=== PATIENT | female | born 1935 | race Caucasian/White ===

== ENCOUNTER 2016-07-28 14:17 | Inpatient (IN) | payer BC, OTHER ==
[~2016-07-28] VITALS: Ht 162.6 cm; Wt 79.1 kg
[~2016-07-28 14:17] MED LIST: ALBU1AER9 INH; ALIR1INJ3 INJ; ASPI81TA21 PO; ATEN-173 PO; B-COTAB18 PO; CHOL100027 PO; EPP3/2 INJ; HYDR12.56 PO; MELA1CAP9 PO; POTA1TAB97 PO; PRAM0.75 PO; SPIR25TA PO; XRL15 PO
[2016-07-28] MEDS ORDERED: ASPIRIN 81 MG CHEW PO STA (14:47)
[2016-07-28] MEDS ORDERED: NITROGLYCERIN 0.4 MG SL PER TAB CHARGE SL PRN ×2 (15:00→17:00)
--- NOTE | 2016-07-28 15:05 | DIAGNOSTIC IMAGING REPORT ---
CHEST ONE VIEW PORTABLE CLINICAL HISTORY: Chest Pain dyspnea COMPARISON STUDY: 01/25/2016 FINDINGS: Moderate very megaly stable from the prior exam. Thoracic scoliosis. Potential early parenchymal infiltrate left base. IMPRESSION: Early parenchymal infiltrate left base. Moderate stable cardiomegaly. Electronically signed by: Isai Hardy M.D. 07/28/2016 3:04 PM Dictated Date/Time: 07/28/2016 3:03 PM
[2016-07-28 15:19] LABS: BASO ABS # 0.05 K/uL (0-0.2); COMPLETE YES; EOS % 3.7 %; HEMATOCRIT 41.8 % (37-47); IG% 0.2 %; LYMPH % 36.9 %; LYMPH ABS # 1.91 K/uL (1.2-3.4); MEAN CORPUSCULAR HEMOGLOBIN 33.4 pg (25-34); MEAN CORPUSCULAR HGB CONC 35.2 g/dl (32-36); MONO % 14.5 %; NEUT % 43.7 %; PLATELET COUNT 230 K/uL (130-400); WHITE BLOOD COUNT 5.18 K/uL (4.8-10.8)
[2016-07-28 15:38] LABS: BLOOD UREA NITROGEN 16 mg/dl (7-18); BUN/CREATININE RATIO 18.8 (10-20); CALCIUM 9.3 mg/dl (8.5-10.1); CARBON DIOXIDE 29 mmol/L (21-32); CHLORIDE 105 mmol/L (98-107); CREATININE 0.84 mg/dl (0.60-1.20); GLUCOSE 168 mg/dl (70-99); POTASSIUM 3.7 mmol/L (3.5-5.1); SODIUM 142 mmol/L (136-145)
[2016-07-28 15:42] LABS: CKMB/CK RATIO 1.7 (0-3.0)
[2016-07-28 16:05] VITALS: O2SAT 98; Ht 162.6 cm; Wt 79.1 kg
[2016-07-28] MEDS ORDERED: DEXTROSE 50% 50 ML SYR IV PRN (17:00)
[2016-07-28] MEDS ORDERED: ZOLPIDEM TARTRATE 5 MG TAB PO PRN (17:00)
[2016-07-28] MEDS ORDERED: GLUCOSE 10 TABS/TUBE PO PRN (17:00)
[2016-07-28] MEDS ORDERED: GLUCAGON FOR INJ 1 MG VIAL SQ PRN (17:00)
[2016-07-28] MEDS ORDERED: GLUCOSE 40% GEL 15 GM TUBE PO PRN (17:00)
[2016-07-28] MEDS ORDERED: ONDANSETRON INJ 2 MG/ML 2 ML VIAL IV PRN (17:00)
[2016-07-28] MEDS ORDERED: NITROGLYCERIN OINT 2% 1GM PACKET ONE (17:17)
[2016-07-28 17:56] LABS: CKMB/CK RATIO 1.8 (0-3.0)
[2016-07-28 19:15] VITALS: BP 157/84; PULSE 64; TEMP 37; O2SAT 95
--- NOTE | 2016-07-28 19:52 | EMERGENCY ROOM VISIT NOTE ---
History Report prepared by Gasper: Harpreet Ramsay Under the Supervision of: Dr. Amanuel Thornton D.O. First contact with patient: 14:27 Chief Complaint: CARDIAC ASSESSMENT Stated Complaint: CHEST PAINS, NAUSEA, SOB History of Present Illness The patient is a 81 year old female who presents to the Emergency Room with complaints of persistent chest pain beginning about 5 hours ago. She describes her pain as dull, achy, and heavy, and reports the pain radiates down her left arm and up to her jaw. She locates her pain under her sternum. The patient notes having a headache, weakness, dizziness, ear pain, and back and knee pain last night. She denies having any fever, cough, abdominal pain, nausea, or vomiting. The patient reports having a history of TIAs, atrial fibrillation, and a previous SC. She currently takes Xarelto and was previously on Coumadin. She did not take any Aspirin today. She had a stress test in March of 2016 which was normal. She does have a history of a previous SC for which she follows with cardiology. Source of History: patient Onset: about 5 hours ago Position: chest Quality: ache, dull, other (heavy) Timing: other (persistent) Associated Symptoms: + back pain, + headache, + weakness, No abdominal pain , No cough, No fevers, No nausea, No vomiting Note: The patient notes having a dizziness, ear pain, and knee pain. Review of Systems See HPI for pertinent positives & negatives. A total of 10 systems reviewed and were otherwise negative. Past Medical & Surgical Medical Problems: (1) Abnormal finding on EKG (2) Alcohol intoxication (3) Alcohol intoxication (4) Alcohol intoxication (5) Chest pain radiating to upper extremity (6) Dyspnea (7) High cholesterol (8) Hypertension Nos (9) Near syncope (10) Near syncope (11) TIA (transient ischemic attack) Surgical Problems: (1) History of hysterectomy Family History Cancer FHx: heart disease Heart disease Hypertension Stroke Social History Smoking Status: Never Smoker Alcohol Use: occasionally Drug Use: none Marital Status: Housing Status: lives with family Occupation Status: retired Current/Historical Medications Scheduled Alirocumab (Praluent), Unknown Dose INJ [id number] Aspirin Enteric Coated (Ecotrin Or Generic), 81 MG PO QPM Atenolol (Tenormin), 25 MG PO QPM B-Complex Vitamins (Vitamin B Complex), 1 TAB PO QPM Cholecalciferol (Vitamin D 1000 Unit), 1,000 INTER.UNIT PO QPM Melatonin (Melatonin), 10 MG PO HS Potassium Chloride (K-Tab), 40 MEQ PO DAILY Pramipexole Dihydrochloride (Mirapex), 0.75 MG PO QPM Rivaroxaban (Xarelto), 1 TAB PO QPM Scheduled PRN Albuterol (Proair Hfa), 2 PUFFS INH Q6 PRN for Shortness of Breath Epinephrine (Epipen 2-Flaco), 0.3 MG INJ UD PRN for ALLERGIC REACTION Hydrochlorothiazide (Hctz), 12.5 MG PO DAILY PRN for Fluid Retention Allergies Coded Allergies: Bee Venom (Verified Allergy, Severe, Anaphylaxis., 07/28/16) Cephalexin (Unverified Allergy, Intermediate, RASH, 07/28/16) Cephalosporins (Verified Allergy, Unknown, KEFLEX, 07/28/16) Penicillins (Verified Allergy, Unknown, 07/28/16) Statins (Verified Allergy, Unknown, Rash, 07/28/16) Reported by PT Sulfamethoxazole w/Trimethoprim (Verified Allergy, Unknown, ANAPHYLAXIS, ) swelling Physical Exam Vital Signs Date Time Temp Pulse Resp B/P Pulse Ox O2 Delivery O2 Flow Rate FiO2 07/28/16 16:05 98 Room Air 07/28/16 15:22 79 18 123/75 98 Room Air 07/28/16 14:47 75 07/28/16 14:23 36.5 79 18 155/72 98 Room Air Physical Exam GENERAL: Sitting in bed, disheveled, alert, well appearing, well nourished, no distress, non-toxic EYE EXAM: normal conjunctiva OROPHARYNX: no exudate, no erythema, lips, buccal mucosa, and tongue normal and mucous membranes are moist NECK: supple, no nuchal rigidity, no adenopathy, non-tender CHEST: No reproducible anterior chest wall pain. LUNGS: Clear to auscultation. Normal chest wall mechanics HEART: systolic injection murmurs, S1 normal and S2 normal ABDOMEN: abdomen soft, non-tender, normo-active bowel sounds, no masses, no rebound or guarding. BACK: Back is symmetrical on inspection and there is no deformity, no midline tenderness, no CVA tenderness. SKIN: no rashes and no bruising UPPER EXTREMITIES: Radial pulses equal bilaterally. LOWER EXTREMITIES: No pitting edema. NEURO EXAM: Normal sensorium, cranial nerves II-XII grossly intact, normal speech, no gross weakness of arms, no gross weakness of legs. No drift. Finger to nose intact. Gross sensation intact. Medical Decision & Procedures ER Provider Diagnostic Interpretation: Radiology results have been interpreted by the radiologist and reviewed by me. CHEST ONE VIEW PORTABLE FINDINGS: Moderate very megaly stable from the prior exam. Thoracic scoliosis. Potential early parenchymal infiltrate left base. IMPRESSION: Early parenchymal infiltrate left base. Moderate stable cardiomegaly. Electronically signed by: Isai Hardy M.D. 07/28/2016 3:04 PM Dictated Date/Time: 07/28/2016 3:03 PM Laboratory Results 07/28/16 15:05 Red Blood Count 4.40, Mean Corpuscular Volume 95.0, Mean Corpuscular Hemoglobin 33.4, Mean Corpuscular Hemoglobin Concent 35.2, Mean Platelet Volume 9.0, Neutrophils (%) (Auto) 43.7, Lymphocytes (%) (Auto) 36.9, Monocytes (%) (Auto) 14.5, Eosinophils (%) (Auto) 3.7, Basophils (%) (Auto) 1.0, Neutrophils # (Auto ) 2.27, Lymphocytes # (Auto) 1.91, Monocytes # (Auto) 0.75, Eosinophils # (Auto ) 0.19, Basophils # (Auto) 0.05 07/28/16 15:05 Test 07/28/16 15:05 White Blood Count 5.18 K/uL (4.8-10.8) Red Blood Count 4.40 M/uL (4.2-5.4) Hemoglobin 14.7 g/dL (12.0-16.0) Hematocrit 41.8 % (37-47) Mean Corpuscular Volume 95.0 fL (80-100) Mean Corpuscular Hemoglobin 33.4 pg (25-34) Mean Corpuscular Hemoglobin Concent 35.2 g/dl (32-36) Platelet Count 230 K/uL (130-400) Mean Platelet Volume 9.0 fL (7.4-10.4) Neutrophils (%) (Auto) 43.7 % Lymphocytes (%) (Auto) 36.9 % Monocytes (%) (Auto) 14.5 % Eosinophils (%) (Auto) 3.7 % Basophils (%) (Auto) 1.0 % Neutrophils # (Auto) 2.27 K/uL (1.4-6.5) Lymphocytes # (Auto) 1.91 K/uL (1.2-3.4) Monocytes # (Auto) 0.75 K/uL (0.11-0.59) Eosinophils # (Auto) 0.19 K/uL (0-0.5) Basophils # (Auto) 0.05 K/uL (0-0.2) RDW Standard Deviation 43.5 fL (36.4-46.3) RDW Coefficient of Variation 12.6 % (11.5-14.5) Immature Granulocyte % (Auto) 0.2 % Immature Granulocyte # (Auto) 0.01 K/uL (0.00-0.02) Anion Gap 8.0 mmol/L (3-11) Est Creatinine Clear Calc Drug Dose 55.3 ml/min Estimated GFR () 76.6 Estimated GFR (Non- 66.1 BUN/Creatinine Ratio 18.8 (10-20) Calcium Level 9.3 mg/dl (8.5-10.1) Laboratory results per my review. Medications Administered Medications (Trade) Dose Ordered Sig/Shaquille Route Start Time Stop Time Status Last Admin Dose Admin Aspirin (Aspirin Chew) 324 mg NOW STAT PO 07/28/16 14:47 07/28/16 14:48 DC 07/28/16 15:12 324 MG Nitroglycerin (Nitrostat Tab) 0.4 mg Q5M PRN SL 07/28/16 15:00 07/28/16 19:20 DC 07/28/16 15:13 0.4 MG ECG Indication: chest pain Rate (beats per minute): 75 Rhythm: sinus rhythm Findings: nonspecific-ST abn (Inferior), no ectopy Comparison ECG Date: 10/19/15 Change: ST change is new. ED Course ED COURSE: Vital signs were reviewed and showed hypertensive. The patients medical record was reviewed The above diagnostic studies were performed and reviewed. ED treatments and interventions as stated above. 1431: The patient was evaluated in room C8. A complete history and physical examination was performed. 1447: Ordered Aspirin 324 mg PO. 1500: Ordered Nitroglycerin 0.4 mg SL. 1535: I reassessed the patient and her chest pain resolved after giving 1 nitro. 1635: I reviewed the patient's case with Dr. Singh. He will evaluate the patient for further management. 1640: Upon reevaluation, the patient is doing well.I discussed my findings with the patient and she understands and agrees with the treatment plan. Based on the patients age, coexisting illnesses, exam and lab findings the decision to treat as an inpatient was made. The patient remained stable while under my care. The patient will be evaluated for further management. Medical Decision Differential diagnoses includes but is not limited to acute coronary syndrome, myocardial infarction, pericarditis, pulmonary embolus, aortic dissection, pneumonia, pneumothorax, musculoskeletal, shingles, esophageal. Patient is a 81-year-old female that presents to the ER for chest pain which started around 9:30 this morning. Pain radiated up into the jaw and down her left arm and associated with shortness of breath. On presentation her EKG showed slight new ST depressions in the inferior leads. She is given nitroglycerin and aspirin with complete resolution of her pain. Pain was described as a heaviness. She does have a history of previous SC per patient. Chest x-ray showed infiltrate versus atelectasis in left lower lobe. Patient admits to an intermittent cough but she does not have a significant URI symptoms. No fever. No leukocytosis. I do not believe that this is infectious but rather likely atelectasis. I did not elect to treat this rather admitted patient for chest pain rule out. Consults Time Called: 1630 Consulting Physician: Dr. Singh, [facility] Returned Call: 1635 I reviewed the patient's case with Dr. Singh. He will evaluate the patient for further management. Impression Primary Impression: Precordial chest pain Scribe Attestation The scribe's documentation has been prepared under my direction and personally reviewed by me in its entirety. I confirm that the note above accurately reflects all work, treatment, procedures, and medical decision making performed by me. Departure Information Dispostion Being Evaluated By Hospitalist Gerardo Stone M.D. (PCP) Patient Instructions My [facility]
--- NOTE | 2016-07-28 20:20 | History and Physical ---
History & Physical Date & Time of Service: Jul 28, 2016 at 20:11 Chief Complaint: Abnormal Findin On Ekg; Chest Pain Radiating Primary Care Physician: Gerardo Oseguera M.D. History of Present Illness Source: patient The patient is a 81-year-old female presents emergency department with precordial chest pain that radiated to her left sided neck and left arm began about 5 hours prior to arrival. Her symptoms began with a headache, weakness, dizziness and back and knee pain last evening. She does have a history of TIAs , atrial fibrillation and a previous [facility], and is currently taking Xarelto as directed. She does take aspirin daily except today. She did have a normal stress test March 2016. When the symptoms developed last evening, she did notice the need to defecate, then a second time an hour later. She has not had any blood in stool or urine, she has no signs of upper respiratory infection. Past Medical/Surgical History Medical Problems: (1) Alcohol intoxication Status: Resolved (2) Alcohol intoxication Status: Resolved (3) Alcohol intoxication Status: Resolved (4) Dyspnea Status: Resolved (5) High cholesterol Status: Chronic (6) Hypertension Nos Status: Chronic (7) Near syncope Status: Resolved (8) Near syncope Status: Resolved (9) TIA (transient ischemic attack) Status: Resolved Surgical Problems: (1) History of hysterectomy Status: Resolved Family History Cancer FHx: heart disease Heart disease Hypertension Stroke Social History Smoking Status: Never Smoker Smokeless Tobacco Use: No Alcohol Use: none Drug Use: none Marital Status: Housing status: lives with family Occupational Status: retired Immunizations History of Influenza Vaccine: Yes Influenza Vaccine Date: Mar 14, 2009 History of Tetanus Vaccine?: Yes History of Pneumococcal: Yes Pneumococcal Date: May 13, 2007 History of Hepatitis B Vaccine: Unknown Hepatitis Immunization Date: Aug 19, 2005 Multi-Drug Resistant Organisms History of MDRO: No Allergies Coded Allergies: Bee Venom (Verified Allergy, Severe, Anaphylaxis., 07/28/16) Cephalexin (Unverified Allergy, Intermediate, RASH, 07/28/16) Cephalosporins (Verified Allergy, Unknown, KEFLEX, 07/28/16) Penicillins (Verified Allergy, Unknown, 07/28/16) Statins (Verified Allergy, Unknown, Rash, 07/28/16) Reported by PT Sulfamethoxazole w/Trimethoprim (Verified Allergy, Unknown, ANAPHYLAXIS, ) swelling Home Medications Scheduled Alirocumab (Praluent), Unknown Dose INJ [id number] Aspirin Enteric Coated (Ecotrin Or Generic), 81 MG PO QPM Atenolol (Tenormin), 25 MG PO QPM B-Complex Vitamins (Vitamin B Complex), 1 TAB PO QPM Cholecalciferol (Vitamin D 1000 Unit), 1,000 INTER.UNIT PO QPM Melatonin (Melatonin), 10 MG PO HS Potassium Chloride (K-Tab), 40 MEQ PO DAILY Pramipexole Dihydrochloride (Mirapex), 0.75 MG PO QPM Rivaroxaban (Xarelto), 1 TAB PO QPM Scheduled PRN Albuterol (Proair Hfa), 2 PUFFS INH Q6 PRN for Shortness of Breath Epinephrine (Epipen 2-Flaco), 0.3 MG INJ UD PRN for ALLERGIC REACTION Hydrochlorothiazide (Hctz), 12.5 MG PO DAILY PRN for Fluid Retention Review of Systems The patient denies lower extremity swelling, vision change, hearing change, sore throat, fevers, chills, sweats, pelvic pain, blood in urine or stool, dysuria, urinary frequency or urgency, memory loss, rash, abnormal bruising or bleeding, imbalance, focaL weakness, numbness or tingling in arms or legs, neck pain, night sweats. The review of systems is otherwise negative other than for that already noted above, and at least 10 systems have been reviewed. Physical Exam Vital Signs Date Time Temp Pulse Resp B/P Pulse Ox O2 Delivery O2 Flow Rate FiO2 07/28/16 18:29 61 18 137/87 96 Room Air 07/28/16 17:09 66 18 153/79 98 Room Air 07/28/16 16:05 98 Room Air 07/28/16 15:22 79 18 123/75 98 Room Air 07/28/16 14:47 75 07/28/16 14:23 36.5 79 18 155/72 98 Room Air The patient is awake, well-developed and adequately nourished, alert and oriented 3, normocephalic and atraumatic, lying in bed and in no acute distress. HEENT--PERRL, EOMI, mucous membranes and oropharynx dry. Neck--supple, no JVD or bruits, thyroid normal, trachea midline, no adenopathy. Heart--normal S1 and S2, no extra beats, no murmurs, rubs or gallops. Lungs--clear bilaterally with good air movement, no respiratory distress, no accessory muscle use. Abdomen--normal bowel sounds and soft, nontender and nondistended, no hernias or masses, no organomegaly. Extremities--no cyanosis, clubbing or edema. There are good distal pulses b/l. Dermatologic--normal skin turgor, normal color, warm and dry, no abnormal lymph nodes, no rash. Neurologic--cranial nerves II through XII grossly intact, motor and sensory examination normal. Rheumatologic--normal range of motion, nontender, muscles and joints. Psychiatric--normal affect. Diagnostics Laboratory Results Results Past 24 Hours Test 07/28/16 15:05 07/28/16 17:22 Range/Units White Blood Count 5.18 4.8-10.8 K/uL Red Blood Count 4.40 4.2-5.4 M/uL Hemoglobin 14.7 12.0-16.0 g/dL Hematocrit 41.8 37-47 % Mean Corpuscular Volume 95.0 80-100 fL Mean Corpuscular Hemoglobin 33.4 25-34 pg Mean Corpuscular Hemoglobin Concent 35.2 32-36 g/dl Platelet Count 230 130-400 K/uL Mean Platelet Volume 9.0 7.4-10.4 fL Neutrophils (%) (Auto) 43.7 % Lymphocytes (%) (Auto) 36.9 % Monocytes (%) (Auto) 14.5 % Eosinophils (%) (Auto) 3.7 % Basophils (%) (Auto) 1.0 % Neutrophils # (Auto) 2.27 1.4-6.5 K/uL Lymphocytes # (Auto) 1.91 1.2-3.4 K/uL Monocytes # (Auto) 0.75 0.11-0.59 K/uL Eosinophils # (Auto) 0.19 0-0.5 K/uL Basophils # (Auto) 0.05 0-0.2 K/uL RDW Standard Deviation 43.5 36.4-46.3 fL RDW Coefficient of Variation 12.6 11.5-14.5 % Immature Granulocyte % (Auto) 0.2 % Immature Granulocyte # (Auto) 0.01 0.00-0.02 K/uL Sodium Level 142 136-145 mmol/L Potassium Level 3.7 3.5-5.1 mmol/L Chloride Level 105 98-107 mmol/L Carbon Dioxide Level 29 21-32 mmol/L Anion Gap 8.0 3-11 mmol/L Blood Urea Nitrogen 16 7-18 mg/dl Creatinine 0.84 0.60-1.20 mg/dl Est Creatinine Clear Calc Drug Dose 55.3 ml/min Estimated GFR () 76.6 Estimated GFR (Non- 66.1 BUN/Creatinine Ratio 18.8 10-20 Random Glucose 168 70-99 mg/dl Calcium Level 9.3 8.5-10.1 mg/dl Total Creatine Kinase 88 73 26-192 U/L Creatine Kinase MB 1.5 1.3 0.5-3.6 ng/ml Creatine Kinase MB Ratio 1.7 1.8 0-3.0 Troponin I < 0.015 < 0.015 0-0.045 ng/ml Diagnostic Radiology Patient Name: JOANNE THURMAN Unit Number: [id number] Dictated: 07/28/16 1503 Transcribed: 07/28/16 1503 MS Printed Date/Time: [~ rep prt dt]/[~ rep prt tm] [~ rep ct labl] - [~ rep ct ivnm] [facility] [place] [address] Dictated: 07/28/16 1503 Transcribed: 07/28/16 1503 MS Printed Date/Time: [~ rep prt dt]/[~ rep prt tm] [~ rep ct labl] - [~ rep ct ivnm] CHEST ONE VIEW PORTABLE CLINICAL HISTORY: Chest Pain dyspnea COMPARISON STUDY: 01/25/2016 FINDINGS: Moderate very megaly stable from the prior exam. Thoracic scoliosis. Potential early parenchymal infiltrate left base. IMPRESSION: Early parenchymal infiltrate left base. Moderate stable cardiomegaly. Electronically signed by: Isai Hardy M.D. 07/28/2016 3:04 PM Dictated Date/Time: 07/28/2016 3:03 PM The status of this report is Signed. Draft = Not yet reviewed or approved by Radiologist. Signed = Reviewed and approved by Radiologist. <AttendingPhy></AttendingPhy> <FamilyPhy>Gerardo Oseguera M.D.</FamilyPhy> < PrimaryPhy>Gerardo Oseguera M.D.</PrimaryPhy> <UnitNumber>[id number]</ UnitNumber> <VisitNumber>[id number]</VisitNumber> <PatientName>JOANNE THURMAN</ PatientName> <DateOfBirth>1935</DateOfBirth> <Location>[facility]</Location> < ServiceDate>07/28/16</ServiceDate> <MNE>ESINDI</MNE> <OrderingPhy>Amanuel Thornton DO</OrderingPhy> <OrderingPhyMNE>f rep ord dr brock</OrderingPhyMNE> < DictatingPhyMNE>f rep dict dr brock</DictatingPhyMNE> <CCListMNE>f rep ct aubreye</ CCListMNE> <AdmittingPhyMNE>f pt admit dr brock</AdmittingPhyMNE> <AttendingPhyMNE >f pt attend dr brock</AttendingPhyMNE> <ConsultingPhyMNE>f pt consult dr brock</ConsultingPhyMNE> <FamilyPhyMNE>f pt fam dr brock</FamilyPhyMNE> <OtherPhyMNE>f pt other dr brock</OtherPhyMNE> < PrimaryPhyMNE>f pt prim care dr brock</PrimaryPhyMNE> <ReferringPhyMNE>f pt referring dr brock</ReferringPhyMNE> EKG EKG shows normal sinus rhythm with sinus arrhythmia at 75 bpm, ST depressions inferiorly that are new compared to 10/29/2015. Impression Assessment and Plan CAD/hypertension/Precordial chest pain with radiation to jaw and left arm with early EKG changes inferiorly--patient will be admitted to the telemetry unit, for serial cardiac enzymes, cardiac rhythm monitoring and a 2-D echocardiogram with Dopplers. We'll consult her ophthalmic photographer Dr. Thomason. Of note, she does have an internal recorder for one and one-half months which has not been checked yet. Continue aspirin 81 mg by mouth daily, atenolol 25 mg by mouth daily, potassium chloride 40 mEq by mouth daily, Xarelto daily and add Nitropaste 1 inch anterior chest wall every 6 hours. Restless leg syndrome--continue Mirapex 0.75 mg by mouth every afternoon. Hyperglycemia--does not have a history of diabetes--we'll place on acuchecks before meals and at bedtime with NovoLog coverage, and check hemoglobin A1c. Insomnia--continue melatonin 10 mg by mouth at bedtime. Level of Care Telemetry Advanced Directives Existing Advance Directive: No Existing Living Will: Yes Existing Power of Certified Alcohol Drug Counselor: Yes Resuscitation Status FULL RESUSCITATION VTE Prophylaxis VTE Risk Assessment Done? Y/N: Yes Risk Level: Moderate Given or contraindicated: Other Anticoagulation (Xarelto)
[2016-07-28] MEDS ORDERED: INFLUENZA VIRUS QUAD VACCINE 0.5 ML SYR IM. ONE (20:30)
[2016-07-28] MEDS ORDERED: INFLUENZA ADMINISTRATION CHARGE ONE (20:30)
[2016-07-28 20:44] VITALS: PULSE 73; O2SAT 96
[2016-07-28] MEDS: IPRATROPIUM BROMIDE NEB SOLN 0.02% 2.5 ML VIAL INH SCH (20:44)
[2016-07-28] MEDS: LEVALBUTEROL 1.25MG/0.5ML NEB INH SCH (20:44)
[2016-07-28] MEDS ORDERED: RIVAROXABAN TAB 15 MG TAB PO SCH (21:00)
[2016-07-28] MEDS ORDERED: ASPIRIN 81 MG ECTAB PO SCH (21:00)
[2016-07-28] MEDS ORDERED: MELATONIN 10 MG PO SCH (21:00)
[2016-07-28] MEDS ORDERED: CHOLECALCIFEROL 1000 INTER.UNIT TAB PO SCH (21:00)
[2016-07-28] MEDS: INSULIN ASPART 100 UNITS/ML 3 ML PEN SC SCH (21:00)
[2016-07-28] MEDS ORDERED: LEVALBUTEROL/IPRATROPIUM NEB INH SCH (21:00)
[2016-07-28] MEDS ORDERED: PRAMIPEXOLE DIHYDROCHLORIDE 0.5 MG TAB PO SCH (21:00)
[2016-07-29] VITALS (8 sets, daily range): BP systolic 108–129; BP diastolic 65–84; PULSE 56–67; TEMP 36.5–37; O2SAT 91–97
[2016-07-29] MEDS: NITROGLYCERIN OINT 2% 1GM PACKET EXT SCH ×2 (00:32→06:26)
[2016-07-29 01:45] LABS: CKMB/CK RATIO 1.6 (0-3.0)
[2016-07-29] MEDS: IPRATROPIUM BROMIDE NEB SOLN 0.02% 2.5 ML VIAL INH SCH ×3 (02:03→14:09)
[2016-07-29] MEDS: LEVALBUTEROL 1.25MG/0.5ML NEB INH SCH ×3 (02:03→14:09)
[2016-07-29] MEDS: ACETAMINOPHEN 325 MG TAB PO PRN ×2 (04:15→09:07)
[2016-07-29 07:38] LABS: BASO % 1.5 %; BASO ABS # 0.07 K/uL (0-0.2); COMPLETE YES; EOS % 7.1 %; HEMATOCRIT 37.9 % (37-47); IG% 0.2 %; LYMPH % 41.5 %; LYMPH ABS # 1.98 K/uL (1.2-3.4); MEAN CORPUSCULAR HEMOGLOBIN 33.1 pg (25-34); MEAN CORPUSCULAR HGB CONC 34.8 g/dl (32-36); MEAN PLATELET VOLUME 8.9 fL (7.4-10.4); MONO % 14.5 %; NEUT % 35.2 %; PLATELET COUNT 207 K/uL (130-400); RED BLOOD COUNT 3.99 M/uL (4.2-5.4); WHITE BLOOD COUNT 4.77 K/uL (4.8-10.8)
[2016-07-29] MEDS: INSULIN ASPART 100 UNITS/ML 3 ML PEN SC SCH ×2 (07:45→11:44)
[2016-07-29 07:46] LABS: INR 1.2 (0.9-1.1); PARTIAL THROMBOPLASTIN RATIO 1.1; PROTHROMBIN TIME (PATIENT) 13.2 SECONDS (9.0-12.0)
[2016-07-29 08:07] LABS: BUN/CREATININE RATIO 17.7 (10-20); CALCIUM 8.6 mg/dl (8.5-10.1); CREATININE 0.71 mg/dl (0.60-1.20); MAGNESIUM 2.2 mg/dl (1.8-2.4); POTASSIUM 3.5 mmol/L (3.5-5.1)
[2016-07-29 08:10] LABS: CHOLESTEROL/HDL RATIO 2.3
[2016-07-29] MEDS ORDERED: VITAMIN B COMPLEX TAB PO SCH (09:00)
[2016-07-29] MEDS ORDERED: ASPIRIN 81 MG ECTAB PO SCH (09:00)
[2016-07-29 09:49] LABS: CKMB/CK RATIO 1.5 (0-3.0)
--- NOTE | 2016-07-29 10:51 | ECHOCARDIOGRAM REPORT ---
*NOTICE TO RECEIVING REPUBLICAN AGENCY This information is strictly Confidential and protected under [place] law. [place] law prohibits you from making any further disclosure of this information unless further disclosure is expressly permitted by the written consent of the person to whom it pertains or is authorized by law. A general authorization for the release of medical or other information is not sufficient for this purpose. Hospital accepts no responsibility if the information is made available to any other person, INCLUDING THE PATIENT. Interpretation Summary * Name: JOANNE THURMAN Study Date: 07/29/2016 06:31 AM BP: 118/76 mmHg * Patient Location: C.2T\S\S242\S\2 HR: 65 * : 1935 (M/d/yyyy) Gender: Female Height: 64 in * Age: 81 yrs Ethnicity: CA Weight: 174 lb * Ordering Physician: Ruben Singh * Performed By: Beth Balbuena * * Reason For Study: CHEST PAIN * BSA: 1.8 m2 * -- Conclusions -- * There is borderline concentric left ventricular hypertrophy. * Left ventricular systolic function is normal. * Grade I diastolic dysfunction, (abnormal relaxation pattern). * Right ventricular systolic pressure is normal. 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 Image quality was not sufficient for evaluation on this study. Procedure Details * A complete two-dimensional transthoracic echocardiogram was performed (2D, M-mode, Doppler and color flow Doppler). * The study was technically adequate. Left Ventricle * The left ventricle is normal in size. * There is borderline concentric left ventricular hypertrophy. * Ejection Fraction = 55-60%. * Left ventricular systolic function is normal. * Grade I diastolic dysfunction, (abnormal relaxation pattern). Right Ventricle * The right ventricle is grossly normal size. * The right ventricular systolic function is normal as assessed by tricuspid annular plane systolic excursion (TAPSE) (normal >1.5 cm). Atria * The left atrial size is normal. * Right atrial size is normal. * There is no evidence of atrial septal defect, but resolution does not allow assessment for a patent foramen ovale. Mitral Valve * There is mild mitral annular calcification. * SOme calcification of the mitral apparatus * There is trace mitral regurgitation. Tricuspid Valve * The tricuspid valve is not well visualized, but is grossly normal. * There is mild tricuspid regurgitation. * Right ventricular systolic pressure is normal. Aortic Valve * Aortic valve sclerosis moderate, without significant aortic valvular stenosis. * No hemodynamically significant valvular aortic stenosis. * No aortic regurgitation is present. Great Vessels * The aortic root and proximal ascending aorta are normal sized. Pericardium/Pleural * There is no pericardial effusion. MMode 2D Measurements and Calculations IVSd 1.2 cm IVSs 1.5 cm LVIDd 3.7 cm LVIDs 2.6 cm LVPWd 0.93 cm LVPWs 1.5 cm IVS/LVPW 1.3 FS 29.3 % EDV(Teich) 57.1 ml ESV(Teich) 24.5 ml EF(Teich) 57.0 % EDV(cubed) 49.5 ml ESV(cubed) 17.5 ml EF(cubed) 64.6 % % IVS thick 26.8 % % LVPW thick 63.1 % LV mass(C)d 121.7 grams LV mass(C)dI 66.0 grams/m\S\2 LV mass(C)s 134.6 grams LV mass(C)sI 73.0 grams/m\S\2 SV(Teich) 32.5 ml SI(Teich) 17.6 ml/m\S\2 SV(cubed) 32.0 ml SI(cubed) 17.3 ml/m\S\2 ACS 0.74 cm LA dimension 3.6 cm asc Aorta Diam 3.6 cm LVOT diam 1.9 cm LVOT area 2.9 cm\S\2 LVAd ap4 23.6 cm\S\2 LVLd ap4 6.2 cm EDV(MOD-sp4) 71.8 ml EDV(sp4-el) 76.7 ml LVAs ap4 13.2 cm\S\2 LVLs ap4 5.1 cm ESV(MOD-sp4) 27.9 ml ESV(sp4-el) 28.7 ml EF(MOD-sp4) 61.2 % EF(sp4-el) 62.5 % LVAd ap2 21.5 cm\S\2 LVLd ap2 7.4 cm EDV(MOD-sp2) 51.9 ml EDV(sp2-el) 52.8 ml LVAs ap2 11.8 cm\S\2 LVLs ap2 5.5 cm ESV(MOD-sp2) 21.1 ml ESV(sp2-el) 21.2 ml EF(MOD-sp2) 59.4 % EF(sp2-el) 60.0 % LVLd %diff 16.4 % EDV(MOD-bp) 63.7 ml LVLs %diff 7.3 % ESV(MOD-bp) 25.0 ml EF(MOD-bp) 60.8 % SV(MOD-sp4) 44.0 ml SI(MOD-sp4) 23.9 ml/m\S\2 SV(MOD-sp2) 30.8 ml SI(MOD-sp2) 16.7 ml/m\S\2 SV(MOD-bp) 38.8 ml SI(MOD-bp) 21.0 ml/m\S\2 SV(sp4-el) 47.9 ml SI(sp4-el) 26.0 ml/m\S\2 SV(sp2-el) 31.7 ml SI(sp2-el) 17.2 ml/m\S\2 Doppler Measurements and Calculations MV E max gabby 91.7 cm/sec MV A max gabby 103.5 cm/sec MV E/A 0.89 MV dec time 0.34 sec Ao V2 max 153.0 cm/sec Ao max PG 9.4 mmHg Ao max PG (full) 3.2 mmHg SONNY(V,A) 2.4 cm\S\2 SONNY(V,D) 2.4 cm\S\2 LV V1 max PG 6.2 mmHg LV V1 max 124.0 cm/sec PA V2 max 74.4 cm/sec PA max PG 2.2 mmHg TR max gabby 224.8 cm/sec
--- NOTE | 2016-07-29 12:46 | Progress Note ---
Subjective Date of Service: Jul 29, 2016. Subjective Pt evaluation today including: conversation w/ patient, physical exam, lab review, review of studies, review of inpatient medication list No chest pain, no sob. No further precordial discomfort. Dr. Gutiérrez did check her loop recorder. Though she activated the recorder at time of event, no evidence of recording was found and no arrhythmias seen. She does have very occasionally episodes of coughing fits sometimes when she eats, sometimes no real trigger. 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 Problem List Medical Problems: (1) Dislocation of right shoulder joint Status: Acute (2) High cholesterol Status: Chronic (3) Hypertension Nos Status: Chronic (4) Precordial chest pain Status: Acute Review of Systems All Other Systems: Reviewed and Negative Medications Acetaminophen (Tylenol Tab) 650 mg Q4H PRN PO Last administered on 07/29/16 09:07; Admin Dose 650 MG; Start 07/28/16 at 17:00; Stop 08/27/16 at 16:59 Aspirin (Ecotrin Tab) 81 mg QAM PO Last administered on 07/29/16 09:04; Admin Dose 81 MG; Start 07/29/16 at 09:00; Stop 08/28/16 at 08:59 Atenolol (Tenormin Tab) 25 mg QPM PO Last administered on 07/28/16 21:06; Admin Dose 25 MG; Start 07/28/16 at 21:00; Stop 08/27/16 at 20:59 Cholecalciferol (Vitamin D Tab) 1,000 inter.unit QPM PO Last administered on 21:06; Admin Dose 1,000 INTER.UNIT; Start 07/28/16 at 21:00; Stop at 20:59 Ipratropium [place] (Atrovent 0.02% 0.5MG/2.5ML Neb) 0.5 mg Q6R INH Last administered on 07/29/16 07:22; Admin Dose 0.5 MG; Start 07/28/16 at 21:00; Stop 08/27/16 at 20:59 Levalbuterol (Xopenex 1.25MG/ 0.5ML Neb) 1.25 mg Q6R INH Last administered on 07:22; Admin Dose 1.25 MG; Start 07/28/16 at 21:00; Stop 08/27/16 at 20: 59 Nitroglycerin (Nitrostat Tab) 0.4 mg UD PRN SL; Start 07/28/16 at 17:00; Stop 08/27/16 at 16:59 Ondansetron HCl (Zofran Inj) 4 mg Q6H PRN IV; Start 07/28/16 at 17:00; Stop at 16:59 Pramipexole Dihydrochloride (miraPEX TAB) 0.75 mg HS PO Last administered on 21:06; Admin Dose 0.75 MG; Start 07/28/16 at 21:00; Stop 08/27/16 at 20: 59 Rivaroxaban (Xarelto Tab) 15 mg QPM PO Last administered on 07/28/16 21:06; Admin Dose 15 MG; Start 07/28/16 at 21:00; Stop 08/27/16 at 20:59 Vitamin B Complex (Vitamin B Complex) 1 tab QAM PO Last administered on 09:04; Admin Dose 1 TAB; Start 07/29/16 at 09:00; Stop 08/28/16 at 08:59 Zolpidem Tartrate (Ambien Tab) 5 mg HSZ PRN PO; Start 07/28/16 at 17:00; Stop 08/27/16 at 16:59 Objective Vital Signs Date Time Temp Pulse Resp B/P Pulse Ox O2 Delivery O2 Flow Rate FiO2 07/29/16 11:51 37.0 64 16 126/80 91 07/29/16 09:10 67 108/65 07/29/16 08:00 95 Room Air 07/29/16 07:24 36.7 56 16 111/66 95 07/29/16 07:22 56 16 97 Room Air 07/29/16 04:00 Room Air 07/29/16 04:00 36.6 65 18 118/76 95 Room Air 07/29/16 00:01 36.5 61 18 129/84 94 Room Air 07/29/16 00:00 Room Air 07/28/16 20:44 73 14 96 Room Air 07/28/16 20:00 Room Air 07/28/16 20:00 Room Air 3/18/17 19:15 37.0 64 18 157/84 95 Room Air 07/28/16 18:29 61 18 137/87 96 Room Air 07/28/16 17:09 66 18 153/79 98 Room Air 07/28/16 16:05 98 Room Air 07/28/16 15:22 79 18 123/75 98 Room Air 07/28/16 14:47 75 07/28/16 14:23 36.5 79 18 155/72 98 Room Air Physical Exam Comments: nad, aox3 eomi, perrl, anicteric, scoliosis noted s1 s2 rrr, no murmurs appreciated no wheezing noted, left base crackles noted which resolved with coughing, otherwise, no rhonchi abd soft nt/nd +BS no LE edema cn 2-12 grossly intact Laboratory Results Last 24 Hours Test 07/28/16 15:05 07/28/16 17:22 07/28/16 20:16 07/29/16 00:57 White Blood Count 5.18 K/uL Red Blood Count 4.40 M/uL Hemoglobin 14.7 g/dL Hematocrit 41.8 % Mean Corpuscular Volume 95.0 fL Mean Corpuscular Hemoglobin 33.4 pg Mean Corpuscular Hemoglobin Concent 35.2 g/dl Platelet Count 230 K/uL Mean Platelet Volume 9.0 fL Neutrophils (%) (Auto) 43.7 % Lymphocytes (%) (Auto) 36.9 % Monocytes (%) (Auto) 14.5 % Eosinophils (%) (Auto) 3.7 % Basophils (%) (Auto) 1.0 % Neutrophils # (Auto) 2.27 K/uL Lymphocytes # (Auto) 1.91 K/uL Monocytes # (Auto) 0.75 K/uL Eosinophils # (Auto) 0.19 K/uL Basophils # (Auto) 0.05 K/uL RDW Standard Deviation 43.5 fL RDW Coefficient of Variation 12.6 % Immature Granulocyte % (Auto) 0.2 % Immature Granulocyte # (Auto) 0.01 K/uL Sodium Level 142 mmol/L Potassium Level 3.7 mmol/L Chloride Level 105 mmol/L Carbon Dioxide Level 29 mmol/L Anion Gap 8.0 mmol/L Blood Urea Nitrogen 16 mg/dl Creatinine 0.84 mg/dl Est Creatinine Clear Calc Drug Dose 55.3 ml/min Estimated GFR () 76.6 Estimated GFR (Non- 66.1 BUN/Creatinine Ratio 18.8 Random Glucose 168 mg/dl Calcium Level 9.3 mg/dl Total Creatine Kinase 88 U/L 73 U/L 64 U/L Creatine Kinase MB 1.5 ng/ml 1.3 ng/ml 1.0 ng/ml Creatine Kinase MB Ratio 1.7 1.8 1.6 Troponin I < 0.015 ng/ml < 0.015 ng/ml < 0.015 ng/ml Bedside Glucose 128 mg/dl Test 07/29/16 06:44 07/29/16 07:25 07/29/16 09:13 07/29/16 11:15 Bedside Glucose 88 mg/dl 95 mg/dl White Blood Count 4.77 K/uL Red Blood Count 3.99 M/uL Hemoglobin 13.2 g/dL Hematocrit 37.9 % Mean Corpuscular Volume 95.0 fL Mean Corpuscular Hemoglobin 33.1 pg Mean Corpuscular Hemoglobin Concent 34.8 g/dl Platelet Count 207 K/uL Mean Platelet Volume 8.9 fL Neutrophils (%) (Auto) 35.2 % Lymphocytes (%) (Auto) 41.5 % Monocytes (%) (Auto) 14.5 % Eosinophils (%) (Auto) 7.1 % Basophils (%) (Auto) 1.5 % Neutrophils # (Auto) 1.68 K/uL Lymphocytes # (Auto) 1.98 K/uL Monocytes # (Auto) 0.69 K/uL Eosinophils # (Auto) 0.34 K/uL Basophils # (Auto) 0.07 K/uL RDW Standard Deviation 43.9 fL RDW Coefficient of Variation 12.6 % Immature Granulocyte % (Auto) 0.2 % Immature Granulocyte # (Auto) 0.01 K/uL Prothrombin Time 13.2 SECONDS Prothromb Time International Ratio 1.2 Activated Partial Thromboplast Time 28.9 SECONDS Partial Thromboplastin Ratio 1.1 Sodium Level 143 mmol/L Potassium Level 3.5 mmol/L Chloride Level 108 mmol/L Carbon Dioxide Level 24 mmol/L Anion Gap 11.0 mmol/L Blood Urea Nitrogen 13 mg/dl Creatinine 0.71 mg/dl Est Creatinine Clear Calc Drug Dose 65.4 ml/min Estimated GFR () 93.9 Estimated GFR (Non- 81.0 BUN/Creatinine Ratio 17.7 Random Glucose 92 mg/dl Calcium Level 8.6 mg/dl Magnesium Level 2.2 mg/dl Triglycerides Level 79 mg/dl Cholesterol Level 204 mg/dl HDL Cholesterol 87 mg/dl LDL Cholesterol, Calculated 101 mg/dl VLDL Cholesterol, Calculated 16 mg/dl Cholesterol/HDL Ratio 2.3 Total Creatine Kinase 55 U/L Creatine Kinase MB 0.8 ng/ml Creatine Kinase MB Ratio 1.5 Troponin I < 0.015 ng/ml Interpretation Summary * Name: JOANNE THURMAN Study Date: 07/29/2016 06:31 AM BP: 118/76 mmHg * Patient Location: C.2T\S\S242\S\2 HR: 65 * : 1935 (M/d/yyy) Gender: Female Height: 64 in * Age: 81 yrs Ethnicity: [place] Weight: 174 lb * Ordering Physician: Ruben Singh * Performed By: Beth Balbuena * * Reason For Study: CHEST PAIN * BSA: 1.8 m2 * -- Conclusions -- * There is borderline concentric left ventricular hypertrophy. * Left ventricular systolic function is normal. * Grade I diastolic dysfunction, (abnormal relaxation pattern). * Right ventricular systolic pressure is normal. 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 Image quality was not sufficient for evaluation on this study. Procedure Details * A complete two-dimensional transthoracic echocardiogram was performed (2D, M-mode, Doppler and color flow Doppler). * The study was technically adequate. Left Ventricle * The left ventricle is normal in size. * There is borderline concentric left ventricular hypertrophy. * Ejection Fraction = 55-60%. * Left ventricular systolic function is normal. * Grade I diastolic dysfunction, (abnormal relaxation pattern). Right Ventricle * The right ventricle is grossly normal size. * The right ventricular systolic function is normal as assessed by tricuspid annular plane systolic excursion (TAPSE) (normal >1.5 cm). Assessment and Plan 1. Atypical chest pain - ruled out for DC with no MICHAEL on EKG and negative troponins - loop recorder without any events/arrhythmia recorded at time of event per discussion with Dr. Gutiérrez - will discharge 2. Left basilar abnormality - likely atelectasis due to scoliosis - she was also advised to follow-up with PCP for possible swallowing evaluation if coughing during meals occurs more frequently 3. Afib - unclear if she really does have afib - no documented afib per Dr. Gutiérrez - will need to follow-up with platform loader regarding full loop recorder results and further need for anticoagulation will be determined then
--- NOTE | 2016-07-29 14:04 | CARDIOLOGY CONSULTATION ---
DATE OF CONSULTATION: 07/29/2016 DATE OF CONSULTATION: 07/29/2016. REFERRING PHYSICIAN: Dr. Ruben Singh. HISTORY OF PRESENT ILLNESS: Mrs. Ena Salinas is a 81-year-old woman without a known history of coronary disease who experienced an unusual episode yesterday while eating breakfast. The patient states that shortly after eating she experienced the acute onset of fatigue, some dizziness, mild abdominal discomfort, nausea and diaphoresis. Her helped her back to the bed but her symptoms persisted for several hours. During this time, they waxed and waned in severity. She also had several bowel movements during this period and one episode of what she describes as diarrhea. During this time the patient did describe some chest symptoms. This involved a pressure sensation along the inferior precordium with some radiation to the left side. This waxed and waned in severity and felt "as if something was moving up and down" in this area. She had not had symptoms of this nature in the past. It does not appear to involve an element of breathing difficulty. The patient reported this as "syncope" but never actually lost consciousness during any period of time. Due to the persistent nature of her symptoms she eventually sought medical attention at [facility]. It seems that her symptoms themselves abated over time without any specific intervention. She was given nitroglycerin at one point with some improvement in her symptoms. In general the patient is an active individual who walks regularly with her dog. She participates in routine exercise activities 3 times per week. However, this involves mostly stretching exercises. She has not reported new symptoms recently such as exertional dyspnea or exertional chest pain. The patient does not report being ill recently with constitutional symptoms. She generally is not aware of any palpitations or rapid heartbeats. She has in the past experienced episodes of syncope; however, these were fairly remote. One of them happened spontaneously without any provocation or warning and another one happened also in the setting of a bowel movement. PAST MEDICAL HISTORY: 1. Significant for atrial fibrillation, although this diagnosis is in question. The patient did undergo implantation of a subcutaneous loop recorder in the hopes of documenting this arrhythmia and confirming the need for continued anticoagulation. 2. Coronary artery calcification. The patient did undergo stress echocardiography in February of 2016. This did not reveal any evidence of inducible ischemia. PAST MEDICAL HISTORY: 1. Remote history of TIAs. 2. History of syncope of unclear etiology. 3. Hypertension. 4. Lumbar radiculopathy. 5. Restless leg syndrome. PAST SURGICAL HISTORY: No past surgical history. FAMILY HISTORY: No family history of premature coronary disease. SOCIAL HISTORY: The patient is currently and lives locally. She denies significant alcohol or tobacco use. REVIEW OF SYSTEMS: A complete 10 system review of systems was performed and the pertinent positives are noted in the history of present illness. The patient did report some difficulty with eating recently. She states that on occasion when she puts food in her mouth she will start to cough. She also feels as if food gets stuck on occasion with swallowing. OUTPATIENT MEDICATIONS: Include aspirin, atenolol, hydrochlorothiazide, melatonin, potassium supplementation, Praluent, pramipexole, spironolactone and Xarelto. MEDICAL ALLERGIES: CEPHALEXIN, PENICILLIN, RASH WITH STATINS, AND BACTRIM. PHYSICAL EXAMINATION: GENERAL: The patient does not appear in any acute distress. She is a pleasant individual who is alert and oriented. Mood and affect appeared normal. She answered all questions appropriately. CURRENT VITAL SIGNS: Include blood pressure 126/80 with pulse of 64. Sclerae are anicteric. HEAD, EYES, EARS, NOSE, AND THROAT: Pupils equal, reactive to light and accommodation. Extraocular movements were intact. Palpation of the submandibular region did not really any significant lymphadenopathy. The carotids were palpable bilaterally. There were no bruits on auscultation. I did not appreciate any jugular venous distention. The thyroid was not enlarged. Auscultation of both lung joshi revealed occasional fine crackles at the bases bilaterally, but overall good air movement. There were no expiratory wheezes. She did not use accessory muscles of respiration. CARDIAC EXAMINATION: Revealed her to be in a regular rhythm with a crescendo systolic murmur heard best in the right second intercostal space. S1, S2 were otherwise normal. PMI without markedly displaced on palpation. ABDOMEN: Soft and nontender. EXTREMITIES: Evaluation of both wrists revealed radial pulses were equal in intensity. There was no evidence of cyanosis or clubbing. Evaluation of the lower extremities did not reveal any significant peripheral edema. She had palpable dorsalis pedis pulses bilaterally. She did have evidence of varicose veins and spider veins in the legs, but no other rashes were appreciated today. Laboratory studies obtained at [facility] included white cell count of 4.7, hemoglobin of 13.2, platelet count of 207. Sodium was 143, potassium is 3.5, creatinine was 0.71 and BUN was 13. Serial cardiac biomarkers were all less a detectable limit. The patient had EKGs performed at the time of admission which revealed her to be in a normal sinus rhythm with some minor nonspecific ST and T-wave changes, essentially unchanged from prior EKGs. Echocardiogram was obtained today which revealed preserved left ventricular systolic function. There is borderline concentric left ventricular hypertrophy, grade 1 diastolic dysfunction. I performed a complete interrogation of the patient's implanted loop recorder today. There were no events recorded yesterday. No symptom events recorded yesterday. There were no recordings of atrial fibrillation or other episodes since May of this year. The patient had a single view chest x-ray obtained at the time of admission which suggested a possible early parenchymal infiltrate in the left base and thoracic scoliosis. ASSESSMENT AND PLAN: 1. Noncardiac chest pain. The patient's symptoms are fairly extended in duration, but were not characteristic of coronary insufficiency or unstable angina. The fact that her cardiac biomarkers are all less than detectable limit despite her prolonged episode also suggests this was not service representative of a coronary event. She had a normal exercise echocardiogram in February of last year and I do not feel that any other risk stratification is required at this time. I will continue with aggressive prevention efforts for coronary artery disease including continued use of Praluent. 2. Syncope. The patient did not actually have a syncopal episode yesterday, but she did have symptoms of presyncope. Loop recorder did not record any periods of bradycardia or tachycardia suggestive of a cardiac etiology for her symptoms. As such, no additional evaluation from a cardiac standpoint is currently required. 3. Atrial fibrillation. This is a remote diagnosis for the patient still in question. She is on an unusual dose of Xarelto for this indication. Review of her loop recorder did not reveal any evidence of atrial fibrillation. Whether the patient needs to be continued on anticoagulation at this point can be discussed with her primary lead software architect. 4. Murmur. The patient has an aortic murmur consistent with her known sclerosis on echocardiogram. FINAL RECOMMENDATIONS: 1. No additional cardiac evaluation. 2. Follow up with primary lead software architect regarding need for continued Xarelto use. 3. Continue other outpatient medications at the time of discharge.
--- NOTE | 2016-07-29 15:15 | Discharge Summary ---
Discharge Summary Date of Service Jul 29, 2016. Discharge Summary Admission Date: Jul 28, 2016 at 16:53 Discharge Date: Jul 29, 2016 Discharge Disposition: Home Principal Diagnosis: atypical chest pain Problems/Secondary Diagnoses: (1) High cholesterol Status: Chronic (2) Hypertension Nos Status: Chronic Immunizations: Have You Had Influenza Vaccine: Yes Influenza Vaccine Date: Mar 14, 2009 History of Tetanus Vaccine?: Yes History of Pneumococcal: Yes Pneumococcal Date: May 13, 2007 History of Hepatitis B Vaccine: Unknown Hepatitis Immunization Date: Aug 19, 2005 Hospital Course The patient is a 81-year-old female presents emergency department with precordial chest pain that radiated to her left sided neck and left arm began about 5 hours prior to arrival. Her symptoms began with a headache, weakness, dizziness and back and knee pain last evening. She does have a history of TIAs , atrial fibrillation and a previous MT, and is currently taking Xarelto as directed. She does take aspirin daily except today. She did have a normal stress test March 2016. When the symptoms developed last evening, she did notice the need to defecate, then a second time an hour later. She has not had any blood in stool or urine, she has no signs of upper respiratory infection. Interpretation Summary * Name: JOANNE THURMAN Study Date: 07/29/2016 06:31 AM BP: 118/76 mmHg * Patient Location: [facility]\\42\S\2 HR: 65 * : 1935 (M/d/yyyy) Gender: Female Height: 64 in * Age: 81 yrs Ethnicity: [place] Weight: 174 lb * Ordering Physician: Ruben Singh * Performed By: Beth Balbuena * * Reason For Study: CHEST PAIN * BSA: 1.8 m2 * -- Conclusions -- * There is borderline concentric left ventricular hypertrophy. * Left ventricular systolic function is normal. * Grade I diastolic dysfunction, (abnormal relaxation pattern). * Right ventricular systolic pressure is normal. 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 Image quality was not sufficient for evaluation on this study. Procedure Details * A complete two-dimensional transthoracic echocardiogram was performed (2D, M-mode, Doppler and color flow Doppler). * The study was technically adequate. Left Ventricle * The left ventricle is normal in size. * There is borderline concentric left ventricular hypertrophy. * Ejection Fraction = 55-60%. * Left ventricular systolic function is normal. * Grade I diastolic dysfunction, (abnormal relaxation pattern). Right Ventricle * The right ventricle is grossly normal size. * The right ventricular systolic function is normal as assessed by tricuspid annular plane systolic excursion (TAPSE) (normal >1.5 cm). 1. Atypical chest pain - ruled out for MT with no MICHAEL on EKG and negative troponins - loop recorder without any events/arrhythmia recorded at time of event per discussion with Dr. Gutiérrez - will discharge 2. Left basilar abnormality - likely atelectasis due to scoliosis - she was also advised to follow-up with PCP for possible swallowing evaluation if coughing during meals occurs more frequently 3. Afib - unclear if she really does have afib - no documented afib per Dr. Gutiérrez - will need to follow-up with zig zag stitcher regarding full loop recorder results and further need for anticoagulation will be determined then Total Time Spent: Greater than 30 minutes This includes examination of the patient, discharge planning, medication reconciliation, and communication with other providers. Discharge Instructions Please refer to the electronic Patient Visit Report (Discharge Instructions) for additional information. Additional Copies To Gerardo Oseguera M.D.
--- NOTE | 2016-07-29 15:16 | Discharge Instructions ---
Discharge Instructions Date of Service Jul 29, 2016. Admission Reason for Admission: Abnormal Findin On Ekg; Chest Pain Radiating Discharge Discharge Diagnosis / Problem: atypical chest pain Discharge Goals Goal(s): Decrease discomfort Activity Recommendations Activity Limitations: resume your previous activity . Current Hospital Diet Patient's current hospital diet: AHA Diet (Heart Healthy), Diabetes Type 2 Diet Discharge Diet Recommended Diet: AHA Diet (Heart Healthy) Pending Studies Studies pending at discharge: no Laboratory Results Hemoglobin A1c Test 07/28/16 15:05 Range/Units Lipid Panel Test 07/29/16 07:25 Range/Units Triglycerides Level 79 0-150 mg/dl Cholesterol Level 204 H 0-200 mg/dl HDL Cholesterol 87 mg/dl Cholesterol/HDL Ratio 2.3 LDL Cholesterol, Calculated 101 mg/dl Medical Emergencies . Who to Call and When: Medical Emergencies: If at any time you feel your situation is an emergency, please call 911 immediately. . Non-Emergent Contact Non-Emergency issues call your: Primary Care Provider . . "Provider Documentation" section prepared by Missy Jennings. VTE Core Measure Inpt VTE Proph given/why not?: Other Anticoagulation (Xarelto)
[2016-07-30 07:19] LABS: ESTIMATED AVERAGE GLUCOSE 126 mg/dl; HA1C FLAG Normal (Normal)
== END 2016-07-29 15:48 | disposition home or self-care (01) | DRG 313 ==
LOC: ENRESERVDT → ENRESERVTM → C.EDB 14:19 → C.2T 16:53
PROVIDERS: ADMIT Hospitalist; ATTEND Hospitalist
DX: R07.89 Other chest pain (principal); J98.11 Atelectasis; R73.9 Hyperglycemia, unspecified; R55 Syncope and collapse; I35.8 Other nonrheumatic aortic valve disorders; I25.10 Atherosclerotic heart disease of native coronary artery without angina pectoris; I48.91 Unspecified atrial fibrillation; I10 Essential (primary) hypertension; E78.00 Pure hypercholesterolemia, unspecified; G25.81 Restless legs syndrome; G47.00 Insomnia, unspecified; M41.9 Scoliosis, unspecified; I25.2 Old myocardial infarction; Z86.73 Personal history of transient ischemic attack (TIA), and cerebral infarction without residual deficits; Z79.01 Long term (current) use of anticoagulants; Z79.82 Long term (current) use of aspirin; Z79.899 Other long term (current) drug therapy

== ENCOUNTER → 2016-07-31 | Outpatient (CLI) | payer BC, OTHER ==
[~2016-07-31] MED LIST changes: +GADAVIST IV PRN; -SPIR25TA PO
--- NOTE | 2016-07-31 18:12 | DIAGNOSTIC IMAGING REPORT ---
MRI OF THE BRAIN AND IAC WITHOUT AND WITH IV CONTRAST CLINICAL HISTORY: ACOUSTIC NEUROMA . FOLLOW-UP. Hearing loss. COMPARISON STUDY: Brain MRI 07/27/2015. TECHNIQUE: MRI of the brain was performed from the vertex to the skull base utilizing various T1 and T2 weighted sequences. Following the IV administration of Gadavist contrast, additional enhanced images were obtained. FINDINGS: Axial diffusion-weighted images reveal no evidence of acute or subacute infarction. There is no evidence of ventricular dilatation. Proton density T2-weighted and FLAIR images reveal multiple foci of increased T2 signal within the white matter, likely a small vessel basis. There are no abnormal flow voids. Post contrast images reveal a 5 mm enhancing lesion within the left internal auditory canal. 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 IMPRESSION: 1. No significant change compared to the prior study. Stable 5 mm enhancing mass within the left internal auditory canal. 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 2. No evidence of acute or subacute infarction 3. Foci of increased T2 signal within the white matter likely on a small vessel basis Electronically signed by: Jason Peguero M.D. 07/31/2016 6:10 PM Dictated Date/Time: 07/31/2016 6:04 PM
== END | disposition home or self-care (01) ==
LOC: C.MRI 16:20
PROVIDERS: ATTEND Otolaryngology
DX: D33.3 Benign neoplasm of cranial nerves (principal)

== ENCOUNTER → 2016-08-01 | Outpatient (CLI) | payer BC, OTHER ==
[~2016-08-01] MED LIST changes: -GADAVIST IV PRN
--- NOTE | 2016-08-01 09:57 | DIAGNOSTIC IMAGING REPORT ---
ULTRASOUND RIGHT UPPER QUADRANT ABDOMEN CLINICAL HISTORY: Right upper quadrant abdominal pain. COMPARISON STUDY: Abdominal CT dated 04/14/2012. TECHNIQUE: Real-time, grayscale, and color flow sonography of the right upper quadrant of the abdomen was performed. Images are reviewed in the transverse and longitudinal planes. FINDINGS: Liver: The liver is normal in size and echotexture. There is no intrahepatic biliary ductal dilatation. The main portal vein is patent. Gallbladder: The gallbladder is normal in appearance. No gallstones are identified. There is no gallbladder wall thickening or pericholecystic fluid. A sonographic Ray's sign is reportedly absent. The common bile duct measures up to 0.5 cm in diameter. Pancreas: Visualized portions of the pancreatic head and body are normal in appearance. Right kidney: Survey images of the right kidney demonstrate normal size and echotexture. There is no hydronephrosis. Ascites: None. IMPRESSION: Unremarkable sonographic assessment of the right upper quadrant. No gallstones are seen. Electronically signed by: Saleem Viramontes M.D. 08/01/2016 9:56 AM Dictated Date/Time: 08/01/2016 9:55 AM
== END | disposition home or self-care (01) ==
LOC: C.ULTRBC 09:14
PROVIDERS: ATTEND Family Medicine
DX: R94.5 Abnormal results of liver function studies (principal)

== ENCOUNTER → 2016-11-06 | Outpatient (CLI) | payer BC, OTHER ==
--- NOTE | 2016-11-06 16:45 | DIAGNOSTIC IMAGING REPORT ---
Venous Doppler right leg VENOUS DOPP LOWER EXT UNILAT CLINICAL HISTORY: RLE PAIN SWELLING pain. Edema. TECHNIQUE: Venous Doppler COMPARISON STUDY: None FINDINGS: Normal study IMPRESSION: Normal study Electronically signed by: Isai Hardy M.D. 11/06/2016 4:44 PM Dictated Date/Time: 11/06/2016 4:43 PM
== END | disposition home or self-care (01) ==
LOC: C.ULTR 16:04
PROVIDERS: ATTEND Family Medicine
DX: M79.604 Pain in right leg (principal); M79.89 Other specified soft tissue disorders

== ENCOUNTER → 2017-03-20 | Outpatient (CLI) | payer BC, OTHER ==
[2017-03-20 14:43] LABS: BASO % 0.8 %; BASO ABS # 0.05 K/uL (0-0.2); COMPLETE YES; EOS % 2.7 %; HEMATOCRIT 45.2 % (37-47); IG% 0.2 %; LYMPH % 33.2 %; LYMPH ABS # 1.98 K/uL (1.2-3.4); MEAN CELL VOLUME 96.4 fL (80-100); MEAN CORPUSCULAR HGB CONC 34.3 g/dl (32-36); MONO % 11.6 %; NEUT % 51.5 %; PLATELET COUNT 269 K/uL (130-400); RED BLOOD COUNT 4.69 M/uL (4.2-5.4); WHITE BLOOD COUNT 5.96 K/uL (4.8-10.8)
[2017-03-20 15:09] LABS: ALT/SGPT 46 U/L (12-78); BLOOD UREA NITROGEN 17 mg/dl (7-18); BUN/CREATININE RATIO 22.5 (10-20); CALCIUM 9.6 mg/dl (8.5-10.1); CARBON DIOXIDE 33 mmol/L (21-32); CHLORIDE 96 mmol/L (98-107); CREATININE 0.74 mg/dl (0.60-1.20); GLUCOSE 90 mg/dl (70-99); SODIUM 135 mmol/L (136-145); URIC ACID 5.8 mg/dl (2.6-7.2)
[2017-03-20 15:12] LABS: ALB/GLOB RATIO 1.1 (0.9-2); ALKALINE PHOSPHATASE 77 U/L (45-117); AST/SGOT 31 U/L (15-37)
[2017-03-20 21:21] LABS: LYME DISEASE AB IGG NEG (NEG); LYME DISEASE AB IGM NEG (NEG)
== END | disposition home or self-care (01) ==
LOC: C.LAB 13:29
PROVIDERS: ATTEND Family Medicine
DX: E87.6 Hypokalemia (principal); M25.50 Pain in unspecified joint

== ENCOUNTER → 2017-04-01 | Outpatient (CLI) | payer BC, OTHER ==
[~2017-04-01] MED LIST changes: +METO25TA3 PO
[2017-04-01 12:13] LABS: HEMATOCRIT 44.3 % (37-47); MEAN CELL VOLUME 94.9 fL (80-100); MEAN CORPUSCULAR HEMOGLOBIN 33.2 pg (25-34); MEAN PLATELET VOLUME 9.1 fL (7.4-10.4); PLATELET COUNT 241 K/uL (130-400); RED BLOOD COUNT 4.67 M/uL (4.2-5.4); WHITE BLOOD COUNT 4.99 K/uL (4.8-10.8)
[2017-04-01 12:45] LABS: CHOLESTEROL/HDL RATIO 2.7
[2017-04-01 12:48] LABS: ALT/SGPT 48 U/L (12-78); AST/SGOT 29 U/L (15-37); BLOOD UREA NITROGEN 19 mg/dl (7-18); BUN/CREATININE RATIO 23.9 (10-20); CALCIUM 9.2 mg/dl (8.5-10.1); CARBON DIOXIDE 34 mmol/L (21-32); CHLORIDE 90 mmol/L (98-107); GLUCOSE 96 mg/dl (70-99); POTASSIUM 2.6 mmol/L (3.5-5.1); SODIUM 134 mmol/L (136-145)
[2017-04-01 12:50] LABS: ALKALINE PHOSPHATASE 74 U/L (45-117); C-REACTIVE PROTEIN < 0.29 mg/dl (0-0.29); URIC ACID 6.5 mg/dl (2.6-7.2)
== END | disposition home or self-care (01) ==
LOC: C.LAB 09:35
PROVIDERS: ATTEND Family Medicine
DX: M25.50 Pain in unspecified joint (principal); E87.6 Hypokalemia; E78.00 Pure hypercholesterolemia, unspecified

== ENCOUNTER → 2017-04-15 | Outpatient (CLI) | payer BC, OTHER ==
[~2017-04-15] MED LIST changes: -ALBU1AER9 INH; -ALIR1INJ3 INJ; -ATEN-173 PO; +EZET10TA63 PO; -HYDR12.56 PO; -METO25TA3 PO; +METO50TA7 PO; +POTA10CA28 PO; -POTA1TAB97 PO; +VNTHFA/IN INH
--- NOTE | 2017-04-15 10:45 | DIAGNOSTIC IMAGING REPORT ---
ABDOMEN COMPLETE (US) CLINICAL HISTORY: Epigastric pain. Dark colored urine. COMPARISON STUDY: Right upper quadrant ultrasound August 01, [address] of the abdomen and pelvis April 14, 2012. FINDINGS: Liver is sonographically normal. There is no biliary ductal dilatation. Common bile duct measures 5 mm in caliber. There are no gallstones. The pancreas is obscured by overlying bowel gas. The size of the spleen is normal. Left kidney is partially obscured. There is no hydronephrosis. The right kidney is sonographically normal. Caliber of the abdominal aorta is normal. IMPRESSION: 1. No gallstones or biliary ductal dilatation. 2. Largely obscured pancreas and partially obscured left kidney. 3. No significant abnormality within the abdomen by sonography. Electronically signed by: Khadar Lopez M.D. 04/15/2017 10:43 AM Dictated Date/Time: 04/15/2017 10:41 AM
[2017-04-15 11:17] LABS: BASO % 0.8 %; BASO ABS # 0.04 K/uL (0-0.2); COMPLETE YES; EOS % 5.3 %; HEMATOCRIT 42.8 % (37-47); IG% 0.4 %; LYMPH % 33.3 %; LYMPH ABS # 1.63 K/uL (1.2-3.4); MEAN CELL VOLUME 100.5 fL (80-100); MEAN CORPUSCULAR HEMOGLOBIN 33.3 pg (25-34); MEAN CORPUSCULAR HGB CONC 33.2 g/dl (32-36); MEAN PLATELET VOLUME 8.9 fL (7.4-10.4); MONO % 12.7 %; NEUT % 47.5 %; PLATELET COUNT 249 K/uL (130-400); RED BLOOD COUNT 4.26 M/uL (4.2-5.4); WHITE BLOOD COUNT 4.89 K/uL (4.8-10.8)
[2017-04-15 14:22] LABS: URINE APPEARANCE CLEAR (CLEAR); URINE BILIRUBIN NEG (NEG); URINE COLOR YELLOW; URINE NITRITE NEG (NEG); URINE SPECIFIC GRAVITY 1.022 (1.000-1.030); UROBILINOGEN NEG (NEG)
[2017-04-15 14:23] LABS: MANUAL MICROSCOPIC REQUIRED? NO; REVIEW REQ? NO
[2017-04-15 14:39] LABS: ALT/SGPT 32 U/L (12-78); AST/SGOT 26 U/L (15-37); BLOOD UREA NITROGEN 15 mg/dl (7-18); BUN/CREATININE RATIO 20.3 (10-20); CALCIUM 8.8 mg/dl (8.5-10.1); CARBON DIOXIDE 27 mmol/L (21-32); CHLORIDE 108 mmol/L (98-107); CREATININE 0.72 mg/dl (0.60-1.20); GLUCOSE 88 mg/dl (70-99); POTASSIUM 4.1 mmol/L (3.5-5.1); SODIUM 142 mmol/L (136-145)
[2017-04-15 14:42] LABS: ALKALINE PHOSPHATASE 64 U/L (45-117)
== END | disposition home or self-care (01) ==
LOC: C.ULTRBC 09:19
PROVIDERS: ATTEND Family Medicine
DX: E87.6 Hypokalemia (principal); R31.9 Hematuria, unspecified

== ENCOUNTER → 2017-04-15 | Outpatient (CLI) | payer BC, OTHER ==
--- NOTE | 2017-04-15 14:44 | DIAGNOSTIC IMAGING REPORT ---
TWO VIEW CHEST CLINICAL HISTORY: Dyspnea on exertion. FINDINGS: PA and lateral chest radiographs are compared to study dated 07/28/2016 and correlated with chest CT dated 10/19/2015 examination is degraded by severe spinal scoliosis. The heart is top normal for projection. There is atherosclerotic calcification of the thoracic aorta. The pulmonary vasculature is noncongested. Chronic opacities at both lung bases are similar to previous and likely related to atelectasis. There is no pleural effusion or pneumothorax. The skeletal structures are osteopenic. There are severe S-shaped thoracolumbar scoliosis with significant deformity of the thoracic cage. IMPRESSION: There are bibasilar airspace opacities, likely related to atelectasis from severe scoliosis. Correlate clinically for evidence of superimposed pneumonia. Electronically signed by: Saleem Viramontes M.D. 04/15/2017 2:43 PM Dictated Date/Time: 04/15/2017 2:40 PM
== END | disposition home or self-care (01) ==
LOC: C.RAD1850 14:25
PROVIDERS: ATTEND Internal Medicine Cardiovascular Disease
DX: R06.09 Other forms of dyspnea (principal)

== ENCOUNTER → 2017-05-07 | Outpatient (CLI) | payer BC, OTHER ==
[~2017-05-07] MED LIST changes: +ASPI-319 PO; -ASPI81TA21 PO; -METO50TA7 PO; +METO50TA8 PO
--- NOTE | 2017-05-08 09:13 | PULMONARY FUNCTION TEST ---
CLINICAL DATA: 81-year-old female with a height of 64 inches and a weight of [address] Oseguera for evaluation of shortness of breath. Spirometry pre- and post-bronchodilator, lung volumes, and DLCO were performed. FINDINGS: Prebronchodilator spirometry demonstrates mild obstructive airways disease. FVC was 87% of predicted. FEV1 was 85% of predicted. QAC19-51 was 62% of predicted. There was significant improvement after inhaled bronchodilator. FVC improved 9% to 95% of predicted. FEV1 improved 14% to 97% of predicted. WWI22-10 improved 32% to 82% of predicted. Lung volumes demonstrated minimal air trapping. Residual volume was 128% of predicted. Expiratory reserve volume was reduced at 51% of predicted. DLCO was mildly reduced at 69% of predicted. IMPRESSION: Mild obstructive airways disease with significant improvement after inhaled bronchodilator. Minimal air trapping with a slight increase in residual volume. Minimally reduced DLCO. RECOMMENDATIONS: The patient may benefit from use of bronchodilators or combination of inhaled steroids and long acting bronchodilators. Clinical correlation is needed. STEVO
== END | disposition home or self-care (01) ==
LOC: C.RC 10:18
PROVIDERS: ATTEND Family Medicine
DX: R06.02 Shortness of breath (principal)

== ENCOUNTER → 2017-05-21 | Outpatient (CLI) | payer OTHER, BC ==
[~2017-05-21] MED LIST changes: -ASPI-319 PO; +ASPI81TA21 PO; +METO50TA7 PO; -METO50TA8 PO
[2017-05-21 19:17] LABS: BASO % 0.6 %; BASO ABS # 0.04 K/uL (0-0.2); EOS ABS # 0.13 K/uL (0-0.5); HEMATOCRIT 43.6 % (37-47); HEMOGLOBIN 15.6 g/dL (12.0-16.0); IG# 0.02 K/uL (0.00-0.02); LYMPH % 37.9 %; LYMPH ABS # 2.46 K/uL (1.2-3.4); MEAN CELL VOLUME 95.2 fL (80-100); MEAN CORPUSCULAR HEMOGLOBIN 34.1 pg (25-34); MEAN CORPUSCULAR HGB CONC 35.8 g/dl (32-36); MEAN PLATELET VOLUME 9.1 fL (7.4-10.4); MONO % 18.8 %; MONO ABS # 1.22 K/uL (0.11-0.59); NEUT % 40.4 %; NEUT ABS # 2.62 K/uL (1.4-6.5); PLATELET COUNT 226 K/uL (130-400); RED CELL DISTRIBUTION WIDTH CV 12.7 % (11.5-14.5); RED CELL DISTRIBUTION WIDTH SD 43.9 fL (36.4-46.3); WHITE BLOOD COUNT 6.49 K/uL (4.8-10.8)
[2017-05-21 19:39] LABS: ALBUMIN 3.8 gm/dl (3.4-5.0); ALT/SGPT 35 U/L (12-78); AST/SGOT 26 U/L (15-37); BLOOD UREA NITROGEN 19 mg/dl (7-18); CALCIUM 9.5 mg/dl (8.5-10.1); CARBON DIOXIDE 33 mmol/L (21-32); CREATININE 0.74 mg/dl (0.60-1.20); GLUCOSE 96 mg/dl (70-99); POTASSIUM 3.3 mmol/L (3.5-5.1); SODIUM 132 mmol/L (136-145)
[2017-05-21 19:41] LABS: ALKALINE PHOSPHATASE 80 U/L (45-117); TOTAL PROTEIN 7.7 gm/dl (6.4-8.2)
== END | disposition home or self-care (01) ==
LOC: C.LAB 17:42
PROVIDERS: ATTEND Family Medicine
DX: E87.6 Hypokalemia (principal); R53.83 Other fatigue

== ENCOUNTER → 2017-07-16 | Outpatient (CLI) | payer OTHER, BC ==
[~2017-07-16] MED LIST changes: -METO50TA7 PO; +METO50TA8 PO
--- NOTE | 2017-07-16 10:23 | DIAGNOSTIC IMAGING REPORT ---
(BARIUM SWALLOW) ESOPHAGUS CLINICAL HISTORY: 82 years-old Female with DYSPHAGIA. Acute vomiting with acute epigastric abdominal pain and nausea TECHNIQUE: Barium contrast and effervescent crystals were administered to the patient under fluoroscopic examination. Multiple images were obtained and submitted for review. FLUOROSCOPY TIME: 1 minutes COMPARISON: Chest radiographs 04/15/2017. FINDINGS: During deglutition, contrast material flowed freely through the cervical esophagus. Cricopharyngeal bar is noted. Otherwise no filling defect or mucosal abnormality is identified. No abnormal stricturing or mass effect is seen. The mid to distal esophagus is well coated and distended. No abnormal stricturing or mucosal abnormality is identified. Small sliding-type hiatal hernia. Minimal tertiary contractions of the distal esophagus. IMPRESSION: 1. 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 2. Small sliding-type hilar hernia. 3. Minimal tertiary contractions of the distal esophagus. 4. No significant gastroesophageal reflux identified. The above report was generated grammatical, syntax or spelling errors. Electronically signed by: Sean Trivedi M.D. 07/16/2017 10:22 AM Dictated Date/Time: 07/16/2017 10:18 AM
== END | disposition home or self-care (01) ==
LOC: C.RAD 09:40
PROVIDERS: ATTEND Family Medicine
DX: K44.9 Diaphragmatic hernia without obstruction or gangrene (principal)

== ENCOUNTER → 2017-08-15 | Outpatient (CLI) | payer OTHER, BC ==
[~2017-08-15] MED LIST changes: +ASPI-319 PO; -ASPI81TA21 PO
[2017-08-15 19:00] LABS: BASO % 0.6 %; BASO ABS # 0.03 K/uL (0-0.2); EOS % 6.8 %; EOS ABS # 0.37 K/uL (0-0.5); HEMATOCRIT 41.5 % (37-47); HEMOGLOBIN 14.5 g/dL (12.0-16.0); IG# 0.01 K/uL (0.00-0.02); LYMPH % 29.8 %; LYMPH ABS # 1.62 K/uL (1.2-3.4); MEAN CELL VOLUME 98.6 fL (80-100); MEAN CORPUSCULAR HEMOGLOBIN 34.4 pg (25-34); MEAN CORPUSCULAR HGB CONC 34.9 g/dl (32-36); MONO % 11.4 %; MONO ABS # 0.62 K/uL (0.11-0.59); NEUT % 51.2 %; NEUT ABS # 2.79 K/uL (1.4-6.5); PLATELET COUNT 236 K/uL (130-400); RED CELL DISTRIBUTION WIDTH CV 12.6 % (11.5-14.5); RED CELL DISTRIBUTION WIDTH SD 44.7 fL (36.4-46.3); WHITE BLOOD COUNT 5.44 K/uL (4.8-10.8)
[2017-08-15 19:20] LABS: ALBUMIN 3.3 gm/dl (3.4-5.0); ALT/SGPT 24 U/L (12-78); AST/SGOT 19 U/L (15-37); BLOOD UREA NITROGEN 21 mg/dl (7-18); CALCIUM 8.7 mg/dl (8.5-10.1); CARBON DIOXIDE 26 mmol/L (21-32); CREATININE 0.74 mg/dl (0.60-1.20); GLUCOSE 87 mg/dl (70-99); POTASSIUM 3.7 mmol/L (3.5-5.1); SODIUM 137 mmol/L (136-145)
[2017-08-15 19:22] LABS: ALKALINE PHOSPHATASE 86 U/L (45-117); TOTAL PROTEIN 6.6 gm/dl (6.4-8.2)
== END | disposition home or self-care (01) ==
LOC: C.LAB 17:09
PROVIDERS: ATTEND Family Medicine
DX: E86.0 Dehydration (principal); I10 Essential (primary) hypertension; R60.9 Edema, unspecified

== ENCOUNTER → 2017-09-25 | Outpatient (CLI) | payer OTHER, BC ==
--- NOTE | 2017-09-26 15:33 | MAMMOGRAPHY REPORT ---
BILATERAL DIGITAL SCREENING MAMMOGRAM TOMOSYNTHESIS WITH CAD: 09/25/2017 CLINICAL HISTORY: Routine screening. Patient has no complaints. TECHNIQUE: Breast tomosynthesis in addition to standard 2D mammography was performed. Current study was also evaluated with a Computer Aided Detection (CAD) system. COMPARISON: Comparison is made to exams dated: 08/13/2008 and 10/09/2006. BREAST COMPOSITION: The tissue of both breasts is heterogeneously dense, which may obscure small mas ses. FINDINGS: A rectangular metallic device projects over the lower inner quadrant of the left breast. T here is stable asymmetry in the subareolar left breast. Moderate vascular calcification bilaterally. No suspicious mass, architectural distortion or cluster of microcalcifications is seen. IMPRESSION: ACR BI-RADS CATEGORY 1: NEGATIVE There is no mammographic evidence of malignancy. A 1 year screening mammogram is recommended. The pa tient will receive written notification of the results. Approximately 10% of breast cancers are not detected with mammography. A negative mammographic report should not delay biopsy if a clinically suggestive mass is present. Susie Piper M.D. ay/:09/25/2017 15:52:27 Sales Support Manager: Jenifer LEWIS([place])([place]), [facility] letter sent: Normal 1/2 BI-RADS Code: ACR BI-RADS Category 1: Negative
== END | disposition home or self-care (01) ==
LOC: C.MAMM 14:01
PROVIDERS: ATTEND Family Medicine
DX: Z12.31 Encounter for screening mammogram for malignant neoplasm of breast (principal)

== ENCOUNTER 2018-08-19 14:23 | Observation (INO) ==
[2018-08-19 15:04] LABS: Basophils # (auto) 0.03 K/uL (0-0.2); Basophils % (auto) 0.5 %; Eosinophils # (auto) 0.29 K/uL (0-0.5); Eosinophils % (auto) 5.3 %; Hematocrit (blood only) 39.8 % (37-47); Hemoglobin 13.9 g/dL (12.0-16.0); Immature Granulocytes # (auto) 0.02 K/uL (0.00-0.02); Immature Granulocytes % (auto) 0.4 %; Lymphocytes # (auto) 1.39 K/uL (1.2-3.4); Lymphocytes % (auto) 25.4 %; Mean Corpuscular Hgb Conc 34.9 g/dL (32-36); Mean Corpuscular Volume 95.4 fL (80-100); Mean Platelet Volume 8.9 fL (7.4-10.4); Monocytes % (auto) 14.6 %; Neutrophils # (auto) 2.94 K/uL (1.4-6.5); Neutrophils % (auto) 53.8 %; Platelet Count 222 K/uL (130-400); RDW Coefficient of Variation 12.5 % (11.5-14.5); RDW Standard Deviation 43.4 fL (36.4-46.3); Red Blood Count 4.17 M/uL (4.2-5.4); White Blood Count 5.47 K/uL (4.8-10.8)
[2018-08-19 15:20] LABS: Alanine Aminotransferase 23 U/L (12-78); Albumin Level 3.3 gm/dl (3.4-5.0); Aspartate Aminotransferase 18 U/L (15-37); BUN Creatinine Ratio 16.7 (10-20); Blood Urea Nitrogen 14 mg/dl (7-18); Calcium 9.1 mg/dl (8.5-10.1); Carbon Dioxide 25 mmol/L (21-32); Chloride 106 mmol/L (98-107); Creatinine Clr Calc Pharmacy 50.9 ml/min; Est GFR (African American) 74.5; Est GFR (Non-African American) 64.3; Glucose 88 mg/dl (70-99); Magnesium 2.3 mg/dl (1.8-2.4); Potassium 3.9 mmol/L (3.5-5.1); Sodium 139 mmol/L (136-145)
[2018-08-19 15:22] LABS: Albumin Globulin Ratio 1.1 (0.9-2); Bilirubin,Total 1.2 mg/dl (0.2-1); Globulin 3.1 gm/dl (2.5-4.0); Phosphorus 4.1 mg/dl (2.5-4.9); Total Protein 6.4 gm/dl (6.4-8.2)
[2018-08-19 15:39] LABS: Alkaline Phosphatase 75 U/L (45-117); NT Pro B Type Natriuretic Pept 297 pg/ml (0-1800); Troponin I < 0.015 ng/ml (0-0.045)
[2018-08-19 15:39] LABS: Base Excess VBG 2.2 mEq/L; Oxygen Saturation VBG 76.7 %; pH VBG 7.46 (7.36-7.41)
--- NOTE | 2018-08-19 15:56 | XRay Report ---
XR chest 1V portable CLINICAL HISTORY: Chest Pain dyspnea COMPARISON STUDY: 04/08/2018 FINDINGS: Moderate stable cardiomegaly. Chronic bibasilar interstitial change. Mid and upper lungs ar e clear. There is a scoliosis of the thoracic spine. IMPRESSION: Chronic basilar interstitial change. Stable cardiomegaly. No acute process. The above report was generated using voice recognition software. It may contain grammatical, syntax or spelling errors. Electronically signed by: Isai Hardy M.D. 08/19/2018 3:54 PM
[2018-08-19] MEDS ORDERED: ALBUT/IPRATROP 3MG/0.5MG NEB 3 ML VIAL NEB STA (15:58)
[2018-08-19 16:30] LABS: Appearance Urine Clear (Clear); Bacteria Urine Automated Negative (Negative); Bilirubin Urine Negative (Negative); Blood Urine Negative (Negative); Cast Urine Automated 0 /lpf (0-5); Color Urine Yellow; Glucose Urine UA Negative (Negative); Ketones Urine Negative (Negative); Leukocyte Esterase Urine Trace (Negative); Nitrite Urine Negative (Negative); Protein Urine Negative (Negative); RBC Urine Automated 0-4 /hpf (0-4); Specific Gravity Urine 1.019 (1.000-1.030); Urobilinogen Urine Negative (Negative)
[2018-08-19] MEDS ORDERED: SODIUM CHLORIDE 0.9% 500 ML IV ONE (17:01)
[2018-08-19] MEDS ORDERED: ASPIRIN CHEW 324 MG PO STA (17:33)
--- NOTE | 2018-08-19 18:44 | History & Physical Report ---
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, lyme pending Advised that it can take 2 weeks for seroconversion and a neg test is not definitive Of note, pt recently started quinine which does have side effect of bronchospasm (2) Hypokalemia: Stable, continue home meds (3) HTN (hypertension): continue home meds (4) GERD (gastroesophageal reflux disease): continue home meds (5) RLS (restless legs syndrome): continue home meds (6) Abnormal urine: Tr leuk est, neg nitrites Cx pending Holding on abx for cx (7) Diarrhea: Frequent travel to Cx pending (8) Afib: Pt states she was on coumadin x2 years, however this issue had resolved States she followed with Dr. Thomason who told her she did not have afib and anticoagulation was stopped (9) DVT prophylaxis: SCDs History of Present Illness Primary Care Provider: Gerardo Oseguera 83 y/o F c/o ELISE. Pt states that over the last 2 days she has had ELISE with flat surfaces. She gets so SOB that she feels like her LE are going to give out from under her. She states that this is unusual for her. No SOB at rest or with lying flat. She states that over the last year she feels she has been having more difficulty with hills and stairs, but she could manage them. Now she c annot walk in the [place] the last few days at all. She gets occasional chest tightness to her L shoulder with this, but not all of the time. Pt denies fever, abd pain, n/v, LE pain or swelling. She has had "explosive" diarrhea daily for the last 2 months. Pt and with extensive travel hx. They go to frequently, last trip was to [place] in April. In June she rode with her son to [place] and then flew back. She states that the flight was "worse than driving" in terms of feeling "wiped out" afterwards. She states her recovery from this was prolonged compared to usual flights. Pt's removed a tick from pt's L lower back/upper buttock about 10 days ago. He states it was embedded and the area was very red and irritated. No bull's eye rash noted but it continues to be irritated in appearance. Pt and [place] and walk [place] the [place] frequently. Pt has hx of RLS. She found pramipexole to give relief, but was still having LE spasms. She was started on quinine about 1 month ago and this has fully resolved the RLS/spasms. Allergies Allergy/AdvReac Type Severity Reaction Status Date / Time bee venom protein (honey bee) Allergy Severe Anaphylaxis Verified 08/19/18 16:56 . cephalexin Allergy Intermediate RASH Unverified 08/19/18 16:56 Bactrim Allergy Unknown ANAPHYLAXIS Verified 04/10/17 08:31 Cephalosporins Allergy Unknown KEFLEX Verified 08/19/18 16:56 Penicillins Allergy Unknown LIPS Verified 08/19/18 16:56 SWELLING Wtpubth-Pby-Ejs Reductase Allergy Unknown Rash Verified 08/19/18 16:56 Inhibitor sulfamethoxazole Allergy Unknown ANAPHYLAXIS Verified 08/19/18 16:56 trimethoprim Allergy Unknown ANAPHYLAXIS Verified 08/19/18 16:56 Home Medications Home Medications Medication Instructions Recorded Confirmed Type albuterol sulfate [Ventolin HFA] 2 - 4 puff INHALATION Q6H PRN 04/08/18 08/19/18 History aspirin 81 mg PO HS 04/08/18 08/19/18 History cholecalciferol (vitamin D3) 1,000 unit PO HS 04/08/18 08/19/18 History [Vitamin D3] epinephrine [EpiPen] 0.3 mg IM Q3H PRN 04/08/18 08/19/18 History melatonin 10 mg PO HS 04/08/18 08/19/18 History metoprolol succinate 50 mg PO HS 04/08/18 08/19/18 History pantoprazole 40 mg PO HS 04/08/18 08/19/18 History potassium chloride 10 meq PO HS 04/08/18 08/19/18 History pramipexole 0.75 mg PO HS 04/08/18 08/19/18 History spironolactone 50 mg PO HS 04/08/18 08/19/18 History vitamin B complex [B-Complex] 1 tab PO HS 04/08/18 08/19/18 History meclizine 25 mg PO TID PRN #20 tab 04/09/18 08/19/18 Rx quinidine sulfate 200 mg PO DAILY 08/19/18 08/19/18 History Past Med/Surg History Medical History Near syncope (Resolved) Alcohol intoxication (Resolved) Abnormal finding on EKG Atrial fibrillation (Resolved) Atrial fibrillation (Resolved) 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 No problems noted. Father , age 32 in a WWII plane accident No problems noted. 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 Other Information That Helps Us Care for You: No Feels Safe at Home: Yes Safety Concerns: Feels Safe At This Time Smoking Status: Never smoker Hx Alcohol Use: Yes Hx Substance Use: No Review of Systems Pertinent positives and negatives reviewed in HPI--all others negative Physical Exam Vital Signs (Past 24 Hours): Last Vital Signs Temp 36.8 C 08/19/18 14:24 Pulse 79 08/19/18 18:01 Resp 24 08/19/18 18:01 BP 143/95 H 08/19/18 17:31 Pulse Ox 96 08/19/18 17:31 Constitutional: WD/WN, vitals as above Eyes: normal visual joshi by confrontation and + anicteric sclerae Neck: normal visual inspection and trachea midline Respiratory: normal respiratory effort, lungs clear to auscultation Cardiovascular: Rate/Rhythm: regular rate and regular rhythm Gastrointestinal (Abdomen): Inspection/Auscultation: abdomen not distended Percussion/Palpation: abdomen soft; abdomen nontender Musculoskeletal: Head/Neck/Chest: normocephalic and head atraumatic negative for edema, peripheral pulses intact Skin: Area on L upper buttock/lower back with scab noted, red and irritated. No bull's eye lesion noted. Neurologic: awake; not confused Speech / Cognition: normal speech Psychiatric: A+Ox3, euthymic affect Results & Data Diagnostic Findings CXR: neg for acute ECG Rhythm: normal sinus Code Status & VTE Plan Code Status Other: Full code, although pt states no prolonged mechanical life support, feeding tubes, etc. is present and agrees. VTE Prophylaxis Plan VTE Prophylaxis will be ordered: Yes
[2018-08-19] MEDS ORDERED: MAGNESIUM HYDROXIDE SUSP 30 ML UDC PO PRN (19:26)
[2018-08-19] MEDS ORDERED: MECLIZINE HCL 25 MG TAB PO PRN (19:26)
[2018-08-19] MEDS ORDERED: EPINEPHRINE ADULT AUTO-INJECT 0.3 MG SYR IM PRN (19:26)
[2018-08-19] MEDS ORDERED: ONDANSETRON INJ 2 MG/ML 2 ML VIAL IV PRN (19:26)
[2018-08-19] MEDS ORDERED: ALBUTEROL HFA 8 GM INHALER INH PRN (19:26)
[2018-08-19] MEDS ORDERED: ACETAMINOPHEN 325 MG TAB PO PRN (19:26)
[2018-08-19] MEDS ORDERED: OPTIRAY 320 125ml IV PRN (20:27)
--- NOTE | 2018-08-19 20:33 | Emergency Department Note ---
Entered by Ella Thompson acting as a scribe for Ramírez Miller MD History of Present Illness General Chief complaint: Shortness of Breath/Dyspnea Stated complaint: CARDIAC PROBLEMS LACK OF BREATH Time Seen by Provider: 08/19/18 14:54 Source: patient Limitations: no limitations History of Present Illness Provider complaint: shortness of breath Onset (ago): day(s) 2 Location: chest Maximum Pain Intensity: 3 Associated symptoms: + cough, + headaches and + other (+diarrhea) Treatments prior to arrival: aspirin (baby) The patient is a 83 year old female who presents to the Emergency Room with complaints of shortness of breath that began 2 days prior to arrival. The patient states that she has a dry cough, headache, and diarrhea. The patient denies any nausea or vomiting. The patient states that she had an event 2 days prior to arrival and states that she couldn't walk a few feet without having to stop and take a break. The patient states that she was on steroids but states that she has been off the steroids for 10 days. The patient states that she has a loop recorder and states that she used it this morning because she felt it was abnormal. 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 The patient states that she has a history of heart disease but denies a history of heart attacks. The patient states that she takes a baby Aspirin daily. The patient states that she has a treadmill stress test done 1 year ago. Home Medications Home Medications Medication Instructions Recorded Confirmed Type albuterol sulfate [Ventolin HFA] 2 - 4 puff INHALATION Q6H PRN 04/08/18 08/19/18 History aspirin 81 mg PO HS 04/08/18 08/19/18 History cholecalciferol (vitamin D3) 1,000 unit PO HS 04/08/18 08/19/18 History [Vitamin D3] epinephrine [EpiPen] 0.3 mg IM Q3H PRN 04/08/18 08/19/18 History melatonin 10 mg PO HS 04/08/18 08/19/18 History metoprolol succinate 50 mg PO HS 04/08/18 08/19/18 History pantoprazole 40 mg PO HS 04/08/18 08/19/18 History potassium chloride 10 meq PO HS 04/08/18 08/19/18 History pramipexole 0.75 mg PO HS 04/08/18 08/19/18 History spironolactone 50 mg PO HS 04/08/18 08/19/18 History vitamin B complex [B-Complex] 1 tab PO HS 04/08/18 08/19/18 History meclizine 25 mg PO TID PRN #20 tab 04/09/18 08/19/18 Rx quinidine sulfate 200 mg PO DAILY 08/19/18 08/19/18 History Allergies Allergy/AdvReac Type Severity Reaction Status Date / Time bee venom protein (honey bee) Allergy Severe Anaphylaxis Verified 08/19/18 16:56 . cephalexin Allergy Intermediate RASH Unverified 08/19/18 16:56 Bactrim Allergy Unknown ANAPHYLAXIS Verified 04/10/17 08:31 Cephalosporins Allergy Unknown KEFLEX Verified 08/19/18 16:56 Penicillins Allergy Unknown LIPS Verified 08/19/18 16:56 SWELLING [id number] Reductase Allergy Unknown Rash Verified 08/19/18 16:56 Inhibitor sulfamethoxazole Allergy Unknown ANAPHYLAXIS Verified 08/19/18 16:56 trimethoprim Allergy Unknown ANAPHYLAXIS Verified 08/19/18 16:56 Past Med/Surg History Medical History Near syncope (Resolved) Alcohol intoxication (Resolved) Abnormal finding on EKG Atrial fibrillation (Resolved) Atrial fibrillation (Resolved) 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 No problems noted. Father , age 32 in a WWII plane accident No problems noted. 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 Other Information That Helps Us Care for You: No Feels Safe at Home: Yes Safety Concerns: Feels Safe At This Time Smoking Status: Never smoker Hx Alcohol Use: Yes Hx Substance Use: No Review of Systems See HPI for pertinent positives & negatives. and A total of 10 systems reviewed and were otherwise negative See HPI for pertinent positives & negatives. A total of 10 systems reviewed and were otherwise negative. Physical Exam Vital Signs Vital Signs - 24 hr 08/19/18 14:24 08/19/18 14:35 08/19/18 14:50 Temperature 36.8 C Temperature Source Oral Sepsis Recent Fever Within 48 Hours No Sepsis New/Unexplained Change in Mental Status No Sepsis Action Taken by Nursing No Action Required Pulse Rate 71 69 Pulse Rate [Right Finger] Pulse Rate from SpO2 Sensor 69 Respiratory Rate 16 16 Respiratory Effort / Characteristics Non-Labored Spontaneous Non-Labored Respiratory Depth Normal Respiratory Pattern Regular Blood Pressure 154/85 H 137/77 Blood Pressure [Left Arm] Blood Pressure [Right Arm] Blood Pressure Mean 108 97 Blood Pressure Mean [Left Arm] Blood Pressure Mean [Right Arm] Blood Pressure Position Sitting Blood Pressure Position [Left Arm] Blood Pressure Position [Right Arm] Pulse Oximetry 94 93 94 Oxygen Delivery Method Room Air Room Air 08/19/18 15:00 08/19/18 15:30 08/19/18 16:08 Temperature Temperature Source Sepsis Recent Fever Within 48 Hours Sepsis New/Unexplained Change in Mental Status Sepsis Action Taken by Nursing Pulse Rate 63 59 L 63 Pulse Rate [Right Finger] Pulse Rate from SpO2 Sensor 64 61 Respiratory Rate 14 14 16 Respiratory Effort / Characteristics Respiratory Depth Respiratory Pattern Blood Pressure 132/80 134/80 143/88 H Blood Pressure [Left Arm] Blood Pressure [Right Arm] Blood Pressure Mean 97 98 106 Blood Pressure Mean [Left Arm] Blood Pressure Mean [Right Arm] Blood Pressure Position Blood Pressure Position [Left Arm] Blood Pressure Position [Right Arm] Pulse Oximetry 92 93 Oxygen Delivery Method 08/19/18 17:00 08/19/18 17:01 08/19/18 17:31 Temperature Temperature Source Sepsis Recent Fever Within 48 Hours Sepsis New/Unexplained Change in Mental Status Sepsis Action Taken by Nursing Pulse Rate 66 66 68 Pulse Rate [Right Finger] Pulse Rate from SpO2 Sensor 67 Respiratory Rate 23 25 H 24 Respiratory Effort / Characteristics Respiratory Depth Respiratory Pattern Blood Pressure 152/86 H 143/95 H Blood Pressure [Left Arm] Blood Pressure [Right Arm] Blood Pressure Mean 108 111 Blood Pressure Mean [Left Arm] Blood Pressure Mean [Right Arm] Blood Pressure Position Blood Pressure Position [Left Arm] Blood Pressure Position [Right Arm] Pulse Oximetry 96 Oxygen Delivery Method 08/19/18 18:01 08/19/18 18:31 08/19/18 18:53 Temperature Temperature Source Sepsis Recent Fever Within 48 Hours Sepsis New/Unexplained Change in Mental Status Sepsis Action Taken by Nursing Pulse Rate 79 66 Pulse Rate [Right Finger] Pulse Rate from SpO2 Sensor 78 67 Respiratory Rate 24 20 Respiratory Effort / Characteristics Respiratory Depth Respiratory Pattern Blood Pressure 143/84 H Blood Pressure [Left Arm] Blood Pressure [Right Arm] Blood Pressure Mean 103 Blood Pressure Mean [Left Arm] Blood Pressure Mean [Right Arm] Blood Pressure Position Blood Pressure Position [Left Arm] Blood Pressure Position [Right Arm] Pulse Oximetry 96 Oxygen Delivery Method Room Air 08/19/18 19:20 08/19/18 19:45 08/19/18 21:25 Temperature 36.8 C Temperature Source Oral Sepsis Recent Fever Within 48 Hours Sepsis New/Unexplained Change in Mental Status Sepsis Action Taken by Nursing Pulse Rate 62 Pulse Rate [Right Finger] 66 69 Pulse Rate from SpO2 Sensor Respiratory Rate 18 Respiratory Effort / Characteristics Non-Labored Spontaneous Non-Labored Spontaneous SOB on Exertion Respiratory Depth Normal Respiratory Pattern Regular Regular Blood Pressure Blood Pressure [Left Arm] 150/87 H 134/77 Blood Pressure [Right Arm] Blood Pressure Mean Blood Pressure Mean [Left Arm] 108 96 Blood Pressure Mean [Right Arm] Blood Pressure Position Blood Pressure Position [Left Arm] Sitting Blood Pressure Position [Right Arm] Pulse Oximetry 90 Oxygen Delivery Method Room Air 08/19/18 23:00 08/19/18 23:37 Temperature 36.5 C Temperature Source Oral Sepsis Recent Fever Within 48 Hours Sepsis New/Unexplained Change in Mental Status Sepsis Action Taken by Nursing Pulse Rate 70 Pulse Rate [Right Finger] 57 L Pulse Rate from SpO2 Sensor Respiratory Rate 18 Respiratory Effort / Characteristics Respiratory Depth Respiratory Pattern Blood Pressure Blood Pressure [Left Arm] Blood Pressure [Right Arm] 126/75 Blood Pressure Mean Blood Pressure Mean [Left Arm] Blood Pressure Mean [Right Arm] 92 Blood Pressure Position Blood Pressure Position [Left Arm] Blood Pressure Position [Right Arm] Lying Pulse Oximetry 91 Oxygen Delivery Method Room Air GENERAL: Awake, alert, fatigued-appearing, in no distress HENT: Normocephalic, atraumatic. Oropharynx with dry mucous membranes and otherwise unremarkable. EYES: Normal conjunctiva. Sclera non-icteric. EOMI. No nystamgus. PEARRL. NECK: Supple. No nuchal rigidity. FROM. No JVD. RESPIRATORY: Clear to auscultation. CARDIAC: Regular rate, normal rhythm. Extremities warm and well perfused. Pulses equal. ABDOMEN: Soft, non-distended. No tenderness to palpation. No rebound or g uarding. No masses. RECTAL: Deferred. MUSCULOSKELETAL: Chest examination reveals no tenderness. The back is symmetrical on inspection without obvious abnormality. There is no CVA tenderness to palpation. No joint edema. LOWER EXTREMITIES: Calves are equal size bilaterally and non-tender. No edema. N o discoloration. NEURO: Normal sensorium. No sensory or motor deficits noted. Intact finger to nose. 5/5 strength and SILT x 4 extremities. SKIN: No rash or jaundice noted. Course 1501: The patient was evaluated in room C12B, and a complete history and physical examination were performed. 1728: I discussed the [facility] will [facility] the patient for further hospitalization. Consultations Consultation #1: Dr. Acosta [facility] Hospitalist Time: 17:28 Administered Medications Aspirin (Ecotrin Ectab) 81 mg PO [facility] Stop: 09/18/18 20:59 Last Admin: 08/19/18 21:20 Dose: Not Given Documented by: [id number] Ioversol (Optiray 320 125ml) 119 ml IV ONCE PRN PRN Reason: Interaction Checking Stop: 08/23/18 20:26 Last Admin: 08/19/18 20:27 Dose: 119 ml Documented by: [id number] Metoprolol Succinate (Toprol Xl) 50 mg PO HS [place] Stop: 09/18/18 20:59 Last Admin: 08/19/18 21:30 Dose: 50 mg Documented by: [id number] Miscellaneous (Order Awaiting Action) 1 ea N/A QS [place] Stop: 09/19/18 00:00 Last Admin: 08/20/18 00:52 Dose: Not Given Documented by: [id number] Pantoprazole Sodium (Protonix) 40 mg PO HS [place] Stop: 09/18/18 20:59 Last Admin: 08/19/18 21:31 Dose: 40 mg Documented by: [id number] Potassium Chloride (Klor-Con M10) 10 meq PO HS [place] Stop: 09/18/18 20:59 Last Admin: 08/19/18 21:30 Dose: 10 meq Documented by: [id number] Pramipexole Dihydrochloride (Mirapex) 0.75 mg PO [place] Stop: 09/18/18 20:59 Last Admin: 08/19/18 21:30 Dose: 0.75 mg Documented by: [id number] Spironolactone (Aldactone) 50 mg PO [place] Stop: 09/18/18 20:59 Last Admin: 08/19/18 21:20 Dose: Not Given Documented by: [id number] Vitamin B Complex (Vitamin B Complex) 1 tab PO HS [place] Stop: 09/18/18 20:59 Last Admin: 08/19/18 21:30 Dose: 1 tab Documented by: [id number] Vitamin D (Vitamin D3) 1,000 units PO HS [place] Stop: 09/18/18 20:59 Last Admin: 08/19/18 21:30 Dose: 1,000 units Documented by: [id number] Discontinued Medications Albuterol (Duoneb) 3 ml NEB NOW STA Stop: 08/19/18 15:59 Last Admin: 08/19/18 16:21 Dose: 3 ml Documented by: [id number] Aspirin (Aspirin) 324 mg PO NOW STA Stop: 08/19/18 17:34 Last Admin: 08/19/18 18:14 Dose: 324 mg Documented by: [id number] Sodium Chloride (Nss) 500 mls @ 999 mls/hr IV .Q31M ONE Stop: 08/19/18 17:31 Last Infusion: 08/19/18 17:56 Dose: 0 mls/hr Documented by: [id number] Admin: 08/19/18 17:16 Dose: 999 mls/hr Documented by: [id number] Medical Decision Making Differential Diagnosis Differential diagnoses includes but is not limited to pneumonia, bronchitis, COPD/Asthma exacerbation, pneumothorax, pulmonary embolism, congestive heart failure, acute coronary syndrome. Medical Records Attestation: I reviewed the patient's medical records. Home Medications Current Medication List: was personally reviewed by me Laboratory Data Attestation: I reviewed the patient's lab results. Result diagrams: 08/19/18 14:50 08/19/18 14:50 Lab Results 08/19/18 08/19/18 08/19/18 Range/Units 14:47 14:50 14:50 WBC 5.47 (4.8-10.8) K/uL RBC 4.17 L (4.2-5.4) M/uL Hgb 13.9 (12.0-16.0) g/dL Hct 39.8 (37-47) % MCV 95.4 (80-100) fL MCH 33.3 (25-34) pg MCHC 34.9 (32-36) g/dL RDW Std Deviation 43.4 (36.4-46.3) fL RDW Coeff of Greg 12.5 (11.5-14.5) % Plt Count 222 (130-400) K/uL MPV 8.9 (7.4-10.4) fL Immature Gran % (Auto) 0.4 % Neut % (Auto) 53.8 % Lymph % (Auto) 25.4 % Lares % (Auto) 14.6 % Eos % (Auto) 5.3 % Baso % (Auto) 0.5 % Immature Gran # (Auto) 0.02 (0.00-0.02) K/uL Neut # (Auto) 2.94 (1.4-6.5) K/uL Lymph # (Auto) 1.39 (1.2-3.4) K/uL Lares # (Auto) 0.80 H (0.11-0.59) K/uL Eos # (Auto) 0.29 (0-0.5) K/uL Baso # (Auto) 0.03 (0-0.2) K/uL VBG pH (7.36-7.41) VBG pCO2 (38-50) mmHg VBG pO2 mmHg VBG HCO3 mmol/L VBG O2 Saturation % VBG Base Excess mEq/L Barometric Pressure mm/Hg Sodium 139 (136-145) mmol/L Potassium 3.9 (3.5-5.1) mmol/L Chloride 106 (98-107) mmol/L Carbon Dioxide 25 (21-32) mmol/L Anion Gap 8.0 (3-11) BUN 14 (7-18) mg/dl Creatinine 0.85 (0.6-1.2) mg/dl Est Cr Clr Drug Dosing 50.9 ml/min Est GFR ( Amer) 74.5 Est GFR (Non-Af Amer) 64.3 BUN/Creatinine Ratio 16.7 (10-20) Glucose 88 (70-99) mg/dl Calcium 9.1 (8.5-10.1) mg/dl Phosphorus 4.1 (2.5-4.9) mg/dl Magnesium 2.3 (1.8-2.4) mg/dl Total Bilirubin 1.2 H (0.2-1) mg/dl AST 18 (15-37) U/L ALT 23 (12-78) U/L Alkaline Phosphatase 75 (45-117) U/L Troponin I < 0.015 (0-0.045) ng/ml NT-Pro-B Natriuret Pep 297 (0-1800) pg/ml Total Protein 6.4 (6.4-8.2) gm/dl Albumin 3.3 L (3.4-5.0) gm/dl Globulin 3.1 (2.5-4.0) gm/dl Albumin/Globulin Ratio 1.1 (0.9-2) Lipase 99 (73-393) U/L TSH 1.960 (0.300-4.500) uIu/ml Urine Color Yellow Urine Appearance Clear (Clear) Urine pH 5.0 (4.5-7.5) Ur Specific [place] 1.019 (1.000-1.030) Urine Protein Negative (Negative) Urine Glucose (UA) Negative (Negative) Urine Ketones Negative (Negative) Urine Blood Negative (Negative) Urine Nitrite Negative (Negative) Urine Bilirubin Negative (Negative) Urine Urobilinogen Negative (Negative) Ur Leukocyte Esterase Trace H (Negative) Urine WBC (Auto) 1-5 (0-5) /hpf Urine RBC (Auto) 0-4 (0-4) /hpf U Hyaline Cast (Auto) 0 (0-5) /lpf U Epithel Cells (Auto) 10-20 H (0-5) /lpf Urine Bacteria (Auto) Negative (Negative) Lyme Disease IgG Ab (Negative) Lyme Disease IgM Ab (Negative) 08/19/18 08/19/18 08/19/18 Range/Units 15:21 19:51 19:51 WBC (4.8-10.8) K/uL RBC (4.2-5.4) M/uL Hgb (12.0-16.0) g/dL Hct (37-47) % MCV (80-100) fL MCH (25-34) pg MCHC (32-36) g/dL RDW Std Deviation (36.4-46.3) fL RDW Coeff of Greg (11.5-14.5) % Plt Count (130-400) K/uL MPV (7.4-10.4) fL Immature Gran % (Auto) % Neut % (Auto) % Lymph % (Auto) % Lares % (Auto) % Eos % (Auto) % Baso % (Auto) % Immature Gran # (Auto) (0.00-0.02) K/uL Neut # (Auto) (1.4-6.5) K/uL Lymph # (Auto) (1.2-3.4) K/uL Lares # (Auto) (0.11-0.59) K/uL Eos # (Auto) (0-0.5) K/uL Baso # (Auto) (0-0.2) K/uL VBG pH 7.46 H (7.36-7.41) VBG pCO2 37 L (38-50) mmHg VBG pO2 41 mmHg VBG HCO3 26 mmol/L VBG O2 Saturation 76.7 % VBG Base Excess 2.2 mEq/L Barometric Pressure 721.3 mm/Hg Sodium (136-145) mmol/L Potassium (3.5-5.1) mmol/L Chloride (98-107) mmol/L Carbon Dioxide (21-32) mmol/L Anion Gap (3-11) BUN (7-18) mg/dl Creatinine (0.6-1.2) mg/dl Est Cr Clr Drug Dosing ml/min Est GFR ( Amer) Est GFR (Non-Af Amer) BUN/Creatinine Ratio (10-20) Glucose (70-99) mg/dl Calcium (8.5-10.1) mg/dl Phosphorus (2.5-4.9) mg/dl Magnesium (1.8-2.4) mg/dl Total Bilirubin (0.2-1) mg/dl AST (15-37) U/L ALT (12-78) U/L Alkaline Phosphatase (45-117) U/L Troponin I < 0.015 (0-0.045) ng/ml NT-Pro-B Natriuret Pep (0-1800) pg/ml Total Protein (6.4-8.2) gm/dl Albumin (3.4-5.0) gm/dl Globulin (2.5-4.0) gm/dl Albumin/Globulin Ratio (0.9-2) Lipase (73-393) U/L TSH (0.300-4.500) uIu/ml Urine Color Urine Appearance (Clear) Urine pH (4.5-7.5) Ur Specific [place] (1.000-1.030) Urine Protein (Negative) Urine Glucose (UA) (Negative) Urine Ketones (Negative) Urine Blood (Negative) Urine Nitrite (Negative) Urine Bilirubin (Negative) Urine Urobilinogen (Negative) Ur Leukocyte Esterase (Negative) Urine WBC (Auto) (0-5) /hpf Urine RBC (Auto) (0-4) /hpf U Hyaline Cast (Auto) (0-5) /lpf U Epithel Cells (Auto) (0-5) /lpf Urine Bacteria (Auto) (Negative) Lyme Disease IgG Ab Negative (Negative) Lyme Disease IgM Ab Negative (Negative) 08/20/18 Range/Units 00:53 WBC (4.8-10.8) K/uL RBC (4.2-5.4) M/uL Hgb (12.0-16.0) g/dL Hct (37-47) % MCV (80-100) fL MCH (25-34) pg MCHC (32-36) g/dL RDW Std Deviation (36.4-46.3) fL RDW Coeff of Greg (11.5-14.5) % Plt Count (130-400) K/uL MPV (7.4-10.4) fL Immature Gran % (Auto) % Neut % (Auto) % Lymph % (Auto) % Lares % (Auto) % Eos % (Auto) % Baso % (Auto) % Immature Gran # (Auto) (0.00-0.02) K/uL Neut # (Auto) (1.4-6.5) K/uL Lymph # (Auto) (1.2-3.4) K/uL Lares # (Auto) (0.11-0.59) K/uL Eos # (Auto) (0-0.5) K/uL Baso # (Auto) (0-0.2) K/uL VBG pH (7.36-7.41) VBG pCO2 (38-50) mmHg VBG pO2 mmHg VBG HCO3 mmol/L VBG O2 Saturation % VBG Base Excess mEq/L Barometric Pressure mm/Hg Sodium (136-145) mmol/L Potassium (3.5-5.1) mmol/L Chloride (98-107) mmol/L Carbon Dioxide (21-32) mmol/L Anion Gap (3-11) BUN (7-18) mg/dl Creatinine (0.6-1.2) mg/dl Est Cr Clr Drug Dosing ml/min Est GFR ( Amer) Est GFR (Non-Af Amer) BUN/Creatinine Ratio (10-20) Glucose (70-99) mg/dl Calcium (8.5-10.1) mg/dl Phosphorus (2.5-4.9) mg/dl Magnesium (1.8-2.4) mg/dl Total Bilirubin (0.2-1) mg/dl AST (15-37) U/L ALT (12-78) U/L Alkaline Phosphatase (45-117) U/L Troponin I < 0.015 (0-0.045) ng/ml NT-Pro-B Natriuret Pep (0-1800) pg/ml Total Protein (6.4-8.2) gm/dl Albumin (3.4-5.0) gm/dl Globulin (2.5-4.0) gm/dl Albumin/Globulin Ratio (0.9-2) Lipase (73-393) U/L TSH (0.300-4.500) uIu/ml Urine Color Urine Appearance (Clear) Urine pH (4.5-7.5) Ur Specific [place] (1.000-1.030) Urine Protein (Negative) Urine Glucose (UA) (Negative) Urine Ketones (Negative) Urine Blood (Negative) Urine Nitrite (Negative) Urine Bilirubin (Negative) Urine Urobilinogen (Negative) Ur Leukocyte Esterase (Negative) Urine WBC (Auto) (0-5) /hpf Urine RBC (Auto) (0-4) /hpf U Hyaline Cast (Auto) (0-5) /lpf U Epithel Cells (Auto) (0-5) /lpf Urine Bacteria (Auto) (Negative) Lyme Disease IgG Ab (Negative) Lyme Disease IgM Ab (Negative) Imaging Data Radiologist's Impression: Radiology results as stated below per my review and the radiologist's interpretation: XR chest 1V portable CLINICAL HISTORY: Chest Pain dyspnea COMPARISON STUDY: 04/08/2018 FINDINGS: Moderate stable cardiomegaly. Chronic bibasilar interstitial change. Mid and upper lungs are clear. There is a scoliosis of the thoracic spine. IMPRESSION: Chronic basilar interstitial change. Stable cardiomegaly. No acute process. The above report was generated using voice recognition software. It may contain grammatical, syntax or spelling errors. Electronically signed by: Isai Hardy M.D. 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 fib not on anticoagulation, who presents to the emergency department with symptoms of acute severe dyspnea on exertion to the point where she is unable to ambulate per hpi. On arrival the patient is fatigued appearing but no acute distress, afebrile stable vital signs. Patient does appear clinically dry. She is neuro intact including cerebellar function intact including [id number]. EKG without evidence of overt ischemia. Chest x-ray negative acute process. Initial troponin negative. WBC, H/H, platelets wnl. Chemistry without acidosis. LFTs and electrolytes unremarkable. UA negative. Considering the patient's age and description of severe dyspnea on exertion that is unlike anything she has experienced before I did communicate to the patient my concern for the possibility of progression of coronary disease which could be contributing to her symptoms. Thus, I recommended admission however the patient was reluctant and requested I discussed with cardiology. Case was reviewed with [place] cardiology human resources operations coordinator, Dr. Mitchell, who agrees it is recommended to admit the patient for further cardiac rule out given her acute change in her dyspnea on exertion. Thus, patient subsequently agreeable for admission. This was discussed with Dr. Zepeda, [facility] hospitalist, who will evaluate the patient for admission. Impression & Plan ELISE (dyspnea on exertion) Discharge Plan Visit Data *Final* Discharge Date/Time: 08/19/18 18:53 Chief Complaint: Shortness of Breath/Dyspnea Stated Complaint: CARDIAC PROBLEMS LACK OF BREATH ED Provider: Ramírez Miller Discharge Problem: ELISE (dyspnea on exertion) Patient Disposition: Admitted As Inpatient Discharge Instructions Interventions: ED Discharge Assessment Last Done: 08/19/18 18:53 The scribe's documentation has been prepared under my direction and personally reviewed by me in its entirety. I confirm that the note above accurately reflects all work, treatment, procedures, and medical decision making performed by me.
--- NOTE | 2018-08-19 20:49 | CT Scan Report ---
CT angio chest PE protocol CLINICAL HISTORY: 83 years-old Female presenting with atypical chest pain, clinical concern for pulmo nary embolus. TECHNIQUE: Multidetector CT angiography of the chest was performed after administration of intravenou s contrast. 3-D volumetric and/or maximum intensity projection (MIP) images were subsequently reconst ructed for review. IV contrast: 119 mL of Optiray 320. One or more dose lowering techniques were used consistent with the principles of ALARA (as low as reasonably achievable), including automatic expos ure control, mA or kV adjustment to individual patient size, and/or use of iterative reconstruction. COMPARISON: 10/19/2015. CT DOSE (mGy.cm): The estimated cumulative dose is 242.86 mGy.cm. 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 Pulmonary vasculature: The study is adequate for assessment of the pulmonary vascular tree. No filling defect within the pul monary arteries to suggest embolus. Main pulmonary artery is not enlarged. No flattening of the inter ventricular septum. No intracardiac filling defect. No reflux of contrast into the hepatic veins. Remaining chest: Soft tissues: Normal thyroid and thoracic inlet. No axillary, supraclavicular, mediastinal, or hilar lymphadenopathy. Atherosclerosis of the aorta. Calcification of the aortic valve. Normal heart size. No pericardial or pleural effusion. Upper abdomen normal. Lungs and airways: No pneumothorax. Central airways patent. Pulmonary arteries are not significantly enlarged relative to adjacent bronchi. No interlobular septal thickening. Bandlike opacities primaril y in a paramediastinal distribution in the lower lungs as well as reticular opacities in a subpleural distribution at the lung bases are similar to prior exam. Improved aeration of the lower lobes. The inferior most aspect of the lower lobes are excluded from the [id number]. Musculoskeletal: Degenerative changes of the spine. Significant scoliosis of the spine makes evaluati on difficult. IMPRESSION: 1. No evidence of pulmonary embolus. 2. Similar appearance of chronic basilar predominant lung disease. Suspected underlying mild fibrosi s. This does not have a usual interstitial pneumonia pattern. No superimposed infiltrate to suggest p neumonia. Electronically signed by: Henok Lopez M.D. 08/19/2018 8:47 PM
[2018-08-19] MEDS ORDERED: PRAMIPEXOLE DIHYDROCHLO 0.25 MG TAB PO SCH (21:00)
[2018-08-19] MEDS ORDERED: CHOLECALCIFEROL 1,000 UNITS TAB PO SCH (21:00)
[2018-08-19] MEDS ORDERED: SPIRONOLACTONE 25 MG TAB PO SCH (21:00)
[2018-08-19] MEDS ORDERED: METOPROLOL SUCC 50MG EXT REL TAB PO SCH (21:00)
[2018-08-19] MEDS ORDERED: VITAMIN B COMPLEX TAB PO SCH (21:00)
[2018-08-19] MEDS ORDERED: PANTOprazole 40 MG TAB PO SCH (21:00)
[2018-08-19] MEDS ORDERED: POTASSIUM CHLORIDE 10 MEQ TABCR PO SCH (21:00)
[2018-08-19] MEDS ORDERED: ASPIRIN 81 MG ECTAB PO SCH (21:00)
[2018-08-19 21:17] LABS: Lyme Ab IgG w/WB Rflx Negative (Negative); Lyme Ab IgM w/WB Rflx Negative (Negative)
[2018-08-20] MEDS ORDERED: ATROPINE SULFATE 0.1 MG/ML 10ML SYR IV ONE (08:35)
[2018-08-20] MEDS ORDERED: METOPROLOL TARTRATE 1 MG/ML VIAL IV ONE ×2 (08:35)
[2018-08-20] MEDS ORDERED: DOBUTamine HCL 12.5 MG/ML 20 ML VIAL IV ONE (08:35)
[2018-08-20] MEDS ORDERED: quiNIDine sulfate 200 MG TAB PO SCH (09:00)
[2018-08-20] MEDS ORDERED: PERFLUTREN LIPID MICROSPHERE (DEFINITY) IV ONE (09:14)
--- NOTE | 2018-08-20 14:43 | Ultrasound Report ---
US venous doppler LE BI HISTORY: Pain. Edema. Concern for DVT COMPARISON STUDY: None. FINDINGS: There is normal compressibility, flow, and augmentation within the bilateral lower extremit y deep venous systems. IMPRESSION: No DVT within the right or left lower extremity. The above report was generated using voice recognition software. It may contain grammatical, syntax or spelling errors. Electronically signed by: Isai Hardy M.D. 08/20/2018 2:42 PM
--- NOTE | 2018-08-20 18:32 | Discharge Summary ---
Date of Service August 20, 2018 Admission HPI Per Admitting Provider 83 y/o F c/o ELISE. Pt states that over the last 2 days she has had ELISE with flat surfaces. She gets so SOB that she feels like her LE are going to give out from under her. She states that this is unusual for her. No SOB at rest or with lying flat. She states that over the last year she feels she has been having more difficulty with hills and stairs, but she could manage them. Now she cannot walk in the [place] the last few days at all. She gets occasional chest tightness to her L shoulder with this, but not all of the time. Pt denies fever, abd pain, n/v, LE pain or swelling. She has had "explosive" diarrhea daily for the last 2 months. Pt and with extensive travel hx. They go to frequently, last trip was to [place] in April. In June she rode with her son to [place] and then flew back. She states that the flight was "worse than driving" in terms of feeling "wiped out" afterwards. She states her recovery from this was prolonged compared to usual flights. Pt's removed a tick from pt's L lower back/upper buttock about 10 days ago. He states it was embedded and the area was very red and irritated. No bull's eye rash noted but it continues to be irritated in appearance. Pt and live near the [facility] and walk their dogs in the [place] frequently. Pt has hx of RLS. She found pramipexole to give relief, but was still having LE spasms. She was started on quinine about 1 month ago and this has fully resolved the RLS/spasms. Principal Diagnosis Episode of shortness of breath/dyspnea on exertion Discharge Exam Constitutional WD/WN, vitals as above Eyes normal visual joshi by confrontation and + anicteric sclerae Neck normal visual inspection and trachea midline Respiratory normal respiratory effort, lungs clear to auscultation Cardiovascular Rate/Rhythm: regular rate and regular rhythm Gastrointestinal (Abdomen) Inspection/Auscultation: abdomen not distended Percussion/Palpation: abdomen soft; abdomen nontender Musculoskeletal Head/Neck/Chest: normocephalic and head atraumatic Neurologic awake; not confused Speech / Cognition: normal speech Psychiatric A+Ox3, euthymic affect Discharge Data Allergies Allergy/AdvReac Type Severity Reaction Status Date / Time bee venom protein (honey bee) Allergy Severe Anaphylaxis Verified 08/19/18 16:56 . cephalexin Allergy Intermediate RASH Unverified 08/19/18 16:56 Bactrim Allergy Unknown ANAPHYLAXIS Verified 04/10/17 08:31 Cephalosporins Allergy Unknown KEFLEX Verified 08/19/18 16:56 Penicillins Allergy Unknown LIPS Verified 08/19/18 16:56 SWELLING [id number]-Kgs Reductase Allergy Unknown Rash Verified 08/19/18 16:56 Inhibitor sulfamethoxazole Allergy Unknown ANAPHYLAXIS Verified 08/19/18 16:56 trimethoprim Allergy Unknown ANAPHYLAXIS Verified 08/19/18 16:56 Consultations 08/19/18 17:33 ED Decision to Admit Stat 08/19/18 19:26 Consult Case Management - Discharge Planning Routine Ordered Studies 08/19/18 19:47 CT for pulmonary embolism PE [CT angio chest PE protocol] Stat 08/20/18 13:13 US venous doppler LE Urgent Hospital Course (1) ELISE (dyspnea on exertion): Uncertain etiology; multiple etiologies ruled out as below: 1) Cardiac - Troponins were all negative. Dobuatmine stress echo was done on 08/20/18 and was negative for any ischemic changes. Stress echo showed good squeeze and no wall motion abnormalities, so CHF was ruled out. 2) PE/DVT - CTA chest on 08/19 and bilateral LE ultrasound on 08/20 were all negative for blood clots. 3) Pulmonary - CTA chest only showed some mild, fibrotic changes possibly due to her prior pneumonias. No sign of bronchitis/pneumonia/infection. 4) Lyme - Titres negative. Possible that they were negative due to being before antibody production, but deemed less likely to cause acute onset and resolving dyspnea on exertion. Her history sounded like bronchospasm which is rare side effect of quinine. Will hold quinine and follow up with PCP for possible pulmonary follow up vs. PFTs vs. both. (2) HTN (hypertension): Continued home meds (3) GERD (gastroesophageal reflux disease): continue home meds (4) RLS (restless legs syndrome): continue home meds (5) Afib: Pt states she was on coumadin x2 years, however this issue had resolved States she followed with Dr. Thomason who told her she did not have afib and anticoagulation was stopped Total Time Total Time Spent Total Time Spent (In Minutes): 45 Total Time Includes: Examination of the Patient, Discharge Planning and Medication Reconciliation Discharge Plan Discharge Items Patient Disposition: Home - Self-Care Reason For Visit: ELISE Discharge Diagnosis: Shortness of breath with walking Discharge Goals: Decrease discomfort and Diagnostic testing Activity: Resume your previous activity Non-emergency contact: Primary Care Provider Call non-emergency contact if: you have any medication questions and your symptoms worsen Follow-up/Referrals: Gerardo Oseguera [Primary Care Provider] - Diet: Regular Addtl Provider Instructions: Ms. Salinas, You were admitted to the hospital with an episode of shortness of breath and "paralysis" while walking on the [facility] yesterday. The episode resolved, and you were able to walk here in the hospital without issues. We had concerns that this represented an episode of cardiac injury. We did a set of labs called "troponins" which detect any cardiac injury or lack of oxygen getting to the heart. These were all negative, meaning you did not have a heart attack. We also did a stress test which did not show any areas of blockage in the heart. Finally, we looked for blood clots in the lungs and the legs, and did not find any blood clots in either place. We cannot fully explain the episode of shortness of breath that you experienced. The CT scan of your lungs did show mild, long-standing changes in the bases of your lungs. These are likely due to the pneumonia that you have had throughout your life and do not represent a new infection. We do not believe need antibiotics for these changes, as they are not caused by an active, bacterial infection. You reported that you had seen a manager photo (lung doctor) a while ago, but not seen one recently. Please see your PCP, and consider following up with a manager photo. If you have more episodes of shortness of breath, chest pain, nausea, vomiting, lightheadedness, or dizziness, please come to the emergency department right away. Prescriptions: Continued quinidine sulfate 200 mg tablet 200 mg PO DAILY RF: 0 potassium chloride 10 mEq capsule, extended release 10 meq PO HS RF: 0 metoprolol succinate 50 mg tablet extended release 24 hr 50 mg PO HS RF: 0 aspirin 81 mg Tablet,Delayed Release (Dr/Ec) 81 mg PO HS RF: 0 pantoprazole 40 mg tablet,delayed release (DR/EC) 40 mg PO HS RF: 0 vitamin B complex [B-Complex] Tablet 1 tab PO HS RF: 0 epinephrine [EpiPen] 0.3 mg/0.3 mL Auto-Injector 0.3 mg IM Q3H PRN (Reason: Anaphylaxis) RF: 0 albuterol sulfate [Ventolin HFA] 90 mcg/actuation Hfa Aerosol Inhaler 2 - 4 puff INHALATION Q6H PRN (Reason: Shortness Of Breath Or Wheezing) RF: 0 spironolactone 50 mg tablet 50 mg PO HS RF: 0 cholecalciferol (vitamin D3) [Vitamin D3] 1,000 unit Capsule 1,000 unit PO HS RF: 0 pramipexole 0.75 mg tablet 0.75 mg PO HS RF: 0 melatonin 10 mg Tablet 10 mg PO HS RF: 0 meclizine 25 mg tablet 25 mg PO TID PRN (Reason: dizziness) Qty: 20 RF: 1 Stand-Alone Forms: [facility] Discharge Orders: Discharge Order (Routine); Ordered 08/20/18 Ordered By: Manuel Balbuena Admission Data Admit Date/Time: 08/19/18 18:28 Attending Provider: Manuel Balbuena Admit Provider: Emma Zepeda Primary Care Provider: Gerardo Oseguera Other Providers: Manuel Balbuena Service: Telemetry Other Interventions: Discharge Summary Assessment (RN) Last Done: 08/20/18 14:32 DC Date/Time DO NOT enter until pt leaves facility: 08/20/18 16:00
== END 2018-08-20 16:00 | disposition home or self-care (01) ==
LOC: ED 14:23 → 2S 14:23 → SUATTDRO 18:28 → 2S 18:53

== ENCOUNTER 2019-07-20 10:08 | Observation (INO) ==
[2019-07-20 11:51] LABS: Basophils # (auto) 0.03 K/uL (0-0.2); Basophils % (auto) 0.6 %; Eosinophils # (auto) 0.18 K/uL (0-0.5); Eosinophils % (auto) 3.5 %; Hematocrit (blood only) 40.9 % (37-47); Hemoglobin 13.8 g/dL (12.0-16.0); Immature Granulocytes # (auto) 0.01 K/uL (0.00-0.02); Immature Granulocytes % (auto) 0.2 %; Lymphocytes # (auto) 1.62 K/uL (1.2-3.4); Lymphocytes % (auto) 31.8 %; Mean Corpuscular Hemoglobin 34.9 pg (25-34); Mean Corpuscular Hgb Conc 33.7 g/dL (32-36); Mean Corpuscular Volume 103.5 fL (80-100); Mean Platelet Volume 9.4 fL (7.4-10.4); Monocytes # (auto) 0.66 K/uL (0.11-0.59); Neutrophils # (auto) 2.59 K/uL (1.4-6.5); Neutrophils % (auto) 50.9 %; Platelet Count 236 K/uL (130-400); RDW Coefficient of Variation 13.1 % (11.5-14.5); RDW Standard Deviation 49.1 fL (36.4-46.3); Red Blood Count 3.95 M/uL (4.2-5.4); White Blood Count 5.09 K/uL (4.8-10.8)
[2019-07-20 12:02] LABS: Alanine Aminotransferase 30 U/L (12-78); Albumin Level 3.3 gm/dl (3.4-5.0); Aspartate Aminotransferase 20 U/L (15-37); BUN Creatinine Ratio 21.1 (10-20); Blood Urea Nitrogen 16 mg/dl (7-18); Calcium 9.1 mg/dl (8.5-10.1); Carbon Dioxide 27 mmol/L (21-32); Chloride 110 mmol/L (98-107); Creatinine Clr Calc Pharmacy 55.4 ml/min; Est GFR (African American) 84.7; Est GFR (Non-African American) 73.1; Glucose 103 mg/dl (70-99); Lipase 78 U/L (73-393); Potassium 4.2 mmol/L (3.5-5.1); Sodium 141 mmol/L (136-145)
[2019-07-20 12:03] LABS: Partial Thromboplastin Ratio 0.9; Partial Thromboplastin Time 24.1 Seconds (21.0-31.0); Prothrombin Time 10.9 Seconds (9.0-12.0)
[2019-07-20 12:06] LABS: Albumin Globulin Ratio 0.9 (0.9-2); Alkaline Phosphatase 72 U/L (45-117); Bilirubin,Total 1.8 mg/dl (0.2-1); Globulin 3.5 gm/dl (2.5-4.0); Total Protein 6.8 gm/dl (6.4-8.2); Troponin I < 0.015 ng/ml (0-0.045)
--- NOTE | 2019-07-20 12:12 | XRay Report ---
XR chest 1V portable CLINICAL HISTORY: 84 years-old Female presenting with Chest Pain. TECHNIQUE: Portable upright AP view of the chest was obtained. COMPARISON: 08/19/2018. FINDINGS: Atherosclerosis of the aortic arch. Cardiac silhouette enlarged. Basilar predominant reticular opacit ies as on prior exam. No new focal opacity. No large effusion or pneumothorax. Implanted medical christoph ce projects over the cardiac apex. Degenerative changes of the thoracic spine. Moderate to severe dex troscoliosis of the mid to lower thoracic spine as on prior exam. Upper abdomen normal. IMPRESSION: 1. Stable examination with cardiomegaly and bibasilar fibrotic changes. No new focal infiltrate. ACT 112: Negative or not required by law. Electronically signed by: Henok Lopez M.D. 07/20/2019 12:11 PM
[2019-07-20] MEDS ORDERED: PNEUMOCOCCAL POLYSACCHARIDES 25 MCG/0.5 ML VIAL/SYR IM ONE (13:34)
[2019-07-20] MEDS ORDERED: PNEUMOCOCCAL ADMINISTRATION CHARGE ONE (13:34)
--- NOTE | 2019-07-20 14:47 | History & Physical Report ---
Date of Service July 20, 2019 Assessment & Plan (1) Chest pressure: 84-year-old female was admitted on 20 July 2019 for chest pain and shortness of breath. Chest pain, shortness of breath: Relatively sudden onset around 7 AM this morning. Presently has self-resolved and she is rather asymptomatic during this H&P. No obvious evidence of acute ischemia on her EKG and lab testing. Also no obvious evidence of an acute infectious process, although she does note feeling more cold recently. - Followed by Dr. Thomason (cardiology) as outpatient. Dobutamine stress echo in August 2018 with no interpretation mentioned in scanned record. Last echocardiogram on record in September 2018. - In ED, afebrile, borderline bradycardic, mild to moderate hypertension, with normal room SpO2. WBC 5, notable on electrolytes. EKG was sinus gema 56 with ? t wave inversions in V2-V3. Two initial troponins were negative. pCXR without focal infiltrate but evidence of stable fibrotic changes. - In ED, given a Pneumovax 23 vaccine. - For now, we will trend her troponins and keep on compliance monitor. Consult cardiology. They may end up doing a stress test tomorrow. Hold metoprolol and spironolactone in case of this. Elevated bilirubin: Admit T bili 1.8, similar to December 2018. Remaining LFTs n ormal. No reported abdominal symptoms and has a non-tender exam. Low back pain: Patient notes that it feels like her low back "slips" now multiple times a day more recently. Presently denies any back pain or lower extremity deficits. Likely needs close follow-up as outpatient. Ongoing medical issues: - Hypertension, hyperlipidemia: Continue home aspirin, metoprolol, spironolactone (though some held briefly as above). Previously has not tolerated hyperlipidemia medications. Is also on quinidine (? anti-arrhythmic). - Hypokalemia: Admit K 4.2. Continue home potassium. - COPD, interstitial lung disease, RACHELLE, hypersomnolence: Continue home CPAP and Advair twice daily. - Paroxysmal atrial fibrillation, palpitations, history of loop recorder: Is not on any anticoagulation per cardiology in May 2019. - Restless leg syndrome: Continue home pramipexole. - GERD: Continue home pantoprazole. - Rheumatoid arthritis: Followed by [facility]. Continue home methotrexate. Patient says she is not currently on prednisone as she does not presently have a flare. - Migraine, left acoustic neuroma and history of gamma knife radiation: Patient says that she has some baseline ataxia that she thinks is related to this. Has not acutely worsened in the past couple of days. Code status: Full code. Diet: Heart healthy. NPO at midnight in case of stress test in AM. DVT prophy: Lovenox. PT/OT: Deferred. Disbo: Admit to [facility] telemetry for observation. (2) SOB (shortness of breath): (3) Elevated bilirubin: (4) Low back pain: (5) HTN (hypertension): (6) Hyperlipemia: (7) Hypokalemia: (8) Mild chronic obstructive pulmonary disease: (9) Interstitial lung disease: (10) Obstructive sleep apnea syndrome: (11) Hypersomnia: (12) Paroxysmal atrial fibrillation: (13) RLS (restless legs syndrome): (14) GERD (gastroesophageal reflux disease): (15) Rheumatoid arthritis: (16) Migraine: (17) Left acoustic neuroma: History of Present Illness Primary Care Provider: Gerardo Oseguera MD 84-year-old female presents with acute onset of chest pressure and shortness of breath. - Patient says she woke up around 6:30 AM this morning asymptomatic. Around 7 AM for breakfast she noticed some difficulty breathing and soon to follow onset of central chest pressure with radiation into her right arm. She also had the rather sudden onset of some loose stools without associated abdominal pain. After this she decided to go back to bed and use her CPAP machine which she uses regularly. There she remained until around 9 AM when her doctor's office opened. She called them and was advised to come to the ED. - Presently, patient says her chest pressure resolved just prior to starting ED triage. She says that she continues to have right arm numbness which is new. She denies any known recent illnesses or fevers, however says in the past couple of days her temperature has been lower than normal (96 degrees) along with some chills. She also says that she had some exertional shortness of breath walking uphill while walking her dog yesterday. She had no chest pain at the time. 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 This does not seem worse than her baseline. She does have some concern that her lower back has been "giving out" multiple times per day which causes her local discomfort. At present, she denies any back pain or problems with extremity movement. - Past medical history includes hypertension, hyperlipidemia, hypokalemia, COPD, interstitial lung disease, RACHELLE, hypersomnolence, paroxysmal atrial fibrillation, palpitations, restless leg syndrome, GERD, rheumatoid arthritis, migraine, left acoustic neuroma - Past surgical history includes rotator cuff surgery, implantable loop recorder. - Social history includes denies using tobacco products. Drinks a glass of bourbon nightly with dinner. Lives at home with . Allergies Allergy/AdvReac Type Severity Reaction Status Date / Time bee venom protein (honey bee) Allergy Severe Anaphylaxis Verified 07/20/19 11:20 . cephalexin Allergy Intermediate RASH Verified 07/20/19 11:20 Bactrim Allergy Unknown ANAPHYLAXIS Verified 04/10/17 08:31 Cephalosporins Allergy Unknown KEFLEX Verified 07/20/19 11:20 Penicillins Allergy Unknown LIPS Verified 07/20/19 11:20 SWELLING [id number]-[id number] Reductase Allergy Unknown Rash Verified 07/20/19 11:20 Inhibitor sulfamethoxazole Allergy Unknown ANAPHYLAXIS Verified 07/20/19 11:20 trimethoprim Allergy Unknown ANAPHYLAXIS Verified 07/20/19 11:20 Home Medications Home Medications Medication Instructions Recorded Confirmed Type albuterol sulfate [Ventolin HFA] 2 - 4 puff INHALATION Q6H PRN 04/08/18 07/20/19 History aspirin 81 mg PO HS 04/08/18 07/20/19 History cholecalciferol (vitamin D3) 1,000 unit PO HS 04/08/18 07/20/19 History [Vitamin D3] epinephrine [EpiPen] 0.3 mg IM Q3H PRN 04/08/18 07/20/19 History metoprolol succinate 50 mg PO HS 04/08/18 07/20/19 History pantoprazole 40 mg PO HS 04/08/18 07/20/19 History potassium chloride 10 meq PO HS 04/08/18 07/20/19 History pramipexole 0.75 mg PO HS 04/08/18 07/20/19 History spironolactone 50 mg PO HS 04/08/18 07/20/19 History vitamin B complex [B-Complex] 1 tab PO HS 04/08/18 07/20/19 History CPAP Machine #1 ea 01/07/19 05/19/19 Rx folic acid 1 mg tablet 1 mg PO HS 01/07/19 07/20/19 History prednisone 5 mg tablet 5 mg PO HS 01/07/19 07/20/19 History quinidine sulfate 200 mg tablet 50 mg PO HS tab 01/07/19 07/20/19 History CPAP Machine #1 ea 05/19/19 05/19/19 Rx fluticasone 250 mcg-salmeterol 50 1 puffs INH BID #60 ea 05/27/19 07/20/19 Rx mcg/dose blistr powdr for inhalation methotrexate sodium 20 mg SUBCUT WE 07/20/19 07/20/19 History Past Med/Surg History Medical History (Updated 07/20/19 @ 14:44 by Sean Vazquez MD) Abnormal finding on EKG Acoustic neuroma Alcohol intoxication (Resolved) Atrial fibrillation (Resolved) Atrial fibrillation (Resolved) Interstitial lung disease Mild chronic obstructive pulmonary disease Near syncope (Resolved) Obstructive sleep apnea syndrome Scoliosis Status post gamma knife treatment Surgical History (Updated 05/25/19 @ 15:18 by Claus Thomason MD) H/O rotator cuff surgery Social History Preferred Language: Greek Communication Ability: Effective [employer] Required: No Beliefs That Will Affect Care: None marital status: Current Living Situation: Spouse current occupational status: retired 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 Other Information That Helps Us Care for You: No Feels Safe at Home: Yes Safety Concerns: Feels Safe At This Time Smoking Status: Never smoker Second Hand Exposure: No ; Hx Alcohol Use: Yes Alcohol type: wine and hard liquor Hx Substance Use: No Review of Systems Review of Systems: Constitutional: Positive chills. Denies fevers or focal weakness. Eyes: Denies any visual loss or diplopia ENT: Denies any ear/nose/throat pain or difficulty speaking or swallowing Respiratory: Denies any dyspnea, cough, hemoptysis Cardiovascular: Positive chest pain. Denies peripheral edema. Gastrointestinal: Positive loose stools only this morning. Denies any abdominal pain, nausea/vomiting. Musculoskeletal: Positive right arm numbness. Otherwise denies acute extremity pains, myalgias, or focal weakness. Skin: Denies any known acute rashes or lesions Neuro: Denies any headache, or difficulties with speech or swallow. Physical Exam Physical Exam: GENERAL: Awake, alert, well-appearing, in no acute distress. HENT: Normocephalic, atraumatic. Oropharynx unremarkable. EYES: Normal conjunctiva. Sclera non-icteric. NECK: Inspection normal. Supple and full ROM. No nuchal rigidity. CARDIAC: +S1S2 regular bradycardia, no murmurs. RESPIRATORY: Clear to auscultation. No wheezes or rales. Normal respiratory effort. Speaking easily in full sentences with no cough. GI: +BS, soft, non-distended. No tenderness to palpation. No rebound or guarding. No appreciable masses. EXTREMITIES: No pedal edema or calf tenderness. Moving all extremities naturally and easily. Strength 5/5 throughout bilateral lower extremities. NEURO: No gross neuro deficits. Distal sensation in feet is grossly intact equally. Results & Data Vital Signs (Past 12 Hours) Vital Signs Temp Pulse Resp BP Pulse Ox 07/20/19 13:30 56 L 14 07/20/19 13:00 57 L 17 147/78 H 07/20/19 12:31 58 L 23 144/73 H 07/20/19 12:30 59 L 20 07/20/19 12:00 60 154/78 H 07/20/19 11:30 57 L 18 163/95 H 07/20/19 11:16 61 162/77 H 07/20/19 11:15 62 21 07/20/19 10:10 36.5 C 59 L 20 174/81 H 98 Laboratory Results 07/20/19 07/20/19 07/20/19 Range/Units 12:52 11:15 11:15 WBC (4.8-10.8) K/uL RBC (4.2-5.4) M/uL Hgb (12.0-16.0) g/dL Hct (37-47) % MCV (80-100) fL MCH (25-34) pg MCHC (32-36) g/dL RDW Std Deviation (36.4-46.3) fL RDW Coeff of Greg (11.5-14.5) % Plt Count (130-400) K/uL MPV (7.4-10.4) fL Immature Gran % (Auto) % Neut % (Auto) % Lymph % (Auto) % [place] % (Auto) % Eos % (Auto) % Baso % (Auto) % Immature Gran # (Auto) (0.00-0.02) K/uL Neut # (Auto) (1.4-6.5) K/uL Lymph # (Auto) (1.2-3.4) K/uL [place] # (Auto) (0.11-0.59) K/uL Eos # (Auto) (0-0.5) K/uL Baso # (Auto) (0-0.2) K/uL PT 10.9 (9.0-12.0) Seconds INR 1.0 (0.9-1.1) APTT 24.1 (21.0-31.0) Seconds PTT Ratio 0.9 Sodium 141 (136-145) mmol/L Potassium 4.2 (3.5-5.1) mmol/L Chloride 110 H (98-107) mmol/L Carbon Dioxide 27 (21-32) mmol/L Anion Gap 4.0 (3-11) BUN 16 (7-18) mg/dl Creatinine 0.76 (0.6-1.2) mg/dl Est Cr Clr Drug Dosing 55.4 ml/min Est GFR ( Amer) 84.7 Est GFR (Non-Af Amer) 73.1 BUN/Creatinine Ratio 21.1 H (10-20) Glucose 103 H (70-99) mg/dl Calcium 9.1 (8.5-10.1) mg/dl Total Bilirubin 1.8 H (0.2-1) mg/dl AST 20 (15-37) U/L ALT 30 (12-78) U/L Alkaline Phosphatase 72 (45-117) U/L Troponin I < 0.015 < 0.015 (0-0.045) ng/ml Total Protein 6.8 (6.4-8.2) gm/dl Albumin 3.3 L (3.4-5.0) gm/dl Globulin 3.5 (2.5-4.0) gm/dl Albumin/Globulin Ratio 0.9 (0.9-2) Lipase 78 (73-393) U/L 03/09/20 Range/Units 11:15 WBC 5.09 (4.8-10.8) K/uL RBC 3.95 L (4.2-5.4) M/uL Hgb 13.8 (12.0-16.0) g/dL Hct 40.9 (37-47) % MCV 103.5 H (80-100) fL MCH 34.9 H (25-34) pg MCHC 33.7 (32-36) g/dL RDW Std Deviation 49.1 H (36.4-46.3) fL RDW Coeff of Greg 13.1 (11.5-14.5) % Plt Count 236 (130-400) K/uL MPV 9.4 (7.4-10.4) fL Immature Gran % (Auto) 0.2 % Neut % (Auto) 50.9 % Lymph % (Auto) 31.8 % [place] % (Auto) 13.0 % Eos % (Auto) 3.5 % Baso % (Auto) 0.6 % Immature Gran # (Auto) 0.01 (0.00-0.02) K/uL Neut # (Auto) 2.59 (1.4-6.5) K/uL Lymph # (Auto) 1.62 (1.2-3.4) K/uL [place]ell # (Auto) 0.66 H (0.11-0.59) K/uL Eos # (Auto) 0.18 (0-0.5) K/uL Baso # (Auto) 0.03 (0-0.2) K/uL PT (9.0-12.0) Seconds INR (0.9-1.1) APTT (21.0-31.0) Seconds PTT Ratio Sodium (136-145) mmol/L Potassium (3.5-5.1) mmol/L Chloride (98-107) mmol/L Carbon Dioxide (21-32) mmol/L Anion Gap (3-11) BUN (7-18) mg/dl Creatinine (0.6-1.2) mg/dl Est Cr Clr Drug Dosing ml/min Est GFR ( Amer) Est GFR (Non-Af Amer) BUN/Creatinine Ratio (10-20) Glucose (70-99) mg/dl Calcium (8.5-10.1) mg/dl Total Bilirubin (0.2-1) mg/dl AST (15-37) U/L ALT (12-78) U/L Alkaline Phosphatase (45-117) U/L Troponin I (0-0.045) ng/ml Total Protein (6.4-8.2) gm/dl Albumin (3.4-5.0) gm/dl Globulin (2.5-4.0) gm/dl Albumin/Globulin Ratio (0.9-2) Lipase (73-393) U/L Code Status & VTE Plan Code Status Full code VTE Prophylaxis Plan VTE Prophylaxis will be ordered: Yes Supervising Physician Co-Signing Physician Notes I have seen and examined the patient with and I agree with the assessment and plan. My exam is : GENERAL: Awake, alert x3 ,not in acute distress. HENT: Normocephalic, atraumatic. Oropharynx no lesion. EYES: Normal conjunctiva. Sclera non-icteric. NECK: Inspection normal. Supple and full ROM. No nuchal rigidity. CARDIAC: +S1S2 bradycardia, no murmurs. RESPIRATORY: Clear to auscultation. No wheezes or rales. Normal respiratory effort. Speaking easily in full sentences with no cough. GI: +BS, soft, non-distended. No tenderness to palpation. No rebound or guarding. No appreciable masses. EXTREMITIES: No pedal edema or calf tenderness. Moving all extremities naturally and easily. Strength 5/5 throughout bilateral lower extremities. NEURO: No gross neuro deficits. Distal sensation in feet is grossly intact equally. Resident Activity Tracking Resident Involvement: Resident Care Provided Care Provided: Adult [facility]
--- NOTE | 2019-07-20 15:45 | Electrocardiogram Report ---
Test Reason : Blood Pressure : / mmHG Vent. Rate : 056 BPM Atrial Rate : 056 BPM P-R Int : 182 ms QRS Dur : 088 ms QT Int : 468 ms P-R-T Axes : 031 032 045 degrees QTc Int : 451 ms Sinus bradycardia Nonspecific T wave abnormality Abnormal ECG When compared with ECG of 19-AUG-2018 14:33, Criteria for Inferior infarct are no longer Present Confirmed by Claus Thomason ([id number]) on 07/20/2019 3:44:33 PM Referred By: REFERRED SELF Confirmed By:Claus Thomason
[2019-07-20] MEDS ORDERED: ALBUTEROL HFA 8 GM INHALER INH PRN (16:52)
[2019-07-20] MEDS ORDERED: ACETAMINOPHEN 325 MG TAB PO PRN (16:52)
--- NOTE | 2019-07-20 17:19 | Emergency Department Note ---
Entered by Talat Wills acting as a scribe for Diego Lock MD History of Present Illness General Chief complaint: Cardiac Assessment Stated complaint: CHEST TIGHTNESS INTO RT ARM Time Seen by Provider: 07/20/19 11:01 Source: patient Limitations: no limitations History of Present Illness Maximum Pain Intensity: 5 The patient is a 84 year-old white female w/ PMHx hyperlipemia, scoliosis, ELISE, hx of rotator cuff surgery, mild COPD, Afib, GERD, who presents to the ED w/ CC of intermittent chest pressure beginning about 3 hours ago. The patient states she was going to the bathroom and was having explosive diarrhea when her pain started. She states she got lightheaded and sweaty. The patient states he has been having SOB. She states her pain radiated to her right arm. She notes her right arm is numb right now. She states when she had SOB she went on C-PAP and it helped. She notes her pain is 0/10 right now. She states she has been having a dry cough. She notes her legs are more swollen. She states her appetite has been fine. The patient denies having blood in her stool, nausea, vomiting, and smoking. She states Home Medications Home Medications Medication Instructions Recorded Confirmed Type albuterol sulfate [Ventolin HFA] 2 - 4 puff INHALATION Q6H PRN 04/08/18 07/20/19 History aspirin 81 mg PO HS 04/08/18 07/20/19 History cholecalciferol (vitamin D3) 1,000 unit PO HS 04/08/18 07/20/19 History [Vitamin D3] epinephrine [EpiPen] 0.3 mg IM Q3H PRN 04/08/18 07/20/19 History metoprolol succinate 50 mg PO HS 04/08/18 07/20/19 History pantoprazole 40 mg PO HS 04/08/18 07/20/19 History potassium chloride 10 meq PO HS 04/08/18 07/20/19 History pramipexole 0.75 mg PO HS 04/08/18 07/20/19 History spironolactone 50 mg PO HS 04/08/18 07/20/19 History vitamin B complex [B-Complex] 1 tab PO HS 04/08/18 07/20/19 History CPAP Machine #1 ea 01/07/19 05/19/19 Rx folic acid 1 mg tablet 1 mg PO HS 01/07/19 07/20/19 History prednisone 5 mg tablet 5 mg PO HS 01/07/19 07/20/19 History quinidine sulfate 200 mg tablet 50 mg PO HS tab 01/07/19 07/20/19 History CPAP Machine #1 ea 05/19/19 05/19/19 Rx fluticasone 250 mcg-salmeterol 50 1 puffs INH BID #60 ea 05/27/19 07/20/19 Rx mcg/dose blistr powdr for inhalation methotrexate sodium 20 mg SUBCUT WE 07/20/19 07/20/19 History Allergies Allergy/AdvReac Type Severity Reaction Status Date / Time bee venom protein (honey bee) Allergy Severe Anaphylaxis Verified 07/20/19 11:20 . cephalexin Allergy Intermediate RASH Verified 07/20/19 11:20 Bactrim Allergy Unknown ANAPHYLAXIS Verified 04/10/17 08:31 Cephalosporins Allergy Unknown KEFLEX Verified 07/20/19 11:20 Penicillins Allergy Unknown LIPS Verified 07/20/19 11:20 SWELLING Bdazgke-Ggd-Kot Reductase Allergy Unknown Rash Verified 07/20/19 11:20 Inhibitor sulfamethoxazole Allergy Unknown ANAPHYLAXIS Verified 07/20/19 11:20 trimethoprim Allergy Unknown ANAPHYLAXIS Verified 07/20/19 11:20 Past Med/Surg History Medical History (Updated 07/20/19 @ 14:44 by Sean Vazquez MD) Abnormal finding on EKG Acoustic neuroma Alcohol intoxication (Resolved) Atrial fibrillation (Resolved) Atrial fibrillation (Resolved) Interstitial lung disease Mild chronic obstructive pulmonary disease Near syncope (Resolved) Obstructive sleep apnea syndrome Scoliosis Status post gamma knife treatment Surgical History (Updated 05/25/19 @ 15:18 by Claus Thomason MD) H/O rotator cuff surgery Social History Preferred Language: Cambodian Communication Ability: Effective Online Retailer Required: No Beliefs That Will Affect Care: None marital status: Current Living Situation: Spouse current occupational status: retired 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 Other Information That Helps Us Care for You: No Feels Safe at Home: Yes Safety Concerns: Feels Safe At This Time Smoking Status: Never smoker Second Hand Exposure: No ; Hx Alcohol Use: Yes Alcohol type: wine and hard liquor Hx Substance Use: No Review of Systems See HPI for pertinent positives & negatives. and A total of 10 systems reviewed and were otherwise negative Physical Exam Vital Signs Vital Signs - 24 hr 07/20/19 10:10 07/20/19 10:18 07/20/19 11:15 Temperature 36.5 C Temperature Source Oral Pulse Rate 59 L 62 Respiratory Rate 20 21 Respiratory Effort / Characteristics Non-Labored Spontaneous Non-Labored Spontaneous Respiratory Depth Normal Normal Respiratory Pattern Regular Blood Pressure 174/81 H Blood Pressure Mean 112 Blood Pressure Position Sitting Pulse Oximetry 98 Oxygen Delivery Method Room Air Room Air Sepsis Recent Fever Within 48 Hours No Sepsis New/Unexplained Change in Mental Status No Sepsis Action Taken by Nursing No Action Required 07/20/19 11:16 07/20/19 11:30 07/20/19 11:43 Temperature Temperature Source Pulse Rate 61 57 L Respiratory Rate 18 Respiratory Effort / Characteristics Respiratory Depth Respiratory Pattern Blood Pressure 162/77 H 163/95 H Blood Pressure Mean 91 111 Blood Pressure Position Pulse Oximetry Oxygen Delivery Method Room Air Sepsis Recent Fever Within 48 Hours Sepsis New/Unexplained Change in Mental Status Sepsis Action Taken by Nursing 07/20/19 12:00 07/20/19 12:30 07/20/19 12:31 Temperature Temperature Source Pulse Rate 60 59 L 58 L Respiratory Rate 20 23 Respiratory Effort / Characteristics Respiratory Depth Respiratory Pattern Blood Pressure 154/78 H 144/73 H Blood Pressure Mean 103 89 Blood Pressure Position Pulse Oximetry Oxygen Delivery Method Sepsis Recent Fever Within 48 Hours Sepsis New/Unexplained Change in Mental Status Sepsis Action Taken by Nursing 07/20/19 13:00 07/20/19 13:30 07/20/19 13:31 Temperature Temperature Source Pulse Rate 57 L 56 L 56 L Respiratory Rate 17 14 19 Respiratory Effort / Characteristics Respiratory Depth Respiratory Pattern Blood Pressure 147/78 H 149/66 H Blood Pressure Mean 101 104 Blood Pressure Position Pulse Oximetry Oxygen Delivery Method Sepsis Recent Fever Within 48 Hours Sepsis New/Unexplained Change in Mental Status Sepsis Action Taken by Nursing 07/20/19 14:00 07/20/19 14:01 07/20/19 14:30 Temperature Temperature Source Pulse Rate 59 L 58 L 56 L Respiratory Rate 23 15 15 Respiratory Effort / Characteristics Respiratory Depth Respiratory Pattern Blood Pressure 147/73 H 141/74 H Blood Pressure Mean 91 85 Blood Pressure Position Pulse Oximetry Oxygen Delivery Method Sepsis Recent Fever Within 48 Hours Sepsis New/Unexplained Change in Mental Status Sepsis Action Taken by Nursing GENERAL: Well appearing, well nourished, NAD, non-toxic. Wearing glasses. EYE EXAM: Normal conjunctiva. PERRL, no anisocoria and EOM's grossly intact w/o pain. OROPHARYNX: Moist mucus membranes. Grossly normal dentition. NECK: Supple, no nuchal rigidity, no adenopathy, non-tender. no signs of meningismus. LUNGS: Clear to auscultation. Normal chest wall mechanics. HEART: NSR, no MRG. ABDOMEN: Abdomen soft, non-tender, normo-active bowel sounds, no masses, no rebound or guarding. BACK: No CVA TTP. SKIN: No rashes and no bruising. UPPER EXTREMITIES: Upper extremities are grossly normal. LOWER EXTREMITIES: No pitting edema. No calf pain. NEURO EXAM: A&O x3, cranial nerves II-XII grossly intact, normal speech, moves all 4 extremities on command w/o issue. Course Course 1123: The patient was evaluated in room A10, and a complete history and physical examination were performed. 1237: I am going to talk to cardiology. 1243: I spoke with Dr. Marie - Cardiology. He recommends getting a full set of enzymes prior to stress testing. He states the stress test can be done tomorrow. He recommends admission. 1324: I discussed the patient's case with Dr. Rushing - [facility] Hospitalist. She will evaluate the patient for further management. Medical Decision Making Differential Diagnosis Differential diagnoses includes but is not limited to acute coronary syndrome, myocardial infarction, pericarditis, pulmonary embolus, aortic dissection, pneumonia, pneumothorax, musculoskeletal, shingles, esophageal. Medical Records Attestation: I reviewed the patient's medical records. Home Medications Current Medication List: was personally reviewed by me Laboratory Data Attestation: I reviewed the patient's lab results. Result diagrams: 07/20/19 11:15 07/20/19 11:15 Lab Results 07/20/19 07/20/19 07/20/19 Range/Units 11:15 11:15 11:15 WBC 5.09 (4.8-10.8) K/uL RBC 3.95 L (4.2-5.4) M/uL Hgb 13.8 (12.0-16.0) g/dL Hct 40.9 (37-47) % MCV 103.5 H (80-100) fL MCH 34.9 H (25-34) pg MCHC 33.7 (32-36) g/dL RDW Std Deviation 49.1 H (36.4-46.3) fL RDW Coeff of Greg 13.1 (11.5-14.5) % Plt Count 236 (130-400) K/uL MPV 9.4 (7.4-10.4) fL Immature Gran % (Auto) 0.2 % Neut % (Auto) 50.9 % Lymph % (Auto) 31.8 % [place] % (Auto) 13.0 % Eos % (Auto) 3.5 % Baso % (Auto) 0.6 % Immature Gran # (Auto) 0.01 (0.00-0.02) K/uL Neut # (Auto) 2.59 (1.4-6.5) K/uL Lymph # (Auto) 1.62 (1.2-3.4) K/uL [place] # (Auto) 0.66 H (0.11-0.59) K/uL Eos # (Auto) 0.18 (0-0.5) K/uL Baso # (Auto) 0.03 (0-0.2) K/uL PT 10.9 (9.0-12.0) Seconds INR 1.0 (0.9-1.1) APTT 24.1 (21.0-31.0) Seconds PTT Ratio 0.9 Sodium 141 (136-145) mmol/L Potassium 4.2 (3.5-5.1) mmol/L Chloride 110 H (98-107) mmol/L Carbon Dioxide 27 (21-32) mmol/L Anion Gap 4.0 (3-11) BUN 16 (7-18) mg/dl Creatinine 0.76 (0.6-1.2) mg/dl Est Cr Clr Drug Dosing 55.4 ml/min Est GFR ( Amer) 84.7 Est GFR (Non-Af Amer) 73.1 BUN/Creatinine Ratio 21.1 H (10-20) Glucose 103 H (70-99) mg/dl Calcium 9.1 (8.5-10.1) mg/dl Total Bilirubin 1.8 H (0.2-1) mg/dl AST 20 (15-37) U/L ALT 30 (12-78) U/L Alkaline Phosphatase 72 (45-117) U/L Troponin I < 0.015 (0-0.045) ng/ml Total Protein 6.8 (6.4-8.2) gm/dl Albumin 3.3 L (3.4-5.0) gm/dl Globulin 3.5 (2.5-4.0) gm/dl Albumin/Globulin Ratio 0.9 (0.9-2) Lipase 78 (73-393) U/L 07/20/19 Range/Units 12:52 WBC (4.8-10.8) K/uL RBC (4.2-5.4) M/uL Hgb (12.0-16.0) g/dL Hct (37-47) % MCV (80-100) fL MCH (25-34) pg MCHC (32-36) g/dL RDW Std Deviation (36.4-46.3) fL RDW Coeff of Greg (11.5-14.5) % Plt Count (130-400) K/uL MPV (7.4-10.4) fL Immature Gran % (Auto) % Neut % (Auto) % Lymph % (Auto) % [place] % (Auto) % Eos % (Auto) % Baso % (Auto) % Immature Gran # (Auto) (0.00-0.02) K/uL Neut # (Auto) (1.4-6.5) K/uL Lymph # (Auto) (1.2-3.4) K/uL [place] # (Auto) (0.11-0.59) K/uL Eos # (Auto) (0-0.5) K/uL Baso # (Auto) (0-0.2) K/uL PT (9.0-12.0) Seconds INR (0.9-1.1) APTT (21.0-31.0) Seconds PTT Ratio Sodium (136-145) mmol/L Potassium (3.5-5.1) mmol/L Chloride (98-107) mmol/L Carbon Dioxide (21-32) mmol/L Anion Gap (3-11) BUN (7-18) mg/dl Creatinine (0.6-1.2) mg/dl Est Cr Clr Drug Dosing ml/min Est GFR ( Amer) Est GFR (Non-Af Amer) BUN/Creatinine Ratio (10-20) Glucose (70-99) mg/dl Calcium (8.5-10.1) mg/dl Total Bilirubin (0.2-1) mg/dl AST (15-37) U/L ALT (12-78) U/L Alkaline Phosphatase (45-117) U/L Troponin I < 0.015 (0-0.045) ng/ml Total Protein (6.4-8.2) gm/dl Albumin (3.4-5.0) gm/dl Globulin (2.5-4.0) gm/dl Albumin/Globulin Ratio (0.9-2) Lipase (73-393) U/L Imaging Data Radiologist's Impression: Radiology results as stated below per my review and the radiologist's interpretation: XR chest 1V portable CLINICAL HISTORY: 84 years-old Female presenting with Chest Pain. TECHNIQUE: Portable upright AP view of the chest was obtained. COMPARISON: 08/19/2018. FINDINGS: Atherosclerosis of the aortic arch. Cardiac silhouette enlarged. Basilar predominant reticular opacities as on prior exam. No new focal opacity. No large effusion or pneumothorax. Implanted director of graduate medical education projects over the cardiac apex. Degenerative changes of the thoracic spine. Moderate to severe dextroscoliosis of the mid to lower thoracic spine as on prior exam. Upper abdomen normal. IMPRESSION: 1. Stable examination with cardiomegaly and bibasilar fibrotic changes. No new focal infiltrate. ACT 112: Negative or not required by law. Electronically signed by: Henok Lopez M.D. 07/20/2019 12:11 PM ECG Data Attestation: I personally reviewed and interpreted this ECG as follows: Indication: + chest pain Rate (beats per minute): 56 Rhythm: + sinus bradycardia ECG Intervals/blocks: + Normal QRS, + Normal QT, + Normal CA and + Normal QT-c ECG [place]: + Normal ECG ST segments: + T-wave inversions (anteriorly) Comparison ECG Date: from (08/19/18) Change: the following changes noted (TWI anteriorly is new. Rate is lower currently) Blood Pressure Blood Pressure Findings: Elevated blood pressure Blood Pressure Disposition: further management by hospitalist BHARGAVI Narrative The patient is a 84 year-old white female w/ PMHx hyperlipemia, scoliosis, ELISE, hx of rotator cuff surgery, mild COPD, Afib, GERD, who presents to the ED w/ CC of intermittent chest pressure beginning about 3 hours ago. Continuous Cardiac Monitoring: An order was placed for continuous cardiac monitoring. The monitor shows a rate of 55 with a sinus bradycardia Patient was seen and evaluated the bedside. The patient was presenting with some chest discomfort. The patient is currently chest pain-free. Patient had intermittent chest pressure with radiation to the right upper extremity. Some associated nausea and this was somewhat associated with having a bowel movement. Patient did feel little clammy but no vomiting. Patient has no prior history of heart attack but does have a remote history of TIAs. The patient did have blood work completed along with an EKG. EKG does show TWI anteriorly which is somewhat new. Given the patient does not have any active chest pain do not believe she needs heparin. I did discuss the patient's case with the on-call searchlight operator to discuss the possibility of obtaining a stress test but after discussion thought it best to wait until a full set of enzymes were completed. I did speak with the on-call hospitalist. The patient's repeat troponin was negative. I will continue to monitor and discussed the possibility of stress test tomorrow. Impression & Plan Atypical chest pain, SOB (shortness of breath) Discharge Plan Visit Data *Final* Discharge Date/Time: 07/20/19 16:36 Chief Complaint: Cardiac Assessment Stated Complaint: CHEST TIGHTNESS INTO RT ARM ED Provider: Diego Lock Discharge Problem: Atypical chest pain, SOB (shortness of breath) Patient Disposition: Admitted As Inpatient Discharge Instructions Interventions: ED Discharge Assessment Last Done: 07/20/19 16:36 The ana rosaibe's documentation has been prepared under my direction and personally reviewed by me in its entirety. I confirm that the note above accurately reflects all work, treatment, procedures, and medical decision making performed by me.
[2019-07-20] MEDS ORDERED: ENOXAPARIN INJ 40 MG/0.4 ML SYR SQ SCH (18:00)
[2019-07-20] MEDS: FLUTICASONE/VILANTEROL 100/25MCG 14 PUFFS/INHALER INH SCH (20:05)
[2019-07-20] MEDS ORDERED: VITAMIN B COMPLEX TAB PO SCH (21:00)
[2019-07-20] MEDS ORDERED: PRAMIPEXOLE DIHYDROCHLO 0.5 MG TAB PO SCH (21:00)
[2019-07-20] MEDS ORDERED: PANTOprazole 40 MG TAB PO SCH (21:00)
[2019-07-20] MEDS ORDERED: ASPIRIN 81 MG ECTAB PO SCH (21:00)
[2019-07-20] MEDS ORDERED: quiNIDine sulfate 200 MG TAB PO SCH (21:00)
[2019-07-20] MEDS ORDERED: POTASSIUM CHLORIDE 10 MEQ TABCR PO SCH (21:00)
[2019-07-20] MEDS ORDERED: CHOLECALCIFEROL 1,000 UNITS 25 MCG TAB PO SCH (21:00)
[2019-07-20] MEDS ORDERED: FOLIC ACID 1 MG TAB PO SCH (21:00)
[2019-07-21] MEDS: LACTATED RINGER'S 1,000 ML IV SCH ×2 (00:10→12:55)
[2019-07-21 07:52] VITALS: TEMP 98.1
[2019-07-21] MEDS: FLUTICASONE/VILANTEROL 100/25MCG 14 PUFFS/INHALER INH SCH (08:19)
[2019-07-21 11:45] VITALS: BP 168/95; PULSE 69; O2SAT 90
--- NOTE | 2019-07-21 15:01 | Electrocardiogram Report ---
Test Reason : Blood Pressure : / mmHG Vent. Rate : 058 BPM Atrial Rate : 058 BPM P-R Int : 162 ms QRS Dur : 088 ms QT Int : 472 ms P-R-T Axes : 013 014 026 degrees QTc Int : 463 ms Sinus bradycardia Otherwise normal ECG When compared with ECG of 20-JUL-2019 10:18, No significant change was found Confirmed by Claus Thomason ([id number]) on 07/21/2019 3:01:35 PM Referred By: REFERRED SELF Confirmed By:Claus Thomason
--- NOTE | 2019-07-21 17:06 | Discharge Summary ---
Date of Service July 21, 2019 Admission HPI Per Admitting Provider 84-year-old female presents with acute onset of chest pressure and shortness of breath. - Patient says she woke up around 6:30 AM this morning asymptomatic. Around 7 AM for breakfast she noticed some difficulty breathing and soon to follow onset of central chest pressure with radiation into her right arm. She also had the rather sudden onset of some loose stools without associated abdominal pain. After this she decided to go back to bed and use her CPAP machine which she uses regularly. There she remained until around 9 AM when her doctor's office opened. She called them and was advised to come to the ED. - Presently, patient says her chest pressure resolved just prior to starting ED triage. She says that she continues to have right arm numbness which is new. She denies any known recent illnesses or fevers, however says in the past couple of days her temperature has been lower than normal (96 degrees) along with some chills. She also says that she had some exertional shortness of breath walking uphill while walking her dog yesterday. She had no chest pain at the time. 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 This does not seem worse than her baseline. She does have some concern that her lower back has been "giving out" multiple times per day which causes her local discomfort. At present, she denies any back pain or problems with extremity movement. - Past medical history includes hypertension, hyperlipidemia, hypokalemia, COPD, interstitial lung disease, RACHELLE, hypersomnolence, paroxysmal atrial fibrillation, palpitations, restless leg syndrome, GERD, rheumatoid arthritis, migraine, left acoustic neuroma - Past surgical history includes rotator cuff surgery, implantable loop recorder. - Social history includes denies using tobacco products. Drinks a glass of bourbon nightly with dinner. Lives at home with . Principal Diagnosis Chest Pain Discharge Exam Constitutional WD/WN, vitals as above Eyes + anicteric sclerae ENMT Ears: no hearing impairment Neck trachea midline Respiratory normal respiratory effort, lungs clear to auscultation Auscultation: + diminished lung sounds (bases b/l); no wheezes Cardiovascular RRR, no murmur, no edema Vessels: no JVD Gastrointestinal (Abdomen) Inspection/Auscultation: normal bowel sounds Percussion/Palpation: abdomen soft; abdomen nontender Musculoskeletal Head/Neck/Chest: normocephalic and head atraumatic Spine: + scoliosis swelling and arthritic changes of b/l hands Skin no rashes, warm and dry Neurologic moves all extremities Psychiatric A+Ox3, euthymic affect Discharge Data Allergies Allergy/AdvReac Type Severity Reaction Status Date / Time bee venom protein (honey bee) Allergy Severe Anaphylaxis Verified 07/20/19 11:20 . cephalexin Allergy Intermediate RASH Verified 07/20/19 11:20 Bactrim Allergy Unknown ANAPHYLAXIS Verified 04/10/17 08:31 Cephalosporins Allergy Unknown KEFLEX Verified 07/20/19 11:20 Penicillins Allergy Unknown LIPS Verified 07/20/19 11:20 SWELLING Dvwoomu-Iob-Dog Reductase Allergy Unknown Rash Verified 07/20/19 11:20 Inhibitor sulfamethoxazole Allergy Unknown ANAPHYLAXIS Verified 07/20/19 11:20 trimethoprim Allergy Unknown ANAPHYLAXIS Verified 07/20/19 11:20 Consultations 07/20/19 13:25 ED Decision to Admit Stat 07/20/19 16:52 Consult Cardiology Routine Hospital Course (1) Chest pressure: - Presented with sudden onset of centralized chest pressure with radiation to R arm and arm numbness and SOB which was followed by significant loose stool. She states she went to lay down because she felt wiped out and was advised to come to the hospital per her family provider. The chest pain resolved on arrival to the hospital but the arm numbness continued. Around 0330 on 07/20 it was reported she had chest pressure walking back from the bathroom, however during my discussion she states it was more in that arm then anything - Troponins are negative x 3; afebrile and no leukocytosis, EKG largely unremarkable for ischemic changes Discussed some possibly etiologies with patient this AM. She has had multiple hospital stays and states she has had cardiac workups that were negative. It is possible this could be GI vs Musculoskeletal/RA-related, or respiratory (however this seems stable). On a previous admission it did question if maybe bronchospasm could be a culprit. Patient also states she has had esophageal spasm in the past which may explain it as well. She is actually to see Dr. Llanos tomorrow to go over test results. Cardiology was consulted to see if stress testing would be warranted vs other intervention, unfortunately due to patient's time constraints she wanted to leave prior to Cardiology consultation. Did contact cardiology who was planning to see her today but were finishing up prior obligations. Asked patient if she would be willing to wait until Dr. Prado could come and see her as acutely things do seem stable and could possibly of appropriately discharged her. She did not want to wait, she did not want to wait for me to generate a discharge/instructions. It is not certain the etiology of her chest pain but she does appear hemodynamically stable. Asked if she would like me to arrange a F/U with cardiology as a stress test could be performed as an outpatient but patient states she would call the office if needed. Discussed her RA as it appears her hands are exacerbating but she states she has the Prednisone pack at home. Given that she would not await formalized D/C instructions she did sign out AMA. (2) HTN (hypertension): - Largely running 140-160 systolic - Continue metoprolol 50 mg HS; Spironolactone 50 mg HS (3) Mild chronic obstructive pulmonary disease: - COPD/Interstital Lung Disease/RACHELLE - does not appear in an acute exacerbation at this time - Has a F/U with Dr. Llanos tomorrow; Continue CPAP and inhalers (4) Paroxysmal atrial fibrillation: - Has a loop recorder - was scheduled to see Dr. Doherty as outpatient to determine removal; no AC at this time - Review of records show that she had brief episodes of what appears more like paroxysmal atrial tach but not atrial fibrillation (5) Rheumatoid arthritis: - Follows with [facility] - Continue Methotrexate; she has a home pack for Prednisone and feels she may be flaring in the hands and they are swollen (6) Left acoustic neuroma: - H/O; S/P gamma knife radiation; some baseline ataxia Total Time Total Time Spent Total Time Spent (In Minutes): Greater than 30 minutes Discharge Plan Discharge Items Patient Disposition: Against Medical Advice Reason For Visit: CHEST PAIN,SOB Follow-up/Referrals: Gerardo Oseguera MD [Primary Care Provider] - 07/27/19 11:30 am (Please call if you need to reschedule this appointment.) Stand-Alone Forms: My Mine, Smoking Cessation Medications and DC Order Prescriptions: No Action (DME) CPAP Machine Misc See Rx Instructions .ROUTE .MEDSUPPLY Qty: 1 RF: 0 fluticasone propion-salmeterol [Advair Diskus] 250-50 mcg/dose blister with device 1 puffs INH BID Qty: 60 RF: 5 folic acid 1 mg tablet 1 mg PO HS RF: 0 prednisone 5 mg tablet 5 mg PO HS RF: 0 (DME) CPAP Machine Misc See Dose Instructions .ROUTE .MEDSUPPLY Qty: 1 RF: 0 quinidine sulfate 200 mg tablet 50 mg PO HS RF: 0 potassium chloride 10 mEq capsule, extended release 10 meq PO HS RF: 0 metoprolol succinate 50 mg tablet extended release 24 hr 50 mg PO HS RF: 0 aspirin 81 mg Tablet,Delayed Release (Dr/Ec) 81 mg PO HS RF: 0 pantoprazole 40 mg tablet,delayed release (DR/EC) 40 mg PO HS RF: 0 vitamin B complex [B-Complex] Tablet 1 tab PO HS RF: 0 epinephrine [EpiPen] 0.3 mg/0.3 mL Auto-Injector 0.3 mg IM Q3H PRN (Reason: Anaphylaxis) RF: 0 albuterol sulfate [Ventolin HFA] 90 mcg/actuation Hfa Aerosol Inhaler 2 - 4 puff INHALATION Q6H PRN (Reason: Shortness Of Breath Or Wheezing) RF: 0 spironolactone 50 mg tablet 50 mg PO HS RF: 0 cholecalciferol (vitamin D3) [Vitamin D3] 1,000 unit Capsule 1,000 unit PO HS RF: 0 pramipexole 0.75 mg tablet 0.75 mg PO HS RF: 0 methotrexate sodium 25 mg/mL solution 20 mg subcut WE RF: 0 Discharge Orders: Left Against Medical Advice (Routine); Ordered 07/21/19 Ordered By: Kim Gómez Admission Data Admit Date/Time: 07/20/19 14:38 Attending Provider: Manuel Prado Admit Provider: Sean Vazquez Primary Care Provider: Gerardo Oseguera Other Providers: Pradeep Rushing ; Xavier Marie Other DC Date/Time DO NOT enter until pt leaves facility: 07/21/19 15:29 Supervising Physician Co-Signing Physician Notes Attending Attestation - Chart reviewed in detail, care plan d/w SHERON Gómez. I agree w/ the cortez components of her discharge summary. 84yo female with steroid-dependent RA who presented with chest pain. Trop neg x 3. Tele normal by report. Records show she had a negative dobutamine stress echo in 2019. Cardiology was consulted for their opinion on her chest pain. While awaiting for cardiology consultation patient was unwilling to stay for this consult and signed herself out AMA. See details above in Ms Gómez's documentation. Due to leaving AMA I did NOT personally see the patient at bedside or perform a physical exam. Patient will need close f/u with PCP. Exact etiology of her presenting pain was uncertain given that her work-up was not completed. Manuel Prado MD Coding Level of Care Code 48453 OBS Care - Discharge Diagnoses Chest pressure R07.89 HTN (hypertension) I10 Mild chronic obstructive pulmonary disease J44.9 Paroxysmal atrial fibrillation I48.0 Rheumatoid arthritis M06.9 Left acoustic neuroma D33.3
== END 2019-07-21 15:29 | disposition left against medical advice (07) ==
LOC: 2N 10:08 → ED 10:08 → SUATTDRO 14:38 → 2N 16:36

== ENCOUNTER 2021-06-04 10:12 | Inpatient (IN) ==
[2021-06-04] MEDS ORDERED: SODIUM CHLORIDE 0.9% 1000ML 1,000 ML IV ONE (10:22)
[2021-06-04] MEDS ORDERED: VANCOMYCIN HCL 1,500 MG in SODIUM CHLORIDE 0.9% 500 ML IV STA (10:33)
--- NOTE | 2021-06-04 10:35 | Emergency Department Note ---
History of Present Illness General Chief complaint: Abnormal Labs/Diagnostic Testing Stated complaint: ABNORMAL LABS Time Seen by Provider: 06/04/21 10:21 Source: patient, family (Spouse is at the bedside), RN notes reviewed and old records reviewed Mode of arrival: ambulatory Limitations: no limitations History of Present Illness Maximum Pain Intensity: 10 This patient is an 86-year-old female who was called back after having positive blood cultures. She continues to have right-sided chest pain that hurts worse with moving or breathing. I saw her yesterday and reviewed her records. Overnight she did use Tylenol for pain with the last dose given at 930. The pain is worse with movement. She is had no fever or chills she has had some mild nausea but no vomiting no dysuria hematuria no abdominal pain she has occasional headache but none at present. No rash. Home Medications Medication Instructions Recorded Confirmed Type albuterol sulfate 90 mcg/actuation 2 - 4 puff INHALATION Q6H PRN 04/08/18 06/04/21 History aerosol inhaler (Ventolin HFA) cholecalciferol (vitamin D3) 25 1,000 unit PO HS 04/08/18 06/04/21 History mcg (1,000 unit) capsule (Vitamin D3) epinephrine 0.3 mg/0.3 mL 0.3 mg IM Q3H PRN 04/08/18 06/04/21 History injection, auto-injector (EpiPen) metoprolol succinate 50 mg 50 mg PO HS 04/08/18 06/04/21 History tablet,extended release 24 hr pantoprazole 40 mg tablet,delayed 40 mg PO HS 04/08/18 06/04/21 History release potassium chloride 10 mEq 10 meq PO HS 04/08/18 06/04/21 History capsule,extended release spironolactone 50 mg tablet 50 mg PO HS 04/08/18 06/04/21 History folic acid 1 mg tablet 1 mg PO HS 01/07/19 06/04/21 History pramipexole 0.5 mg tablet 0.5 mg PO HS 12/23/19 06/04/21 History sulfasalazine 500 mg tablet 500 mg PO HS 03/03/20 06/04/21 History fluticasone furoate 100 1 inh INHALATION 2XWK 04/29/21 06/04/21 History mcg-vilanterol 25 mcg/dose inhalation powder (Breo Ellipta) apixaban 5 mg (74 tabs) tablets in 5 mg PO HS 06/02/21 06/04/21 History a dose pack (Eliquis) levofloxacin 250 mg tablet 250 mg PO DAILY 5 Days #5 tab 06/03/21 06/04/21 Rx melatonin 5 mg tablet 5 mg PO HS PRN 06/03/21 06/04/21 History Allergies Allergy/AdvReac Type Severity Reaction Status Date / Time bee venom protein (honey bee) Allergy Severe Anaphylaxis Verified 06/03/21 11:28 . 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 > has had no issues for over 3 yrs per pt > has loop recorder > follows with Dr. Doherty COVID-19 virus detected from blood test on 06/01/21> awaiting result of nasal swab from 06/02/21 DVT (deep venous thrombosis) right leg > Jan 2021> no known cause > Eliquis for this Hiatal hernia growing per pt> reason for procedure on 06/05/21 History of anesthesia reaction reports had atelectasis after shoulder surgery History of rheumatoid arthritis Hx: UTI (urinary tract infection) none at present Hyperlipidemia Hypertension Interstitial lung disease Mild chronic obstructive pulmonary disease well controlled per pt, rare res inh use Obstructive sleep apnea syndrome no longer using cpap Restless leg syndrome Scoliosis Status post gamma knife treatment for acoustic neuroma to left side > 3 yrs ago Transient ischemic attack (TIA) 15 yrs ago > no residual effects Urinary frequency Surgical History H/O rotator cuff surgery right History of carpal tunnel release left History of colonoscopy History of endoscopic sinus surgery History of hysterectomy History of tonsillectomy History of tooth extraction Family History Mother , age 99 with no specific significant medical problems. No problems noted. Father , age 32 in a WWII plane accident No problems noted. 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 [employer] Feels Safe at Home: Yes Assistive Devices: Glasses Review of Systems A total of 10 systems reviewed and were otherwise negative Physical Exam Vital Signs Vital Signs - 24 hr 06/04/21 10:17 06/04/21 10:37 06/04/21 11:00 Temperature 36.8 C Temperature Source Temporal Artery Scan Pulse Rate 79 79 77 Pulse Rate from SpO2 Sensor Pulse Rhythm Regular Respiratory Rate 16 16 24 Blood Pressure 162/77 H 170/79 H Blood Pressure Mean 105 109 Pulse Oximetry 96 96 Oxygen Delivery Method Room Air Room Air Sepsis Recent Fever Within 48 Hours No Sepsis New/Unexplained Change in Mental Status No Sepsis Action Taken by Nursing No Action Required 06/04/21 11:30 Temperature Temperature Source Pulse Rate Pulse Rate from SpO2 Sensor 78 Pulse Rhythm Respiratory Rate 18 Blood Pressure 171/83 H Blood Pressure Mean 112 Pulse Oximetry 93 Oxygen Delivery Method Sepsis Recent Fever Within 48 Hours Sepsis New/Unexplained Change in Mental Status Sepsis Action Taken by Nursing General: Well developed well nourished older female who appears uncomfortable but in no acute distress, breathing comfortably on room air. Normal speech HEENT: Normal cephalic atraumatic. Pupils are equal round and reactive to light. Extraocular movements are intact. Oropharynx is pink with moist mucous membranes. No swelling of the mouth lips or tongue. Neck: Supple with a midline trachea. No meningeal signs or stiffness, no JVD or bruits. No Stridor. Chest: Clear to auscultation bilaterally. No wheezes or rhonchi. No increased work of breathing. Tenderness to movement and palpation in the right chest Heart: Regular rate and rhythm without murmurs or gallops. Abdomen: Soft nontender, nondistended without rebound guarding or rigidity. Negative Ray sign. Extremities: No cyanosis clubbing or edema. No calf tenderness or assymetry Spine/Back. Non tender to palpation. No CVA tenderness Skin: Good turgor without rashes. Neurologic exam: Cranial nerves two through 12 are intact. Motor and sensation are intact and symmetrical throughout. Course Administered Medications Discontinued Medications Sodium Chloride (Nss 1000ml) 1,000 mls @ 999 mls/hr IV .Q1H1M ONE Stop: 06/04/21 11:22 Last Infusion: 06/04/21 12:18 Dose: 0 mls/hr Documented by: [id number] Admin: 06/04/21 11:13 Dose: 999 mls/hr Documented by: [id number] Vancomycin HCl 1,500 mg/ (Sodium Chloride) 530 mls @ 200 mls/hr IV NOW STA Stop: 06/04/21 13:11 Last Infusion: 06/04/21 13:56 Dose: 0 mls/hr Documented by: [id number] Admin: 06/04/21 11:14 Dose: 200 mls/hr Documented by: [id number] Ketorolac Tromethamine (Ketorolac Tromethamine 15 Mg/Ml Vial) 10 mg IV NOW ONE Stop: 06/04/21 10:48 Last Admin: 06/04/21 11:14 Dose: 10 mg Documented by: [id number] Medical Decision Making Differential Diagnosis Sepsis, pneumonia, endocarditis, UTI, electrolyte or metabolic abnormalities, dehydration, gallbladder disease Medical Records Attestation: I reviewed the patient's medical records. Home Medications Current Medication List: was personally reviewed by me Laboratory Data Attestation: I reviewed the patient's lab results. Result diagrams: 06/04/21 10:42 06/04/21 10:42 Lab Results 06/04/21 06/04/21 06/04/21 Range/Units 10:42 10:42 10:42 WBC 8.98 (4.8-10.8) K/uL RBC 3.75 L (4.2-5.4) M/uL Hgb 13.0 (12.0-16.0) g/dL Hct 38.4 (37-47) % MCV 102.4 H (80-100) fL MCH 34.7 H (25-34) pg MCHC 33.9 (32-36) g/dL RDW Std Deviation 46.4 H (36.4-46.3) fL RDW Coeff of Greg 12.6 (11.5-14.5) % Plt Count 239 (130-400) K/uL MPV 8.8 (7.4-10.4) fL Immature Gran % (Auto) 0.3 % Neut % (Auto) 71.6 % Lymph % (Auto) 14.0 % Ceiba % (Auto) 13.7 % Eos % (Auto) 0.2 % Baso % (Auto) 0.2 % Neut # (Auto) 6.42 (1.4-6.5) K/uL Lymph # (Auto) 1.26 (1.2-3.4) K/uL Ceiba # (Auto) 1.23 H (0.11-0.59) K/uL Eos # (Auto) 0.02 (0-0.5) K/uL Baso # (Auto) 0.02 (0-0.2) K/uL Immature Gran # (Auto) 0.03 H (0.00-0.02) K/uL PT 11.3 (9.0-12.0) Seconds INR 1.1 (0.9-1.1) APTT 32.0 H (21.0-31.0) Seconds PTT Ratio 1.2 Sodium 135 L (136-145) mmol/L Potassium 3.5 (3.5-5.1) mmol/L Chloride 100 (98-107) mmol/L Carbon Dioxide 25 (21-32) mmol/L Anion Gap 10 (3-11) BUN 9 (6-23) mg/dl Creatinine 0.56 L (0.6-1.2) mg/dl Est Cr Clr Drug Dosing 68.3 ml/min Est GFR ( Amer) 99.2 ml/min Est GFR (Non-Af Amer) 85.6 ml/min BUN/Creatinine Ratio 16.1 (10-20) Glucose 108 H (70-99(Fasting)) mg/dl Lactate (0.4-2.0) mmol/L Calcium 9.2 (8.5-10.1) mg/dl Magnesium 2.2 (1.7-2.4) mg/dl Total Bilirubin 1.7 H (0.2-1.0) mg/dl AST 14 (13-39) U/L ALT 10 (7-52) U/L Alkaline Phosphatase 61 (34-104) U/L Troponin I < 0.03 (0-0.04) ng/ml Total Protein 7.0 (6.0-8.3) gm/dl Albumin 3.9 (3.4-5.0) gm/dl Globulin 3.1 (2.5-4.0) gm/dl Albumin/Globulin Ratio 1.3 (0.9-2) Procalcitonin (0-0.5) ng/ml SARS-CoV-2, RNA, NAAT (NEGATIVE) 06/04/21 06/04/21 06/04/21 Range/Units 10:42 10:42 10:43 WBC (4.8-10.8) K/uL RBC (4.2-5.4) M/uL Hgb (12.0-16.0) g/dL Hct (37-47) % MCV (80-100) fL MCH (25-34) pg MCHC (32-36) g/dL RDW Std Deviation (36.4-46.3) fL RDW Coeff of Greg (11.5-14.5) % Plt Count (130-400) K/uL MPV (7.4-10.4) fL Immature Gran % (Auto) % Neut % (Auto) % Lymph % (Auto) % [place] % (Auto) % Eos % (Auto) % Baso % (Auto) % Neut # (Auto) (1.4-6.5) K/uL Lymph # (Auto) (1.2-3.4) K/uL [place] # (Auto) (0.11-0.59) K/uL Eos # (Auto) (0-0.5) K/uL Baso # (Auto) (0-0.2) K/uL Immature Gran # (Auto) (0.00-0.02) K/uL PT (9.0-12.0) Seconds INR (0.9-1.1) APTT (21.0-31.0) Seconds PTT Ratio Sodium (136-145) mmol/L Potassium (3.5-5.1) mmol/L Chloride (98-107) mmol/L Carbon Dioxide (21-32) mmol/L Anion Gap (3-11) BUN (6-23) mg/dl Creatinine (0.6-1.2) mg/dl Est Cr Clr Drug Dosing ml/min Est GFR ( Amer) ml/min Est GFR (Non-Af Amer) ml/min BUN/Creatinine Ratio (10-20) Glucose (70-99(Fasting)) mg/dl Lactate 0.9 (0.4-2.0) mmol/L Calcium (8.5-10.1) mg/dl Magnesium (1.7-2.4) mg/dl Total Bilirubin (0.2-1.0) mg/dl AST (13-39) U/L ALT (7-52) U/L Alkaline Phosphatase (34-104) U/L Troponin I (0-0.04) ng/ml Total Protein (6.0-8.3) gm/dl Albumin (3.4-5.0) gm/dl Globulin (2.5-4.0) gm/dl Albumin/Globulin Ratio (0.9-2) Procalcitonin 0.06 (0-0.5) ng/ml SARS-CoV-2, RNA, NAAT NEGATIVE (NEGATIVE) Imaging Data Attestation: I personally reviewed and interpreted this imaging study as follows: My Impression: Chest x-rayno acute infiltrate, failure, pneumothorax seen Radiologist's Impression: Chest X-Ray 06/04/21 10:21 XR chest 1V portable CLINICAL HISTORY: SEPSIS TECHNIQUE: Single frontal radiograph of the chest was obtained. Comparison: Comparison is made to chest one view 06/03/2019 FINDINGS: No lines and tubes are seen. Cardiomegaly is noted. Interstitial thickening is seen without evidence of airspace opacity. No evidence of pleural effusion or pneumothorax. Scoliosis is seen. IMPRESSION: No acute chest disease. ACT 112: Negative or not required by law. Electronically signed by: Flex Lawson M.D. 06/04/2021 12:20 PM Gallbladder Ultrasound 06/04/21 10:33 US gallbladder CLINICAL HISTORY: rt chest/abd pain TECHNIQUE: Multiple real-time sonographic images of the right upper quadrant were obtained. Comparison: None available at the time of this dictation. FINDINGS: The liver is diffusely homogenous with normal contour and echogenicity. No focal mass lesions are seen. No intrahepatic ductal dilatation is seen. No gallstones or sludge are identified within the gallbladder. The gallbladder wall is not thickened. There is no pericholecystic fluid present. A sonographic Ray's sign was not elicited by the naval surface fire support planner. The common duct measures 0.4 cm in diameter at the level of the hepatic artery. The visualized portions of the pancreas appear normal. The right kidney shows normal echogenicity, cortical thickness and renal contour. The right kidney shows no evidence of hydronephrosis or mass. No ascites or free fluid is seen in Stein's pouch. IMPRESSION: No acute abnormality, in particular no evidence of acute cholecystitis. ACT 112: Negative or not required by law. Electronically signed by: Flex Lawson M.D. 06/04/2021 1:06 PM ECG Data Attestation: I personally reviewed and interpreted this ECG as follows: Indication: + other (Sepsis) Rate (beats per minute): 77 Rhythm: + normal sinus ECG Intervals/blocks: + Normal QRS, + Normal QT and + Normal NV ECG [place]: + Normal ECG ST segments: + Normal ST segments ECG Findings: no PACs or no PVCs Comparison ECG Date: from (06/03/21) Change: no significant change MDM Narrative This patient comes in as described above. She was placed on a engine monitor room A10. She was called back for positive blood cultures. This is likely the pathogen from her urine the other day.she has no urinary symptoms her vital signs are stable and she does not actually look any different than when I saw her yesterday, she is complaining of pain and it may have migrated slightly lower towards the right upper quadrant. She did have a CAT scan of her abdomen done 3 days ago which was unremarkable, I did add a gallbladder ultrasound and renal ultrasound. She was hydrated with an IV normal saline fluid. she was given vancomycin IV. EKG and multiple blood testing was obtained. She was reassessed frequently. He was given Toradol 10 mg IV. Chest x-ray was clear. EKG does not show any ischemic changes or ectopy. The patient has no elevation of white count or any other inflammatory markers or any obvious source at this point however she clearly has positive blood cultures and is therefore septic and needs to come in for IV antibiotics fluids and further evaluation. I have consulted the hospitalist to see her in the ER for these measures. Impression & Plan Sepsis, Blood bacterial culture positive, Right-sided chest pain, Lab test negative for COVID-19 virus Discharge Plan Visit Data Chief Complaint: Abnormal Labs/Diagnostic Testing Stated Complaint: ABNORMAL LABS ED Provider: Harpreet Francis Discharge Problem: Sepsis, Blood bacterial culture positive, Right-sided chest pain, Lab test n egative for COVID-19 virus Discharge Instructions Interventions: ED Discharge Assessment Last Done: 06/04/21 13:37 Discharge Problem: Sepsis Qualifiers: Sepsis type: sepsis due to unspecified organism Sepsis acute organ dysfunction status: without acute organ dysfunction Qualified Code(s): A41.9 - Sepsis, unspecified organism
[2021-06-04] MEDS ORDERED: KETOROLAC TROMETHAMINE 15 MG/ML VIAL IV ONE (10:47)
[2021-06-04 10:57] LABS: Basophils # (auto) 0.02 K/uL (0-0.2); Basophils % (auto) 0.2 %; Eosinophils # (auto) 0.02 K/uL (0-0.5); Eosinophils % (auto) 0.2 %; Hematocrit (blood only) 38.4 % (37-47); Immature Granulocytes # (auto) 0.03 K/uL (0.00-0.02); Immature Granulocytes % (auto) 0.3 %; Lymphocytes # (auto) 1.26 K/uL (1.2-3.4); Mean Corpuscular Hemoglobin 34.7 pg (25-34); Mean Corpuscular Hgb Conc 33.9 g/dL (32-36); Mean Corpuscular Volume 102.4 fL (80-100); Mean Platelet Volume 8.8 fL (7.4-10.4); Monocytes # (auto) 1.23 K/uL (0.11-0.59); Monocytes % (auto) 13.7 %; Neutrophils # (auto) 6.42 K/uL (1.4-6.5); Neutrophils % (auto) 71.6 %; Platelet Count 239 K/uL (130-400); RDW Coefficient of Variation 12.6 % (11.5-14.5); RDW Standard Deviation 46.4 fL (36.4-46.3); Red Blood Count 3.75 M/uL (4.2-5.4); White Blood Count 8.98 K/uL (4.8-10.8)
[2021-06-04 11:11] LABS: INR 1.1 (0.9-1.1); Partial Thromboplastin Ratio 1.2; Prothrombin Time 11.3 Seconds (9.0-12.0)
[2021-06-04 11:14] LABS: Alanine Aminotransferase 10 U/L (7-52); Albumin Globulin Ratio 1.3 (0.9-2); Albumin Level 3.9 gm/dl (3.4-5.0); Alkaline Phosphatase 61 U/L (34-104); Anion Gap 10 (3-11); Aspartate Aminotransferase 14 U/L (13-39); BUN Creatinine Ratio 16.1 (10-20); Bilirubin,Total 1.7 mg/dl (0.2-1.0); Blood Urea Nitrogen 9 mg/dl (6-23); Calcium 9.2 mg/dl (8.5-10.1); Carbon Dioxide 25 mmol/L (21-32); Chloride 100 mmol/L (98-107); Creatinine Clr Calc Pharmacy 68.3 ml/min; Est GFR (African American) 99.2 ml/min; Est GFR (Non-African American) 85.6 ml/min; Globulin 3.1 gm/dl (2.5-4.0); Glucose 108 mg/dl (70-99(Fasting)); Magnesium 2.2 mg/dl (1.7-2.4); Potassium 3.5 mmol/L (3.5-5.1); Sodium 135 mmol/L (136-145)
--- NOTE | 2021-06-04 11:24 | History & Physical Report ---
Date of Service June 04, 2021 Assessment & Plan (1) Bacteremia: (2) Chest pain: (3) UTI (urinary tract infection): Plan: Patient will be admitted to the hospital proceeding as follows: Due to her noted bacteremia we will continue the patient on antibiotics. The treating emergency room physician has initiated vancomycin which we will continue. We will await further identification of the organism causing her bacteremia and tailor antibiotics based on these results. At the present time the most likely source appears to be Enterococcus from her recent urinary tract infection. We will follow serial labs while she is receiving antibiotics I suspect her chest discomfort is secondary to pneumonitis noted on CT scan of the chest. This may be from a recent COVID-19 infection and we will treat her symptoms with analgesics The treating emergency room physician has elected to perform a gallbladder ultrasound due to the noted gallbladder distention on a recent CT scan. We will follow for results of these and act accordingly Patient also reports that she was scheduled to have an upper endoscopy tomorrow here at the hospital. We therefore allow her clear liquids today and make her n.p.o. after midnight and request a nonemergent GI consultation. The patient takes Eliquis and we will maintain her on this therefore no further DVT preventative measures will be needed I discussed CODE STATUS with the patient in event of cardiopulmonary arrest she wishes to be a full code History of Present Illness Chief Complaint: "I have bacteria in my blood" Primary Care Provider: Gerardo Oseguera MD This is an 86-year female who was seen in the emergency department yesterday secondary to atypical chest pain. During this visit the patient had labs and imaging which I reviewed. CBC revealed her white blood cell count, hemoglobin, hematocrit, and platelet count are all within normal range. Chemistry profile showed that patient's sodium, potassium, BUN, and creatinine were all within normal range. She was noted to have an elevated D-dimer and she has reported a history of a fairly recent COVID-19 infection, thus prompting a CT scan of her chest. This study showed the patient had no evidence of pulmonary emboli however she was noted to have findings of a basilar pneumonitis. In addition she was no dandre to have an 11 mm groundglass opacity in the left upper lobe. She does describe chest discomfort in her lower chest bilaterally that is worse with deep inspirations. In addition the patient says that she had a CT scan of the abdomen on 06/01/2021 ordered by her primary care physician. This study was reviewed and showed the patient had a hiatal hernia and a distended gallbladder without findings concerning for cholecystitis. No other abnormalities were noted on the study. An EKG was also performed and showed normal sinus rhythm without any changes indicative of acute ischemia. Patient was discharged home. During patient's aforementioned emergency room visit the patient did have blood cultures checked and these cultures came back positive for gram-positive cocci in chains and she was therefore called back to the emergency department as was felt she may require admission for IV antibiotics. I visited with the patient at the bedside and she denies any fevers, shakes, chills. She denies any history of diabetes or history of foot wounds. She does note that she did have a skin infection in April as she got bit by a tick but this has since resolved. She also notes that she had a recent urinary tract infection. Her chart was reviewed and on 05/31/2021 the patient did have a urine culture positive for Enterococcus faecalis.This culture did show that the organism was sensitive to vancomycin. At the present time she denies any dysuria or urinary frequency. She also denies any abdominal pain or nausea or vomiting. She currently denies any sore throat or neck pain. She continues to have nonspecific chest discomfort with deep inspirations. Today in the emergency department the treating emergency room physician did order repeat labs where her white blood cell count was normal. Her hemoglobin, hematocrit, and platelet count all remain normal. Her INR is noted to be within normal range. Chemistry profile today showed sodium was 135. Potassium, and BUN are noted to be normal. Her creatinine is actually low at 0.5. A COVID test was performed today and was noted to be negative. An EKG was performed that showed normal sinus rhythm without changes indicative of acute ischemia. The treating emergency room physician has initiated antibiotics in the form of vancomycin. We have been asked to see for admission. At the time of my interview the patient was resting comfortably in bed and she was in no distress Allergies Allergy/AdvReac Type Severity Reaction Status Date / Time bee venom protein (honey bee) Allergy Severe Anaphylaxis Verified 06/03/21 11:28 . sulfamethoxazole Allergy Severe ANAPHYLAXIS Verified 06/03/21 11:28 trimethoprim Allergy Severe ANAPHYLAXIS Verified 06/03/21 11:28 cephalexin Allergy Intermediate RASH Verified 06/03/21 11:28 Penicillins Allergy Intermediate LIPS Verified 06/03/21 11:28 SWELLING Ncuotvv-PRA-BfF Reductase Allergy Intermediate Rash Verified 06/03/21 11:28 Inhibitor [Ktzluir-Ccb-Bbt Reductase Inhibitor] Bactrim Allergy Unknown ANAPHYLAXIS Verified 04/10/17 08:31 Cephalosporins Allergy Unknown KEFLEX Verified 06/03/21 11:28 Home Medications Medication Instructions Recorded Confirmed Type albuterol sulfate 90 mcg/actuation 2 - 4 puff INHALATION Q6H PRN 04/08/18 06/04/21 History aerosol inhaler (Ventolin HFA) cholecalciferol (vitamin D3) 25 1,000 unit PO HS 04/08/18 06/04/21 History mcg (1,000 unit) capsule (Vitamin D3) epinephrine 0.3 mg/0.3 mL 0.3 mg IM Q3H PRN 04/08/18 06/04/21 History injection, auto-injector (EpiPen) metoprolol succinate 50 mg 50 mg PO HS 04/08/18 06/04/21 History tablet,extended release 24 hr pantoprazole 40 mg tablet,delayed 40 mg PO HS 04/08/18 06/04/21 History release potassium chloride 10 mEq 10 meq PO HS 04/08/18 06/04/21 History capsule,extended release spironolactone 50 mg tablet 50 mg PO HS 04/08/18 06/04/21 History folic acid 1 mg tablet 1 mg PO HS 01/07/19 06/04/21 History pramipexole 0.5 mg tablet 0.5 mg PO HS 12/23/19 06/04/21 History sulfasalazine 500 mg tablet 500 mg PO HS 03/03/20 06/04/21 History fluticasone furoate 100 1 inh INHALATION 2XWK 04/29/21 06/04/21 History mcg-vilanterol 25 mcg/dose inhalation powder (Breo Ellipta) apixaban 5 mg (74 tabs) tablets in 5 mg PO HS 06/02/21 06/04/21 History a dose pack (Eliquis) levofloxacin 250 mg tablet 250 mg PO DAILY 5 Days #5 tab 06/03/21 06/04/21 Rx melatonin 5 mg tablet 5 mg PO HS PRN 06/03/21 06/04/21 History Past Med/Surg History Medical History 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 > has had no issues for over 3 yrs per pt > has loop recorder > follows with Dr. Bessy VILLALOBOS-Shannon virus detected from blood test on 06/01/21> awaiting result of nasal swab from 06/02/21 DVT (deep venous thrombosis) right leg > Jan 2021> no known cause > Eliquis for this Hiatal hernia growing per pt> reason for procedure on 06/05/21 History of anesthesia reaction reports had atelectasis after shoulder surgery History of rheumatoid arthritis Hx: UTI (urinary tract infection) none at present Hyperlipidemia Hypertension Interstitial lung disease Mild chronic obstructive pulmonary disease well controlled per pt, rare res inh use Obstructive sleep apnea syndrome no longer using cpap Restless leg syndrome Scoliosis Status post gamma knife treatment for acoustic neuroma to left side > 3 yrs ago Transient ischemic attack (TIA) 15 yrs ago > no residual effects Urinary frequency Surgical History H/O rotator cuff surgery right History of carpal tunnel release left History of colonoscopy History of endoscopic sinus surgery History of hysterectomy History of tonsillectomy History of tooth extraction Family History Mother , age 99 with no specific significant medical problems. No problems noted. Father , age 32 in a WWII plane accident No problems noted. 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 Other Information That Helps Us Care for You: No Feels Safe at Home: Yes Safety Concerns: Feels Safe At This Time Assistive Devices: Glasses Review of Systems Constitutional: no fever and no chills Eyes: no diplopia Ear, Nose, Mouth, Throat: no ear pain Respiratory: no cough Cardiovascular: as per Subjective / HPI and + chest pain Gastrointestinal: no abdominal pain, no nausea and no vomiting Genitourinary: no dysuria and no urinary frequency Musculoskeletal: no back pain Integumentary: no rash Neurologic: no localized weakness Physical Exam Constitutional: well developed and well nourished; no acute distress Eyes: no conjunctival abnormality ENMT: Ears: no hearing impairment Neck: trachea midline Respiratory: normal respiratory effort; no respiratory distress and no labored breathing Cardiovascular: Rate/Rhythm: regular rate and regular rhythm Gastrointestinal (Abdomen): Soft and nondistended, there is slight pain with palpation in the right upper quadrant Musculoskeletal: No calf tenderness, no foot wounds Skin: no rashes and no lesions Neurologic: moves all extremities Psychiatric: A+Ox3, euthymic affect Results & Data Results & Data ([facility]) Vital Signs (Past 12 Hours) Vital Signs Temp Pulse Resp BP Pulse Ox 06/04/21 10:37 79 16 96 06/04/21 10:17 36.8 C 79 16 162/77 H 96 Supervising Physician Co-Signing Physician Notes Patient seen and examined at bedside. During face to face encounter, discussed plan of care with patient, obtained history and physical examination. Discussed plan of care with APC David. Reviewed above document and agree with it. Patient will be admitted for bacteremia. likely E. faecalis from urine. Patient has CVA tenderness on the right. If symptoms do not improve, may consider renal ultrasound. continue vanco. will consult ID as ampicillin is not an option. Fluoroquinolones are not good as monotherapy in these cases. may require linezolid for outpatient or vanco. PG Care Time/CCT Total # of Minutes Spent Total Time Spent with Patient: Total time spent is greater than 50% in coordination of care (as documented) at patient's floor/unit and/or counseling patient: Coding Level of Care Code 49542 Initial Inpt Care Lvl 3 Diagnoses Bacteremia R78.81 Chest pain R07.9 UTI (urinary tract infection) N30.00 Hematuria presence: without hematuria Urinary tract infection type: acute cystitis (1) UTI (urinary tract infection) Hematuria presence: without hematuria Urinary tract infection type: acute cystitis Qualified Code(s): N30.00 - Acute cystitis without hematuria
--- NOTE | 2021-06-04 12:21 | XRay Report ---
XR chest 1V portable CLINICAL HISTORY: SEPSIS TECHNIQUE: Single frontal radiograph of the chest was obtained. Comparison: Comparison is made to chest one view 06/03/2019 FINDINGS: No lines and tubes are seen. Cardiomegaly is noted. Interstitial thickening is seen without evidence of airspace opacity. No evidence of pleural effusion or pneumothorax. Scoliosis is seen. IMPRESSION: No acute chest disease. ACT 112: Negative or not required by law. Electronically signed by: Flex Lawson M.D. 06/04/2021 12:20 PM
[2021-06-04 13:06] LABS: Troponin I < 0.03 ng/ml (0-0.04)
--- NOTE | 2021-06-04 13:07 | Ultrasound Report ---
US gallbladder CLINICAL HISTORY: rt chest/abd pain TECHNIQUE: Multiple real-time sonographic images of the right upper quadrant were obtained. Comparison: None available at the time of this dictation. FINDINGS: The liver is diffusely homogenous with normal contour and echogenicity. No focal mass lesions are se en. No intrahepatic ductal dilatation is seen. No gallstones or sludge are identified within the gallbladder. The gallbladder wall is not thickened. There is no pericholecystic fluid present. A son ographic Ray's sign was not elicited by the manager news. The common duct measures 0.4 cm in diam eter at the level of the hepatic artery. The visualized portions of the pancreas appear normal. The right kidney shows normal echogenicity, cortical thickness and renal contour. The right kidney sh ows no evidence of hydronephrosis or mass. No ascites or free fluid is seen in Stein's pouch. IMPRESSION: No acute abnormality, in particular no evidence of acute cholecystitis. ACT 112: Negative or not required by law. Electronically signed by: Flex Lawson M.D. 06/04/2021 1:06 PM
[2021-06-04] MEDS ORDERED: VANCOMYCIN CONSULT ACTIVE PRN (13:24)
[2021-06-04] MEDS ORDERED: ALBUTEROL HFA 8 GM INHALER INH PRN (13:24)
[2021-06-04] MEDS ORDERED: MELATONIN 3 MG TAB PO PRN (13:37)
[2021-06-04] MEDS ORDERED: EPINEPHrine INJ 1 MG/ML AMP IM PRN (13:54)
--- NOTE | 2021-06-04 14:59 | Pharmacy Report ---
Pharmacy Vanc AUC Short Note - Date of Service June 04, 2021 - Assessment & Plan Assessment 86 year old F receiving vancomycin for treatment of bacteremia. Pertinent microbiologic data includes: Urine culture from 05/31/21 growing enterococcus and blood cultures from 06/03/21 growing Gram positive cocci in chains. Day #1 of antimicrobial therapy. Plan Vancomycin * AUC/RAJ is the preferred PK/PD target for vancomycin * AUC guided dosing is effective and associated with decreased risk of nephrotoxicity compared to traditional trough targets * Vancomycin 750mg IV q12h is predicted to achieve target AUC/RAJ of 400-600 mg/L.hr. * SCr 0.56 mg/dL today. Baseline Scr ~0.75 mg/dL. Opted to dose vancomycin conservatively in case patient's renal function shifts back to her baseline. * Trough is ordered for 06/06 @1030 Pharmacy will continue to follow and will adjust dose/frequency as necessary. Thank you.
[2021-06-04] MEDS: ACETAMINOPHEN 325 MG TAB PO SCH ×2 (15:58→21:33)
[2021-06-04] MEDS: FLUTICASONE/VILANTEROL 100/25MCG 14 PUFFS/INHALER INH SCH (20:09)
--- NOTE | 2021-06-04 20:26 | Electrocardiogram Report ---
Test Reason : Blood Pressure : / mmHG Vent. Rate : 077 BPM Atrial Rate : 077 BPM P-R Int : 150 ms QRS Dur : 096 ms QT Int : 394 ms P-R-T Axes : 020 014 045 degrees QTc Int : 445 ms Poor data quality, interpretation may be adversely affected Normal sinus rhythm Normal ECG When compared with ECG of 03-JUN-2021 10:41, No significant change was found Confirmed by Albaro Gutiérrez ([id number]) on 06/04/2021 8:25:49 PM Referred By: REFERRED SELF Confirmed By:Jeromy Gutiérrez
[2021-06-04] MEDS ORDERED: PANTOprazole 40 MG TAB PO SCH (21:00)
[2021-06-04] MEDS ORDERED: sulfaSALAzine 500 MG TABLET PO SCH (21:00)
[2021-06-04] MEDS: APIXABAN 5 MG TABLET PO SCH (21:43)
[2021-06-04] MEDS: CHOLECALCIFEROL 1,000 UNITS 25 MCG TAB PO SCH (21:44)
[2021-06-04] MEDS: PRAMIPEXOLE DIHYDROCHLO 0.5 MG TAB PO SCH (21:45)
[2021-06-04] MEDS: FOLIC ACID 1 MG TAB PO SCH (21:45)
[2021-06-04] MEDS: METOPROLOL SUCC 50MG EXT REL TAB PO SCH (21:45)
[2021-06-04] MEDS: POTASSIUM CHLORIDE 10 MEQ TABCR PO SCH (21:45)
[2021-06-04] MEDS: SPIRONOLACTONE 25 MG TAB PO SCH (21:46)
[2021-06-04] MEDS: ONDANSETRON INJ 2 MG/ML 2 ML VIAL IV PRN (21:49)
[2021-06-04] MEDS ORDERED: VANCOMYCIN HCL 750 MG in SODIUM CHLORIDE 0.9% 250 ML IV SCH (23:00)
[2021-06-05] MEDS: ACETAMINOPHEN 325 MG TAB PO SCH ×5 (01:46→19:56)
[2021-06-05] MEDS: ONDANSETRON INJ 2 MG/ML 2 ML VIAL IV PRN ×3 (01:46→15:19)
[2021-06-05 02:10] LABS: Appearance Urine Clear (Clear); Bacteria Urine Automated Negative (Negative); Bilirubin Urine Negative (Negative); Blood Urine Negative (Negative); Color Urine Dark Yellow; Epithelial Cell Urine Auto >30 /lpf (0-5); Glucose Urine UA Negative (Negative); Ketones Urine 4+ (Negative); Leukocyte Esterase Urine Negative (Negative); Nitrite Urine Negative (Negative); Protein Urine 1+ (Negative); RBC Urine Automated 0-4 /hpf (0-4); Specific Gravity Urine 1.029 (1.000-1.030); Urobilinogen Urine Negative (Negative)
[2021-06-05] MEDS: KETOROLAC TROMETHAMINE 15 MG/ML VIAL IV PRN ×2 (06:00→12:06)
--- NOTE | 2021-06-05 07:58 | Communication Note ---
Date of Service: June 05, 2021 Informed overnight by nursing of gram pos cocci bacteremia, both aerobe and anerobe cultures. Reviewed chart hx; source likely from the enterococcus UTI, facultative anaerobe. Current vanc will cover this. Deferring change of abx if indicated to day team.
[2021-06-05 08:28] LABS: BUN Creatinine Ratio 26.2 (10-20); Calcium 8.4 mg/dl (8.5-10.1); Creatinine Clr Calc Pharmacy 91.1 ml/min; Est GFR (African American) 109.1 ml/min; Est GFR (Non-African American) 94.1 ml/min; Potassium 3.9 mmol/L (3.5-5.1)
[2021-06-05] MEDS ORDERED: [UNRECOGNIZED DRUG - OTHER] PO SCH (09:00)
--- NOTE | 2021-06-05 09:15 | Hospitalist Progress Note ---
Date of Service June 05, 2021 Assessment & Plan (1) Bacteremia: Plan: Blood cultures from ER 06/03 with gram positive cocci in chains, UTI with enterococcus from prior urine cx and was not on antibiotics at that time. Was sent with Levaquin 250mg daily given other sensitives/allergies (patient reports she was taking Ciprofloxacin though?) and to cover for possible pulmonary source as well/pneumonitis Suspected from urinary source -- prior enterococcus in urine COVID negative on admission and recent COVID testing negative done for EGD (to be done today for dysphagia/odynophagia as scheduled outpatient) NEGATIVE 06/02, 06/04 * --> Of note, patient with recent tick bites in April reported, not tested for Lyme, but reported completing a 2 week course of doxycycline at that time. Did not drink lots of fluid with the doxy, and could be suffering from an es ophagitis from such as well (and does have a large hiatal hernia) * --> Increased protonix to BID, added Carafate * --> Stopping IV toradol and ordered tramadol x 1 to see if effective at pain control as increased upper abd discomfort this afternoon and on eliquis BID for hx afib Repeat blood cultures again positive on admission gram positive cocci in chains (prior from 06/03 with probable enterococcus) repeat obtained -- follow Remains on vancomycin (day 2) Ordered ECHO for eval endocarditis ID consulted -- rec repeat blood cultures, MATILDE , need to consider EGD --> likely could be from urinary source but if identification not same, could just as likely have come from UGI tract. Presumed high grade/persistent nature of bacteremia and assumed endocarditis. Hopes to convert to IV beta-lactam regimen Will make NPO after midnight. Order MATILDE for tomorrow Also messaged GI regarding concern for UGI source -- will reach out in am as well -- Added cholestyramine as well for GI discomfort reported to see if effective (2) Chest pain: Plan: Trop negative on admission. Did not report CP to me, however did note for nursing this afternoon. --> sounds more like esophagitis/reflux in nature -- see above/recent doxy use, also with large hiatal hernia CT Chest from 2 days ago in ER with : 1. There is no evidence of pulmonary embolus in the main, lobar, or segmental pulmonary arteries. 2. Dependent airspace opacities could represent atelectasis versus a mild infectious/inflammatory pneumonitis. Clinical correlation will be required. 3. Moderate to severe spinal scoliosis is similar to previous and distorts the thoracic cage. 4. Again seen is an 11 mm groundglass lesion in the left upper lobe. This is unchanged from 06/25/2020 and only minimally increased in size dating back to 2016. 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 Will give famotidine x 1 now. Added carafate BID No emesis at this time -- continue to monitor ?constipation also playing role -- did have +BS but will check KUB. --> Add more aggressive regimen pending results. Encouraged ambulation (4) UTI (urinary tract infection): Plan: Enterococcus from 05/31, blood cultures from 06/03 with probable enteroccocus on preliminary On vancomycin (day 2) Repeat blood cultures pending -- follow ID consulted as above -- MATILDE, repeat blood cultures, possible need for pursue of EGD if isolates different as could also be from upper GI source (5) Lab test negative for COVID-19 virus: Plan: IgM/IgG positive -- could have been from immune response vs prior infection, but no need for isolation. Repeat testing x 2 since that lab test both negative discussed with infection control -- discontinued isolation precautions at this time (6) Blood bacterial culture positive: Plan: repeat pending (7) Sepsis: Plan: 2nd to bactermia -- urinary source suspected but need to consider UGI source if isolates different (8) Vertigo: Plan: none reported currently, just feeling weak hx acoustic neuroma -- to have f/u MRI outpatient to see if enlarged (9) Afib: Plan: hx of such, remains on eliquis BID (10) Rheumatoid arthritis: Plan: used to be on methotrexate in the past, currently on sulfasalazine 500mg HS Admission and Anticipated Discharge Date Admission Date: June 04, 2021 Supervising Physician Co-Signing Physician Notes Attending Attestation - Chart reviewed in detail, care plan d/w SHERON Frias. I agree w/ the cortez components of her documentation. Complicated 86yo female with septicemia/bacteremia 2nd to enterococcal UTI. Bacteremia thus likely due to enterococcus. Will need MATILDE to exclude SBE. She has a host of other issues including chest pain - possibly esophageal in nature; ?THAI lung neoplasm; abdominal pain - likely multifactorial. Other plans per Ms Frias. Manuel Prado MD Subjective patient evaluated this morning doing alright had been so very weak around the end of April and having problems with balance (does have hx aucostic neuroma and to have repeat MRI in near future) seen in ER last week diagnosed with UTI and sent on PO cipro. Of note, she had been having 3 tick bites in April, never tested for Lyme, but did complete a 2 week course of Doxycycline, not sure if drinking full glass of water when taking but noticed worsening swallowing issues/discomfort since that time. Discussed esophagitis and could have been worsened by such. Also issues with constipation and had "one blow out" after using OTC medication and noted this to be black in color, and then did prep for endoscopy and repeat BM "santos foam red" but noted the prep contained red dye?. Will check fecal occult for completeness. Bowel regimen to prevent constipation Seen by ID this am and anticipating at least 2 weeks IV abx, discussed checking ECHO. Currently lying flat in bed, no acute distress. sputum -- torres in color today. putum cx if able. Review of Systems Review of Systems: All systems reviewed & are unremarkable except as noted in HPI & below Physical Exam Constitutional: well developed and well nourished; no acute distress laying flat in bed at this time Eyes: no conjunctival abnormality ENMT: Ears: no hearing impairment slightly dry mm Neck: trachea midline Respiratory: normal respiratory effort; no respiratory distress and no labored breathing on room air Cardiovascular: Rate/Rhythm: regular rate and regular rhythm no edema/calf tenderness Gastrointestinal (Abdomen): +BS, soft, non-distended, tenderness to palpation suprapubic region, no guarding or rigidity Musculoskeletal: No calf tenderness, no foot wounds Skin: no rashes and no lesions Neurologic: moves all extremities Psychiatric: Orientation: alert and oriented x 3 Genitourinary: no [place]ittington Lymphatic: no cervical or axillary lymphadenopathy Results & Data Results & Data ([facility]) Vital Signs (Past 12 Hours) Vital Signs Temp Pulse Pulse Resp BP Pulse Ox Pulse Ox 06/05/21 08:41 36.4 C L 70 16 150/70 H 96 06/05/21 05:42 36.8 C 70 95 06/05/21 00:14 37 C 78 14 174/76 H 97 06/05/21 00:10 97 06/04/21 23:26 79 154/77 H 91 06/04/21 21:27 85 18 148/88 H 97 Diagnostic Findings Chest X-Ray 06/04/21 10:21 XR chest 1V portable CLINICAL HISTORY: SEPSIS TECHNIQUE: Single frontal radiograph of the chest was obtained. Comparison: Comparison is made to chest one view 06/03/2019 FINDINGS: No lines and tubes are seen. Cardiomegaly is noted. Interstitial thickening is seen without evidence of airspace opacity. No evidence of pleural effusion or pneumothorax. Scoliosis is seen. IMPRESSION: No acute chest disease. ACT 112: Negative or not required by law. Electronically signed by: Flex Lawson M.D. 06/04/2021 12:20 PM Gallbladder Ultrasound 06/04/21 10:33 US gallbladder CLINICAL HISTORY: rt chest/abd pain TECHNIQUE: Multiple real-time sonographic images of the right upper quadrant were obtained. Comparison: None available at the time of this dictation. FINDINGS: The liver is diffusely homogenous with normal contour and echogenicity. No focal mass lesions are seen. No intrahepatic ductal dilatation is seen. No gallstones or sludge are identified within the gallbladder. The gallbladder wall is not thickened. There is no pericholecystic fluid present. A sonographic Ray's sign was not elicited by the hvac journeyman. The common duct measures 0.4 cm in diameter at the level of the hepatic artery. The visualized portions of the pancreas appear normal. The right kidney shows normal echogenicity, cortical thickness and renal contour. The right kidney shows no evidence of hydronephrosis or mass. No ascites or free fluid is seen in Stein's pouch. IMPRESSION: No acute abnormality, in particular no evidence of acute cholecystitis. ACT 112: Negative or not required by law. Electronically signed by: Flex Lawson M.D. 06/04/2021 1:06 PM PG Care Time/CCT Total # of Minutes Spent Total Time Spent with Patient: Total time spent is greater than 50% in coordination of care (as documented) at patient's floor/unit and/or counseling patient: Coding Level of Care Code 36615 Subseq Hosp Care Lvl 3 Diagnoses Bacteremia R78.81 Chest pain R07.9 UTI (urinary tract infection) N30.00 Hematuria presence: without hematuria Urinary tract infection type: acute cystitis Lab test negative for COVID-19 virus Z20.822 Blood bacterial culture positive R78.81 Sepsis A41.9 Sepsis acute organ dysfunction status: without acute organ dysfunction Sepsis type: sepsis due to unspecified organism Vertigo R42 Afib I48.0 Atrial fibrillation type: paroxysmal Rheumatoid arthritis M06.9 Abdominal pain R10.9 (1) UTI (urinary tract infection) Hematuria presence: without hematuria Urinary tract infection type: acute cystitis Qualified Code(s): N30.00 - Acute cystitis without hematuria (2) Afib Atrial fibrillation type: paroxysmal Qualified Code(s): I48.0 - Paroxysmal atrial fibrillation (3) Sepsis Sepsis acute organ dysfunction status: without acute organ dysfunction Sepsis type: sepsis due to unspecified organism Qualified Code(s): A41.9 - Sepsis, unspecified organism
[2021-06-05 10:01] LABS: Basophils # (auto) 0.02 K/uL (0-0.2); Basophils % (auto) 0.2 %; Hematocrit (blood only) 38.8 % (37-47); Hemoglobin 13.5 g/dL (12.0-16.0); Immature Granulocytes # (auto) 0.04 K/uL (0.00-0.02); Immature Granulocytes % (auto) 0.5 %; Lymphocytes # (auto) 1.39 K/uL (1.2-3.4); Lymphocytes % (auto) 17.1 %; Mean Corpuscular Hemoglobin 34.8 pg (25-34); Mean Corpuscular Hgb Conc 34.8 g/dL (32-36); Mean Platelet Volume 8.8 fL (7.4-10.4); Monocytes # (auto) 0.87 K/uL (0.11-0.59); Monocytes % (auto) 10.7 %; Neutrophils # (auto) 5.82 K/uL (1.4-6.5); Neutrophils % (auto) 71.5 %; Platelet Count 280 K/uL (130-400); RDW Coefficient of Variation 12.6 % (11.5-14.5); RDW Standard Deviation 45.2 fL (36.4-46.3); Red Blood Count 3.88 M/uL (4.2-5.4); White Blood Count 8.14 K/uL (4.8-10.8)
[2021-06-05] MEDS: FLUTICASONE/VILANTEROL 100/25MCG 14 PUFFS/INHALER INH SCH (10:01)
[2021-06-05] MEDS: APIXABAN 5 MG TABLET PO SCH ×2 (10:03→19:55)
[2021-06-05] MEDS: VANCOMYCIN HCL 750 MG in SODIUM CHLORIDE 0.9% 250 ML IV SCH ×2 (10:03→17:17)
[2021-06-05 10:19] LABS: BUN Creatinine Ratio 26.7 (10-20); Calcium 8.5 mg/dl (8.5-10.1); Est GFR (African American) 106.6 ml/min; Potassium 3.9 mmol/L (3.5-5.1)
--- NOTE | 2021-06-05 10:21 | Communication Note ---
Date of Service: June 05, 2021 Patient is an 86 yo female currently hospitalized due to UTI with bacteremia. Hospitalist team placed a GI consult for this patient as she was on the o utpatient GI schedule for an EGD today (06/05/21) for a non-emergent referral for esophagitis at the request of her PCP. She is now hospitalized due to her bacteremia. On 06/01/21, she had a positive COVID IgG & IgM lab study, but since that time has had a nasal swab negative for COVID19. She is on airborne precautions. At the present time, due to the nonemergent nature of the EGD, I would advise she be placed on Protonix 40 mg BID and our office will reschedule her EGD to occur as an outpatient once her acute medical issues resolve.
[2021-06-05] MEDS ORDERED: DOCUSATE SODIUM/SENNA 50/8.6MG TAB PO ONE (11:00)
[2021-06-05] MEDS ORDERED: ACETAMINOPHEN 1,000 MG/100 ML VIAL IV STA (11:24)
[2021-06-05] MEDS ORDERED: SODIUM CHLORIDE 0.9% 1000ML 1,000 ML IV SCH (11:30)
[2021-06-05] MEDS ORDERED: SUCRALFATE 1 GM/10 ML UDC PO SCH (13:00)
[2021-06-05] MEDS: SUCRALFATE 1 GM/10 ML UDC PO SCH ×3 (13:05→19:58)
--- NOTE | 2021-06-05 15:56 | XCELERA ---
[id number]
[2021-06-05] MEDS ORDERED: CHOLESTYRAMINE LIGHT 4 GM PKT PO ONE (16:29)
[2021-06-05] MEDS ORDERED: traMADol HCL 50 MG TABLET PO PRN (17:30)
[2021-06-05] MEDS ORDERED: LIDOCAINE VISCOUS 2% 15 ML UDC MT PRN (17:58)
[2021-06-05] MEDS ORDERED: FAMOTIDINE 20 MG in SYRINGE 3 ML IV ONE (18:30)
[2021-06-05] MEDS: bisacodyL 10 MG SUPP PR PRN (18:43)
[2021-06-05 18:57] LABS: Albumin Level 3.7 gm/dl (3.4-5.0); Bilirubin Direct 0.2 mg/dl (0-0.2); Bilirubin,Total 0.9 mg/dl (0.2-1.0); Total Protein 6.8 gm/dl (6.0-8.3)
[2021-06-05] MEDS: PRAMIPEXOLE DIHYDROCHLO 0.5 MG TAB PO SCH (19:55)
[2021-06-05] MEDS: FOLIC ACID 1 MG TAB PO SCH (19:56)
[2021-06-05] MEDS: METOPROLOL SUCC 50MG EXT REL TAB PO SCH (19:56)
[2021-06-05] MEDS: CHOLECALCIFEROL 1,000 UNITS 25 MCG TAB PO SCH (19:56)
[2021-06-05] MEDS: SPIRONOLACTONE 25 MG TAB PO SCH (19:57)
[2021-06-05] MEDS: POTASSIUM CHLORIDE 10 MEQ TABCR PO SCH (19:57)
[2021-06-05] MEDS: PANTOprazole 40 MG TAB PO SCH (19:57)
--- NOTE | 2021-06-05 20:38 | XRay Report ---
XR KUB/Abdomen 1 view CLINICAL HISTORY: abd pain, eval constipation TECHNIQUE: 1 view of the abdomen was obtained. Comparison: None available at the time of this dictation. FINDINGS: Lung bases are unremarkable. The osseous structures are grossly unremarkable. The bowel gas pattern i s nonobstructive. Radiodense material is in the colon. There is no evidence of fecal impaction. IMPRESSION: No evidence of impaction is seen. ACT 112: Negative or not required by law. Electronically signed by: Flex Lawson M.D. 06/05/2021 8:37 PM
[2021-06-06] MEDS ORDERED: SODIUM CHLORIDE 0.9% 1000ML 1,000 ML IV SCH (01:15)
[2021-06-06] MEDS: VANCOMYCIN HCL 750 MG in SODIUM CHLORIDE 0.9% 250 ML IV SCH (01:46)
[2021-06-06] MEDS: ACETAMINOPHEN 325 MG TAB PO SCH ×4 (01:47→20:21)
[2021-06-06] MEDS: ONDANSETRON INJ 2 MG/ML 2 ML VIAL IV PRN (04:38)
[2021-06-06] MEDS ORDERED: ACETAMINOPHEN 1000 MG/100 ML IV IV STA (05:09)
[2021-06-06 06:14] LABS: Basophils # (auto) 0.03 K/uL (0-0.2); Basophils % (auto) 0.4 %; Eosinophils # (auto) 0.04 K/uL (0-0.5); Eosinophils % (auto) 0.6 %; Hematocrit (blood only) 38.8 % (37-47); Hemoglobin 13.4 g/dL (12.0-16.0); Immature Granulocytes # (auto) 0.03 K/uL (0.00-0.02); Immature Granulocytes % (auto) 0.4 %; Lymphocytes # (auto) 1.29 K/uL (1.2-3.4); Lymphocytes % (auto) 18.8 %; Mean Corpuscular Hemoglobin 34.1 pg (25-34); Mean Corpuscular Hgb Conc 34.5 g/dL (32-36); Mean Corpuscular Volume 98.7 fL (80-100); Mean Platelet Volume 8.9 fL (7.4-10.4); Monocytes # (auto) 0.88 K/uL (0.11-0.59); Monocytes % (auto) 12.8 %; Platelet Count 287 K/uL (130-400); RDW Coefficient of Variation 12.4 % (11.5-14.5); RDW Standard Deviation 44.4 fL (36.4-46.3); Red Blood Count 3.93 M/uL (4.2-5.4); White Blood Count 6.87 K/uL (4.8-10.8)
[2021-06-06 06:33] LABS: Albumin Level 3.5 gm/dl (3.4-5.0); Bilirubin Direct 0.2 mg/dl (0-0.2); Bilirubin,Total 0.9 mg/dl (0.2-1.0); Calcium 8.2 mg/dl (8.5-10.1); Creatinine Clr Calc Pharmacy 93.3 ml/min; Est GFR (Non-African American) 94.9 ml/min; Potassium 3.5 mmol/L (3.5-5.1); Total Protein 6.4 gm/dl (6.0-8.3)
[2021-06-06] MEDS ORDERED: OPTIRAY 320 100ml IV ONE (06:40)
[2021-06-06] MEDS: MoRPHine SULFATE 2 MG/ML CARP IV PRN ×2 (06:44→21:53)
--- NOTE | 2021-06-06 07:18 | CT Scan Report ---
CT OF THE ABDOMEN AND PELVIS WITH CONTRAST CLINICAL HISTORY: Abdominal pain. Bacteremia. COMPARISON STUDY: CT of the abdomen and pelvis June 01, 2021. Right upper quadrant ultrasound Francisco [id number]. KUB June 05, 2021. TECHNIQUE: Following IV administration of 95 mL of Optiray, axial images of the abdomen and pelvis we re obtained from the lung bases to the proximal femurs. Images were reviewed in the axial, sagittal, and coronal planes. IV contrast was administered without complication. Automated exposure control wa s utilized for the study. A dose lowering technique was utilized adhering to the principles of ALARA . CT DOSE: 251.95 mGy.cm FINDINGS: Trace right pleural effusion is noted. No pneumatosis, free air or portal venous gas is pre sent. There is a small hiatal hernia. The liver, spleen, adrenal glands, left kidney and pancreas are unremarkable with exception of a suspected cyst within the upper pole the left kidney. There is no h ydronephrosis. There is a 3.9 cm hypoenhancing focus within the upper pole of the right kidney. There is trace perinephric stranding. There is no evidence for a bowel obstruction. The appendix is not vi sualized. It was normal on CT of June 01, 2021. Colonic diverticulosis is noted without evidence f or acute diverticulitis. The cecum was within the right upper quadrant. There is evidence for mild vo lume overload. No acute fracture or suspicious lesion is identified within visualized skeletal struct ures. Severe thoracolumbar spine scoliosis is noted. Residual oral contrast is noted within portions of the colon. Amount of stool is within normal limits. No acute fracture or suspicious lesion is iden tified within the visualized skeletal structures. IMPRESSION: 1. 3.9 cm hypoenhancing focus within the upper pole of the right kidney. Given the clinical history, this favors pyelonephritis. A renal infarct could appear similar although is considered less likely. No renal abscess. 2. No bowel obstruction. No bowel wall thickening. 3. Colonic diverticulosis without evidence for acute diverticulitis. ACT 112: Negative or not required by law. Electronically signed by: Khadar Lopez M.D. 06/06/2021 7:16 AM
[2021-06-06] MEDS ORDERED: STAT IV STA (08:35)
--- NOTE | 2021-06-06 08:41 | Hospitalist Progress Note ---
Date of Service June 06, 2021 Assessment & Plan (1) Bacteremia: Plan: Blood cultures from ER 06/03 with gram positive cocci in chains, UTI with enterococcus from prior urine cx and was not on antibiotics at that time. Was sent with Levaquin 250mg daily given other sensitives/allergies (patient reports she was taking Ciprofloxacin though?) and to cover for possible pulmonary source as well/pneumonitis Suspected from urinary source -- prior enterococcus in urine COVID negative on admission and recent COVID testing negative done for EGD (to be done today for dysphagia/odynophagia as scheduled outpatient) NEGATIVE 06/02, 06/04 * --> Of note, patient with recent tick bites in April reported, not tested for Lyme, but reported completing a 2 week course of doxycycline at that time. Did not drink lots of fluid with the doxy, and could be suffering from an es ophagitis from such as well (and does have a large hiatal hernia) * --> Increased protonix to BID, added Carafate * --> Stopping IV toradol and ordered tramadol x 1 to see if effective at pain control as increased upper abd discomfort this afternoon and on eliquis BID for hx afib Repeat blood cultures again positive on admission from 06/04 with gram positive cocci in chains, probable enterococcus (prior from 06/03 with probable enterococcus) repeat obtained -- follow again 1/2 sets already positive and repeat obtained ID consulted -- rec repeat blood cultures, MATILDE , need to consider EGD --> likely could be from urinary source but if identification not same, could just as likely have come from UGI tract. Presumed high grade/persistent nature of bacteremia and assumed endocarditis. Hopes to convert to IV beta-lactam regimen 06/06 Ordered ECHO for eval endocarditis -- no evidence on TTE --> NPO for MATILDE this morning Remains on vancomycin (day 3). Trough lower end of therapeutic this morning and likely why blood cultures from 06/05 --> May need to add gentamicin for synergy if +endocarditis Repeating blood cultures today Increased abdominal pain, right sided 10/10 reported this morning. (prior RUQ US negative for acute yanely) Morphine 1mg x 1 now -- effective and can utilize prn CTAP ordered * 3.9 cm hypoenhancing focus within the upper pole of the right kidney. Given the clinical history, this favors pyelonephritis. A renal infarct could appear similar although is considered less likely. No renal abscess. Urology consulted Change IVF to LR +20K @ 75cc/hr 1gm IV calcium gluconate for ca 8.2/normal albumin Also messaged GI regarding concern for UGI source -- will reach out in am as well -- Added cholestyramine as well for GI discomfort reported to see if effective (2) Chest pain: Plan: Trop negative on admission. Did not report CP to me, however did note for nursing this afternoon. --> sounds more like esophagitis/reflux in nature. improved with PPI BID, addition of carafate viscous lidocaine available prn -- see above/recent doxy use, also with large hiatal hernia. may benefit from PPI BID at discharge along with carafate in the meantime CT Chest from 3 days ago in ER with : 1. There is no evidence of pulmonary embolus in the main, lobar, or segmental pulmonary arteries. 2. Dependent airspace opacities could represent atelectasis versus a mild infectious/inflammatory pneumonitis. Clinical correlation will be required. 3. Moderate to severe spinal scoliosis is similar to previous and distorts the thoracic cage. 4. Again seen is an 11 mm groundglass lesion in the left upper lobe. This is unchanged from 06/25/2020 and only minimally increased in size dating back to 2016. 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, and nonemergent pulmonology follow-up is recommended EKG w/ CP and could repeat trop if symptomatology changes Protonix increased to BID, added carfate Added viscous lidocaine prn if needed NO CHEST PAIN REPORTED TODAY, JUST MILD REFLUX SYMPTOMS --> PPI IVP x 1 today, resume PO when able RUQ US done for GB thickening on admission ,negative for acute yanely LFTs wnl on Am labs Continue to monitor (3) Abdominal pain: Plan: lower abd pain AM 06/05, improved this afternoon but then had worsening R sided discomfort -- tx UTI/bacteremia now more upper this afternoon -- esophagitis suspected as above as well as large hiatal hernia GI consulted PPI increased to BID. Added carafate BID No emesis at this time -- continue to monitor Morphine x 1mg this am, prn thereafter while NPO --> instructed to use sparingly given constipation noted. +BM last evening after suppository and repeating again today, prn after fecal occult negative CTAP with PYELO, [facility]OLOGY consulted -- appreciate recs/assistance 1gm IV calcium for ca 8.2, normal albumin lipase wnl (4) UTI (urinary tract infection): Plan: Enterococcus from 05/31, blood cultures from 06/03 with probable enteroccocus on preliminary On vancomycin (day 3) Repeat blood cultures obtained today -- follow ID consulted as above -- MATILDE, repeat blood cultures, possible need for pursue of EGD if isolates different as could also be from upper GI source (5) Lab test negative for COVID-19 virus: Plan: IgM/IgG positive -- could have been from immune response vs prior infection, but no need for isolation. Repeat testing x 2 since that lab test both negative discussed with infection control -- discontinued isolation precautions at this time (6) Blood bacterial culture positive: Plan: repeat pending as above, likely not therapeutic vanco for bcx drawn 06/05 monitor (7) Sepsis: Plan: 2nd to bactermia -- urinary source likley given pyelo on CTAP this morning, but need to consider UGI source if isolates different but does appear to be same (8) Vertigo: Plan: none reported currently, just feeling weak hx acoustic neuroma -- to have f/u MRI outpatient to see if enlarged (9) Afib: Plan: hx of such, remains on eliquis BID while inpatient --> review of outpatient prescriptions with rx for 30 pills for month supply which would indicate only 1x/day Also with chronic R LE DVT --> will check b/l venous doppler to ensure no additional DVT, roverto with elevated ddimer last week in ER as well as likely recent covid infection/hypercoag state with such? (10) Rheumatoid arthritis: Plan: used to be on methotrexate in the past, currently on sulfasalazine 500mg HS (placed on hold while bacteremic) (11) Pulmonary lesion: Plan: noted on CTA 06/03 11mm ground-glass lesion THAI, unchanged from Jun 2020 and only minimally increased from 2016 appearance typical for low-grade pulm neoplasm and will need non-emergent pulm follow up --> will ask nurse navigator to arrange also messaged GI about need for follow up c-scope. prior done 10-15yrs ago sahil sanchez, with chronic constipation and PCP checked CEA within last week, slightly elevated >2 They will plan to perform upper/lower as outpatient once above resolved Plan: continue vancomycin MATILDE for today for eval endocarditis repeat blood cultures pending urology consulted given lesion on CT/possible infarct will need outpatient c-scope/EGD Admission and Anticipated Discharge Date Admission Date: June 04, 2021 Supervising Physician Co-Signing Physician Notes Attending Attestation - Chart reviewed in detail, care plan d/w SHERON Frias. I agree w/ the cortez components of her documentation. Complicated 86yo female with septicemia/bacteremia 2nd to enterococcal UTI. Bacteremia thus likely due to enterococcus. MATILDE today without definitive evidence of endocarditis. Patient had increased abdominal pain today -- CT a/p with radiographic evidence of right-sided pyelonephritis. Manuel Prado MD Subjective patient evaluated this morning had 10/10 pain this morning, R sided abdominal pain was nauseous CTAP reviewed, pyelo states pain significantly improved with 1mg IV morphine. Had small BM after suppository last evening and asked RN to administer again today. Limit opiates/encourage ambulation. not yet seen by therapy discussed repeating blood cultures prior c-scope 10-15 years ago at [facility]--messaged GI about need for upper/lower given constipation issues no fever, chills, chest pain did have some nausea but no emesis. ordered protonix IVP this morning while awaiting MATILDE. Eliquis on hold -- of interest, takes 5mg HS. Will req records/message PCP regarding reasoning for such. Does appear had been on Xarelto in the past. Review of Systems Review of Systems: All systems reviewed & are unremarkable except as noted in HPI & below Physical Exam Physical Exam: WD, WN female, laying in bed, currently no acute distress (reported to be uncomfortable earlier in the morning, improved after morphine) Eyes anicteric, pupils equal and reactive ENT: mmm, trachea midline without deviation CV: regular/pacs, +systolic murmur, no edema/calves non-tender, pulses diminished RLE but NVI Resp: CTAB, diminished in the bases, no w/r, on room air GI: +BS throughout, soft, tenderness right flank, no CVA tenderness, no guarding or rigidity, slight tenderness palpation LLQ : no whittington MSK/Neuro: moves all extremities, b/l weakness 4/5 throughout, no focal deficit, CN intact. +Scoliosis Psych: alert, oriented to person/place/time, anxious Results & Data Results & Data ([facility]) Vital Signs (Past 12 Hours) Vital Signs Temp Pulse Resp BP BP Pulse Ox 06/06/21 07:10 36.3 C L 64 16 177/66 H 95 06/05/21 21:49 36.8 C 67 16 169/84 H 95 Laboratory Results 06/06/21 06/06/21 06/06/21 Range/Units 12:10 09:13 08:55 WBC (4.8-10.8) K/uL RBC (4.2-5.4) M/uL Hgb (12.0-16.0) g/dL Hct (37-47) % MCV (80-100) fL MCH (25-34) pg MCHC (32-36) g/dL RDW Std Deviation (36.4-46.3) fL RDW Coeff of Greg (11.5-14.5) % Plt Count (130-400) K/uL MPV (7.4-10.4) fL Immature Gran % (Auto) % Neut % (Auto) % Lymph % (Auto) % [place] % (Auto) % Eos % (Auto) % Baso % (Auto) % Neut # (Auto) (1.4-6.5) K/uL Lymph # (Auto) (1.2-3.4) K/uL [place]kin # (Auto) (0.11-0.59) K/uL Eos # (Auto) (0-0.5) K/uL Baso # (Auto) (0-0.2) K/uL Immature Gran # (Auto) (0.00-0.02) K/uL Sodium (136-145) mmol/L Potassium (3.5-5.1) mmol/L Chloride (98-107) mmol/L Carbon Dioxide (21-32) mmol/L Anion Gap (3-11) BUN (6-23) mg/dl Creatinine (0.6-1.2) mg/dl Est Cr Clr Drug Dosing ml/min Est GFR ( Amer) ml/min Est GFR (Non-Af Amer) ml/min BUN/Creatinine Ratio (10-20) Glucose (70-99(Fasting)) mg/dl POC Glucose 93 (70-99) mg/dl Lactate (0.4-2.0) mmol/L Calcium (8.5-10.1) mg/dl Magnesium 2.0 (1.7-2.4) mg/dl Total Bilirubin (0.2-1.0) mg/dl Direct Bilirubin (0-0.2) mg/dl AST (13-39) U/L ALT (7-52) U/L Alkaline Phosphatase (34-104) U/L Total Protein (6.0-8.3) gm/dl Albumin (3.4-5.0) gm/dl Lipase (11-82) U/L Stool Occult Bld Scrn (Negative) Vancomycin Trough 10.5 (10-20) mcg/ml 06/06/21 06/06/21 06/06/21 Range/Units 08:06 05:37 05:37 WBC 6.87 (4.8-10.8) K/uL RBC 3.93 L (4.2-5.4) M/uL Hgb 13.4 (12.0-16.0) g/dL Hct 38.8 (37-47) % MCV 98.7 (80-100) fL MCH 34.1 H (25-34) pg MCHC 34.5 (32-36) g/dL RDW Std Deviation 44.4 (36.4-46.3) fL RDW Coeff of Greg 12.4 (11.5-14.5) % Plt Count 287 (130-400) K/uL MPV 8.9 (7.4-10.4) fL Immature Gran % (Auto) 0.4 % Neut % (Auto) 67.0 % Lymph % (Auto) 18.8 % L[place]kin % (Auto) 12.8 % Eos % (Auto) 0.6 % Baso % (Auto) 0.4 % Neut # (Auto) 4.60 (1.4-6.5) K/uL Lymph # (Auto) 1.29 (1.2-3.4) K/uL [place]kin # (Auto) 0.88 H (0.11-0.59) K/uL Eos # (Auto) 0.04 (0-0.5) K/uL Baso # (Auto) 0.03 (0-0.2) K/uL Immature Gran # (Auto) 0.03 H (0.00-0.02) K/uL Sodium 132 L (136-145) mmol/L Potassium 3.5 (3.5-5.1) mmol/L Chloride 101 (98-107) mmol/L Carbon Dioxide 20 L (21-32) mmol/L Anion Gap 11 (3-11) BUN 9 (6-23) mg/dl Creatinine 0.41 L (0.6-1.2) mg/dl Est Cr Clr Drug Dosing 93.3 ml/min Est GFR ( Amer) 110.0 ml/min Est GFR (Non-Af Amer) 94.9 ml/min BUN/Creatinine Ratio 22.0 H (10-20) Glucose 99 (70-99(Fasting)) mg/dl POC Glucose 101 H (70-99) mg/dl Lactate (0.4-2.0) mmol/L Calcium 8.2 L (8.5-10.1) mg/dl Magnesium (1.7-2.4) mg/dl Total Bilirubin 0.9 (0.2-1.0) mg/dl Direct Bilirubin 0.2 (0-0.2) mg/dl AST 21 (13-39) U/L ALT 10 (7-52) U/L Alkaline Phosphatase 50 (34-104) U/L Total Protein 6.4 (6.0-8.3) gm/dl Albumin 3.5 (3.4-5.0) gm/dl Lipase (11-82) U/L Stool Occult Bld Scrn (Negative) Vancomycin Trough (10-20) mcg/ml 06/05/21 06/05/21 06/05/21 Range/Units 21:34 19:16 17:24 WBC (4.8-10.8) K/uL RBC (4.2-5.4) M/uL Hgb (12.0-16.0) g/dL Hct (37-47) % MCV (80-100) fL MCH (25-34) pg MCHC (32-36) g/dL RDW Std Deviation (36.4-46.3) fL RDW Coeff of Greg (11.5-14.5) % Plt Count (130-400) K/uL MPV (7.4-10.4) fL Immature Gran % (Auto) % Neut % (Auto) % Lymph % (Auto) % [place] % (Auto) % Eos % (Auto) % Baso % (Auto) % Neut # (Auto) (1.4-6.5) K/uL Lymph # (Auto) (1.2-3.4) K/uL [place]kin # (Auto) (0.11-0.59) K/uL Eos # (Auto) (0-0.5) K/uL Baso # (Auto) (0-0.2) K/uL Immature Gran # (Auto) (0.00-0.02) K/uL Sodium (136-145) mmol/L Potassium (3.5-5.1) mmol/L Chloride (98-107) mmol/L Carbon Dioxide (21-32) mmol/L Anion Gap (3-11) BUN (6-23) mg/dl Creatinine (0.6-1.2) mg/dl Est Cr Clr Drug Dosing ml/min Est GFR ( Amer) ml/min Est GFR (Non-Af Amer) ml/min BUN/Creatinine Ratio (10-20) Glucose (70-99(Fasting)) mg/dl POC Glucose 103 H 86 (70-99) mg/dl Lactate (0.4-2.0) mmol/L Calcium (8.5-10.1) mg/dl Magnesium (1.7-2.4) mg/dl Total Bilirubin (0.2-1.0) mg/dl Direct Bilirubin (0-0.2) mg/dl AST (13-39) U/L ALT (7-52) U/L Alkaline Phosphatase (34-104) U/L Total Protein (6.0-8.3) gm/dl Albumin (3.4-5.0) gm/dl Lipase (11-82) U/L Stool Occult Bld Scrn Negative (Negative) Vancomycin Trough (10-20) mcg/ml 06/05/21 06/05/21 Range/Units 17:17 09:34 WBC (4.8-10.8) K/uL RBC (4.2-5.4) M/uL Hgb (12.0-16.0) g/dL Hct (37-47) % MCV (80-100) fL MCH (25-34) pg MCHC (32-36) g/dL RDW Std Deviation (36.4-46.3) fL RDW Coeff of Greg (11.5-14.5) % Plt Count (130-400) K/uL MPV (7.4-10.4) fL Immature Gran % (Auto) % Neut % (Auto) % Lymph % (Auto) % [place] % (Auto) % Eos % (Auto) % Baso % (Auto) % Neut # (Auto) (1.4-6.5) K/uL Lymph # (Auto) (1.2-3.4) K/uL [place] # (Auto) (0.11-0.59) K/uL Eos # (Auto) (0-0.5) K/uL Baso # (Auto) (0-0.2) K/uL Immature Gran # (Auto) (0.00-0.02) K/uL Sodium (136-145) mmol/L Potassium (3.5-5.1) mmol/L Chloride (98-107) mmol/L Carbon Dioxide (21-32) mmol/L Anion Gap (3-11) BUN (6-23) mg/dl Creatinine (0.6-1.2) mg/dl Est Cr Clr Drug Dosing ml/min Est GFR ( Amer) ml/min Est GFR (Non-Af Amer) ml/min BUN/Creatinine Ratio (10-20) Glucose (70-99(Fasting)) mg/dl POC Glucose (70-99) mg/dl Lactate 1.0 (0.4-2.0) mmol/L Calcium (8.5-10.1) mg/dl Magnesium (1.7-2.4) mg/dl Total Bilirubin 0.9 D (0.2-1.0) mg/dl Direct Bilirubin 0.2 (0-0.2) mg/dl AST 15 (13-39) U/L ALT 9 (7-52) U/L Alkaline Phosphatase 56 (34-104) U/L Total Protein 6.8 (6.0-8.3) gm/dl Albumin 3.7 (3.4-5.0) gm/dl Lipase 15 (11-82) U/L Stool Occult Bld Scrn (Negative) Vancomycin Trough (10-20) mcg/ml Diagnostic Findings KUB X-Ray 06/05/21 18:01 XR KUB/Abdomen 1 view CLINICAL HISTORY: abd pain, eval constipation TECHNIQUE: 1 view of the abdomen was obtained. Comparison: None available at the time of this dictation. FINDINGS: Lung bases are unremarkable. The osseous structures are grossly unremarkable. The bowel gas pattern is nonobstructive. Radiodense material is in the colon. There is no evidence of fecal impaction. IMPRESSION: No evidence of impaction is seen. ACT 112: Negative or not required by law. Electronically signed by: Flex Lawson M.D. 06/05/2021 8:37 PM Abdomen/Pelvis CT 06/06/21 06:16 CT OF THE ABDOMEN AND PELVIS WITH CONTRAST CLINICAL HISTORY: Abdominal pain. Bacteremia. COMPARISON STUDY: CT of the abdomen and pelvis June 01, 2021. Right upper quadrant ultrasound June 04, 2021. KUB June 05, 2021. TECHNIQUE: Following IV administration of 95 mL of Optiray, axial images of the abdomen and pelvis were obtained from the lung bases to the proximal femurs. Images were reviewed in the axial, sagittal, and coronal planes. IV contrast was administered without complication. Automated exposure control was utilized for the study. A dose lowering technique was utilized adhering to the principles of ALARA. CT DOSE: 251.95 mGy.cm FINDINGS: Trace right pleural effusion is noted. No pneumatosis, free air or portal venous gas is present. There is a small hiatal hernia. The liver, spleen, adrenal glands, left kidney and pancreas are unremarkable with exception of a suspected cyst within the upper pole the left kidney. There is no hydronephrosis. There is a 3.9 cm hypoenhancing focus within the upper pole of the right kidney. There is trace perinephric stranding. There is no evidence for a bowel obstruction. The appendix is not visualized. It was normal on CT of June 01, 2021. Colonic diverticulosis is noted without evidence for acute diverticulitis. The cecum was within the right upper quadrant. There is evidence for mild volume overload. No acute fracture or suspicious lesion is identified within visualized skeletal structures. Severe thoracolumbar spine scoliosis is noted. Residual oral contrast is noted within portions of the colon. Amount of stool is within normal limits. No acute fracture or suspicious lesion is identified within the visualized skeletal structures. IMPRESSION: 1. 3.9 cm hypoenhancing focus within the upper pole of the right kidney. Given the clinical history, this favors pyelonephritis. A renal infarct could appear similar although is considered less likely. No renal abscess. 2. No bowel obstruction. No bowel wall thickening. 3. Colonic diverticulosis without evidence for acute diverticulitis. ACT 112: Negative or not required by law. Electronically signed by: Khadar Lopez M.D. 06/06/2021 7:16 AM PG Care Time/CCT Total # of Minutes Spent Total Time Spent with Patient: Total time spent is greater than 50% in coordination of care (as documented) at patient's floor/unit and/or counseling patient: Coding Level of Care Code 96954 Subseq Hosp Care Lvl 3 Diagnoses Bacteremia R78.81 Chest pain R07.9 Abdominal pain R10.9 UTI (urinary tract infection) N30.00 Hematuria presence: without hematuria Urinary tract infection type: acute cystitis Lab test negative for COVID-19 virus Z20.822 Blood bacterial culture positive R78.81 Sepsis A41.9 Sepsis acute organ dysfunction status: without acute organ dysfunction Sepsis type: sepsis due to unspecified organism Vertigo R42 Afib I48.0 Atrial fibrillation type: paroxysmal Rheumatoid arthritis M06.9 Pulmonary lesion J98.4 (1) UTI (urinary tract infection) Hematuria presence: without hematuria Urinary tract infection type: acute cystitis Qualified Code(s): N30.00 - Acute cystitis without hematuria (2) Afib Atrial fibrillation type: paroxysmal Qualified Code(s): I48.0 - Paroxysmal atrial fibrillation (3) Sepsis Sepsis acute organ dysfunction status: without acute organ dysfunction Sepsis type: sepsis due to unspecified organism Qualified Code(s): A41.9 - Sepsis, unspecified organism
[2021-06-06] MEDS ORDERED: CALCIUM GLUCONATE 10% 1,000 MG in DEXTROSE 5% 50 ML IV ONE (08:45)
[2021-06-06] MEDS: FLUTICASONE/VILANTEROL 100/25MCG 14 PUFFS/INHALER INH SCH (09:22)
[2021-06-06] MEDS ORDERED: VANCOMYCIN TROUGH ONE ×2 (09:30→10:30)
[2021-06-06] MEDS: DOCUSATE SODIUM/SENNA 50/8.6MG TAB PO SCH (09:34)
[2021-06-06] MEDS: APIXABAN 5 MG TABLET PO SCH ×2 (09:34→20:13)
[2021-06-06] MEDS: SUCRALFATE 1 GM/10 ML UDC PO SCH ×4 (09:34→20:22)
[2021-06-06] MEDS: PANTOprazole 40 MG TAB PO SCH (09:37)
[2021-06-06] MEDS ORDERED: VANCOMYCIN HCL 1,000 MG in SODIUM CHLORIDE 0.9% 250 ML IV SCH (10:00)
--- NOTE | 2021-06-06 10:26 | Pharmacy Report ---
Pharmacy Vanc AUC Short Note - Date of Service June 06, 2021 - Assessment & Plan Assessment 86 year old F receiving vancomycin for treatment of bacteremia. Pertinent microbiologic data includes: blood culture growing Probably enterococcus species. Day # 3 of antimicrobial therapy. Plan Vancomycin * AUC/RAJ is the preferred PK/PD target for vancomycin * AUC guided dosing is effective and associated with decreased risk of nephrotoxicity compared to traditional trough targets * Trough level of 10.5 mcg/mL is predicted to achieve target AUC/RAJ of ~416 mg/L.hr and may be associated with a 7 % risk of nephrotoxicity * Change to 1000 mg IV every 8 hours (expected to achieve AUC/RAJ of 554 mg/L.hr and may be associated with a 12% risk of nephrotoxicity) * Trough ordered for: 06/07/21 prior to 1000 dose Pharmacy will continue to follow and will adjust dose/frequency as necessary. Thank you.
[2021-06-06] MEDS: PANTOprazole 40 MG in SYRINGE 0 ML IV SCH ×2 (10:44→20:13)
[2021-06-06] MEDS: POTASSIUM CHLORIDE 20 MEQ in LACTATED RINGER'S 1,000 ML IV SCH (10:51)
--- NOTE | 2021-06-06 11:02 | Urology Consultation ---
Date of Consultation June 06, 2021 Assessment & Plan (1) UTI (urinary tract infection): Enterococcus UTI - currently being treated with manager long term care abx under the guidance of ID - my suspicion is that her kidney findings are related to this, but I do not think she requires any change in therapy - she has no hydro or other findings that would indicate a need for surgical intervention - while my suspicion of infarct is lower, it is not impossible, particularly if she has true endocarditis, but her current eliquis should reduce the likelihood of this being an infarct and would be appropriate to prevent worsening - she has a Cr of 0.41 - overall, she is not suffering from a renal function standpoint at all PLAN: 1. complete abx as outlined by ID 2. cont eliquis - no further interventions required from urology - we will follow peripherally, please contact us if her conditions change History of Present Illness Reason for Consultation: pyelonephritis, 3.9cm focus, ?infarct Requesting Physician: Dr. Prado Attending Physician: Manuel Prado History of Present Illness Consult placed secondary to possible pyelonephritis in the setting of bacteremia (suspected enterococcus) and recent urine culture with enterococcus - CT yesterday (second of her admission) reviewed - hypoenhancing area in the right renal upper pole - not really visible on CT on 06/01 - with the radiology read suspecting infectious etiology rather than embolic/infarct - she has recently had a consultation with infectious disease and is being treated with [facility] long term care abx for a possible endocarditis (MATILDE later today) - she has been afebrile and hemodynamically stable without a significant leukocytosis - she is on eliquis secondary to chronic afib - she is subjectively doing ok - no fever or chills - no flank pain - intermittent epigastric and right upper quadrant abd pain, intermittent n/v but not at present - voiding spontaneously, no dysuria or gross hematuria No prior urology evaluations. Denies history of recurrent UTI. Denies personal or family hx of stones. Reports a sister with history of kidney and/or bladder cancer. Allergies Allergy/AdvReac Type Severity Reaction Status Date / Time bee venom protein (honey bee) Allergy Severe Anaphylaxis Verified 06/03/21 11:28 . sulfamethoxazole Allergy Severe ANAPHYLAXIS Verified 06/03/21 11:28 trimethoprim Allergy Severe ANAPHYLAXIS Verified 06/03/21 11:28 cephalexin Allergy Intermediate RASH Verified 06/03/21 11:28 Penicillins Allergy Intermediate LIPS Verified 06/03/21 11:28 SWELLING Emaludu-OXK-YzB Reductase Allergy Intermediate Rash Verified 06/03/21 11:28 Inhibitor [Bdvdoiy-Dzz-Jgw Reductase Inhibitor] Bactrim Allergy Unknown ANAPHYLAXIS Verified 04/10/17 08:31 Cephalosporins Allergy Unknown KEFLEX Verified 06/03/21 11:28 Home Medications Medication Instructions Recorded Confirmed Type albuterol sulfate 90 mcg/actuation 2 - 4 puff INHALATION Q6H PRN 04/08/18 06/04/21 History aerosol inhaler (Ventolin HFA) cholecalciferol (vitamin D3) 25 1,000 unit PO HS 04/08/18 06/04/21 History mcg (1,000 unit) capsule (Vitamin D3) epinephrine 0.3 mg/0.3 mL 0.3 mg IM Q3H PRN 04/08/18 06/04/21 History injection, auto-injector (EpiPen) metoprolol succinate 50 mg 50 mg PO HS 04/08/18 06/04/21 History tablet,extended release 24 hr pantoprazole 40 mg tablet,delayed 40 mg PO HS 04/08/18 06/04/21 History release potassium chloride 10 mEq 10 meq PO HS 04/08/18 06/04/21 History capsule,extended release spironolactone 50 mg tablet 50 mg PO HS 04/08/18 06/04/21 History folic acid 1 mg tablet 1 mg PO HS 01/07/19 06/04/21 History pramipexole 0.5 mg tablet 0.5 mg PO HS 12/23/19 06/04/21 History sulfasalazine 500 mg tablet 500 mg PO HS 03/03/20 06/04/21 History fluticasone furoate 100 1 inh INHALATION 2XWK 04/29/21 06/04/21 History mcg-vilanterol 25 mcg/dose inhalation powder (Breo Ellipta) apixaban 5 mg (74 tabs) tablets in 5 mg PO HS 06/02/21 06/04/21 History a dose pack (Eliquis) levofloxacin 250 mg tablet 250 mg PO DAILY 5 Days #5 tab 06/03/21 06/04/21 Rx melatonin 5 mg tablet 5 mg PO HS PRN 06/03/21 06/04/21 History Patient History Medical History 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 > has had no issues for over 3 yrs per pt > has loop recorder > follows with Dr. Bessy VILLALOBOS-19 virus detected from blood test on 06/01/21> awaiting result of nasal swab from 06/02/21 DVT (deep venous thrombosis) right leg > Jan 2021> no known cause > Eliquis for this Hiatal hernia growing per pt> reason for procedure on 06/05/21 History of anesthesia reaction reports had atelectasis after shoulder surgery History of rheumatoid arthritis Hx: UTI (urinary tract infection) none at present Hyperlipidemia Hypertension Interstitial lung disease Mild chronic obstructive pulmonary disease well controlled per pt, rare res inh use Obstructive sleep apnea syndrome no longer using cpap Restless leg syndrome Scoliosis Status post gamma knife treatment for acoustic neuroma to left side > 3 yrs ago Transient ischemic attack (TIA) 15 yrs ago > no residual effects Urinary frequency Surgical History H/O rotator cuff surgery right History of carpal tunnel release left History of colonoscopy History of endoscopic sinus surgery History of hysterectomy History of tonsillectomy History of tooth extraction Family History Mother , age 99 with no specific significant medical problems. No problems noted. Father , age 32 in a WWII plane accident No problems noted. 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 [employer] Feels Safe at Home: Yes Assistive Devices: Glasses Review of Systems Constitutional: as per Subjective / HPI Eyes: + corrective lenses Ear, Nose, Mouth, Throat: no problem reported Respiratory: no problem reported Cardiovascular: no problem reported Gastrointestinal: as per Subjective / HPI Genitourinary: as per Subjective / HPI Musculoskeletal: no problem reported Integumentary: no problem reported Neurologic: no problem reported Psychiatric: no problem reported Physical Exam Constitutional: well developed and well nourished; no acute distress and not ill appearing Eyes: no scleral abnormality Respiratory: normal respiratory effort and able to speak in complete sentences; no respiratory distress and no labored breathing Cardiovascular: Extremities: no pedal edema Gastrointestinal (Abdomen): Inspection/Auscultation: abdomen normal to inspection; abdomen not distended Percussion/Palpation: + abdomen tender (Epigastric and right upper quadrant) and abdomen soft; no guarding Neurologic: moves all extremities and awake Psychiatric: Orientation: alert, oriented x 3 and cooperative Genitourinary: no CVA tenderness Results & Data ([facility]) Vital Signs (Past 12 Hours) Vital Signs Temp Pulse Resp BP BP Pulse Ox 06/06/21 07:10 36.3 C L 64 16 177/66 H 95 06/05/21 21:49 36.8 C 67 16 169/84 H 95 PG Care Time/CCT Total # of Minutes Spent Total Time Spent with Patient: Total time spent is greater than 50% in coordination of care (as documented) at patient's floor/unit and/or counseling patient: Coding Level of Care Code 31528 Initial Inpt Care Lvl 2 Diagnoses UTI (urinary tract infection) N30.00 Hematuria presence: without hematuria Urinary tract infection type: acute cystitis (1) UTI (urinary tract infection) Hematuria presence: without hematuria Urinary tract infection type: acute cystitis Qualified Code(s): N30.00 - Acute cystitis without hematuria
--- NOTE | 2021-06-06 11:14 | Communication Note ---
Date of Service: June 06, 2021 Discussed case with Milagro Frias PA-C and Dr. Saab. While ID had suggested considering an EGD to rule out upper GI causes of bacteremia, this is unlikely to be high yield particularly because patient did have a CT scan of the abdomen/pelvis that indicated a likely pyelonephritis. There is clinical concern for endocarditis as well. A transthoracic echo was obtained on 06/05/21, and while no vegetation was noted cannot exclude this possibility without MATILDE. Due to these more likely explanations for bacteremia, would advise these issues be assessed and treated and patient can have an EGD once medically optimized. In the interim, would continue Protonix 40 mg BID and Carafate 1 gm four times daily before meals and bedtime. She reportedly had an outpatient CEA checked by her PCP due to a change in her bowel habits. This was reportedly abnormal, so would plan to do an EGD & colonoscopy together once medically optimized. We will follow peripherally unless her clinical course were to change.
[2021-06-06] MEDS ORDERED: MIDAZOLAM HCL 5 MG/ML 1 ML VIAL ONE (14:37)
[2021-06-06] MEDS ORDERED: fentaNYL citrate 100 MCG/2 ML VIAL ONE (14:38)
[2021-06-06] MEDS ORDERED: BENZOCAINE/TETRACAIN/BUTAM 50 APPLN/5 GM CAN EXT ONE (14:45)
--- NOTE | 2021-06-06 14:46 | Pre Anesthesia Assessment ---
Date of Service June 06, 2021 Pre Sedation Assessment Vital Signs Temp Pulse Resp BP BP Pulse Ox 06/06/21 07:10 36.3 C L 64 16 177/66 H 95 06/05/21 21:49 36.8 C 67 16 169/84 H 95 06/05/21 19:53 76 174/76 H 06/05/21 17:02 36.8 C 66 16 160/75 H 95 Cardiovascular + regular rate Respiratory + respiratory effort normal Pre-Sedation Airway Assessment Smoking Status: Never smoker Hx Sleep Apnea: Yes Hx Difficult Intubation: No Short, Thick Neck: No Thyromental Distance: > or= 3.5 Finger Breadths Oral Cavity: + WNL Mallampati Class: III ASA: ASA3 Procedure Planning Contraindications for Sedation: none Current Medications Reviewed: Yes Notes The planned sedation has been discussed with the patient. Informed Consent was obtained. I have identified the patient, determined the appropriateness of sedation and have assessed the patient immediately prior to the procedure. All medicine(s) and interventions are by my order.
--- NOTE | 2021-06-06 15:32 | Post Anesthesia Assessment ---
Date of Service June 06, 2021 Post Sedation Assessment Vital Signs Temp Pulse Pulse Resp BP BP Pulse Ox 06/06/21 15:25 78 18 107/66 98 06/06/21 15:23 78 18 131/65 98 06/06/21 15:20 72 18 151/73 H 99 06/06/21 15:15 72 18 168/85 H 99 06/06/21 15:12 76 18 154/95 H 98 06/06/21 15:06 76 18 190/110 H 98 06/06/21 15:00 66 18 99 06/06/21 07:10 36.3 C L 64 16 177/66 H 95 06/05/21 21:49 36.8 C 67 16 169/84 H 95 06/05/21 19:53 76 174/76 H 06/05/21 17:02 36.8 C 66 16 160/75 H 95 Recovery Score Activity: Moves 4 extremities Respiration: Deep Breath/Cough Circulation: +/-20% PreAnes Value Consciousness: Fully Awake Oxygen Saturation: > 92% On Room Air Post Anesthesia Score: 10 Discharge Sedation Level of Care: Fast Track Phase II Post Sedation Plan On clinical assessment, the patient appears to have tolerated the sedation without complications. Patient is recovering as anticipated. Patient will continue to be monitored by nursing and may be discharged when sedation discharge criteria are met per below protocol. Upon Completions of procedure up to 15 minutes continue every 5 minute vital signs and the P.A.R. score; then discharge to a Phase I or Fast Track to Phase II per the following guidelines: * Discharge Patient to appropriate Phase II area if PAR is 8 or greater or retur n to pre- procedure baseline. The post - procedure orders will be as directed. * If PAR score is less than 8 or not return to pre-procedure baseline then patient will follow Phase I monitoring till PAR is reached for Phase II. The Phase I may be done in procedure room or may call to secure a Phase I area. * If naloxone or flumazenil are used for reversal, hold in Phase I for continued monitoring from when last reversal dose was given for a minimum of 60 minutes or longer pending the nurse and/or physician discretion of patient condition before discharge to Phase II. Please call the Sedation Physician to re-evaluate and complete post-note for discharge to Phase II area. Do NOT discharge from procedure sedation or Phase 1 until post- sedation evaluation note is complete by procedure /sedation MD Sedation Discharge Instructions to be given to the patient at discharge to home.
--- NOTE | 2021-06-06 16:55 | XCELERA ---
[id number]
--- NOTE | 2021-06-06 17:11 | Ultrasound Report ---
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 Otherwise, there is normal compressibility, flow, and augmentation within the bilateral lower extremity deep ve nous systems. IMPRESSION: 1. 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 2. Otherwise unremarkable exam. ACT 112: Negative or not required by law. Electronically signed by: Giancarlo Trivedi M.D. 06/06/2021 5:10 PM
[2021-06-06] MEDS: AMPICILLIN 2,000 MG in SODIUM CHLOR 0.9% AD-VAN 100 ML IV SCH ×2 (17:13→20:13)
[2021-06-06] MEDS: PRAMIPEXOLE DIHYDROCHLO 0.5 MG TAB PO SCH (20:13)
[2021-06-06] MEDS: METOPROLOL SUCC 50MG EXT REL TAB PO SCH (20:13)
[2021-06-06] MEDS: FOLIC ACID 1 MG TAB PO SCH (20:21)
[2021-06-06] MEDS: CHOLECALCIFEROL 1,000 UNITS 25 MCG TAB PO SCH (20:21)
[2021-06-06] MEDS: POTASSIUM CHLORIDE 10 MEQ TABCR PO SCH (20:22)
[2021-06-06] MEDS: SPIRONOLACTONE 25 MG TAB PO SCH (20:22)
[2021-06-07] MEDS: AMPICILLIN 2,000 MG in SODIUM CHLOR 0.9% AD-VAN 100 ML IV SCH ×7 (00:05→23:37)
[2021-06-07] MEDS: POTASSIUM CHLORIDE 20 MEQ in LACTATED RINGER'S 1,000 ML IV SCH (00:05)
[2021-06-07] MEDS: bisacodyL 10 MG SUPP PR PRN (01:42)
[2021-06-07] MEDS: ACETAMINOPHEN 325 MG TAB PO SCH ×4 (01:42→13:12)
[2021-06-07 07:13] LABS: Hematocrit (blood only) 40.6 % (37-47); Hemoglobin 14.3 g/dL (12.0-16.0); Mean Corpuscular Hemoglobin 34.1 pg (25-34); Mean Corpuscular Hgb Conc 35.2 g/dL (32-36); Mean Corpuscular Volume 96.9 fL (80-100); Mean Platelet Volume 8.8 fL (7.4-10.4); Platelet Count 321 K/uL (130-400); RDW Coefficient of Variation 12.3 % (11.5-14.5); Red Blood Count 4.19 M/uL (4.2-5.4)
[2021-06-07 07:45] LABS: BUN Creatinine Ratio 13.5 (10-20); Calcium 8.7 mg/dl (8.5-10.1); Creatinine Clr Calc Pharmacy 73.6 ml/min; Est GFR (African American) 101.7 ml/min; Est GFR (Non-African American) 87.7 ml/min; Magnesium 1.9 mg/dl (1.7-2.4); Potassium 3.4 mmol/L (3.5-5.1)
[2021-06-07] MEDS ORDERED: POTASSIUM ACETATE/NSS 10 MEQ/105 ML BAG IV ONE (08:49)
[2021-06-07] MEDS ORDERED: FUROSEMIDE INJ 20 MG/2 ML VIAL IV ONE (08:52)
[2021-06-07] MEDS ORDERED: POTASSIUM CHLORIDE 20 MEQ/15 ML UDC PO STA (08:52)
--- NOTE | 2021-06-07 08:57 | Hospitalist Progress Note ---
Date of Service June 07, 2021 Assessment & Plan (1) Bacteremia: Plan: Blood cultures from ER 06/03 with gram positive cocci in chains, UTI with enterococcus from prior urine * Rx for levaquin at that time. had just completed 10 days cipro prior to that per and of note completed a 2wk course of doxycycline in april for tick bites and admitted not to taking with full glass water/reflux symptoms and outpatient EGD was arranged to occur on saturday of this week COVID negative on admission and recent COVID testing negative done for EGD. NEGATIVE 06/02, 06/04 Increased pain overnight 06/05-06/07 and CTAP obtained * 3.9 cm hypoenhancing focus within the upper pole of the right kidney. Given the clinical history, this favors pyelonephritis. A renal infarct could appear similar although is considered less likely. No renal abscess. ID consulted * -- rec repeat blood cultures, MATILDE , need to consider EGD * --> likely could be from urinary source but if identification not same, could just as likely have come from UGI tract. Presumed high grade/persistent nature of bacteremia and assumed endocarditis. Hopes to convert to IV beta-lactam regimen MATILDE without vegetation, however discussed with Dr Aleman and concerned given persistent + bcx and would likely favor 6wks IV therapy. Continued concern for GI pathology however GI continues to plan outpatient eval Initially on Vanco (trough low end therapeutic on 06/06 likely why +bcx from 06/05) * -- switched to Ampicillin (day 2) * If + bcx today may need to add Rocephin. Ok per ID to hold off for now. Likely would tx for 6 wks given persistent positive cultures Repeat bcx today (06/07) given 1/2 sets from 06/06 positive again gram positive cocci. --> Priors with ENTEROCOCCUS FAECALIS No fever/leukocytosis Patient states improvement in pain/discomfort and feeling better today than days prior Per ID, no need to add Rocephin at this time but if today cx positive would consider adding but will monitor for now D/c IVF as now with increased PO intake. Nutrition consulted for supplementation. Per speech, no issued with swallowing and need GI in f/u Replacement of electrolytes --K for K 3.3. Mag wnl For Abd pain --> likely gastritis --> GI consulted. Outpatient scope planned. --> PPI increased to BID (prior egd 2018 chronic esophagitis, no barretts but does also have large hiatal hernia) but will continue BID at d/c --> Carafate 1gm QID morphine available prn Bowel regimen -- mag citrate for today ALso will check a cdiff if moving bowels move -- issues w/ constipation. need outpatient upper/lower GI as above (2) Pyelonephritis: Plan: Ucx Enterococcus from 05/31, blood cultures from 06/03 with probable enteroccocus on preliminary Vancomycin --> Ampicillin today Bcx remain positive Hopefully set from today will be negative and then able to obtain vascular access for detention IV after 48 hours but will monitor for now Urology consulted -- continue current course (3) Chest pain: Plan: Trop negative on admission. Did not report CP to me, however did note for nursing this afternoon. --> sounds more like esophagitis/reflux in nature. improved with PPI BID, addition of carafate viscous lidocaine available prn -- see above/recent doxy use, also with large hiatal hernia. may benefit from PPI BID at discharge along with carafate in the meantime CT Chest from 3 days ago in ER with : 1. There is no evidence of pulmonary embolus in the main, lobar, or segmental pulmonary arteries. 2. Dependent airspace opacities could represent atelectasis versus a mild infectious/inflammatory pneumonitis. Clinical correlation will be required. 3. Moderate to severe spinal scoliosis is similar to previous and distorts the thoracic cage. 4. Again seen is an 11 mm groundglass lesion in the left upper lobe. This is unchanged from 06/25/2020 and only minimally increased in size dating back to 2016. 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 RUQ US done for GB thickening on admission ,negative for acute yanely LFTs wnl on Am labs Continue to monitor (4) Abdominal pain: Plan: lower abd pain AM 06/05, improved this afternoon but then had worsening R sided discomfort -- tx UTI/bacteremia now more upper this afternoon -- esophagitis suspected as above as well as large hiatal hernia GI consulted PPI increased to BID. Added carafate BID No emesis at this time -- continue to monitor Morphine x 1mg this am, prn thereafter while NPO --> instructed to use sparingly given constipation noted. +BM last evening after suppository, prn after fecal occult negative mag citrate today to help with BM CTAP with PYELO, [facility] consulted -- appreciate recs/assistance 1gm IV calcium for ca 8.2, normal albumin --> repeat wnl lipase wnl (5) Lab test negative for COVID-19 virus: Plan: IgM/IgG positive -- could have been from immune response vs prior infection, but no need for isolation. Repeat testing x 2 since that lab test both negative discussed with infection control -- discontinued isolation precautions at this time (6) Blood bacterial culture positive: Plan: repeat pending as above, likely not therapeutic vanco for bcx drawn 06/05 monitor (7) Sepsis: Plan: 2nd to pyelo/bactermia -- urinary source likely given pyelo on CTAP but need to consider UGI source if isolates different but does appear to be same (8) Vertigo: Plan: none reported currently, just feeling weak hx acoustic neuroma -- to have f/u MRI outpatient to see if enlarged per PCP /patient no issues at this time (9) Afib: Plan: hx of such, remains on eliquis BID while inpatient --> review of outpatient prescriptions with rx for 30 pills for month supply which would indicate only 1x/day Also with chronic R LE DVT --> will check b/l venous doppler to ensure no additional DVT, roverto with elevated ddimer last week in ER as well as likely recent covid infection/hypercoag state with such? --> eliquis for "DVT" per rheumatology. Venous dopplers with chronic appearing DVT --> Discussed with patient and given afib hx should continue BID dosing given tolerance. DVT likely chronic in nature at this time and not causing increased pain (10) Rheumatoid arthritis: Plan: used to be on methotrexate in the past, currently on sulfasalazine 500mg HS (placed on hold while bacteremic) --> per PCP to take BID but patient only takes once daily. Correct in system --> Follows with Dr Marrufo (11) Pulmonary lesion: Plan: noted on CTA 06/03 11mm ground-glass lesion THAI, unchanged from Jun 2020 and only minimally increased from 2016 appearance typical for low-grade pulm neoplasm and will need non-emergent pulm follow up --> will ask nurse navigator to arrange also messaged GI about need for follow up c-scope. prior done 10-15yrs ago [facility], with chronic constipation and PCP checked CEA within last week, slightly elevated >2 They will plan to perform upper/lower as outpatient once above resolved Admission and Anticipated Discharge Date Admission Date: June 04, 2021 Supervising Physician Co-Signing Physician Notes Attending Attestation - Chart reviewed in detail, care plan d/w SHERON Frias. I agree w/ the cortez components of her documentation. Complicated 86yo female with enterococcal septicemia/bacteremia 2nd to right- sided pyelonephritis/UTI. MATILDE without definitive evidence of endocarditis but ID leaning towards 6-week course of abx. ID has advised IV ampicillin. Other issues and plan of care per Ms Frias. Manuel Prado MD Subjective patient seen this morning doing better lots of questions -- reviewed labs/imaging, repeat blood cultures and plans if negative continue ampicillin, likely 6 weeks but would wait 48 hours prior. If positive, ID rec adding ceftriaxone but discussed still concerns for upper GI issues. SPeech seen, no issues swallowing. Adv to full liquid, adv as tolerated. Classic GI/epigastric/medications feeling like stuck after swallowed. No BM since yesterday. Mag citrate x 1 today. Request update to who is concerned about her and if she is going to live. Discussed improvement and identifications and will update via phone this afternoon or sooner for urgent needs he is to call. No fever, chills, chest pain, shortness of breath. Of note, follows with rheum -- sulfasalazine only once daily. Takes Klonopin every other night ---discussed available prn. Completed course of 10 days cipro [employer] for UTI in ER despite d/c instructions listing levaquin. After had a dark BM per PCP adn that was req for EGD for concerns for UGI bleeding. fecal occult obtained and was negative during admission. fecal occult negative discussed with plan -- he notes patient had taken 10 days of cipro following the doxy for tick bite and then gap before having increased abdominal pain/nausea/vomiting prompting ER trip over the weekend when she was sent out on Levaquin for continued treatment UTI/pulmonary coverage. Discussed eliquis-- rx by Dr Marrufo. Discussed she should be taking 5mg BID, roverto given prior hx pafib. DVT appears chronic in nature at this time. Discussed outpatient EGD/c-scope per GI as they do not plan to perform while inpatient but that she should ideally continue PPI BID. Review of Systems Review of Systems: All systems reviewed & are unremarkable except as noted in HPI & below Physical Exam Physical Exam: WD, WN female, laying in bed, currently no acute distress , improved color/energy today Eyes anicteric, pupils equal and reactive ENT: mmm, trachea midline without deviation CV: regular/pacs, +systolic murmur, no edema/calves non-tender, pulses diminished RLE but NVI Resp: CTAB, diminished in the bases, no w/r, on room air 95% GI: +BS throughout, soft, minimal generalized tenderness, no further back tenderness to palpation, slight suprapubic discomfort : no whittington MSK/Neuro: moves all extremities, b/l weakness 4/5 throughout, no focal deficit, CN intact. +Scoliosis Psych: alert, oriented to person/place/time, pleasant and cooperative Results & Data Results & Data ([facility]) Vital Signs (Past 12 Hours) Vital Signs Temp Pulse Resp BP Pulse Ox 06/07/21 07:20 36.7 C 69 17 163/80 H 95 06/06/21 23:45 36.6 C 69 16 176/81 H 95 06/06/21 21:48 18 Laboratory Results 06/07/21 06/07/21 06/06/21 Range/Units 06:40 06:40 17:10 WBC 8.10 (4.8-10.8) K/uL RBC 4.19 L (4.2-5.4) M/uL Hgb 14.3 (12.0-16.0) g/dL Hct 40.6 (37-47) % MCV 96.9 (80-100) fL MCH 34.1 H (25-34) pg MCHC 35.2 (32-36) g/dL RDW Std Deviation 43.0 (36.4-46.3) fL RDW Coeff of Greg 12.3 (11.5-14.5) % Plt Count 321 (130-400) K/uL MPV 8.8 (7.4-10.4) fL Sodium 133 L (136-145) mmol/L Potassium 3.4 L (3.5-5.1) mmol/L Chloride 99 (98-107) mmol/L Carbon Dioxide 23 (21-32) mmol/L Anion Gap 11 (3-11) BUN 7 (6-23) mg/dl Creatinine 0.52 L (0.6-1.2) mg/dl Est Cr Clr Drug Dosing 73.6 ml/min Est GFR ( Amer) 101.7 ml/min Est GFR (Non-Af Amer) 87.7 ml/min BUN/Creatinine Ratio 13.5 (10-20) Glucose 122 H (70-99(Fasting)) mg/dl POC Glucose 89 (70-99) mg/dl Calcium 8.7 (8.5-10.1) mg/dl Magnesium 1.9 (1.7-2.4) mg/dl Vancomycin Trough (10-20) mcg/ml 06/06/21 06/06/21 06/06/21 Range/Units 12:10 09:13 08:55 WBC (4.8-10.8) K/uL RBC (4.2-5.4) M/uL Hgb (12.0-16.0) g/dL Hct (37-47) % MCV (80-100) fL MCH (25-34) pg MCHC (32-36) g/dL RDW Std Deviation (36.4-46.3) fL RDW Coeff of Greg (11.5-14.5) % Plt Count (130-400) K/uL MPV (7.4-10.4) fL Sodium (136-145) mmol/L Potassium (3.5-5.1) mmol/L Chloride (98-107) mmol/L Carbon Dioxide (21-32) mmol/L Anion Gap (3-11) BUN (6-23) mg/dl Creatinine (0.6-1.2) mg/dl Est Cr Clr Drug Dosing ml/min Est GFR ( Amer) ml/min Est GFR (Non-Af Amer) ml/min BUN/Creatinine Ratio (10-20) Glucose (70-99(Fasting)) mg/dl POC Glucose 93 (70-99) mg/dl Calcium (8.5-10.1) mg/dl Magnesium 2.0 (1.7-2.4) mg/dl Vancomycin Trough 10.5 (10-20) mcg/ml Diagnostic Findings Venous Doppler Study 06/06/21 00:00 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 Otherwise, there is normal compressibility, flow, and augmentation within the bilateral lower extremity deep venous systems. IMPRESSION: 1. 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 2. Otherwise unremarkable exam. ACT 112: Negative or not required by law. Electronically signed by: Giancarlo Trivedi M.D. 06/06/2021 5:10 PM PG Care Time/CCT Total # of Minutes Spent Total Time Spent with Patient: Total time spent is greater than 50% in coordination of care (as documented) at patient's floor/unit and/or counseling patient: Coding Level of Care Code 10430 Subseq Hosp Care Lvl 3 Diagnoses Bacteremia R78.81 Chest pain R07.9 Abdominal pain R10.9 Lab test negative for COVID-19 virus Z20.822 Blood bacterial culture positive R78.81 Sepsis A41.9 Sepsis acute organ dysfunction status: without acute organ dysfunction Sepsis type: sepsis due to unspecified organism Vertigo R42 Afib I48.0 Atrial fibrillation type: paroxysmal Rheumatoid arthritis M06.9 Pulmonary lesion J98.4 Pyelonephritis N12 (1) Afib Atrial fibrillation type: paroxysmal Qualified Code(s): I48.0 - Paroxysmal atrial fibrillation (2) Sepsis Sepsis acute organ dysfunction status: without acute organ dysfunction Sepsis type: sepsis due to unspecified organism Qualified Code(s): A41.9 - Sepsis, unspecified organism
[2021-06-07] MEDS ORDERED: POTASSIUM CHLORIDE / WTR 10 MEQ/100 ML PLCT IV SCH (09:15)
[2021-06-07] MEDS: PANTOprazole 40 MG in SYRINGE 0 ML IV SCH (09:27)
[2021-06-07] MEDS: FLUTICASONE/VILANTEROL 100/25MCG 14 PUFFS/INHALER INH SCH (09:27)
[2021-06-07] MEDS: SUCRALFATE 1 GM/10 ML UDC PO SCH ×4 (09:28→19:37)
[2021-06-07] MEDS: APIXABAN 5 MG TABLET PO SCH ×2 (09:32→19:38)
[2021-06-07] MEDS: DOCUSATE SODIUM/SENNA 50/8.6MG TAB PO SCH (09:32)
[2021-06-07] MEDS ORDERED: MAGNESIUM CITRATE 296 ML/BTL PO STA (10:22)
[2021-06-07] MEDS ORDERED: ACETAMINOPHEN 325 MG TAB PO PRN (17:24)
[2021-06-07] MEDS: SPIRONOLACTONE 25 MG TAB PO SCH (19:38)
[2021-06-07] MEDS: METOPROLOL SUCC 50MG EXT REL TAB PO SCH (19:39)
[2021-06-07] MEDS: PRAMIPEXOLE DIHYDROCHLO 0.5 MG TAB PO SCH (19:39)
[2021-06-07] MEDS: CHOLECALCIFEROL 1,000 UNITS 25 MCG TAB PO SCH (19:39)
[2021-06-07] MEDS: FOLIC ACID 1 MG TAB PO SCH (19:40)
[2021-06-07] MEDS: clonazePAM 0.5 MG TAB PO PRN (19:47)
[2021-06-07] MEDS: POTASSIUM CHLORIDE 10 MEQ TABCR PO SCH (19:47)
[2021-06-07] MEDS: PANTOprazole 40 MG TAB PO SCH (19:47)
[2021-06-08] MEDS: AMPICILLIN 2,000 MG in SODIUM CHLOR 0.9% AD-VAN 100 ML IV SCH ×6 (03:03→23:35)
[2021-06-08 06:43] LABS: Basophils # (auto) 0.02 K/uL (0-0.2); Basophils % (auto) 0.2 %; Eosinophils # (auto) 0.08 K/uL (0-0.5); Eosinophils % (auto) 0.8 %; Hematocrit (blood only) 45.1 % (37-47); Hemoglobin 15.8 g/dL (12.0-16.0); Immature Granulocytes # (auto) 0.04 K/uL (0.00-0.02); Immature Granulocytes % (auto) 0.4 %; Lymphocytes # (auto) 2.63 K/uL (1.2-3.4); Lymphocytes % (auto) 24.9 %; Mean Corpuscular Hemoglobin 34.1 pg (25-34); Mean Corpuscular Volume 97.2 fL (80-100); Mean Platelet Volume 8.6 fL (7.4-10.4); Monocytes # (auto) 1.48 K/uL (0.11-0.59); Neutrophils # (auto) 6.32 K/uL (1.4-6.5); Neutrophils % (auto) 59.7 %; Platelet Count 382 K/uL (130-400); RDW Coefficient of Variation 12.3 % (11.5-14.5); RDW Standard Deviation 43.3 fL (36.4-46.3); Red Blood Count 4.64 M/uL (4.2-5.4); White Blood Count 10.57 K/uL (4.8-10.8)
[2021-06-08 07:01] LABS: Albumin Globulin Ratio 1.2 (0.9-2); Albumin Level 3.8 gm/dl (3.4-5.0); BUN Creatinine Ratio 15.9 (10-20); Bilirubin,Total 1.2 mg/dl (0.2-1.0); Calcium 9.3 mg/dl (8.5-10.1); Creatinine Clr Calc Pharmacy 60.7 ml/min; Est GFR (African American) 95.5 ml/min; Est GFR (Non-African American) 82.4 ml/min; Globulin 3.2 gm/dl (2.5-4.0); Magnesium 2.2 mg/dl (1.7-2.4); Potassium 3.4 mmol/L (3.5-5.1)
[2021-06-08] MEDS: PANTOprazole 40 MG TAB PO SCH ×2 (08:05→19:57)
[2021-06-08] MEDS: FLUTICASONE/VILANTEROL 100/25MCG 14 PUFFS/INHALER INH SCH (08:05)
[2021-06-08] MEDS: APIXABAN 5 MG TABLET PO SCH ×2 (08:05→19:55)
[2021-06-08] MEDS: DOCUSATE SODIUM/SENNA 50/8.6MG TAB PO SCH (08:05)
[2021-06-08] MEDS: SUCRALFATE 1 GM/10 ML UDC PO SCH ×4 (08:05→19:54)
[2021-06-08] MEDS ORDERED: POTASSIUM CHLORIDE 20 MEQ/15 ML UDC PO STA (08:18)
[2021-06-08] MEDS ORDERED: bisacodyL 10 MG SUPP PR STA (08:27)
--- NOTE | 2021-06-08 08:28 | Hospitalist Progress Note ---
Date of Service June 08, 2021 Assessment & Plan (1) Bacteremia: Plan: Blood cultures from ER 06/03 with gram positive cocci in chains, UTI with enterococcus from prior urine * Rx for levaquin at that time. had just completed 10 days cipro prior to that per and of note completed a 2wk course of doxycycline in april for tick bites and admitted not to taking with full glass water/reflux symptoms and outpatient EGD was arranged to occur on Saturday of this past week COVID negative on admission and recent COVID testing negative done for EGD. NEGATIVE 06/02, 06/04 Increased pain overnight 06/05-06/07 and CTAP obtained * 3.9 cm hypoenhancing focus within the upper pole of the right kidney. Given the clinical history, this favors pyelonephritis. A renal infarct could appear similar although is considered less likely. No renal abscess. ID consulted * -- rec repeat blood cultures, MATILDE , need to consider EGD * --> likely could be from urinary source but if identification not same, could just as likely have come from UGI tract. Presumed high grade/persistent nature of bacteremia and assumed endocarditis. Hopes to convert to IV beta-lactam regimen MATILDE without vegetation, however discussed with Dr Aleman and concerned given pe rsistent + bcx and would likely favor 6wks IV therapy. Continued concern for GI pathology however GI continues to plan outpatient eval Initially on Vanco (trough low end therapeutic on 06/06 likely why +bcx from 06/05) * -- switched to Ampicillin (day 3) * If + bcx today may need to add Rocephin. Ok per ID to hold off for now. Likely would tx for 6 wks given persistent positive cultures Blood cultures from 06/07 remain negative -- continue to moitor Priors with ENTEROCOCCUS FAECALIS No fever/leukocytosis. WBC borderline high but no neutrophil elevation Continued abd pain/reflux issues --> reached back out to GI. * Seen today, added pepcid BID. Continue protonix BID, carafate QID (prior egd 2017 chronic esophagitis, no barretts but does also have large hiatal hernia). * Added diflucan for concerns for possible esphageal candidisis given prior recent abx usage * -> Checking h. pylori stool antigen as well * --> cdiff if starts having diarrhea * Also having chronic issues with constipation --> had used fleets/mineral oil enemas and manual disimpaction in past. --> Did have 2 small BM. But asked RN to administer fleets enema/encourage ambulation Replacement of electrolytes --20meq K for K 3.3. Mag wnl. Had edema on prior CT imaging and not overly dry on exam and holding off on futher IVF. Nutrition consulted for supplementation. Adv diet as tolerated (2) Pyelonephritis: Plan: Ucx Enterococcus from 05/31, blood cultures from 06/03 enterococcus Vanco --> AMpicillin as above Bcx from 06/07 without growth yet --> monitor Urology on consult -- outpt f/u (3) Chest pain: Plan: Trop negative on admission. Did not report CP to me, however did note for nursing in afternoon previously. Trop again negative on repeat --> sounds more like esophagitis/reflux in nature. improved with PPI BID, addition of carafate but having some increased discomfort --> reached back out to GI --> added pepcid BID and diflucan for empiric esophageal cadidiasis given recent abx use. checking h.pylori antigen as well --> did just complete course of doxy for tick bite April of now and has large hiatal hernia CT Chest from 3 days ago in ER given +ddimer 1. There is no evidence of pulmonary embolus in the main, lobar, or segmental pulmonary arteries. 2. Dependent airspace opacities could represent atelectasis versus a mild infectious/inflammatory pneumonitis. Clinical correlation will be required. 3. Moderate to severe spinal scoliosis is similar to previous and distorts the thoracic cage. 4. Again seen is an 11 mm groundglass lesion in the left upper lobe. This is unchanged from 06/25/2020 and only minimally increased in size dating back to 2016. 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, and nonemergent pulmonology follow-up is recommended Venous Doppler unchanged --> chronic DVT. Eliquis to be BID AT DISCHARGE PREVIOUSLY ONLY TAKING ONCE DAILY RUQ negative for acute yanely --> of note though CT with poss renal infarct as well which could be causing discomfort (4) Abdominal pain: Plan: as above less pain in abd and working on BM, but having reflux --> see above (5) Lab test negative for COVID-19 virus: Plan: IgM/IgG positive -- could have been from immune response vs prior infection, but no need for isolation. Repeat testing x 2 since that lab test both negative discussed with infection control -- discontinued isolation precautions at this time (6) Blood bacterial culture positive: Plan: repeat pending as above, likely not therapeutic vanco for bcx drawn 06/05 monitor (7) Sepsis: Plan: 2nd to pyelo/bactermia -- urinary source likely given pyelo on CTAP but need to consider UGI source if isolates different but does appear to be same (8) Vertigo: Plan: none reported currently, just feeling weak hx acoustic neuroma -- to have f/u MRI outpatient to see if enlarged per PCP /patient no issues at this time (9) Afib: Plan: hx of such, remains on eliquis BID while inpatient --> review of outpatient prescriptions with rx for 30 pills for month supply which would indicate only 1x/day Also with chronic R LE DVT --> will check b/l venous doppler to ensure no additional DVT, roverto with elevated ddimer last week in ER as well as likely recent covid infection/hypercoag state with such? --> eliquis for "DVT" per rheumatology. Venous dopplers with chronic appearing DVT --> Discussed with patient and given afib hx should continue BID dosing given tolerance. DVT likely chronic in nature at this time and not causing increased pain (10) Rheumatoid arthritis: Plan: used to be on methotrexate in the past, currently on sulfasalazine 500mg HS (placed on hold while bacteremic) --> per PCP to take BID but patient only takes once daily. Correct in system --> Follows with Dr Marrufo (11) Pulmonary lesion: Plan: noted on CTA 06/03 11mm ground-glass lesion THAI, unchanged from Jun 2020 and only minimally increased from 2016 appearance typical for low-grade pulm neoplasm and will need non-emergent pulm follow up --> will ask nurse navigator to arrange also messaged GI about need for follow up c-scope. 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 messaged and awaiting response. If bcx positive will need removed) Rebecaley ampicillin x 6 weeks at d/c given the prior persistant blood cultures bowel regimen -- GI seen, added pepcid BID, diflucan for possible esoph. candidiasis Admission and Anticipated Discharge Date Admission Date: June 04, 2021 Supervising Physician Co-Signing Physician Notes Attending Attestation - Chart reviewed in detail, care plan d/w PA Milagro Frias. I agree w/ the cortez components of her documentation. Complicated 86yo female with enterococcal septicemia/bacteremia 2nd to right- sided pyelonephritis/UTI. MATILDE without definitive evidence of endocarditis but ID leaning towards 6-week course of abx due to multiple blood cx's being positive. Remains on IV ampicillin. Appreciate GI consult and their recs. Manuel Prado MD Subjective patient eval this morning doing ok, feeling slightly worse/weaker she did get a good night sleep and took her klonopin had two very small BM/"turds" and states she had issues in the past and used fleets enema/mineral oil and on occassion manual disimpaction in the past. asked RN to admin fleets enema she is currently sipping on mag citrate complaints of more epigastric discomfort/belching today. Will add back on pepcid as well as her PPI BID but discussed hopefully moving bowels with improvement. Still with occassional RUQ discomfort at times. No fever, chills, chest pain, shortness of breath, nausea or vomiting. Still only eating small amounts of food due to reflux/belching and not haven taken any supplementation at this time. Nutrition on consult. Discussed updated -- she wants to ensure he doesn't try and much his alternative treatments on her and discussed will make very clear on instruct ions. Blood cultures from yesterday without growth but IV team placed US guided IV this morning, unclear as to why. Messaged RN and awaiting response. Review of Systems Review of Systems: All systems reviewed & are unremarkable except as noted in HPI & below Physical Exam Physical Exam: WD, WN female, laying in bed, currently no acute distress Eyes anicteric, pupils equal and reactive ENT: mmm, trachea midline without deviation CV: regular/pacs, +systolic murmur, no edema/calves non-tender, pulses diminished RLE but NVI Resp: CTAB, diminished in the bases, no w/r, on room air 95% GI: +BS throughout, soft, minimal generalized tenderness, no further back tenderness to palpation, LLQ tenderness to palpation : no whittington MSK/Neuro: moves all extremities, b/l weakness 4/5 throughout, no focal deficit, CN intact. +Scoliosis Psych: alert, oriented to person/place/time, pleasant and cooperative Results & Data Results & Data ([facility]) Vital Signs (Past 12 Hours) Vital Signs Temp Pulse Pulse Resp BP BP Pulse Ox 06/08/21 07:45 36.6 C 68 16 166/82 H 91 06/08/21 03:23 36.6 C 75 16 173/83 H 95 06/07/21 23:00 36.4 C L 74 18 164/82 H 94 Laboratory Results 06/08/21 06/08/21 06/07/21 Range/Units 06:08 06:08 09:52 WBC 10.57 (4.8-10.8) K/uL RBC 4.64 (4.2-5.4) M/uL Hgb 15.8 (12.0-16.0) g/dL Hct 45.1 (37-47) % MCV 97.2 (80-100) fL MCH 34.1 H (25-34) pg MCHC 35.0 (32-36) g/dL RDW Std Deviation 43.3 (36.4-46.3) fL RDW Coeff of Greg 12.3 (11.5-14.5) % Plt Count 382 (130-400) K/uL MPV 8.6 (7.4-10.4) fL Immature Gran % (Auto) 0.4 % Neut % (Auto) 59.7 % Lymph % (Auto) 24.9 % [place] % (Auto) 14.0 % Eos % (Auto) 0.8 % Baso % (Auto) 0.2 % Neut # (Auto) 6.32 (1.4-6.5) K/uL Lymph # (Auto) 2.63 (1.2-3.4) K/uL [place] # (Auto) 1.48 H (0.11-0.59) K/uL Eos # (Auto) 0.08 (0-0.5) K/uL Baso # (Auto) 0.02 (0-0.2) K/uL Immature Gran # (Auto) 0.04 H (0.00-0.02) K/uL Sodium 136 (136-145) mmol/L Potassium 3.4 L (3.5-5.1) mmol/L Chloride 97 L (98-107) mmol/L Carbon Dioxide 29 (21-32) mmol/L Anion Gap 10 (3-11) BUN 10 (6-23) mg/dl Creatinine 0.63 (0.6-1.2) mg/dl Est Cr Clr Drug Dosing 60.7 ml/min Est GFR ( Amer) 95.5 ml/min Est GFR (Non-Af Amer) 82.4 ml/min BUN/Creatinine Ratio 15.9 (10-20) Glucose 111 H (70-99(Fasting)) mg/dl Calcium 9.3 (8.5-10.1) mg/dl Magnesium 2.2 (1.7-2.4) mg/dl Total Bilirubin 1.2 H (0.2-1.0) mg/dl AST 18 (13-39) U/L ALT 12 (7-52) U/L Alkaline Phosphatase 56 (34-104) U/L Total Protein 7.0 (6.0-8.3) gm/dl Albumin 3.8 (3.4-5.0) gm/dl Globulin 3.2 (2.5-4.0) gm/dl Albumin/Globulin Ratio 1.2 (0.9-2) Vancomycin Trough 5.5 L (10-20) mcg/ml PG Care Time/CCT Total # of Minutes Spent Total Time Spent with Patient: Total time spent is greater than 50% in coordination of care (as documented) at patient's floor/unit and/or counseling patient: Coding Level of Care Code 68324 Subseq Hosp Care Lvl 3 Diagnoses Bacteremia R78.81 Pyelonephritis N12 Chest pain R07.9 Abdominal pain R10.9 Lab test negative for COVID-19 virus Z20.822 Blood bacterial culture positive R78.81 Sepsis A41.9 Sepsis acute organ dysfunction status: without acute organ dysfunction Sepsis type: sepsis due to unspecified organism Vertigo R42 Afib I48.0 Atrial fibrillation type: paroxysmal Rheumatoid arthritis M06.9 Pulmonary lesion J98.4 (1) Afib Atrial fibrillation type: paroxysmal Qualified Code(s): I48.0 - Paroxysmal atrial fibrillation (2) Sepsis Sepsis acute organ dysfunction status: without acute organ dysfunction Sepsis type: sepsis due to unspecified organism Qualified Code(s): A41.9 - Sepsis, unspecified organism
[2021-06-08] MEDS ORDERED: FAMOTIDINE 20 MG in SYRINGE 3 ML IV SCH (10:30)
[2021-06-08] MEDS ORDERED: SOD PHOSPHATE/SOD BIPHOSPHATE ENEMA 132 ML BTL PR STA (10:31)
[2021-06-08] MEDS ORDERED: FLUCONAZOLE 100 MG TAB PO ONE (11:00)
--- NOTE | 2021-06-08 11:20 | Gastrointestinal Consultation ---
Date of Consultation June 08, 2021 Assessment & Plan (1) GERD (gastroesophageal reflux disease): -Continue Protonix 40 mg BID. -Add Famotidine 20 mg BID. -Continue Carafate 1 gm four times daily before meals and bedtime. -Check H Pylori stool antigen. -Empiric Diflucan course x 21 days for possible esophageal candidiasis given chronic antibiotic use as of late. -No role for inpatient EGD at present. This will be arranged by our clinical staff to occur as an outpatient once her acute medical issues have improved. -We will sign off at this time and plan for further management as an outpatient. If GI bleeding or an urgent inpatient GI need should arise, please re-consult. Supervising Physician Co-Signing Physician Notes Agree with SHARIF Rhodes as above Abd: Soft, NT, ND, +BS Continue current therapy Added Fluconazole and Famotidine today Check H. pylori stool AG No plans for inpatient EGD, as patient has no alarm symptoms requiring emergent exam Will schedule for EGD/Colonoscopy as outpatient in approximately 6 weeks when acute symptoms resolve. History of Present Illness Reason for Consultation: GERD Attending Physician: Manuel Prado History of Present Illness Patient is an 86 yo female hospitalized with bacteremia likely 2/2 pyelonephritis who has been evaluated for possible endocarditis. She was on the schedule for a non-emergent, outpatient EGD this week which we cancelled due to her acute medical issues. Hospitalist team has reached out due to concerns of GERD symptoms. Patient is sleeping at the time of my visit. She is resting comfortably. Vitals appear unremarkable, with the exception of mildly elevated BP. Patient is on Protonix 40 mg BID and Carafate 1 gm four times daily. She has been on lengthy courses of antibiotics recently due to her persistent bacteremia/UTI/pyelo. No pertinent family history charted. No overt GI bleeding. No emergent findings from a GI standpoint. Allergies Allergy/AdvReac Type Severity Reaction Status Date / Time bee venom protein (honey bee) Allergy Severe Anaphylaxis Verified 06/03/21 11:28 . sulfamethoxazole Allergy Severe ANAPHYLAXIS Verified 06/03/21 11:28 trimethoprim Allergy Severe ANAPHYLAXIS Verified 06/03/21 11:28 cephalexin Allergy Intermediate RASH Verified 06/03/21 11:28 Penicillins Allergy Intermediate LIPS Verified 06/03/21 11:28 SWELLING Iclcstf-GKC-FgE Reductase Allergy Intermediate Rash Verified 06/03/21 11:28 Inhibitor [Yhydhpp-Rrq-Eqm Reductase Inhibitor] Bactrim Allergy Unknown ANAPHYLAXIS Verified 04/10/17 08:31 Cephalosporins Allergy Unknown KEFLEX Verified 06/03/21 11:28 Home Medications Medication Instructions Recorded Confirmed Type albuterol sulfate 90 mcg/actuation 2 - 4 puff INHALATION Q6H PRN 04/08/18 06/04/21 History aerosol inhaler (Ventolin HFA) cholecalciferol (vitamin D3) 25 1,000 unit PO HS 04/08/18 06/04/21 History mcg (1,000 unit) capsule (Vitamin D3) epinephrine 0.3 mg/0.3 mL 0.3 mg IM Q3H PRN 04/08/18 06/04/21 History injection, auto-injector (EpiPen) metoprolol succinate 50 mg 50 mg PO HS 04/08/18 06/04/21 History tablet,extended release 24 hr pantoprazole 40 mg tablet,delayed 40 mg PO HS 04/08/18 06/04/21 History release potassium chloride 10 mEq 10 meq PO HS 04/08/18 06/04/21 History capsule,extended release spironolactone 50 mg tablet 50 mg PO HS 04/08/18 06/04/21 History folic acid 1 mg tablet 1 mg PO HS 01/07/19 06/04/21 History pramipexole 0.5 mg tablet 0.5 mg PO HS 12/23/19 06/04/21 History sulfasalazine 500 mg tablet 500 mg PO HS 03/03/20 06/04/21 History fluticasone furoate 100 1 inh INHALATION 2XWK 04/29/21 06/04/21 History mcg-vilanterol 25 mcg/dose inhalation powder (Breo Ellipta) apixaban 5 mg (74 tabs) tablets in 5 mg PO HS 06/02/21 06/04/21 History a dose pack (Eliquis) levofloxacin 250 mg tablet 250 mg PO DAILY 5 Days #5 tab 06/03/21 06/04/21 Rx melatonin 5 mg tablet 5 mg PO HS PRN 06/03/21 06/04/21 History Patient History Medical History 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 > has had no issues for over 3 yrs per pt > has loop recorder > follows with Dr. Bessy PETEID-19 virus detected from blood test on 06/01/21> awaiting result of nasal swab from 06/02/21 DVT (deep venous thrombosis) right leg > Jan 2021> no known cause > Eliquis for this Hiatal hernia growing per pt> reason for procedure on 06/05/21 History of anesthesia reaction reports had atelectasis after shoulder surgery History of rheumatoid arthritis Hx: UTI (urinary tract infection) none at present Hyperlipidemia Hypertension Interstitial lung disease Mild chronic obstructive pulmonary disease well controlled per pt, rare res inh use Obstructive sleep apnea syndrome no longer using cpap Restless leg syndrome Scoliosis Status post gamma knife treatment for acoustic neuroma to left side > 3 yrs ago Transient ischemic attack (TIA) 15 yrs ago > no residual effects Urinary frequency Surgical History H/O rotator cuff surgery right History of carpal tunnel release left History of colonoscopy History of endoscopic sinus surgery History of hysterectomy History of tonsillectomy History of tooth extraction Family History Mother , age 99 with no specific significant medical problems. No problems noted. Father , age 32 in a WWII plane accident No problems noted. 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 [employer] Feels Safe at Home: Yes Assistive Devices: CPAP Review of Systems Review of Systems: Did not obtain as patient was sleeping soundly throughout visit Physical Exam Constitutional: well developed Respiratory: normal respiratory effort; no respiratory distress Cardiovascular: Rate/Rhythm: regular rate Gastrointestinal (Abdomen): Inspection/Auscultation: abdomen normal to inspection Results & Data ([facility]) Vital Signs (Past 12 Hours) Vital Signs Temp Pulse Resp BP Pulse Ox 06/08/21 07:45 36.6 C 68 16 166/82 H 91 06/08/21 03:23 36.6 C 75 16 173/83 H 95 PG Care Time/CCT Total # of Minutes Spent Total Time Spent with Patient: Total time spent is greater than 50% in coordination of care (as documented) at patient's floor/unit and/or counseling patient: Coding Level of Care Code 70499 Initial Inpt Care Lvl 3 Diagnoses GERD (gastroesophageal reflux disease) K21.9
[2021-06-08] MEDS: clonazePAM 0.5 MG TAB PO PRN (19:54)
[2021-06-08] MEDS: METOPROLOL SUCC 50MG EXT REL TAB PO SCH (19:54)
[2021-06-08] MEDS: FAMOTIDINE 20 MG TAB PO SCH (19:56)
[2021-06-08] MEDS: SPIRONOLACTONE 25 MG TAB PO SCH (19:57)
[2021-06-08] MEDS: PRAMIPEXOLE DIHYDROCHLO 0.5 MG TAB PO SCH (19:57)
[2021-06-08] MEDS: FOLIC ACID 1 MG TAB PO SCH (20:00)
[2021-06-08] MEDS: CHOLECALCIFEROL 1,000 UNITS 25 MCG TAB PO SCH (20:00)
[2021-06-08] MEDS: POTASSIUM CHLORIDE 10 MEQ TABCR PO SCH (20:02)
[2021-06-09] MEDS: AMPICILLIN 2,000 MG in SODIUM CHLOR 0.9% AD-VAN 100 ML IV SCH ×6 (04:22→23:41)
[2021-06-09 05:39] LABS: Basophils # (auto) 0.04 K/uL (0-0.2); Basophils % (auto) 0.4 %; Eosinophils # (auto) 0.17 K/uL (0-0.5); Eosinophils % (auto) 1.8 %; Hematocrit (blood only) 37.9 % (37-47); Immature Granulocytes # (auto) 0.06 K/uL (0.00-0.02); Immature Granulocytes % (auto) 0.6 %; Lymphocytes # (auto) 1.81 K/uL (1.2-3.4); Lymphocytes % (auto) 19.3 %; Mean Corpuscular Hemoglobin 33.4 pg (25-34); Mean Corpuscular Hgb Conc 34.3 g/dL (32-36); Mean Corpuscular Volume 97.4 fL (80-100); Mean Platelet Volume 8.6 fL (7.4-10.4); Monocytes # (auto) 1.46 K/uL (0.11-0.59); Monocytes % (auto) 15.6 %; Neutrophils # (auto) 5.83 K/uL (1.4-6.5); Neutrophils % (auto) 62.3 %; Platelet Count 318 K/uL (130-400); RDW Coefficient of Variation 12.4 % (11.5-14.5); RDW Standard Deviation 43.9 fL (36.4-46.3); Red Blood Count 3.89 M/uL (4.2-5.4); White Blood Count 9.37 K/uL (4.8-10.8)
[2021-06-09 06:07] LABS: Albumin Globulin Ratio 1.3 (0.9-2); Albumin Level 3.2 gm/dl (3.4-5.0); BUN Creatinine Ratio 25.5 (10-20); Calcium 8.2 mg/dl (8.5-10.1); Est GFR (African American) 102.3 ml/min; Est GFR (Non-African American) 88.3 ml/min; Globulin 2.4 gm/dl (2.5-4.0); Potassium 3.2 mmol/L (3.5-5.1); Total Protein 5.6 gm/dl (6.0-8.3)
[2021-06-09] MEDS ORDERED: POTASSIUM CHLORIDE 20 MEQ/15 ML UDC PO STA (06:21)
--- NOTE | 2021-06-09 08:57 | Hospitalist Progress Note ---
Date of Service June 09, 2021 Assessment & Plan (1) Bacteremia: Plan: Blood cultures from ER 06/03 with gram positive cocci in chains, UTI with enterococcus from prior urine * Rx for levaquin at that time. had just completed 10 days cipro prior to that per and of note completed a 2wk course of doxycycline in april for tick bites and admitted not to taking with full glass water/reflux symptoms and outpatient EGD was arranged to occur on Saturday of this past week BCx ENTEROCOCCUS FAECALIS COVID negative on admission and recent COVID testing negative done for EGD. NEGATIVE 06/02, 06/04. Likely did have COVID back in April 2021 -- stated was unable to prepare [employer] meal due to lack of taste/smell which has been slowly improving. Prior anitbodies drawn +, but covid testing x 2 while inpatient negative. CTA negative for PE (ddimer was positive prior ER visit, likely from + [facility]) ID consulted --> likely could be from urinary source but if identification not same, could just as likely have come from UGI tract. Presumed high grade/persis tent nature of bacteremia and assumed endocarditis. Hopes to convert to IV beta- lactam regimen * MATILDE without vegetation, however discussed with Dr Aleman and concerned given persistent + bcx and would likely favor 6wks IV therapy. Continued concern for GI pathology however GI continues to plan outpatient eval Increased pain overnight 06/05-06/06 and CTAP obtained--> 3.9 cm hypoenhancing focus within the upper pole of the right kidney. Given the clinical history, this favors pyelonephritis. A renal infarct could appear similar although is considered less likely. No renal abscess. Vanco (trough low end therapeutic on 06/06 likely why +bcx from 06/05) -- switched to Ampicillin (day 4) If + bcx, may need to add Rocephin. Would tx 6 weeks given persistence of prior cultures despite negative MATILDE Blood cultures from 06/07 remain negative after 48 hours PICC Line to be placed today -- consent obtained at direction of supervising provider. No fever/leukocytosis. Continued abd pain/reflux issues * --> reached back out to GI. * Seen , added pepcid BID. Continue protonix BID, carafate QID (prior egd 2018 chronic esophagitis, no barretts but does also have large hiatal hernia). * Added diflucan (day 2) for concerns for possible esphageal candidiasis given prior recent abx usage * -> Checking h. pylori stool antigen as well -- pending * --> cdiff if starts having diarrhea * Also having chronic issues with constipation --> had used fleets/mineral oil enemas and manual disimpaction in past. --> Did have 2 small BM. But asked RN to administer fleets enema/encourage ambulation. Additional mineral oil enema today Replacement of electrolytes - continued low K, mag wnl. Coritsol wnl Nutrition on consult -- supplements now being provided. Encouraged smaller/more frequent meals Continue to monitor -- possible d/c over the weekend if keeping up with PO/continued improvement and IV abx arranged (2) Pyelonephritis: Plan: As above, urology consulted -- continued current plan (3) Chest pain: Plan: Trop negative on admission. Did not report CP to me, however did note for nursing in afternoon previously. Trop again negative on repeat --> sounds more like esophagitis/reflux in nature. improved with PPI BID, addition of carafate but having some increased discomfort --> reached back out to GI --> added pepcid BID and diflucan for empiric esophageal cadidiasis given recent abx use. checking h.pylori antigen as well --> did just complete course of doxy for tick bite April of now and has large hiatal hernia CT Chest from 3 days ago in ER given +ddimer 1. There is no evidence of pulmonary embolus in the main, lobar, or segmental pulmonary arteries. 2. Dependent airspace opacities could represent atelectasis versus a mild infectious/inflammatory pneumonitis. Clinical correlation will be required. 3. Moderate to severe spinal scoliosis is similar to previous and distorts the thoracic cage. 4. Again seen is an 11 mm groundglass lesion in the left upper lobe. This is unchanged from 06/25/2020 and only minimally increased in size dating back to 2016. 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, and nonemergent pulmonology follow-up is recommended Venous Doppler unchanged --> chronic DVT. Eliquis to be BID AT DISCHARGE PREVIOUSLY ONLY TAKING ONCE DAILY RUQ negative for acute yanely --> of note though CT with poss renal infarct as well which could be causing discomfort NO FURTHER EPIGASTRIC/CP 06/09 since adding pepcid BID and diflucan for possible esophageal candidiasis (4) Abdominal pain: Plan: as above less pain in abd and working on BM, but having reflux --> see above, improving working on BM, encouraged ambulation (5) Lab test negative for COVID-19 virus: Plan: IgM/IgG positive -- could have been from immune response vs prior infection, but no need for isolation. LIKELY PRIOR +infxn [place]/loss of taste now reported at [facility] requiring her to not cook the holiday meal Repeat testing x 2 since that lab test both negative discussed with infection control -- discontinued isolation precautions at this time (6) Blood bacterial culture positive: Plan: repeat pending as above, likely not therapeutic vanco for bcx drawn 06/05 monitor (7) Sepsis: Plan: 2nd to pyelo/bactermia -- urinary source likely given pyelo on CTAP but need to consider UGI source if isolates different but does appear to be same (8) Vertigo: Plan: none reported currently, just feeling weak hx acoustic neuroma -- to have f/u MRI outpatient to see if enlarged per PCP /patient no issues at this time (9) Afib: Plan: hx of such, remains on eliquis BID while inpatient --> review of outpatient prescriptions with rx for 30 pills for month supply which would indicate only 1x/day Also with chronic R LE DVT --> will check b/l venous doppler to ensure no additional DVT, roverto with elevated ddimer last week in ER as well as likely recent covid infection/hypercoag state with such? --> eliquis for "DVT" per rheumatology. Venous dopplers with chronic appearing DVT --> Discussed with patient and given afib hx should continue BID dosing given tolerance. DVT likely chronic in nature at this time and not causing increased pain (10) Rheumatoid arthritis: Plan: used to be on methotrexate in the past, currently on sulfasalazine 500mg HS (placed on hold while bacteremic) --> per PCP to take BID but patient only takes once daily. Correct in system --> Follows with Dr Marrufo (11) Pulmonary lesion: Plan: noted on CTA 06/03 11mm ground-glass lesion THAI, unchanged from Jun 2020 and only minimally increased from 2016 appearance typical for low-grade pulm neoplasm and will need non-emergent pulm follow up --> will ask nurse navigator to arrange also messaged GI about need for follow up c-scope. prior done 10-15yrs ago [facility], with chronic constipation and PCP checked CEA within last week, slightly elevated >2 They will plan to perform upper/lower as outpatient once above resolved Plan: bowel regimen -- GI seen, added pepcid BID, diflucan for possible esoph. candidiasis -- IMPROVING encourage PO intake PICC line today -- ampicillin x 6 weeks at d/c given the prior persistent blood cultures Admission and Anticipated Discharge Date Admission Date: June 04, 2021 Supervising Physician Co-Signing Physician Notes Attending Attestation - Chart reviewed in detail, care plan d/w SHERON Frias. I agree w/ the [place] components of her documentation. Complicated 86yo female with enterococcal septicemia/bacteremia 2nd to right- sided pyelonephritis/UTI. MATILDE without definitive evidence of endocarditis but ID advising 6-week course of abx (ampicillin) due to multiple blood cx's being positive. PICC line needed. Abdominal pain - improving; likely multifactorial. Appreciate GI consult and their recs. Cont acid reducers, diflucan, etc. Left-sided Pulmonary lesion - f/u after discharge. Manuel Prado MD Subjective eval this afternoon doing better thought she was in afib -- ekg checked. NSR PAC. Discussed on eliquis so should be protected anyways. No chest pain or shortness of breath. After adding pepcid/diflucan, patient denies any further epigastric discomfort. Small BM this mroing.. Will try mineral oil enema today. Passing gas and lots of bowel sounds on exam. Of note, further discussion of appetite -- she did note had give over cooking responsibility to family during mindy as she was unable to taste. Discussed she very likely had prior covid infection. She does note that her taste has slowly been coming back and has been eating oranges this morning and fruit. Discussed eating smaller/more frequent meals to prevent feeling of something getting stuck until see GI outpt for upper/lower endoscopy. She is concerned about needing to give explicit instructions on when/how to take medication and would like to stress her autonomy and wanting to get her own medication as he usually "brings a cup of meds and I won't know what's in there to make sure I'm getting everything I should/shouldn't. No fever, chills, chest pain, shortness of breath, abd pain, nausea, vomiting at this time. Review of Systems Review of Systems: All systems reviewed & are unremarkable except as noted in HPI & below Physical Exam Physical Exam: WD, WN female, laying in bed, currently no acute distress Eyes anicteric, pupils equal and reactive ENT: mmm, trachea midline without deviation CV: regular/pacs, +systolic murmur, no edema/calves non-tender, pulses diminished RLE but NVI Resp: CTAB, diminished in the bases, no w/r, on room air 96% GI: +BS throughout, soft, minimal generalized tenderness, no further back tenderness to palpation : no [place] MSK/Neuro: moves all extremities, b/l weakness 4/5 throughout, no focal deficit, CN intact. +Scoliosis Psych: alert, oriented to person/place/time, pleasant and cooperative Results & Data Results & Data ([facility]) Vital Signs (Past 12 Hours) Vital Signs Temp Pulse Resp BP Pulse Ox 06/09/21 07:54 36.4 C L 67 16 164/90 H 96 06/08/21 22:21 36.8 C 75 18 147/83 H 94 Laboratory Results 06/09/21 06/09/21 06/09/21 Range/Units 07:27 07:27 06:49 WBC (4.8-10.8) K/uL RBC (4.2-5.4) M/uL Hgb (12.0-16.0) g/dL Hct (37-47) % MCV (80-100) fL MCH (25-34) pg MCHC (32-36) g/dL RDW Std Deviation (36.4-46.3) fL RDW Coeff of Greg (11.5-14.5) % Plt Count (130-400) K/uL MPV (7.4-10.4) fL Immature Gran % (Auto) % Neut % (Auto) % Lymph % (Auto) % [place] % (Auto) % Eos % (Auto) % Baso % (Auto) % Neut # (Auto) (1.4-6.5) K/uL Lymph # (Auto) (1.2-3.4) K/uL [place] # (Auto) (0.11-0.59) K/uL Eos # (Auto) (0-0.5) K/uL Baso # (Auto) (0-0.2) K/uL Immature Gran # (Auto) (0.00-0.02) K/uL Sodium (136-145) mmol/L Potassium (3.5-5.1) mmol/L Chloride (98-107) mmol/L Carbon Dioxide (21-32) mmol/L Anion Gap (3-11) BUN (6-23) mg/dl Creatinine (0.6-1.2) mg/dl Est Cr Clr Drug Dosing ml/min Est GFR ( Amer) ml/min Est GFR (Non-Af Amer) ml/min BUN/Creatinine Ratio (10-20) Glucose (70-99(Fasting)) mg/dl Calcium (8.5-10.1) mg/dl Magnesium 2.1 (1.7-2.4) mg/dl Total Bilirubin (0.2-1.0) mg/dl AST (13-39) U/L ALT (7-52) U/L Alkaline Phosphatase (34-104) U/L B-Natriuretic Peptide (0-100) pg/ml Total Protein (6.0-8.3) gm/dl Albumin (3.4-5.0) gm/dl Globulin (2.5-4.0) gm/dl Albumin/Globulin Ratio (0.9-2) Cortisol AM Sample 20.21 (6.2-22.6) mcg/dl Stl C. diff Tox B Gene (Neg) Stool H. pylori Ag Pending Giardia Antigen 06/09/21 06/09/21 06/09/21 Range/Units 06:49 06:49 05:09 WBC (4.8-10.8) K/uL RBC (4.2-5.4) M/uL Hgb (12.0-16.0) g/dL Hct (37-47) % MCV (80-100) fL MCH (25-34) pg MCHC (32-36) g/dL RDW Std Deviation (36.4-46.3) fL RDW Coeff of Greg (11.5-14.5) % Plt Count (130-400) K/uL MPV (7.4-10.4) fL Immature Gran % (Auto) % Neut % (Auto) % Lymph % (Auto) % [place] % (Auto) % Eos % (Auto) % Baso % (Auto) % Neut # (Auto) (1.4-6.5) K/uL Lymph # (Auto) (1.2-3.4) K/uL [place] # (Auto) (0.11-0.59) K/uL Eos # (Auto) (0-0.5) K/uL Baso # (Auto) (0-0.2) K/uL Immature Gran # (Auto) (0.00-0.02) K/uL Sodium 134 L (136-145) mmol/L Potassium 3.2 L (3.5-5.1) mmol/L Chloride 98 (98-107) mmol/L Carbon Dioxide 27 (21-32) mmol/L Anion Gap 9 (3-11) BUN 13 (6-23) mg/dl Creatinine 0.51 L (0.6-1.2) mg/dl Est Cr Clr Drug Dosing 75.0 ml/min Est GFR ( Amer) 102.3 ml/min Est GFR (Non-Af Amer) 88.3 ml/min BUN/Creatinine Ratio 25.5 H (10-20) Glucose 93 (70-99(Fasting)) mg/dl Calcium 8.2 L (8.5-10.1) mg/dl Magnesium (1.7-2.4) mg/dl Total Bilirubin 1.0 (0.2-1.0) mg/dl AST 13 (13-39) U/L ALT 9 (7-52) U/L Alkaline Phosphatase 43 (34-104) U/L B-Natriuretic Peptide (0-100) pg/ml Total Protein 5.6 L (6.0-8.3) gm/dl Albumin 3.2 L (3.4-5.0) gm/dl Globulin 2.4 L (2.5-4.0) gm/dl Albumin/Globulin Ratio 1.3 (0.9-2) Cortisol AM Sample (6.2-22.6) mcg/dl Stl C. diff Tox B Gene Negative Cdiff Gene (Neg) Stool H. pylori Ag Giardia Antigen Pending 06/09/21 06/08/21 Range/Units 05:09 10:59 WBC 9.37 (4.8-10.8) K/uL RBC 3.89 L (4.2-5.4) M/uL Hgb 13.0 (12.0-16.0) g/dL Hct 37.9 (37-47) % MCV 97.4 (80-100) fL MCH 33.4 (25-34) pg MCHC 34.3 (32-36) g/dL RDW Std Deviation 43.9 (36.4-46.3) fL RDW Coeff of Greg 12.4 (11.5-14.5) % Plt Count 318 (130-400) K/uL MPV 8.6 (7.4-10.4) fL Immature Gran % (Auto) 0.6 % Neut % (Auto) 62.3 % Lymph % (Auto) 19.3 % [place] % (Auto) 15.6 % Eos % (Auto) 1.8 % Baso % (Auto) 0.4 % Neut # (Auto) 5.83 (1.4-6.5) K/uL Lymph # (Auto) 1.81 (1.2-3.4) K/uL [place] # (Auto) 1.46 H (0.11-0.59) K/uL Eos # (Auto) 0.17 (0-0.5) K/uL Baso # (Auto) 0.04 (0-0.2) K/uL Immature Gran # (Auto) 0.06 H (0.00-0.02) K/uL Sodium (136-145) mmol/L Potassium (3.5-5.1) mmol/L Chloride (98-107) mmol/L Carbon Dioxide (21-32) mmol/L Anion Gap (3-11) BUN (6-23) mg/dl Creatinine (0.6-1.2) mg/dl Est Cr Clr Drug Dosing ml/min Est GFR ( Amer) ml/min Est GFR (Non-Af Amer) ml/min BUN/Creatinine Ratio (10-20) Glucose (70-99(Fasting)) mg/dl Calcium (8.5-10.1) mg/dl Magnesium (1.7-2.4) mg/dl Total Bilirubin (0.2-1.0) mg/dl AST (13-39) U/L ALT (7-52) U/L Alkaline Phosphatase (34-104) U/L B-Natriuretic Peptide 59 (0-100) pg/ml Total Protein (6.0-8.3) gm/dl Albumin (3.4-5.0) gm/dl Globulin (2.5-4.0) gm/dl Albumin/Globulin Ratio (0.9-2) Cortisol AM Sample (6.2-22.6) mcg/dl Stl C. diff Tox B Gene (Neg) Stool H. pylori Ag Giardia Antigen PG Care Time/CCT Total # of Minutes Spent Total Time Spent with Patient: Total time spent is greater than 50% in coordination of care (as documented) at patient's floor/unit and/or counseling patient: Coding Level of Care Code 42340 Subseq Hosp Care Lvl 3 Diagnoses Bacteremia R78.81 Pyelonephritis N12 Chest pain R07.9 Abdominal pain R10.9 Lab test negative for COVID-19 virus Z20.822 Blood bacterial culture positive R78.81 Sepsis A41.9 Sepsis acute organ dysfunction status: without acute organ dysfunction Sepsis type: sepsis due to unspecified organism Vertigo R42 Afib I48.0 Atrial fibrillation type: paroxysmal Rheumatoid arthritis M06.9 Pulmonary lesion J98.4 (1) Afib Atrial fibrillation type: paroxysmal Qualified Code(s): I48.0 - Paroxysmal atrial fibrillation (2) Sepsis Sepsis acute organ dysfunction status: without acute organ dysfunction Sepsis type: sepsis due to unspecified organism Qualified Code(s): A41.9 - Sepsis, unspecified organism
[2021-06-09] MEDS: FAMOTIDINE 20 MG TAB PO SCH ×2 (09:02→20:03)
[2021-06-09] MEDS: FLUCONAZOLE 100 MG TAB PO SCH (09:03)
[2021-06-09] MEDS: APIXABAN 5 MG TABLET PO SCH ×2 (09:03→20:01)
[2021-06-09] MEDS: FLUTICASONE/VILANTEROL 100/25MCG 14 PUFFS/INHALER INH SCH (09:03)
[2021-06-09] MEDS: PANTOprazole 40 MG TAB PO SCH ×2 (09:03→20:03)
[2021-06-09] MEDS: SUCRALFATE 1 GM/10 ML UDC PO SCH ×4 (09:04→20:55)
[2021-06-09] MEDS: DOCUSATE SODIUM/SENNA 50/8.6MG TAB PO SCH (09:09)
[2021-06-09] MEDS: NSS + 20MEQ KCL 20 MEQ/1,000 ML BAG IV SCH (10:34)
[2021-06-09] MEDS ORDERED: MINERAL OIL ENEMA 133 ML BTL PR ONE (13:28)
[2021-06-09] MEDS: hydrALAZINE HCL 20 MG/ML VIAL IV STA (13:28)
[2021-06-09] MEDS ORDERED: hydrALAZINE HCL 20 MG/ML VIAL ONE (13:28)
--- NOTE | 2021-06-09 14:11 | Electrocardiogram Report ---
Test Reason : Blood Pressure : / mmHG Vent. Rate : 072 BPM Atrial Rate : 072 BPM P-R Int : 140 ms QRS Dur : 088 ms QT Int : 440 ms P-R-T Axes : 015 015 062 degrees QTc Int : 481 ms Sinus rhythm with Premature atrial complexes Otherwise normal ECG When compared with ECG of 04-JUN-2021 10:37, Premature atrial complexes are now Present Confirmed by Albaro Gutiérrez ([id number]) on 06/09/2021 2:10:27 PM Referred By: REFERRED SELF Confirmed By:Jeromy Gutiérrez
[2021-06-09] MEDS: FOLIC ACID 1 MG TAB PO SCH (20:01)
[2021-06-09] MEDS: SPIRONOLACTONE 25 MG TAB PO SCH (20:01)
[2021-06-09] MEDS: METOPROLOL SUCC 50MG EXT REL TAB PO SCH (20:01)
[2021-06-09] MEDS: PRAMIPEXOLE DIHYDROCHLO 0.5 MG TAB PO SCH (20:02)
[2021-06-09] MEDS: POTASSIUM CHLORIDE 10 MEQ TABCR PO SCH (20:10)
[2021-06-09] MEDS: clonazePAM 0.5 MG TAB PO PRN (20:34)
[2021-06-09] MEDS: CHOLECALCIFEROL 1,000 UNITS 25 MCG TAB PO SCH (20:55)
[2021-06-10] MEDS: AMPICILLIN 2,000 MG in SODIUM CHLOR 0.9% AD-VAN 100 ML IV SCH ×6 (03:40→23:55)
[2021-06-10] MEDS: NSS + 20MEQ KCL 20 MEQ/1,000 ML BAG IV SCH (03:40)
--- NOTE | 2021-06-10 08:21 | Hospitalist Progress Note ---
Date of Service June 10, 2021 Assessment & Plan (1) Bacteremia: Plan: Blood cultures from ER 06/03 with gram positive cocci in chains, UTI with enterococcus from prior urine * Rx for levaquin at that time. had just completed 10 days cipro prior to that per and of note completed a 2wk course of doxycycline in april for tick bites and admitted not to taking with full glass water/reflux symptoms and outpatient EGD was arranged to occur on Saturday of this past week BCx ENTEROCOCCUS FAECALIS COVID negative on admission and recent COVID testing negative done for EGD. NEGATIVE 06/02, 06/04. Likely did have COVID back in April 2021 -- stated was unable to prepare [place] meal due to lack of taste/smell which has been slowly improving. Prior anitbodies drawn +, but covid testing x 2 while inpatient negative. CTA negative for PE (ddimer was positive prior ER visit, likely from + [facility]) ID consulted --> likely could be from urinary source but if identification not same, could just as likely have come from UGI tract. Presumed high grade/persis tent nature of bacteremia and assumed endocarditis. Hopes to convert to IV beta- lactam regimen CTAP obtained 06/06 for worsening pain --> 3.9 cm hypoenhancing focus within the upper pole of the right kidney. Given the clinical history, this favors pyelonephritis. A renal infarct could appear similar although is considered less likely. No renal abscess. On AMpicillin (day 5). Blood cultures from 06/07 remain NGTD -- follow MATILDE without vegetation, however discussed with Dr Aleman and concerned given persistent + bcx and would likely favor 6wks IV therapy. Continued concern for GI pathology however GI continues to plan outpatient eval --> Will complete 6 weeks Ampicillin --> PICC line placed 06/09. CM aware. Able to start care on Saturday, but d/c fluids today and see if able to keep up with oral/bowel regimen (have been using miralax/colace/senna/mineral enema/fleet enema/mag citrate) --> GOLYTELY TODAY --> still w contrast on imaging in bowel --> concerns for underlying colon ca given family hx. GI wanting to recover from current as above, have reached out multiple times. Wanting to recover from current bacteremia --> NO further fevers/leukocytosis. --> GI added added Pepcid BID in addition to the increase in PPI to BID/Carafate (prior egd 2018 esophagitis, no barretts, also w large hiatal hernia). Diflucan added given recent abx as well. Also concerns for esophagitis from recent doxycycline use C.diff if having diarrhea --> checked during stay and was negative Nutrition on consult -- boost supplements provided Hpylori antigen. giardia pending Monitor off IVF/if able to keep up with oral intake can consider d/c tomorrow but suspect will be inpatient through Saturday. IV abx already arranged/CM f tammy (2) Pyelonephritis: Plan: As above, urology consulted -- continued current plan (3) Chest pain: Plan: Trop negative on admission. Did not report CP to me, however did note for nursing in afternoon previously. Trop again negative on repeat --> sounds more like esophagitis/reflux in nature. improved with PPI BID, addition of carafate but having some increased discomfort --> reached back out to GI --> added pepcid BID and diflucan for empiric esophageal cadidiasis given recent abx use. checking h.pylori antigen as well --> did just complete course of doxy for tick bite April of now and has large hiatal hernia CT Chest from 3 days ago in ER given +ddimer 1. There is no evidence of pulmonary embolus in the main, lobar, or segmental pulmonary arteries. 2. Dependent airspace opacities could represent atelectasis versus a mild infectious/inflammatory pneumonitis. Clinical correlation will be required. 3. Moderate to severe spinal scoliosis is similar to previous and distorts the thoracic cage. 4. Again seen is an 11 mm groundglass lesion in the left upper lobe. This is unchanged from 06/25/2020 and only minimally increased in size dating back to 2016. 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, and [facility]mon[facility] follow-up is recommended Venous Doppler unchanged --> chronic DVT. Eliquis to be BID AT DISCHARGE PREVIOUSLY ONLY TAKING ONCE DAILY RUQ negative for acute yanely --> of note though CT with poss renal infarct as well which could be causing discomfort NO FURTHER EPIGASTRIC/CP 06/09 since adding pepcid BID and diflucan for possible esophageal candidiasis (4) Abdominal pain: Plan: as above less pain in abd and working on BM, but having reflux --> see above, improving but still no significant bowel movement working on BM, encouraged ambulation VERY WORRISOME SYMPTOMS FOR COLON CA AND WILL NEED OUTPATIENT c-SCOPE FOR EVALUATION. Also with pulm nodule requiring follow-up. ?colon-lung metastatic disease? no other lesions on imaging noted at this time but does have hx aucostic [place] as below (5) Lab test negative for COVID-19 virus: Plan: IgM/IgG positive -- could have been from immune response vs prior infection, but no need for isolation. LIKELY PRIOR +infxn [place]/loss of taste now reported at [place] requiring her to not cook the holiday meal Repeat testing x 2 since that lab test both negative discussed with infection control -- discontinued isolation precautions at this time (6) Blood bacterial culture positive: Plan: repeat pending as above, likely not therapeutic vanco for bcx drawn 06/05 monitor (7) Sepsis: Plan: 2nd to pyelo/bacteremia -- urinary source likely given pyelo on CTAP but need to consider UGI source if isolates different but does appear to be same (8) Vertigo: Plan: none reported currently, just feeling weak hx acoustic neuroma -- to have f/u MRI outpatient to see if enlarged per PCP /patient no issues at this time (9) Afib: Plan: hx of such, remains on eliquis BID while inpatient --> review of outpatient prescriptions with rx for 30 pills for month supply which would indicate only 1x/day Also with chronic R LE DVT --> will check b/l venous doppler to ensure no additional DVT, roverto with elevated ddimer last week in ER as well as likely recent covid infection/hypercoag state with such? --> Also with concerns for GI malignancy as above --> eliquis for "DVT" per rheumatology. Venous dopplers with chronic appearing DVT --> Discussed with patient and given afib hx should continue BID dosing given tolerance. DVT likely chronic in nature at this time and not causing increased pain (10) Rheumatoid arthritis: Plan: used to be on methotrexate in the past, currently on sulfasalazine 500mg HS (placed on hold while bacteremic) --> per PCP to take BID but patient only takes once daily. Correct in system --> Follows with Dr Marrufo (11) Pulmonary lesion: Plan: noted on CTA 06/03 11mm ground-glass lesion THAI, unchanged from Jun 2020 and only minimally increased from 2016 appearance typical for low-grade pulm neoplasm and will need non-emergent pulm follow up --> will ask nurse navigator to arrange also messaged GI about need for follow up c-scope. prior done 10-15yrs ago [facility], with chronic constipation and PCP checked CEA within last week, slightly elevated >2 They will plan to perform upper/lower as outpatient once above resolved --> messaged again today to see if able to possibly consider later this upcoming week Admission and Anticipated Discharge Date Admission Date: June 04, 2021 Supervising Physician Co-Signing Physician Notes Attending Attestation - Chart reviewed in detail, care plan d/w SHERON Frias. I agree w/ the cortez components of her documentation. Complicated 86yo female with enterococcal septicemia/bacteremia 2nd to right- sided pyelonephritis/UTI. MATILDE without definitive evidence of endocarditis but ID advising 6-week course of abx (ampicillin) due to multiple blood cx's being positive. Abdominal pain - likely multifactorial. Appreciate GI consult and their recs. Cont acid reducers, diflucan, etc. Constipation - has been refractory to NUMEROUS meds tried - will use golytely today to resolve the issue. Left-sided Pulmonary lesion - f/u after discharge. Manuel Prado MD Subjective eval this morning doing ok still occ discomfort to RUQ/flank. Urinating no issue/clear reported. Some mucus. passing gas and small BM last night and currently drinking golytley. had episode choking on orange yesterday as she felt like it got stuck, nothing since then states she can taste that quite well, discussed smaller/more frequent meals. Discontinued fluids and wanting to make sure she keep up with oral intake prior to discharge. DOes not take MV at home and will order. Has been drinking 2 boost daily currently, no issues. Discussed would continue at discharge. No fever, chills. No further chest pain/reflux symptoms of days prior since the pepcid/diflucan. Review of Systems Review of Systems: All systems reviewed & are unremarkable except as noted in HPI & below Physical Exam Physical Exam: WD, WN female, laying in bed, currently no acute distress Eyes anicteric, pupils equal and reactive ENT: mmm, trachea midline without deviation CV: regular/pacs, +systolic murmur, no edema/calves non-tender, pulses diminished RLE but NVI Resp: CTAB, diminished in the bases, no w/r, on room air 96% GI: +BS throughout, +distended, minimal generalized tenderness/RUQ tenderness, no further back tenderness to palpation : no [place] MSK/Neuro: moves all extremities, b/l weakness 4/5 throughout, no focal deficit, CN intact. +Scoliosis Psych: alert, oriented to person/place/time, pleasant and cooperative but anxious Results & Data Results & Data ([facility]) Vital Signs (Past 12 Hours) Vital Signs Temp Pulse Resp BP Pulse Ox 06/10/21 08:21 36.3 C L 85 16 138/76 93 06/09/21 19:57 36.8 C 85 16 158/79 H 94 06/09/21 15:36 36.7 C 81 14 146/85 H 95 Intake and Output 06/09/21 06/10/21 06/10/21 22:59 06:59 14:59 Intake Total 550 / 1950 1200 / 1950 651 / 651 Balance 550 / 1950 1200 / 1950 651 / 651 Intake: IV 200 / 1600 1200 / 1600 651 / 651 Ampicillin 2,000 mg In Sodium 200 / 600 200 / 600 200 / 200 Chlor 0.9% Ad-Van 100 ml @ 200 mls/hr IV Q4 [facility] Rx#:[id number] Nss + 20Meq KCl 20 meq In 1,000 1000 / 1000 451 / 451 ml @ 60 mls/hr IV .[id number] [facility] Rx#:[id number] Oral 350 / 350 Other: # Unmeasured Voids 1 1 Laboratory Results 06/10/21 06/10/21 06/10/21 Range/Units 12:33 10:00 10:00 WBC 8.56 (4.8-10.8) K/uL RBC 3.77 L (4.2-5.4) M/uL Hgb 12.9 (12.0-16.0) g/dL Hct 37.1 (37-47) % MCV 98.4 (80-100) fL MCH 34.2 H (25-34) pg MCHC 34.8 (32-36) g/dL RDW Std Deviation 44.7 (36.4-46.3) fL RDW Coeff of Greg 12.4 (11.5-14.5) % Plt Count 340 (130-400) K/uL MPV 8.4 (7.4-10.4) fL Immature Gran % (Auto) 0.8 % Neut % (Auto) 67.8 % Lymph % (Auto) 15.5 % Dewey % (Auto) 14.6 % Eos % (Auto) 0.9 % Baso % (Auto) 0.4 % Neut # (Auto) 5.80 (1.4-6.5) K/uL Lymph # (Auto) 1.33 (1.2-3.4) K/uL Dewey # (Auto) 1.25 H (0.11-0.59) K/uL Eos # (Auto) 0.08 (0-0.5) K/uL Baso # (Auto) 0.03 (0-0.2) K/uL Immature Gran # (Auto) 0.07 H (0.00-0.02) K/uL Sodium 133 L (136-145) mmol/L Potassium 3.7 (3.5-5.1) mmol/L Chloride 99 (98-107) mmol/L Carbon Dioxide 27 (21-32) mmol/L Anion Gap 7 (3-11) BUN 10 (6-23) mg/dl Creatinine 0.56 L (0.6-1.2) mg/dl Est Cr Clr Drug Dosing 68.3 ml/min Est GFR ( Amer) 99.2 ml/min Est GFR (Non-Af Amer) 85.6 ml/min BUN/Creatinine Ratio 17.9 (10-20) Glucose 111 H (70-99(Fasting)) mg/dl Calcium 8.5 (8.5-10.1) mg/dl Magnesium 2.1 (1.7-2.4) mg/dl Total Bilirubin 1.0 (0.2-1.0) mg/dl AST 13 (13-39) U/L ALT 9 (7-52) U/L Alkaline Phosphatase 48 (34-104) U/L Total Protein 5.9 L (6.0-8.3) gm/dl Albumin 3.3 L (3.4-5.0) gm/dl Globulin 2.6 (2.5-4.0) gm/dl Albumin/Globulin Ratio 1.3 (0.9-2) Folate > 22.30 (>5.38) ng/ml Diagnostic Findings 06/10/21 06/10/21 06/10/21 Range/Units 12:33 10:00 10:00 WBC 8.56 (4.8-10.8) K/uL RBC 3.77 L (4.2-5.4) M/uL Hgb 12.9 (12.0-16.0) g/dL Hct 37.1 (37-47) % MCV 98.4 (80-100) fL MCH 34.2 H (25-34) pg MCHC 34.8 (32-36) g/dL RDW Std Deviation 44.7 (36.4-46.3) fL RDW Coeff of Greg 12.4 (11.5-14.5) % Plt Count 340 (130-400) K/uL MPV 8.4 (7.4-10.4) fL Immature Gran % (Auto) 0.8 % Neut % (Auto) 67.8 % Lymph % (Auto) 15.5 % Dewey % (Auto) 14.6 % Eos % (Auto) 0.9 % Baso % (Auto) 0.4 % Neut # (Auto) 5.80 (1.4-6.5) K/uL Lymph # (Auto) 1.33 (1.2-3.4) K/uL Dewey # (Auto) 1.25 H (0.11-0.59) K/uL Eos # (Auto) 0.08 (0-0.5) K/uL Baso # (Auto) 0.03 (0-0.2) K/uL Immature Gran # (Auto) 0.07 H (0.00-0.02) K/uL Sodium 133 L (136-145) mmol/L Potassium 3.7 (3.5-5.1) mmol/L Chloride 99 (98-107) mmol/L Carbon Dioxide 27 (21-32) mmol/L Anion Gap 7 (3-11) BUN 10 (6-23) mg/dl Creatinine 0.56 L (0.6-1.2) mg/dl Est Cr Clr Drug Dosing 68.3 ml/min Est GFR ( Amer) 99.2 ml/min Est GFR (Non-Af Amer) 85.6 ml/min BUN/Creatinine Ratio 17.9 (10-20) Glucose 111 H (70-99(Fasting)) mg/dl Calcium 8.5 (8.5-10.1) mg/dl Magnesium 2.1 (1.7-2.4) mg/dl Total Bilirubin 1.0 (0.2-1.0) mg/dl AST 13 (13-39) U/L ALT 9 (7-52) U/L Alkaline Phosphatase 48 (34-104) U/L Total Protein 5.9 L (6.0-8.3) gm/dl Albumin 3.3 L (3.4-5.0) gm/dl Globulin 2.6 (2.5-4.0) gm/dl Albumin/Globulin Ratio 1.3 (0.9-2) Folate > 22.30 (>5.38) ng/ml PG Care Time/CCT Total # of Minutes Spent Total Time Spent with Patient: Total time spent is greater than 50% in coordination of care (as documented) at patient's floor/unit and/or counseling patient: Coding Level of Care Code 73904 Subseq Hosp Care Lvl 3 Diagnoses Bacteremia R78.81 Pyelonephritis N12 Chest pain R07.9 Abdominal pain R10.9 Lab test negative for COVID-19 virus Z20.822 Blood bacterial culture positive R78.81 Sepsis A41.9 Sepsis acute organ dysfunction status: without acute organ dysfunction Sepsis type: sepsis due to unspecified organism Vertigo R42 Afib I48.0 Atrial fibrillation type: paroxysmal Rheumatoid arthritis M06.9 Pulmonary lesion J98.4 (1) Afib Atrial fibrillation type: paroxysmal Qualified Code(s): I48.0 - Paroxysmal atrial fibrillation (2) Sepsis Sepsis acute organ dysfunction status: without acute organ dysfunction Sepsis type: sepsis due to unspecified organism Qualified Code(s): A41.9 - Sepsis, unspecified organism
[2021-06-10] MEDS: DOCUSATE SODIUM/SENNA 50/8.6MG TAB PO SCH (08:49)
[2021-06-10] MEDS: SUCRALFATE 1 GM/10 ML UDC PO SCH ×4 (08:51→20:28)
[2021-06-10] MEDS: PANTOprazole 40 MG TAB PO SCH ×2 (08:51→20:25)
[2021-06-10] MEDS: FLUCONAZOLE 100 MG TAB PO SCH (08:51)
[2021-06-10] MEDS: APIXABAN 5 MG TABLET PO SCH ×2 (08:51→20:22)
[2021-06-10] MEDS: FAMOTIDINE 20 MG TAB PO SCH ×2 (08:51→20:28)
[2021-06-10] MEDS: FLUTICASONE/VILANTEROL 100/25MCG 14 PUFFS/INHALER INH SCH (08:51)
--- NOTE | 2021-06-10 09:56 | XRay Report ---
KUB HISTORY: Acute generalized abdominal pain with constipation constipation COMPARISON: CT abdomen pelvis 06/06/2021, KUB 06/05/2021 FINDINGS: There is retained enteric contrast within the large bowel. Mild to moderate fecal retention . Colonic diverticulosis. Nonobstructive bowel gas pattern. No renal calculi. No ureteral calculi. N o pneumoperitoneum or pneumatosis. Degenerative changes of the spine, pelvis and hips with thoracolum bar scoliosis. No fracture. IMPRESSION: 1. Nonobstructive bowel gas pattern. 2. Mild to moderate fecal retention. 3. Colonic diverticulosis. ACT 112: Negative or not required by law. The above report was generated using voice recognition software. It may contain grammatical, syntax o r spelling errors. Electronically signed by: Giancarlo Trivedi M.D. 06/10/2021 9:54 AM
[2021-06-10] MEDS ORDERED: LAVAGE SOLUTION 4000ML PO SCH (10:00)
[2021-06-10 10:18] LABS: Basophils # (auto) 0.03 K/uL (0-0.2); Basophils % (auto) 0.4 %; Eosinophils # (auto) 0.08 K/uL (0-0.5); Eosinophils % (auto) 0.9 %; Hematocrit (blood only) 37.1 % (37-47); Hemoglobin 12.9 g/dL (12.0-16.0); Immature Granulocytes # (auto) 0.07 K/uL (0.00-0.02); Immature Granulocytes % (auto) 0.8 %; Lymphocytes # (auto) 1.33 K/uL (1.2-3.4); Lymphocytes % (auto) 15.5 %; Mean Corpuscular Hemoglobin 34.2 pg (25-34); Mean Corpuscular Hgb Conc 34.8 g/dL (32-36); Mean Corpuscular Volume 98.4 fL (80-100); Mean Platelet Volume 8.4 fL (7.4-10.4); Monocytes # (auto) 1.25 K/uL (0.11-0.59); Monocytes % (auto) 14.6 %; Neutrophils % (auto) 67.8 %; Platelet Count 340 K/uL (130-400); RDW Coefficient of Variation 12.4 % (11.5-14.5); RDW Standard Deviation 44.7 fL (36.4-46.3); Red Blood Count 3.77 M/uL (4.2-5.4); White Blood Count 8.56 K/uL (4.8-10.8)
[2021-06-10 10:39] LABS: Albumin Globulin Ratio 1.3 (0.9-2); Albumin Level 3.3 gm/dl (3.4-5.0); BUN Creatinine Ratio 17.9 (10-20); Calcium 8.5 mg/dl (8.5-10.1); Creatinine Clr Calc Pharmacy 68.3 ml/min; Est GFR (African American) 99.2 ml/min; Est GFR (Non-African American) 85.6 ml/min; Globulin 2.6 gm/dl (2.5-4.0); Magnesium 2.1 mg/dl (1.7-2.4); Potassium 3.7 mmol/L (3.5-5.1); Total Protein 5.9 gm/dl (6.0-8.3)
[2021-06-10] MEDS ORDERED: TORSEMIDE 10 MG TAB PO ONE (14:15)
[2021-06-10] MEDS: CEROVITE ADV FORMULA TAB PO SCH (14:32)
[2021-06-10] MEDS: METOPROLOL SUCC 50MG EXT REL TAB PO SCH (20:22)
[2021-06-10] MEDS: clonazePAM 0.5 MG TAB PO PRN (20:23)
[2021-06-10] MEDS: POTASSIUM CHLORIDE 10 MEQ TABCR PO SCH (20:23)
[2021-06-10] MEDS: PRAMIPEXOLE DIHYDROCHLO 0.5 MG TAB PO SCH (20:24)
[2021-06-10] MEDS: SPIRONOLACTONE 25 MG TAB PO SCH (20:24)
[2021-06-10] MEDS: FOLIC ACID 1 MG TAB PO SCH (20:25)
[2021-06-10] MEDS: CHOLECALCIFEROL 1,000 UNITS 25 MCG TAB PO SCH (20:28)
[2021-06-11] MEDS: hydrALAZINE HCL 20 MG/ML VIAL IV STA (03:15)
[2021-06-11] MEDS: AMPICILLIN 2,000 MG in SODIUM CHLOR 0.9% AD-VAN 100 ML IV SCH ×5 (04:17→20:25)
[2021-06-11 06:05] LABS: Basophils # (auto) 0.03 K/uL (0-0.2); Basophils % (auto) 0.4 %; Eosinophils # (auto) 0.13 K/uL (0-0.5); Eosinophils % (auto) 1.7 %; Hematocrit (blood only) 38.4 % (37-47); Immature Granulocytes # (auto) 0.04 K/uL (0.00-0.02); Immature Granulocytes % (auto) 0.5 %; Lymphocytes # (auto) 1.44 K/uL (1.2-3.4); Lymphocytes % (auto) 18.8 %; Mean Corpuscular Hemoglobin 33.6 pg (25-34); Mean Corpuscular Hgb Conc 33.9 g/dL (32-36); Mean Corpuscular Volume 99.2 fL (80-100); Mean Platelet Volume 8.4 fL (7.4-10.4); Monocytes # (auto) 1.31 K/uL (0.11-0.59); Monocytes % (auto) 17.1 %; Neutrophils # (auto) 4.73 K/uL (1.4-6.5); Neutrophils % (auto) 61.5 %; Platelet Count 350 K/uL (130-400); RDW Coefficient of Variation 12.5 % (11.5-14.5); Red Blood Count 3.87 M/uL (4.2-5.4); White Blood Count 7.68 K/uL (4.8-10.8)
[2021-06-11 06:39] LABS: Albumin Globulin Ratio 1.3 (0.9-2); Albumin Level 3.3 gm/dl (3.4-5.0); Calcium 8.6 mg/dl (8.5-10.1); Creatinine Clr Calc Pharmacy 67.1 ml/min; Est GFR (African American) 98.7 ml/min; Est GFR (Non-African American) 85.1 ml/min; Globulin 2.6 gm/dl (2.5-4.0); Magnesium 2.1 mg/dl (1.7-2.4); Potassium 3.6 mmol/L (3.5-5.1); Total Protein 5.9 gm/dl (6.0-8.3)
--- NOTE | 2021-06-11 08:20 | Hospitalist Progress Note ---
Date of Service June 11, 2021 Assessment & Plan (1) Bacteremia: Plan: Blood cultures from ER 06/03 with gram positive cocci in chains, UTI with enterococcus from prior urine * Rx for levaquin at that time. had just completed 10 days cipro prior to that per and of note completed a 2wk course of doxycycline in april for tick bites and admitted not to taking with full glass water/reflux symptoms and outpatient EGD was arranged to occur on Saturday of this past week BCx ENTEROCOCCUS FAECALIS COVID negative on admission and recent COVID testing negative done for EGD. NEGATIVE 06/02, 06/04. Likely did have COVID back in April 2021 -- stated was unable to prepare [employer] meal due to lack of taste/smell which has been slowly improving. Prior anitbodies drawn +, but covid testing x 2 while inpatient negative. CTA negative for PE (ddimer was positive prior ER visit, likely from + [facility]) ID consulted --> likely could be from urinary source but if identification not same, could just as likely have come from UGI tract. Presumed high grade/persis tent nature of bacteremia and assumed endocarditis. Hopes to convert to IV beta- lactam regimen CTAP obtained 06/06 for worsening pain --> 3.9 cm hypoenhancing focus within the upper pole of the right kidney. Given the clinical history, this favors pyelonephritis. A renal infarct could appear similar although is considered less likely. No renal abscess. On AMpicillin (day 5). Blood cultures from 06/07 remain NGTD -- follow MATILDE without vegetation, however discussed with Dr Aleman and concerned given persistent + bcx and would likely favor 6wks IV therapy. Continued concern for GI pathology however GI continues to plan outpatient eval --> Will complete 6 weeks Ampicillin --> PICC line placed 06/09. CM aware. Able to start care on Saturday, but d/c fluids today and see if able to keep up with oral/bowel regimen (have been using miralax/colace/senna/mineral enema/fleet enema/mag citrate) --> GOLYTELY 06/10 with large pasty brown BM x2 Repeat KUB with improvement --> NO further fevers/leukocytosis. --> GI added added Pepcid BID in addition to the increase in PPI to BID/Carafate (prior egd 2018 esophagitis, no barretts, also w large hiatal hernia). Diflucan added given recent abx as well. Also concerns for esophagitis from recent doxycycline use C.diff if having diarrhea --> checked during stay and was negative Nutrition on consult -- boost supplements provided Hpylori antigen. giardia pending Monitor off IVF/if able to keep up with oral intake can consider d/c tomorrow but suspect will be inpatient through Saturday. IV abx already arranged/CM following 06/11 ---> Continues with weakness and now leaning to the right with gait but otherwise grossly unremarkable other than possible decreased visual acuity but wears glasses Given weakness, prior schwanoma and high suspicion for not only colon ca but pulmonary lesion, will check BRain MRI for completeness Did report some choking - seen earlier in stay by speech and no issues reported Did also have recent COVID as well Monitoring overnight, IVF abx already arranged (2) Pyelonephritis: Plan: As above, urology consulted -- continued current plan (3) Chest pain: Plan: Trop negative on admission. Did not report CP to me, however did note for nursing in afternoon previously. Trop again negative on repeat --> sounds more like esophagitis/reflux in nature. improved with PPI BID, addition of carafate but having some increased discomfort --> reached back out to GI --> added pepcid BID and diflucan for empiric esophageal cadidiasis given recent abx use. checking h.pylori antigen as well --> did just complete course of doxy for tick bite April of now and has large hiatal hernia CT Chest from 3 days ago in ER given +ddimer 1. There is no evidence of pulmonary embolus in the main, lobar, or segmental pulmonary arteries. 2. Dependent airspace opacities could represent atelectasis versus a mild infectious/inflammatory pneumonitis. Clinical correlation will be required. 3. Moderate to severe spinal scoliosis is similar to previous and distorts the thoracic cage. 4. Again seen is an 11 mm groundglass lesion in the left upper lobe. This is unchanged from 06/25/2020 and only minimally increased in size dating back to 2016. 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, and nonemergent pulmonology follow-up is recommended Venous Doppler unchanged --> chronic DVT. Eliquis to be BID AT DISCHARGE PREVIOUSLY ONLY TAKING ONCE DAILY RUQ negative for acute yanely --> of note though CT with poss renal infarct as well which could be causing discomfort NO FURTHER EPIGASTRIC/CP 06/09 since adding pepcid BID and diflucan for possible esophageal candidiasis No CP 06/11 but did report some choking --. checking brain MRI as above (4) Abdominal pain: Plan: as above less pain in abd and working on BM, but having reflux --> see above, improving but still no significant bowel movement working on BM, encouraged ambulation VERY WORRISOME SYMPTOMS FOR COLON CA AND WILL NEED OUTPATIENT c-SCOPE FOR EVALUATION. Also with pulm nodule requiring follow-up. ?colon-lung metastatic disease? 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 LIKELY PRIOR +infxn [place]/loss of taste now reported at [place] requiring her to not cook the holiday meal Repeat testing x 2 since that lab test both negative discussed with infection control -- discontinued isolation precautions at this time (6) Blood bacterial culture positive: Plan: repeat pending as above, likely not therapeutic vanco for bcx drawn 06/05 monitor (7) Sepsis: Plan: 2nd to pyelo/bacteremia -- urinary source likely given pyelo on CTAP but need to consider UGI source if isolates different but does appear to be same (8) Vertigo: Plan: none reported currently, just feeling weak hx acoustic neuroma -- to have f/u MRI outpatient to see if enlarged per PCP /patient no issues at this time (9) Afib: Plan: hx of such, remains on eliquis BID while inpatient --> review of outpatient prescriptions with rx for 30 pills for month supply which would indicate only 1x/day Also with chronic R LE DVT --> will check b/l venous doppler to ensure no additional DVT, roverto with elevated ddimer last week in ER as well as likely recent covid infection/hypercoag state with such? --> Also with concerns for GI malignancy as above --> eliquis for "DVT" per rheumatology. Venous dopplers with chronic appearing DVT --> Discussed with patient and given afib hx should continue BID dosing given tolerance. DVT likely chronic in nature at this time and not causing increased pain EKG during admission done to r/o afib, not noted on EKG (10) Rheumatoid arthritis: Plan: used to be on methotrexate in the past, currently on sulfasalazine 500mg HS (placed on hold while bacteremic) --> per PCP to take BID but patient only takes once daily. Correct in system --> Follows with Dr Marrufo (11) Pulmonary lesion: Plan: noted on CTA 06/03 11mm ground-glass lesion THAI, unchanged from Jun 2020 and only minimally increased from 2016 appearance typical for low-grade pulm neoplasm and will need non-emergent pulm follow up --> will ask nurse navigator to arrange also messaged GI about need for follow up c-scope. prior done 10-15yrs ago sahil sanchez, with chronic constipation and PCP checked CEA within last week, slightly elevated >2 They will plan to perform upper/lower as outpatient once above resolved --> messaged again today to see if able to possibly consider later this upcoming week Admission and Anticipated Discharge Date Admission Date: June 04, 2021 Supervising Physician Co-Signing Physician Notes Attending note: patient seen and examined with Milagro HOLBROOK. I agree with her assessment and plan. I notified the patient and her about the MRI results: left occipital stroke, right parietal stroke, Schwanoma slightly bigger. Explained we will have neurology see her tomorrow. She is already on Eliquis BID. Discussed the importance of further work up as outpatient for her bacteremia, constipation. Answered all her questions. Subjective patient evaluated this morning sitting up in chair did have some white mucous/phlegm coughed up today, worried about some specks of brown she believes maybe. No nausea. Worries about going home but did move bowels x 2. Still with continued weakness but drinking the boosy. Hx schwanoma and balance issues and since March and started leaning off to the one side when ambulating. Will check MRI for recurrence as scheduled for tomorrow as outpatient to r/o other causes of weakness given treatment of the bacteremia with appropriate agent and new issues swallowing but no vision changes/headache reported. Did have elevated BP overnight. No facial droop or slurred speech. Do have leaning to the right noted though. No further CP/reflux symptoms reported and continued current medications. Review of Systems Review of Systems: All systems reviewed & are unremarkable except as noted in HPI & below Physical Exam Physical Exam: WD, WN female,sitting up in chair, leaning to the right, no acute distress and reported just getting back from bathroom to cough up white phlegm Eyes anicteric, pupils equal and reactive, possible slight R visual field cut ENT: mmm, trachea midline without deviation CV: regular/pacs, +systolic murmur, no edema/calves non-tender, pulses diminished RLE but NVI Resp: CTAB, diminished in the bases/associated crackles, no wheezing/rales, on room air 93% GI: +BS throughout, +distended (much less), minimal generalized tenderness/RUQ tenderness, no further back tenderness to palpation : no [place] MSK/Neuro: moves all extremities, b/l weakness 4/5 throughout, no focal deficit, ?clonus CN intact. +Scoliosis Psych: alert, oriented to person/place/time, pleasant and cooperative but anxious Results & Data Results & Data ([facility]) Vital Signs (Past 12 Hours) Vital Signs Pulse Pulse Resp BP Pulse Ox 06/11/21 07:50 37 L 77 18 152/77 H 93 Laboratory Results 06/11/21 06/11/21 Range/Units 05:49 05:49 WBC 7.68 (4.8-10.8) K/uL RBC 3.87 L (4.2-5.4) M/uL Hgb 13.0 (12.0-16.0) g/dL Hct 38.4 (37-47) % MCV 99.2 (80-100) fL MCH 33.6 (25-34) pg MCHC 33.9 (32-36) g/dL RDW Std Deviation 45.0 (36.4-46.3) fL RDW Coeff of Greg 12.5 (11.5-14.5) % Plt Count 350 (130-400) K/uL MPV 8.4 (7.4-10.4) fL Immature Gran % (Auto) 0.5 % Neut % (Auto) 61.5 % Lymph % (Auto) 18.8 % [place] % (Auto) 17.1 % Eos % (Auto) 1.7 % Baso % (Auto) 0.4 % Neut # (Auto) 4.73 (1.4-6.5) K/uL Lymph # (Auto) 1.44 (1.2-3.4) K/uL [place] # (Auto) 1.31 H (0.11-0.59) K/uL Eos # (Auto) 0.13 (0-0.5) K/uL Baso # (Auto) 0.03 (0-0.2) K/uL Immature Gran # (Auto) 0.04 H (0.00-0.02) K/uL Sodium 135 L (136-145) mmol/L Potassium 3.6 (3.5-5.1) mmol/L Chloride 99 (98-107) mmol/L Carbon Dioxide 26 (21-32) mmol/L Anion Gap 10 (3-11) BUN 8 (6-23) mg/dl Creatinine 0.57 L (0.6-1.2) mg/dl Est Cr Clr Drug Dosing 67.1 ml/min Est GFR ( Amer) 98.7 ml/min Est GFR (Non-Af Amer) 85.1 ml/min BUN/Creatinine Ratio 14.0 (10-20) Glucose 104 H (70-99(Fasting)) mg/dl Calcium 8.6 (8.5-10.1) mg/dl Magnesium 2.1 (1.7-2.4) mg/dl Total Bilirubin 1.0 (0.2-1.0) mg/dl AST 15 (13-39) U/L ALT 10 (7-52) U/L Alkaline Phosphatase 46 (34-104) U/L Total Protein 5.9 L (6.0-8.3) gm/dl Albumin 3.3 L (3.4-5.0) gm/dl Globulin 2.6 (2.5-4.0) gm/dl Albumin/Globulin Ratio 1.3 (0.9-2) Diagnostic Findings KUB X-Ray 06/11/21 08:15 KUB CLINICAL HISTORY: follow up constipation COMPARISON STUDY: CT of the abdomen and pelvis June 06, 2021. KUB June 10, 2021. FINDINGS: Electronic monitoring device is incidentally noted as well as a central venous catheter. There is severe dextroscoliosis of the lower thoracic and upper lumbar spine. The amount of contrast within the stomach has significantly diminished. There is no significant stool within the rectum. There is no evidence for a bowel obstruction. Mild to moderate amount of stool within the colon is noted, slightly decreased. IMPRESSION: 1. No evidence for a bowel obstruction. 2. Moderate to moderate stool within the colon, slightly decreased. ACT 112: Negative or not required by law. Electronically signed by: Khadar Lopez M.D. 06/11/2021 9:35 AM PG Care Time/CCT Total # of Minutes Spent Total Time Spent with Patient: Total time spent is greater than 50% in coordination of care (as documented) at patient's floor/unit and/or counseling patient: Coding Level of Care Code 57256 Subseq Hosp Care Lvl 3 Diagnoses Bacteremia R78.81 Pyelonephritis N12 Chest pain R07.9 Abdominal pain R10.9 Lab test negative for COVID-19 virus Z20.822 Blood bacterial culture positive R78.81 Sepsis A41.9 Sepsis acute organ dysfunction status: without acute organ dysfunction Sepsis type: sepsis due to unspecified organism Vertigo R42 Afib I48.0 Atrial fibrillation type: paroxysmal Rheumatoid arthritis M06.9 Pulmonary lesion J98.4 (1) Afib Atrial fibrillation type: paroxysmal Qualified Code(s): I48.0 - Paroxysmal atrial fibrillation (2) Sepsis Sepsis acute organ dysfunction status: without acute organ dysfunction Sepsis type: sepsis due to unspecified organism Qualified Code(s): A41.9 - Sepsis, unspecified organism
--- NOTE | 2021-06-11 09:37 | XRay Report ---
KUB CLINICAL HISTORY: follow up constipation COMPARISON STUDY: CT of the abdomen and pelvis June 06, 2021. KUB June 10, 2021. FINDINGS: Electronic monitoring device is incidentally noted as well as a central venous catheter. Th ere is severe dextroscoliosis of the lower thoracic and upper lumbar spine. The amount of contrast wi thin the stomach has significantly diminished. There is no significant stool within the rectum. There is no evidence for a bowel obstruction. Mild to moderate amount of stool within the colon is noted, slightly decreased. IMPRESSION: 1. No evidence for a bowel obstruction. 2. Moderate to moderate stool within the colon, slightly decreased. ACT 112: Negative or not required by law. Electronically signed by: Khadar Lopez M.D. 06/11/2021 9:35 AM
[2021-06-11] MEDS: FAMOTIDINE 20 MG TAB PO SCH ×2 (09:47→21:14)
[2021-06-11] MEDS: APIXABAN 5 MG TABLET PO SCH ×2 (09:47→21:13)
[2021-06-11] MEDS: FLUCONAZOLE 100 MG TAB PO SCH (09:48)
[2021-06-11] MEDS: SUCRALFATE 1 GM/10 ML UDC PO SCH ×4 (09:48→21:12)
[2021-06-11] MEDS: FLUTICASONE/VILANTEROL 100/25MCG 14 PUFFS/INHALER INH SCH (09:49)
[2021-06-11] MEDS: CEROVITE ADV FORMULA TAB PO SCH (09:49)
[2021-06-11] MEDS: DOCUSATE SODIUM/SENNA 50/8.6MG TAB PO SCH (09:49)
[2021-06-11] MEDS: PANTOprazole 40 MG TAB PO SCH ×2 (09:50→21:12)
[2021-06-11] MEDS ORDERED: GADOBUTROL 30ML VIAL IV ONE (12:40)
--- NOTE | 2021-06-11 13:15 | Magnetic Resonance Report ---
MRI OF THE BRAIN INTERNAL AUDITORY CANAL PROTOCOL CLINICAL HISTORY: weakness, sepsis, new onset dizziness. History of schwannoma s/p gamma knife. COMPARISON STUDY: MRI of the brain, head CT and CTA of the head April 08, 2018. TECHNIQUE: Utilizing a 1.5 Esthela magnet and dedicated coil, multiplanar, multiecho imaging of the br ain was performed pre and postcontrast administration with thin cut imaging through the internal mirna tory canals. IV administration of 6.5 mL of Gadavist contrast was uneventful. FINDINGS: Note is made of a 7 mm focus of restricted diffusion within the inferior left occipital lob e on image 8 of . This represents a small acute infarct. No additional foci of restricted diffusion are present. Ventricular system is unremarkable. Basal cisterns are patent. There are no extra-axial collections. Flow-voids for the major intracranial vessels are present. White matter T2 hyperintense foci suggest small vessel disease. An enhancing lesion within the left internal auditory canal has i ncreased in size since MRI of April 08, 2018. This mass now measures 1.3 x 0.7 cm. It previously m easured 0.8 x 0.4 cm. This extends from the skull base foramen. A new 0.8 x 0.4 cm enhancing focus wi thin the right posterior parietal lobe shown best on coronal T1 postcontrast image 21 of is noted. This has mild inherent T1 hyperintensity. There is mild adjacent T2 hyperintensity. Calvarial signal is within normal limits. Orbits are unremarkable. There are postoperative findings within the sinuse s. IMPRESSION: 1. 7 mm focus of restricted diffusion within the inferior left occipital lobe consistent with a small acute infarct. No mass effect or acute hemorrhage. 2. 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 This mass now measures 1.3 x 0.7 cm. It previo usly measured 0.8 x 0.4 cm on MRI of April 08, 2018. 3. New 0.8 x 0.4 cm enhancing intra-axial focus within the posterior right parietal lobe. This is non specific however favor a subacute infarct. Associated T1 hyperintensity could reflect trace blood pro ducts or laminar necrosis. A neoplastic etiology is within the differential but considered less likel y. A follow-up MRI of the brain with and without contrast in 3 months to ensure resolution is recomme nded. ACT 112: Negative or not required by law. Electronically signed by: Khadar Lopez M.D. 06/11/2021 1:14 PM
[2021-06-11] MEDS: POTASSIUM CHLORIDE 10 MEQ TABCR PO SCH (21:12)
[2021-06-11] MEDS: FOLIC ACID 1 MG TAB PO SCH (21:12)
[2021-06-11] MEDS: clonazePAM 0.5 MG TAB PO PRN (21:12)
[2021-06-11] MEDS: CHOLECALCIFEROL 1,000 UNITS 25 MCG TAB PO SCH (21:13)
[2021-06-11] MEDS: METOPROLOL SUCC 50MG EXT REL TAB PO SCH (21:13)
[2021-06-11] MEDS: PRAMIPEXOLE DIHYDROCHLO 0.5 MG TAB PO SCH (21:13)
[2021-06-11] MEDS: SPIRONOLACTONE 25 MG TAB PO SCH (21:13)
[2021-06-12] MEDS: AMPICILLIN 2,000 MG in SODIUM CHLOR 0.9% AD-VAN 100 ML IV SCH ×7 (00:10→23:55)
[2021-06-12] MEDS: SUCRALFATE 1 GM/10 ML UDC PO SCH ×4 (09:34→20:16)
[2021-06-12] MEDS: APIXABAN 5 MG TABLET PO SCH ×2 (09:34→20:14)
[2021-06-12] MEDS: FAMOTIDINE 20 MG TAB PO SCH ×2 (09:34→20:16)
[2021-06-12] MEDS: FLUTICASONE/VILANTEROL 100/25MCG 14 PUFFS/INHALER INH SCH (09:34)
[2021-06-12] MEDS: FLUCONAZOLE 100 MG TAB PO SCH (09:34)
[2021-06-12] MEDS: CEROVITE ADV FORMULA TAB PO SCH (09:34)
[2021-06-12] MEDS: PANTOprazole 40 MG TAB PO SCH ×2 (09:34→20:15)
[2021-06-12] MEDS: DOCUSATE SODIUM/SENNA 50/8.6MG TAB PO SCH (09:34)
--- NOTE | 2021-06-12 10:14 | Hospitalist Progress Note ---
Date of Service June 12, 2021 Assessment & Plan (1) Acute ischemic stroke: Plan: 7mm focus in left posterior occipital lobe [id number] focus in right parietal lobe, this favors subacute stroke noted that she was only taking Eliquis once daily prior to admission which is not prophylactic dose for afib some question as whether she has afib, has followed with Dr. Thomason current complaint is dizziness, some numbness in left fingers (but she had carpal tunnel surgery on that wrist) findings were incidental, MRI was done to evaluate Schwannoma which was chronic issue consult neurology for their recommendations Dr. Barrera recommends aspirin and continue Eliquis he recommends close follow up with neurosurgeon about the Schwannoma will need PT/OT (2) Bacteremia: Plan: Blood cultures from ER 06/03 with gram positive cocci in chains, UTI with enterococcus from prior urine * Rx for levaquin at that time. had just completed 10 days cipro prior to that per and of note completed a 2wk course of doxycycline in april for tick bites and admitted not to taking with full glass water/reflux symptoms and outpatient EGD was arranged to occur on Saturday of this past week BCx ENTEROCOCCUS FAECALIS, numerous cultures remained positive ID consulted --> likely could be from urinary source but if identification not same, could just as likely have come from UGI tract. Presumed high grade/pe rsistent nature of bacteremia and assumed endocarditis CTAP obtained 06/06 for worsening pain --> 3.9 cm hypoenhancing focus within the upper pole of the right kidney. Given the clinical history, this favors pyelonephritis. A renal infarct could appear similar although is considered less likely. No renal abscess. On AMpicillin (day 6). Blood cultures from 06/07 remain NGTD MATILDE without vegetation, however discussed with Dr Aleman and concerned given persistent + bcx and would likely favor 6wks IV therapy. Continued concern for GI pathology however GI continues to plan outpatient eval --> Will complete 6 weeks Ampicillin --> PICC line placed 06/09. CM aware. Able to start care on Saturday, but d/c fluids today and see if able to keep up with oral/bowel regimen (have been using miralax/colace/senna/mineral enema/fleet enema/mag citrate) t --> NO further fevers/leukocytosis. --> GI added added Pepcid BID in addition to the increase in PPI to BID/Carafate (prior egd 2018 esophagitis, no barretts, also w large hiatal hernia). Diflucan added given recent abx as well. Also concerns for esophagitis from recent doxycy craig use C.diff if having diarrhea --> checked during stay and was negative Nutrition on consult -- boost supplements provided Monitor off IVF/if able to keep up with oral intake can consider d/c tomorrow but suspect will be inpatient through Saturday. IV abx already arranged/CM following plan to discharge to home tomorrow with home Amoxicillin, complete 6 weeks (3) Pyelonephritis: Plan: As above, urology consulted -- continued current plan with Amoxicillin (4) Chest pain: Plan: Trop negative on admission. Did not report CP to me, however did note for nursing in afternoon previously. Trop again negative on repeat --> sounds more like esophagitis/reflux in nature. improved with PPI BID, addition of carafate but having some increased discomfort --> reached back out to GI --> added pepcid BID and diflucan for empiric esophageal cadidiasis given recent abx use. checking h.pylori antigen as well --> did just complete course of doxy for tick bite April of now and has large hiatal hernia CT Chest from 3 days ago in ER given +ddimer 1. There is no evidence of pulmonary embolus in the main, lobar, or segmental pulmonary arteries. 2. Dependent airspace opacities could represent atelectasis versus a mild infectious/inflammatory pneumonitis. Clinical correlation will be required. 3. Moderate to severe spinal scoliosis is similar to previous and distorts the thoracic cage. 4. Again seen is an 11 mm groundglass lesion in the left upper lobe. This is unchanged from 06/25/2020 and only minimally increased in size dating back to 2016. 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, and nonemergent pulmonology follow-up is recommended NO FURTHER EPIGASTRIC/CP 06/09 since adding pepcid BID and diflucan for possible esophageal candidiasis (5) Abdominal pain: Plan: as above less pain in abd and working on BM, but having reflux --> see above, improving but still no significant bowel movement working on BM, encouraged ambulation will need aggressive bowel regimen last colonoscopy was 10-12 years ago, was clean plan for endoscopic evaluation in 4-6 weeks (6) Lab test negative for COVID-19 virus: Plan: IgM/IgG positive -- could have been from immune response vs prior infection, but no need for isolation. 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 --> Also with concerns for GI malignancy as above --> eliquis for "DVT" per rheumatology. Venous dopplers with chronic appearing DVT --> Discussed with patient and given afib hx should continue BID dosing given tolerance. DVT likely chronic in nature at this time and not causing increased pain EKG during admission done to r/o afib, not noted on EKG (11) Rheumatoid arthritis: Plan: used to be on methotrexate in the past, currently on sulfasalazine 500mg HS (placed on hold while bacteremic) --> per PCP to take BID but patient only takes once daily. Correct in system --> Follows with Dr Marrufo (12) Pulmonary lesion: Plan: noted on CTA 06/03 11mm ground-glass lesion THAI, unchanged from Jun 2020 and only minimally increased from 2016 appearance typical for low-grade pulm neoplasm and will need non-emergent pulm follow up --> will ask nurse navigator to arrange also messaged GI about need for follow up c-scope. prior done 10-15yrs ago [facility], with chronic constipation and PCP checked CEA within last week, slightly elevated >2 They will plan to perform upper/lower as outpatient once above resolved --> messaged again today to see if able to possibly consider later this upcoming week Plan: discharge to home tomorrow Admission and Anticipated Discharge Date Admission Date: June 04, 2021 Subjective patient doing okay, had some more dizziness this morning, has a gagging sensation when eating sometimes no fever/chills, no dyspnea, no chest pain today still with constipation but she is passing flatus I discussed the diagnosis of stroke with Dr. Barrera, appreciate his input, will add aspirin and the Eliquis BID he recommends follow up with the patient's neurosurgeon at [place] as the acoustic neuroma has increased in size I had a long discussion with patient and her in the afternoon discussed all this issues going on with her bacteremia, UTI, constipation, gagging, dizziness discussed that there are several issues, not sure they are related will need follow up with neurosurgery will need endoscopic evaluation, I spoke with Dr. Saab and he recommends 4-6 weeks from discharge given her strokes will need to complete the 6 weeks of Ampicillin IV I will meet with them again tomorrow and plan for discharge Review of Systems Review of Systems: All systems reviewed & are unremarkable except as noted in Subjective Physical Exam Physical Exam: General: well developed, well nourished, no acute distress, comfortable Neck: supple, trachea midline, normal thyroid Lungs: clear to auscultation bilaterally, normal respiratory effort, no a ccessory muscle use, no distress Heart: regular S1 and S2, no murmur, peripheral pulses normal, capillary refill normal, no edema Abdomen: soft, NT, ND, + BS, no hepatomegaly, normal to percussion Extremities: normal in appearance, no cyanosis, no petechiae, strength is 5/5 bilaterally Neuro: awake, cooperative, moves all extremities, no focal motor deficits, CN II-XII intact, sensation in extremities intact, normal speech Skin: warm, dry, no rash, normal turgor Psych: Awake, alert oriented x 3, euthymic affect Results & Data Results & Data ([facility]) Vital Signs (Past 12 Hours) Vital Signs Temp Pulse Resp BP Pulse Ox 06/12/21 07:49 36.5 C 83 12 131/74 95 06/11/21 22:32 36.7 C Laboratory Results Laboratory Results - last 24 hr 06/09/21 06/09/21 06:49 06:49 Stool H. pylori Ag SEE NOTE Giardia Antigen SEE NOTE Medications Administered Current Inpatient Medications Acetaminophen (Acetaminophen 325 Mg Tab) 650 mg PO Q6H PRN PRN Reason: pain fever or headache Stop: 07/04/21 13:59 Albuterol (Albuterol Hfa 8 Gm Inhaler) 2 - 4 puffs INH Q6R PRN PRN Reason: Shortness Of Breath Or Wheezing Stop: 07/04/21 13:23 Apixaban (Apixaban 5 Mg Tablet) 5 mg PO BID [facility] Stop: 07/04/21 20:59 Last Admin: 06/12/21 09:34 Dose: Not Given Documented by: Bisacodyl (Bisacodyl 10 Mg Supp) 10 mg DE DAILY PRN PRN Reason: Constipation Stop: 07/05/21 18:00 Last Admin: 06/07/21 01:42 Dose: 10 mg Documented by: Clonazepam (Clonazepam 0.5 Mg Tab) 0.5 mg PO HS PRN PRN Reason: Anxiety Stop: 07/06/21 17:58 Last Admin: 06/11/21 21:12 Dose: 0.5 mg Documented by: Epinephrine HCl (Epinephrine Inj 1 Mg/Ml Amp) 1 mg IM Q3H PRN PRN Reason: Anaphylaxis Stop: 07/04/21 13:53 Famotidine (Famotidine 20 Mg Tab) 20 mg PO BID [facility] Stop: 07/08/21 20:59 Last Admin: 06/12/21 09:34 Dose: Not Given Documented by: Fluconazole (Fluconazole 100 Mg Tab) 200 mg PO QAM [facility]; Protocol Stop: 06/29/21 09:01 Last Admin: 06/12/21 09:34 Dose: Not Given Documented by: Fluticasone/Vilanterol (Fluticasone/Vilanterol 100/25mcg 14 Puffs/Inhaler) 1 puffs INH DAILY [facility] Stop: 07/04/21 13:59 Last Admin: 06/12/21 09:34 Dose: Not Given Documented by: Folic Acid (Folic Acid 1 Mg Tab) 1 mg PO HS [place] Stop: 07/04/21 20:59 Last Admin: 06/11/21 21:12 Dose: 1 mg Documented by: Heparin Sodium (Beef Lung) (Heparin 10 Unit/Ml 5 Ml Flush) 5 ml FLUSH PRN PRN PRN Reason: Flush Stop: 07/08/21 10:21 Last Admin: 06/12/21 09:51 Dose: 5 ml Documented by: Ampicillin Sodium 2,000 mg/ (Sodium Chloride) 100 mls @ 200 mls/hr IV Q4 [place] Stop: 06/20/21 15:59 Last Infusion: 06/12/21 09:51 Dose: Infused Documented by: Lidocaine HCl (Lidocaine Viscous 2% 15 Ml Udc) 15 ml MT PRN PRN PRN Reason: odynophagia Stop: 07/05/21 17:57 Melatonin (Melatonin 3 Mg Tab) 6 mg PO HS PRN PRN Reason: Sleep Stop: 07/04/21 13:36 Metoprolol Succinate (Metoprolol Succ 50mg Ext Rel Tab) 50 mg PO HS [place] Stop: 07/04/21 20:59 Last Admin: 06/11/21 21:13 Dose: 50 mg Documented by: Morphine Sulfate (Morphine Sulfate 2 Mg/Ml Carp) 1 mg IV Q4H PRN PRN Reason: Pain Stop: 06/20/21 06:15 Last Admin: 06/06/21 21:53 Dose: 1 mg Documented by: Multivitamins/Minerals (Cerovite Adv Formula Tab) 1 tab PO QAM [facility] Stop: 07/10/21 12:59 Last Admin: 06/12/21 09:34 Dose: Not Given Documented by: Ondansetron HCl (Ondansetron Inj 2 Mg/Ml 2 Ml Vial) 4 mg IV Q6H PRN PRN Reason: Nausea And Vomiting Stop: 07/04/21 13:23 Last Admin: 06/06/21 04:38 Dose: 4 mg Documented by: Pantoprazole Sodium (Pantoprazole 40 Mg Tab) 40 mg PO BID [place] Stop: 07/07/21 20:59 Last Admin: 06/12/21 09:34 Dose: Not Given Documented by: Potassium Chloride (Potassium Chloride 10 Meq Tabcr) 10 meq PO HS [facility] Stop: 07/04/21 20:59 Last Admin: 06/11/21 21:12 Dose: 10 meq Documented by: Pramipexole Dihydrochloride (Pramipexole Dihydrochlo 0.5 Mg Tab) 0.5 mg PO [facility] Stop: 07/04/21 20:59 Last Admin: 06/11/21 21:13 Dose: 0.5 mg Documented by: Senna/Docusate Sodium (Docusate Sodium/Senna 50/8.6mg Tab) 1 tab PO QAM [facility] Stop: 07/06/21 08:59 Last Admin: 06/12/21 09:34 Dose: Not Given Documented by: Spironolactone (Spironolactone 25 Mg Tab) 50 mg PO [facility] Stop: 07/04/21 20:59 Last Admin: 06/11/21 21:13 Dose: 50 mg Documented by: Sucralfate (Sucralfate 1 Gm/10 Ml Udc) 1 gm PO QID [facility] Stop: 07/05/21 12:59 Last Admin: 06/12/21 09:34 Dose: Not Given Documented by: Sulfasalazine (Sulfasalazine 500 Mg Tablet) 500 mg PO [facility] Stop: 07/04/21 20:59 Last Admin: 06/04/21 21:46 Dose: Not Given Documented by: Tramadol HCl (Tramadol Hcl 50 Mg Tablet) 25 mg PO Q4H PRN PRN Reason: Pain Stop: 07/05/21 17:29 Vitamin D (Cholecalciferol 1,000 Units 25 Mcg Tab) 1,000 units PO [facility] Stop: 07/04/21 20:59 Last Admin: 06/11/21 21:13 Dose: Not Given Documented by: PG Care Time/CCT Total # of Minutes Spent Total Time Spent: 65 Total Time Spent with Patient: Total time spent is greater than 50% in coordination of care (as documented) at patient's floor/unit and/or counseling patient: 25 minutes with patient and her in the afternoon answering questions 15 minutes reviewing chart and documentation 15 minutes this morning on initial examination and visit with patient [address] Barrera and Dr. Saab Prolonged Care Time Prolonged Care Time: Yes Total Prolonged Care Time: 35 Coding Level of Care Code 32713 Subseq Hosp Care Lvl 3 (25 - SIGNIFICANT, SEPARATELY IDENTIFIABLE ) Diagnoses Bacteremia R78.81 Pyelonephritis N12 Chest pain R07.9 Abdominal pain R10.9 Lab test negative for COVID-19 virus Z20.822 Blood bacterial culture positive R78.81 Sepsis A41.9 Sepsis acute organ dysfunction status: without acute organ dysfunction Sepsis type: sepsis due to unspecified organism Vertigo R42 Afib I48.0 Atrial fibrillation type: paroxysmal Rheumatoid arthritis M06.9 Pulmonary lesion J98.4 Acute ischemic stroke I63.9 Additional Codes Prolonged Care Time - Prolonged Care Time: Yes ([id number]) (1) Afib Atrial fibrillation type: paroxysmal Qualified Code(s): I48.0 - Paroxysmal atrial fibrillation (2) Sepsis Sepsis acute organ dysfunction status: without acute organ dysfunction Sepsis type: sepsis due to unspecified organism Qualified Code(s): A41.9 - Sepsis, unspecified organism
--- NOTE | 2021-06-12 11:37 | Neurology Consultation ---
Date of Consultation June 12, 2021 Assessment & Plan (1) Acute ischemic stroke: (2) Left acoustic neuroma: (3) Sepsis: Patient has a history of a relatively recent small left occipital stroke ( without obvious clinical accompaniment ) and a possible subacute right parietal stroke which has some enhancement. This 2nd lesion possibly could be a tumor but is considered less likely. There is no edema surrounding it. The etiology of the stroke is likely small vessel ischemic disease. Patient has a left acoustic neuroma. It is increasing in size some compare to 2018. apparently she had an MRI at [place] this past December and I do not have a comparison. She is followed closely by Dr. Lyle, [place] neurosurgeon. This creates hearing loss and balance issues ( falling to the left ). It could also give tinnitus or vertiginous symptoms as well. Recommendations: 1. Consider initiating 81 mg aspirin tablet daily to prevent small vessel ischemic disease. 2. She is to be on Eliquis twice daily. 3. Follow-up with Dr. Lyle, neurosurgeon at [facility] regarding the acoustic neuroma on the left which is growing. He would need to see these recent MRI films and report 4. increase activity as able with physical and occupational therapy. She may need a 4 wheeled walker or use to walking sticks for balance support. 5. Otherwise follow up with Dr. Morton As an outpatient. Overall, I spent a total of 60 minutes with this case including review of r ecords, review of MRI films, direct evaluation the patient at bedside, and discussion of the case with the patient at bedside, RN at bedside, and Dr. Martinez, including differential diagnosis and treatment options. History of Present Illness Reason for Consultation: patient is an 86-year-old, who I was asked to see at the request of Dr. Martinez, for neurologic consultation regarding stroke and other issues Requesting Physician: Dr. Martinez Attending Physician: Flex Martinez, DO History of Present Illness this patient has a longstanding history of significant lumbar spinal stenosis, as well as migraine equivalent/vasospastic episodes, and history of intermittent atrial fibrillation. She also has a history of hypertension and dyslipidemia. She is followed closely by Dr. Morton and Dr. Thomason. She is post be on Eliquis twice daily but has only been taking it once a day. Patient has a history of left acoustic neuroma status post gamma knife treatment at [place] in 2017. it was diagnosed in 2016 because she has chronic hearing loss on the left. I saw her in March of 2018 for acute onset balance issues and fall. MRI did not show a stroke. Patient was admitted June 04 with abdominal pain and sepsis From enterococcus faecalis. Currently she is on IV ampicillin. 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 The MRI on June 11 revealed a small left occipital stroke of an acute nature. There was a right parietal enhancing lesion of the small nature which was most likely a subacute stroke ( versus, less likely, tumor or met). The patient herself has not had any new vision issues although she gives a longstanding history of left eye visual distortions and "blackouts" for which she sees Ophthalmology. In addition the vestibular tumor was growing compared to a previous study of 2018. It is now 1.3 X 0.7cm (previously 0.8 X 0.4). She is followed by Dr. Lyle at [facility] and apparently had an MRI in December of this last year in [place]. Recent CBC and Chem profile were unremarkable. Allergies Allergy/AdvReac Type Severity Reaction Status Date / Time bee venom protein (honey bee) Allergy Severe Anaphylaxis Verified 06/03/21 11:28 . sulfamethoxazole Allergy Severe ANAPHYLAXIS Verified 06/03/21 11:28 trimethoprim Allergy Severe ANAPHYLAXIS Verified 06/03/21 11:28 cephalexin Allergy Intermediate RASH Verified 06/03/21 11:28 Cephalosporins Allergy Intermediate KEFLEX - Verified 06/10/21 11:19 RASH Penicillins Allergy Intermediate LIPS Verified 06/03/21 11:28 SWELLING Swhgzfv-[id number]-[id number] Reductase Allergy Intermediate Rash Verified 06/03/21 11:28 Inhibitor [Qbderxb-Vgd-Qzu Reductase Inhibitor] Bactrim Allergy Unknown ANAPHYLAXIS Verified 04/10/17 08:31 Home Medications Medication Instructions Recorded Confirmed Type albuterol sulfate 90 mcg/actuation 2 - 4 puff INHALATION Q6H PRN 04/08/18 06/04/21 History aerosol inhaler (Ventolin HFA) cholecalciferol (vitamin D3) 25 1,000 unit PO HS 04/08/18 06/04/21 History mcg (1,000 unit) capsule (Vitamin D3) epinephrine 0.3 mg/0.3 mL 0.3 mg IM Q3H PRN 04/08/18 06/04/21 History injection, auto-injector (EpiPen) metoprolol succinate 50 mg 50 mg PO HS 04/08/18 06/04/21 History tablet,extended release 24 hr pantoprazole 40 mg tablet,delayed 40 mg PO HS 04/08/18 06/04/21 History release potassium chloride 10 mEq 10 meq PO HS 04/08/18 06/04/21 History capsule,extended release spironolactone 50 mg tablet 50 mg PO HS 04/08/18 06/04/21 History folic acid 1 mg tablet 1 mg PO HS 01/07/19 06/04/21 History pramipexole 0.5 mg tablet 0.5 mg PO HS 12/23/19 06/04/21 History sulfasalazine 500 mg tablet 500 mg PO HS 03/03/20 06/04/21 History fluticasone furoate 100 1 inh INHALATION 2XWK 04/29/21 06/04/21 History mcg-vilanterol 25 mcg/dose inhalation powder (Breo Ellipta) apixaban 5 mg (74 tabs) tablets in 5 mg PO HS 06/02/21 06/04/21 History a dose pack (Eliquis) levofloxacin 250 mg tablet 250 mg PO DAILY 5 Days #5 tab 06/03/21 06/04/21 Rx melatonin 5 mg tablet 5 mg PO HS PRN 06/03/21 06/04/21 History Patient History Medical History 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 > has had no issues for over 3 yrs per pt > has loop recorder > follows with Dr. Doherty COVID-19 virus detected from blood test on 06/01/21> awaiting result of nasal swab from 06/02/21 DVT (deep venous thrombosis) right leg > Jan 2021> no known cause > Eliquis for this Hiatal hernia growing per pt> reason for procedure on 06/05/21 History of anesthesia reaction reports had atelectasis after shoulder surgery History of rheumatoid arthritis Hx: UTI (urinary tract infection) none at present Hyperlipidemia Hypertension Interstitial lung disease Mild chronic obstructive pulmonary disease well controlled per pt, rare res inh use Obstructive sleep apnea syndrome no longer using cpap Restless leg syndrome Scoliosis Status post gamma knife treatment for acoustic neuroma to left side > 3 yrs ago Transient ischemic attack (TIA) 15 yrs ago > no residual effects Urinary frequency Surgical History H/O rotator cuff surgery right History of carpal tunnel release left History of colonoscopy History of endoscopic sinus surgery History of hysterectomy History of tonsillectomy History of tooth extraction Family History Mother , age 99 with no specific significant medical problems. No problems noted. Father , age 32 in a WWII plane accident No problems noted. 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 of [employer] Feels Safe at Home: Yes Assistive Devices: Glasses Review of Systems Constitutional: no fever, no fatigue and no weakness Eyes: no diplopia, no eye pain and no worsening vision Ear, Nose, Mouth, Throat: + hearing loss and + dizziness; no ear pain, no tinnitus, no snoring, no hoarseness and no dysphagia Respiratory: no cough and no dyspnea Cardiovascular: no chest pain, no palpitations and no lightheadedness Gastrointestinal: no abdominal pain, no nausea and no vomiting Genitourinary: no dysuria, no urinary frequency and no urinary incontinence Musculoskeletal: + back pain; no neck pain, no radicular pain, no joint pain and no myalgia Integumentary: no rash and no lesions Neurologic: + gait abnormality; no localized weakness, no generalized weakness, no tingling, no numbness, no tremor(s), no abnormal movements, no headache(s), no abnormal speech, no confusion and no memory loss Psychiatric: no depression, no irritability, no anxiety, no difficulty concentrating, no confusion and no hallucinations Endocrine: no fatigue and no flushing Hematologic / Lymphatic: no easy bleeding and no easy bruising Allergy / Immunological: no urticaria and no problem reported Exam (Neuro) Physical Exam: The patient is right-handed. The patient is awake, alert, and attentive. Speech is normal without any aphasia or dysarthria. The patient can name objects, repeat phrases, and has normal spontaneous speech. Mentation and thought processes are intact, with orientation to person, place and time, and normal fund of knowledge. Attention and concentration are normal. Mood and affect are normal and appropriate. General appearance and grooming are normal. Short and long-term memory are intact. Pupils are 3mm bilaterally and reactive to light. Extraocular eye muscles are intact without nystagmus. Visual acuity and visual joshi seem normal grossly to confrontation. There are no deficits to sensation in the face in all 3 distributions of the fifth cranial nerve bilaterally. Corneal reflexes are positive bilaterally. Facial strength and symmetry was normal bilaterally. Hearing seems normal bilaterally. Palate moves well without asymmetry. There is normal sternocleidomastoid and trapezius (shoulder shrug) strength bilaterally. Tongue is midline with good strength bilaterally. Neck has a full range of motion without discomfort. There are no cervical bruits bilaterally. There are no cranial or ocular bruits. Heart is without murmur. There is a regular rhythm and rate. Cervical, thoracic, and lumbar spine are nontender to palpation. Gait was not tested but stance sitting up in bed is normal. With outstretched arms there is no drift. There are no resting, postural, or action tremors. There is no ataxia with finger to nose testing. There is good facility in the hands. No other abnormal involuntary movements are noted. Motor strength is 5/5 diffusely in the arms bilaterally including deltoids, biceps, triceps, brachioradialis, wrist flexors and extensors, inventory control coordinator, and intrinsic hand muscles. Motor strength is 5/5 diffusely in the legs bilaterally including hip flexors, quadriceps, hamstrings, gastrocnemius, tibialis anterior, tibialis posterior, and Peroneii muscles. Toe extensors are normal and there is good bulk in the extensor digitorum brevis muscles bilaterally. The limbs have good tone without rigidity or spasticity. There is no atrophy noted in the muscles. Muscle bulk is normal, there is no tenderness to palpation, no myotonia to percussion, and no fasciculations seen. Sensory examination is intact to touch and pin throughout all 4 limbs diffusely. Reflexes are 0/4 in the biceps, triceps, brachioradialis, quadriceps, and Achilles tendons bilaterally. There is no clonus bilaterally. Toes are downgoing with plantar stimulation bilaterally. Peripheral pulses are present and of normal quality distally in all 4 limbs. There is no peripheral edema noted in the limbs. Results & Data ([facility]) Vital Signs (Past 12 Hours) Vital Signs Temp Pulse Resp BP Pulse Ox 06/12/21 07:49 36.5 C 83 12 131/74 95 PG Care Time/CCT Total # of Minutes Spent Total Time Spent with Patient: Total time spent is greater than 50% in coordination of care (as documented) at patient's floor/unit and/or counseling patient: Coding Level of Care Code 69272 Initial Inpt Care Lvl 3 Diagnoses Acute ischemic stroke I63.9 Sepsis A41.9 Sepsis acute organ dysfunction status: without acute organ dysfunction Sepsis type: sepsis due to unspecified organism Left acoustic neuroma D33.3 (1) Sepsis Sepsis acute organ dysfunction status: without acute organ dysfunction Sepsis type: sepsis due to unspecified organism Qualified Code(s): A41.9 - Sepsis, unspecified organism
[2021-06-12] MEDS: PRAMIPEXOLE DIHYDROCHLO 0.5 MG TAB PO SCH (20:14)
[2021-06-12] MEDS: POTASSIUM CHLORIDE 10 MEQ TABCR PO SCH (20:14)
[2021-06-12] MEDS: clonazePAM 0.5 MG TAB PO PRN (20:14)
[2021-06-12] MEDS: SPIRONOLACTONE 25 MG TAB PO SCH (20:15)
[2021-06-12] MEDS: METOPROLOL SUCC 50MG EXT REL TAB PO SCH (20:15)
[2021-06-12] MEDS: CHOLECALCIFEROL 1,000 UNITS 25 MCG TAB PO SCH (20:16)
[2021-06-12] MEDS: FOLIC ACID 1 MG TAB PO SCH (20:16)
[2021-06-13] MEDS: AMPICILLIN 2,000 MG in SODIUM CHLOR 0.9% AD-VAN 100 ML IV SCH ×4 (03:59→17:01)
[2021-06-13] MEDS: DOCUSATE SODIUM/SENNA 50/8.6MG TAB PO SCH (08:03)
[2021-06-13] MEDS: APIXABAN 5 MG TABLET PO SCH (08:03)
[2021-06-13] MEDS: FLUCONAZOLE 100 MG TAB PO SCH (08:04)
[2021-06-13] MEDS: FAMOTIDINE 20 MG TAB PO SCH (08:04)
[2021-06-13] MEDS: PANTOprazole 40 MG TAB PO SCH (08:05)
[2021-06-13] MEDS: CEROVITE ADV FORMULA TAB PO SCH (08:05)
[2021-06-13] MEDS: FLUTICASONE/VILANTEROL 100/25MCG 14 PUFFS/INHALER INH SCH (08:05)
[2021-06-13] MEDS: SUCRALFATE 1 GM/10 ML UDC PO SCH ×2 (08:06→12:48)
[2021-06-13] MEDS ORDERED: ASPIRIN 81 MG ECTAB PO SCH (09:00)
--- NOTE | 2021-06-13 15:55 | Discharge Summary ---
Date of Service June 13, 2021 Admission HPI Per Admitting Provider This is an 86-year female who was seen in the emergency department yesterday secondary to atypical chest pain. During this visit the patient had labs and imaging which I reviewed. CBC revealed her white blood cell count, hemoglobin, hematocrit, and platelet count are all within normal range. Chemistry profile showed that patient's sodium, potassium, BUN, and creatinine were all within normal range. She was noted to have an elevated D-dimer and she has reported a history of a fairly recent COVID-19 infection, thus prompting a CT scan of her chest. This study showed the patient had no evidence of pulmonary emboli however she was noted to have findings of a basilar pneumonitis. In addition she was noted to have an 11 mm groundglass opacity in the left upper lobe. She does describe chest discomfort in her lower chest bilaterally that is worse with deep inspirations. In addition the patient says that she had a CT scan of the abdomen on 06/01/2021 ordered by her primary care physician. This study was reviewed and showed the patient had a hiatal hernia and a distended gallbladder without findings concerning for cholecystitis. No other abnormalities were noted on the study. An EKG was also performed and showed normal sinus rhythm without any changes indicative of acute ischemia. Patient was discharged home. During patient's aforementioned emergency room visit the patient did have blood cultures checked and these cultures came back positive for gram-positive cocci in chains and she was therefore called back to the emergency department as was felt she may require admission for IV antibiotics. I visited with the patient at the bedside and she denies any fevers, shakes, chills. She denies any history of diabetes or history of foot wounds. She does note that she did have a skin infection in April as she got bit by a tick but this has since resolved. She also notes that she had a recent urinary tract infection. Her chart was reviewed and on 05/31/2021 the patient did have a urine culture positive for Enterococcus faecalis.This culture did show that the organism was sensitive to vancomycin. At the present time she denies any dysuria or urinary frequency. She also denies any abdominal pain or nausea or vomiting. She currently denies any sore throat or neck pain. She continues to have nonspecific chest discomfort with deep inspirations. Today in the emergency department the treating emergency room physician did order repeat labs where her white blood cell count was normal. Her hemoglobin, hematocrit, and platelet count all remain normal. Her INR is noted to be within normal range. Chemistry profile today showed sodium was 135. Potassium, and BUN are noted to be normal. Her creatinine is actually low at 0.5. A COVID test was performed today and was noted to be negative. An EKG was performed that showed normal sinus rhythm without changes indicative of acute ischemia. The treating emergency room physician has initiated antibiotics in the form of vancomycin. We have been asked to see for admission. At the time of my interview the patient was resting comfortably in bed and she was in no distress Principal Diagnosis Bacteremia UTI, pyelonephritis Subacute bilateral ischemic strokes Change in bowel habits, constipation Discharge Exam General: well developed, well nourished, no acute distress, comfortable Neck: supple, trachea midline, normal thyroid Lungs: clear to auscultation bilaterally, normal respiratory effort, no accessory muscle use, no distress Heart: regular S1 and S2, no murmur, peripheral pulses normal, capillary refill normal, no edema Abdomen: soft, NT, ND, + BS, no hepatomegaly, normal to percussion Extremities: normal in appearance, no cyanosis, no petechiae, strength is 5/5 bilaterally Neuro: awake, cooperative, moves all extremities, no focal motor deficits, CN II-XII intact, sensation in extremities intact, normal speech Skin: warm, dry, no rash, normal turgor Psych: Awake, alert oriented x 3, euthymic affect Discharge Data Allergies Allergy/AdvReac Type Severity Reaction Status Date / Time bee venom protein (honey bee) Allergy Severe Anaphylaxis Verified 06/03/21 11:28 . sulfamethoxazole Allergy Severe ANAPHYLAXIS Verified 06/03/21 11:28 trimethoprim Allergy Severe ANAPHYLAXIS Verified 06/03/21 11:28 cephalexin Allergy Intermediate RASH Verified 06/03/21 11:28 Cephalosporins Allergy Intermediate KEFLEX - Verified 06/10/21 11:19 RASH Penicillins Allergy Intermediate LIPS Verified 06/03/21 11:28 SWELLING Kgvwlpm-NOP-GdI Reductase Allergy Intermediate Rash Verified 06/03/21 11:28 Inhibitor [Pethtnu-Mpn-Rfu Reductase Inhibitor] Bactrim Allergy Unknown ANAPHYLAXIS Verified 04/10/17 08:31 Consultations 06/04/21 12:19 ED Decision to Admit Stat 06/04/21 13:24 Consult Gastroenterology Routine 06/04/21 20:13 Consult Infectious Diseases Routine 06/05/21 18:08 Consult Health Information Management Routine 06/06/21 08:17 Consult Urology Routine 06/11/21 15:35 Consult Neurology Routine Procedures Performed Operation Date: 06/06/21 13:00 Actual Procedures p Echo Transesophageal - Albaro Gutiérrez MD s Echo Doppler Complete - Albaro Gutiérrez MD s Echo Color Flow - Albaro Gutiérrez MD Ordered Studies 06/04/21 10:33 US gallbladder Stat 06/06/21 US venous doppler LE BI Routine 06/06/21 06:16 CT abd pelvis IV con only Urgent 06/11/21 11:27 MR brain IAC wo/w con Routine Hospital Course (1) Acute ischemic stroke: 7mm focus in left posterior occipital lobe [id number] focus in right parietal lobe, this favors subacute stroke noted that she was only taking Eliquis once daily prior to admission which is not prophylactic dose for afib some question as whether she has afib, has followed with Dr. Thomason current complaint is dizziness, some numbness in left fingers (but she had carpal tunnel surgery on that wrist) findings were incidental, MRI was done to evaluate Schwannoma which was chronic issue consult neurology for their recommendations Dr. Barrera recommends aspirin and continue Eliquis he recommends close follow up with neurosurgeon about the Schwannoma (2) Bacteremia: Blood cultures from ER 06/03 with gram positive cocci in chains, UTI with enterococcus from prior urine * Rx for levaquin at that time. had just completed 10 days cipro prior to that per and of note completed a 2wk course of doxycycline in april for tick bites and admitted not to taking with full glass water/reflux symptoms and outpatient EGD was arranged to occur on Saturday of this past week BCx ENTEROCOCCUS FAECALIS, numerous cultures remained positive ID consulted --> likely could be from urinary source but if identification not same, could just as likely have come from UGI tract. Presumed high grade/persistent nature of bacteremia and assumed endocarditis CTAP obtained 06/06 for worsening pain --> 3.9 cm hypoenhancing focus within the upper pole of the right kidney. Given the clinical history, this favors pyelonephritis. A renal infarct could appear similar although is considered less likely. No renal abscess. On AMpicillin (day 7). Blood cultures from 06/07 remain NGTD MATILDE without vegetation, however discussed with Dr Aleman and concerned given persistent + bcx and would likely favor 6wks IV therapy. Continued concern for GI pathology however GI continues to plan outpatient eval --> Will complete 6 weeks Ampicillin, last day would be 07/19/21 --> PICC line placed 06/09. t C.diff if having diarrhea --> checked during stay and was negative Nutrition on consult -- boost supplements provided plan to discharge to home with home Amoxicillin, complete 6 weeks (3) Pyelonephritis: As above, urology consulted -- continued current plan with Amoxicillin IV for 6 weeks (4) Chest pain: Trop negative on admission and on repeat --> sounds more like esophagitis/reflux in nature. improved with PPI BID, addition of carafate --> reached back out to GI --> added pepcid BID and diflucan for empiric esophageal cadidiasis given recent abx use h pylori negative CT Chest from 3 days prior to admission in ED 1. There is no evidence of pulmonary embolus in the main, lobar, or segmental pulmonary arteries. 2. Dependent airspace opacities could represent atelectasis versus a mild infectious/inflammatory pneumonitis. Clinical correlation will be required. 3. Moderate to severe spinal scoliosis is similar to previous and distorts the thoracic cage. 4. Again seen is an 11 mm groundglass lesion in the left upper lobe. This is unchanged from 06/25/2020 and only minimally increased in size dating back to 2016. 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, and nonemergent pulmonology follow-up is recommended (5) Abdominal pain: as above less pain in abd and working on BM, but having reflux --> see above, improving but still no significant bowel movement working on BM, encouraged ambulation will need aggressive bowel regimen last colonoscopy was 10-12 years ago, was clean plan for endoscopic evaluation in 4-6 weeks (6) Blood bacterial culture positive: now clean from draw on 06/07 will need 6 weeks treatment from 06/07 (7) Sepsis: 2nd to pyelo/bacteremia -- urinary source likely given pyelo on CTAP (8) Vertigo: none reported currently, just feeling weak 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 --> Also with concerns for GI malignancy as above --> eliquis for "DVT" per rheumatology. Venous dopplers with chronic appearing DVT --> Discussed with patient and given afib hx should continue BID dosing given tolerance. DVT likely chronic in nature at this time and not causing increased pain EKG during admission done to r/o afib, not noted on EKG (10) Rheumatoid arthritis: used to be on methotrexate in the past, currently on sulfasalazine 500mg HS (placed on hold while bacteremic) --> per PCP to take BID but patient only takes once daily. 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 [place], will continue to follow with them discharge to home Total Time Total Time Spent Total Time Spent (In Minutes): 40 Discharge Plan Discharge Items Patient Disposition: Home - Home Health Services Reason For Visit: BACTEREMIA Discharge Diagnosis: Bacteremia - Enterococcus, likely source is urine Constipation, change in bowel habits Acute and subacute stroke Vestibular schwanoma Condition on Discharge: Good Goals: finish course of antibiotics follow up with neurosurgery in July follow up with gastroenterology in 4-6 weeks for endoscopy Activity: Resume your previous activity Weightbearing: Full weightbearing Non-emergency contact: Primary Care Provider Call non-emergency contact if: you have any medication questions and your symptoms worsen Follow-up/Referrals: Breanne Matt PA-C [Physician Licensed And Certified Midwife] - (Will schedule for EGD/Colonoscopy as outpatient in approximately 6 weeks when acute symptoms resolve. ) Gerardo Oseguera MD [Primary Care Provider] - 06/21/21 11:30 am (one week) Eron Lyle MD [Outside Practitioners] - (keep appointment in July, no need for outpatient MRI brain) Diet: Regular Addtl Attending Provider Instructions: Medications: - AMPICILLIN: take for 6 weeks from negative blood cultures, last dose would be 07/19/21 - ELIQUIS: you need to take this twice a day now instead of just at night, new prescription sent - ASPIRIN: 81mg daily, can obtain over the counter, be sure to get enteric coated which is easy on stomach - PANTOPRAZOLE: 40mg twice a day, new script sent since you are now on it twice a day - MIRALAX: daily laxative, if you do not have a BM in two days then increase this to twice a day until you have a bowel movement - SENOKOT: daily stool softener, be sure to take with water/liquids, at least 8oz Bacteremia, blood and urine cultures positive for Enterococcus, sensitive to penicillin Pyelonephritis, urine culture also positive for Enterococcus transesophageal echo did NOT show any vegetations to suggest endocarditis however, with your persistently positive blood cultures, Infectious Disease recommends 6 weeks of IV antibiotics please follow up with Dr. Oseguera in 1-2 weeks, check CBC and BMP Change in bowel habits with constipation, difficultly swallowing gastroenterology will arrange for outpatient scopes in 6 weeks, you need to be recovered from stroke and infection please stay well hydrated, use a fiber supplement if you cannot eat enough fiber use Miralax as above, use Senokot as above if not BM in 3 days then use a suppository or laxative Pulmonary lesion: 11 mm ground glass lesion in the left upper lobe of lung. This is unchanged from 06/25/2020 and only minimally increased in size dating back to 2016. Recommend routine pulmonology follow up, you can follow up with your lung doctor in [place] at your convenience Acute and subacute stroke likely just an incidental finding as you have no symptoms Dr. Barrera recommends adding aspirin and taking Eliquis twice a day Vestibular alison discussed with neurosurgery at [place], it is stable at 13x7mm compared to MRI you had in the fall they recommend you keep appointment with Dr. Lyle in July no need to get outpatient MRI brain as this one is sufficient Risk Factors for Stroke: You can reduce your chances of stroke by working with your medical provider to adopt a healthy lifestyle. Some specific ways to lower your chance of stroke are: * If you are a smoker, now is the time to stop smoking cigarettes * If you are diabetic, improve the control of your blood sugars * Avoid excessive amounts of alcohol * Control high blood pressure * Lose weight if you are overweight * Be sure to lead an active lifestyle * Eat a healthy diet low in salt, cholesterol and fat You should know about other risk factors for stroke that you are unable to control. These include: * Age 55 years or older * Male gender * Certain racial groups: , or / * Family History of Stroke, Mini stroke or Heart Attack * Sickle Cell Disease Follow Up: It is important for you to keep your follow up appointments with your medical deja patterson. Who to Call and When: Medical Emergencies: Call 911 immediately if you experience any of the following warning signs and symptoms of Stroke: * Sudden numbness or weakness of the face, arm or leg, especially on one side of the body * Sudden confusion, trouble speaking or understanding * Sudden trouble seeing in one or both eyes * Sudden trouble walking, dizziness, loss of balance or coordination * Sudden severe headache with no cause Do not delay calling 911 if you experience any warning signs or symptoms of a stroke. Delay in seeking medical attention may affect what treatments can be given to you. . Pending Studies at Discharge: No Stand-Alone Forms: [facility], Smoking Cessation Medications and DC Order Prescriptions: New Eliquis 5 mg Tablet 5 mg PO BID 30 Days Qty: 60 RF: 0 sennosides-docusate sodium [Senokot-S] 8.6-50 mg Tablet 1 tab PO QAM 30 Days Qty: 30 RF: 0 aspirin 81 mg Tablet,Delayed Release (Dr/Ec) 81 mg PO QAM 30 Days Qty: 30 RF: 0 pantoprazole 40 mg Tablet,Delayed Release (Dr/Ec) 40 mg PO BID 30 Days Qty: 60 RF: 2 polyethylene glycol 3350 [Miralax] 17 gram/dose powder 17 g PO DAILY Qty: 119 RF: 3 ondansetron HCl 4 mg tablet 4 mg PO Q4H PRN (Reason: nausea and vomiting) Qty: 30 RF: 1 prochlorperazine maleate [Compazine] 5 mg tablet 5 mg PO DAILY PRN (Reason: nausea and vomiting) Qty: 10 RF: 0 Continued pramipexole 0.5 mg tablet 0.5 mg PO HS RF: 0 folic acid 1 mg tablet 1 mg PO HS RF: 0 potassium chloride 10 mEq capsule, extended release 10 meq PO HS RF: 0 metoprolol succinate 50 mg tablet extended release 24 hr 50 mg PO HS RF: 0 epinephrine [EpiPen] 0.3 mg/0.3 mL Auto-Injector 0.3 mg IM Q3H PRN (Reason: Anaphylaxis) RF: 0 albuterol sulfate [Ventolin HFA] 90 mcg/actuation Hfa Aerosol Inhaler 2 - 4 puff INHALATION Q6H PRN (Reason: Shortness Of Breath Or Wheezing) RF: 0 spironolactone 50 mg tablet 50 mg PO HS RF: 0 cholecalciferol (vitamin D3) [Vitamin D3] 1,000 unit Capsule 1,000 unit PO HS RF: 0 sulfasalazine 500 mg Tablet 500 mg PO HS RF: 0 melatonin 5 mg Tablet 5 mg PO HS PRN (Reason: Sleep) RF: 0 Breo Ellipta 100-25 mcg/dose blister with device 1 inh INHALATION 2XWK RF: 0 Discontinued pantoprazole 40 mg tablet,delayed release (DR/EC) 40 mg PO HS RF: 0 Eliquis 5 mg (74 tabs) tablets,dose pack 5 mg PO HS RF: 0 levofloxacin 250 mg tablet 250 mg PO DAILY 5 Days Qty: 5 RF: 0 Discharge Orders: Discharge Order (Routine); Ordered 06/13/21 Ordered By: Flex Downs/Other Patient Handouts: Peripherally Inserted Central ... Admission Data Admit Date/Time: 06/04/21 11:31 Attending Provider: Flex Martinez Admit Provider: Jerald Caro Primary Care Provider: Gerardo Oseguera Other Providers: Jerald Caro ; Harjeet Saab ; Brandt Rodriguez ; Thao Gustafson ; Dedrick Aleman I. ; Hector Vásquez II ; Elaina Arrington ; Isai Nelson ; Lorenzo Maier ; [facility] ; Aaron Piper ; Harpreet Morton Other Interventions: Discharge Summary Assessment (RN) Last Done: 06/13/21 15:47 Coding Level of Care Code D/C DAY MANAGEMENT >30 MINS Diagnoses Acute ischemic stroke I63.9 Bacteremia R78.81 Pyelonephritis N12 Chest pain R07.9 Abdominal pain R10.9 Blood bacterial culture positive R78.81 Sepsis A41.9 Sepsis acute organ dysfunction status: without acute organ dysfunction Sepsis type: sepsis due to unspecified organism Vertigo R42 Afib I48.0 Atrial fibrillation type: paroxysmal Rheumatoid arthritis M06.9 Pulmonary lesion J98.4
== END 2021-06-13 18:36 | disposition home health service (06) | DRG 871 ==
LOC: ED 10:12 → SUATTDRO 11:31 → EDINP 11:31 → 3N 13:37

== ENCOUNTER 2022-09-06 18:19 | Observation (INO) ==
--- NOTE | 2022-09-06 19:03 | Emergency Department Note ---
History of Present Illness General Chief complaint: Fall Stated complaint: FELL,HIT HEAD,DIZZY Time Seen by Provider: 09/06/22 18:39 Source: patient, family (Friend/neighbor who is an anesthesiologist is at the bedside), RN notes reviewed and old records reviewed Mode of arrival: ambulatory Limitations: no limitations History of Present Illness This patient 87-year-old female who comes in after falling around 08/14/1927. She says she fell like her left leg collapsed. Earlier in the day she was feeling well and went for a walk around noon she started feeling very fatigued and took a nap she does not usually sleep around 4:00 she went to the bathroom and got on the commode and can get up she felt generally weak she went her bed and then slowly collapsed as she felt like her right leg gave out. She not feel focally numb or weak. She says she was on the ground for about 10 to 20 minutes she is on the blood thinner she did hit her head and has a mild headache mild neck stiffness her vision was blurry initially but she says it is better now. She did have a stroke in 2021 her neighbors anesthesiologist came and evaluated her and told me she was dizzy and was blurry vision her blood pressure was 150/80 heart rate was normal I felt she was neurologically intact at the time. She has no chest pain shortness breath or abdominal pain. Home Medications Medication Instructions Recorded Confirmed Type cholecalciferol (vitamin D3) 25 1,000 unit PO HS 04/08/18 09/06/22 History mcg (1,000 unit) capsule (Vitamin D3) epinephrine 0.3 mg/0.3 mL 0.3 mg IM Q3H PRN Anaphylaxis 04/08/18 09/06/22 History injection, auto-injector (EpiPen) folic acid 1 mg tablet 2 mg PO QAM 01/07/19 09/06/22 History sulfasalazine 500 mg tablet 500 mg PO BID 03/03/20 09/06/22 History fluticasone furoate 100 1 inh inhalation QAM PRN Shortness 04/29/21 09/06/22 History mcg-vilanterol 25 mcg/dose Of Breath inhalation powder (Breo Ellipta) zoledronic acid 5 mg/100 mL in 1 ea IV UD 10/12/21 09/06/22 History mannitol 5 %-water intravenous piggybck (Reclast) potassium chloride 10 mEq 10 meq PO QAM 02/09/22 09/06/22 History capsule,extended release metoprolol succinate 50 mg 50 mg PO HS #90 tabs 03/08/22 09/06/22 Rx tablet,extended release 24 hr apixaban 5 mg tablet (Eliquis) 5 mg PO BID #180 tabs 03/28/22 09/06/22 Rx pramipexole 0.5 mg tablet 0.5 mg PO HS #30 tabs 05/03/22 09/06/22 Rx gabapentin 100 mg capsule 100 mg PO BID 08/17/22 09/06/22 History pantoprazole 20 mg tablet,delayed 20 mg PO BID 08/17/22 09/06/22 History release alirocumab 75 mg/mL subcutaneous 75 mg subcut Q14D #2 mL 08/20/22 09/06/22 Rx pen injector (Praluent Pen) clonazepam 0.5 mg tablet 0.5 mg PO HS 09/06/22 09/06/22 History Allergies Allergy/AdvReac Type Severity Reaction Status Date / Time bee venom protein (honey bee) Allergy Severe Anaphylaxis Verified 09/06/22 19:50 . 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 Doherty > loop recorder > replacement loop placed fall 2020; no cardioversion Chest pain COVID-19 virus detected from blood test on 06/01/21> pt was unaware she had it > no symptoms at present DVT (deep venous thrombosis) right leg > Jan 2021> no known cause > Eliquis for this Elevated bilirubin Facial spasm follows w/ dr. waqar winslow Family history of colon cancer Hiatal hernia growing per pt> reason for procedure on 06/05/21 History of anesthesia reaction reports had atelectasis after shoulder surgery History of stroke Hyperlipidemia Hypertension Hypokalemia Interstitial lung disease Loss of consciousness Mild chronic obstructive pulmonary disease well controlled per pt, rare res inh use Restless leg syndrome Right-sided chest pain dr said it's from her hiatal hernia Scoliosis Status post gamma knife treatment for acoustic neuroma to left side > 3 yrs ago Transient ischemic attack (TIA) 15 yrs ago > no residual effects > per pt, had MRI on 06/11/21, showed 2 new TIA's, doesn't follow up w/ any dr except GP Surgical History H/O rotator cuff surgery right History of carpal tunnel release left History of colonoscopy History of endoscopic sinus surgery History of esophagogastroduodenoscopy (EGD) History of hysterectomy History of tonsillectomy History of tooth extraction Hx of cataract extraction LT. Family History Mother , age 99 with no specific significant medical problems. No problems noted. Father , age 32 in a WWII plane accident No problems noted. Grandfather (Maternal) Hypertension Grandfather (Paternal) Stroke Sister Breast cancer Aunt Lung cancer maternal-smoker Grandmother (Paternal) Colorectal cancer Family/Other Heart disease per patient-"everyone" Asthma cousin Social History Smoking Status: Never smoker Second Hand Exposure: No; Do You Dip or Chew Tobacco: No; Hx Alcohol Use: Yes Alcohol type: wine Alcohol Intake Frequency Comment: 2 oz of whiskey daily and 1 glass of red wine with dinner Hx Substance Use: No Preferred Language: Wolof Communication Ability: Effective Asphalt Layer Required: No Beliefs That Will Affect Care: None marital status: Current Living Situation: Spouse current occupational status: retired 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 [employer] Feels Safe at Home: Yes Assistive Devices: Cane and Glasses Review of Systems A total of 10 systems reviewed and were otherwise negative Physical Exam Vital Signs Vital Signs - 24 hr 09/06/22 18:35 09/06/22 19:09 09/06/22 20:08 Temperature 37 C Temperature Source Temporal Artery Scan Pulse Rate 67 Pulse Rate [Bilateral] 61 Respiratory Rate 20 15 16 Respiratory Effort / Characteristics Non-Labored Spontaneous Respiratory Depth Normal Respiratory Pattern Regular Blood Pressure 152/101 H Blood Pressure Mean 118 Pulse Oximetry 96 98 98 Oxygen Delivery Method Room Air Room Air Room Air Sepsis Recent Fever Within 48 Hours No Sepsis New/Unexplained Change in Mental Status No Sepsis Action Taken by Nursing No Action Required 09/06/22 20:36 09/06/22 20:40 09/06/22 20:50 Temperature Temperature Source Pulse Rate 61 59 L 60 Pulse Rate [Bilateral] Respiratory Rate 19 16 14 Respiratory Effort / Characteristics Respiratory Depth Respiratory Pattern Blood Pressure Blood Pressure Mean Pulse Oximetry Oxygen Delivery Method Sepsis Recent Fever Within 48 Hours Sepsis New/Unexplained Change in Mental Status Sepsis Action Taken by Nursing 09/06/22 21:00 09/06/22 21:10 09/06/22 21:20 Temperature Temperature Source Pulse Rate 63 62 Pulse Rate [Bilateral] Respiratory Rate 15 20 16 Respiratory Effort / Characteristics Respiratory Depth Respiratory Pattern Blood Pressure Blood Pressure Mean Pulse Oximetry Oxygen Delivery Method Sepsis Recent Fever Within 48 Hours Sepsis New/Unexplained Change in Mental Status Sepsis Action Taken by Nursing 09/06/22 21:30 09/06/22 21:40 Temperature Temperature Source Pulse Rate 59 L 65 Pulse Rate [Bilateral] Respiratory Rate 21 20 Respiratory Effort / Characteristics Respiratory Depth Respiratory Pattern Blood Pressure Blood Pressure Mean Pulse Oximetry Oxygen Delivery Method Sepsis Recent Fever Within 48 Hours Sepsis New/Unexplained Change in Mental Status Sepsis Action Taken by Nursing General: Well developed well nourished older female who appears in no acute distress, breathing comfortably on room air. Normal speech HEENT: Normal cephalic atraumatic. Pupils are equal round and reactive to light. Extraocular movements are intact. Oropharynx is pink with moist mucous membranes. No swelling of the mouth lips or tongue. Neck: Supple with a midline trachea. No meningeal signs or stiffness, no JVD or bruits. No Stridor. Chest: Clear to auscultation bilaterally. No wheezes or rhonchi. No increased work of breathing. Heart: Regular rate and rhythm without murmurs or gallops. Abdomen: Soft nontender, nondistended without rebound guarding or rigidity. Extremities: No cyanosis clubbing or edema. No calf tenderness or assymetry. No shortening or deformity the leg her right hip is not swollen or red it is freely mobile. No pain with movement Spine/Back. Non tender to palpation. No CVA tenderness Skin: Good turgor without rashes. Neurologic exam: Cranial nerves two through 12 are intact. Motor and sensation are intact and symmetrical throughout. Medical Decision Making Differential Diagnosis Fall, trauma, syncope, traumatic injury, intracranial hemorrhage, electrolyte or metabolic abnormality, orthopedic injury, cardiac disease Medical Records Attestation: I reviewed the patient's medical records. Home Medications Current Medication List: was personally reviewed by me Laboratory Data Attestation: I reviewed the patient's lab results. 09/06/22 19:22 09/06/22 19:22 Lab Results 09/06/22 09/06/22 09/06/22 Range/Units 19: 19: 19: WBC 4.92 (4.8-10.8) K/ul RBC 3.99 L (4.20-5.40) M/uL Hgb 13.7 (12.0-16.0) g/dl Hct 40.2 (37.0-47.0) % MCV 100.8 H (80.0-100.0) fL MCH 34.3 H (25.0-34.0) pg MCHC 34.1 (32.0-36.0) g/dL RDW Std Deviation 45.2 (36.4-46.3) fL RDW Coeff of Greg 12.2 (11.5-14.5) % Plt Count 217 (130-400) K/uL MPV 9.4 (9.4-12.4) fL Immature Gran % (Auto) 0.4 % Neut % (Auto) 42.1 % Lymph % (Auto) 38.2 % [place] % (Auto) 12.0 % Eos % (Auto) 5.9 % Baso % (Auto) 1.4 % Neut # (Auto) 2.07 (1.40-6.50) K/uL Lymph # (Auto) 1.88 (1.2-3.4) K/uL [place] # (Auto) 0.59 (0.11-0.59) K/uL Eos # (Auto) 0.29 (0-0.50) K/uL Baso # (Auto) 0.07 (0-0.2) K/uL Immature Gran # (Auto) 0.02 (0.01-0.20) K/uL PT Cancelled INR Cancelled APTT Cancelled PTT Ratio Cancelled Sodium 139 (136-145) mmol/L Potassium 3.9 (3.5-5.1) mmol/L Chloride 106 (98-107) mmol/L Carbon Dioxide 29 (21-32) mmol/L Anion Gap 4 (3-11) BUN 15 (6-23) mg/dl Creatinine 0.69 (0.6-1.2) mg/dl Est Cr Clr Drug Dosing Not Reportable Est GFR ( Amer) 92.0 ml/min Est GFR (Non-Af Amer) 79.4 ml/min BUN/Creatinine Ratio 21.7 H (10-20) Glucose 88 (70-99(Fasting)) mg/dl Calcium 9.2 (8.6-10.3) mg/dl Total Bilirubin 1.0 (0.2-1.0) mg/dl AST 17 (13-39) U/L ALT 14 (7-52) U/L Alkaline Phosphatase 51 (34-104) U/L Troponin I High Sens 3.4 (0-14) pg/ml Total Protein 6.6 (6.0-8.3) gm/dl Albumin 4.0 (3.4-5.0) gm/dl Globulin 2.6 (2.5-4.0) gm/dl Albumin/Globulin Ratio 1.5 (0.9-2) Lipase 10 L (11-82) U/L SARS-CoV-2, RNA, NAAT (NEGATIVE) 09/06/22 09/06/22 Range/Units 19:22 20:35 WBC (4.8-10.8) K/ul RBC (4.20-5.40) M/uL Hgb (12.0-16.0) g/dl Hct (37.0-47.0) % MCV (80.0-100.0) fL MCH (25.0-34.0) pg MCHC (32.0-36.0) g/dL RDW Std Deviation (36.4-46.3) fL RDW Coeff of Greg (11.5-14.5) % Plt Count (130-400) K/uL MPV (9.4-12.4) fL Immature Gran % (Auto) % Neut % (Auto) % Lymph % (Auto) % [place] % (Auto) % Eos % (Auto) % Baso % (Auto) % Neut # (Auto) (1.40-6.50) K/uL Lymph # (Auto) (1.2-3.4) K/uL [place] # (Auto) (0.11-0.59) K/uL Eos # (Auto) (0-0.50) K/uL Baso # (Auto) (0-0.2) K/uL Immature Gran # (Auto) (0.01-0.20) K/uL PT 11.4 INR 1.0 APTT 24.8 PTT Ratio 0.9 Sodium (136-145) mmol/L Potassium (3.5-5.1) mmol/L Chloride (98-107) mmol/L Carbon Dioxide (21-32) mmol/L Anion Gap (3-11) BUN (6-23) mg/dl Creatinine (0.6-1.2) mg/dl Est Cr Clr Drug Dosing Est GFR ( Amer) ml/min Est GFR (Non-Af Amer) ml/min BUN/Creatinine Ratio (10-20) Glucose (70-99(Fasting)) mg/dl Calcium (8.6-10.3) mg/dl Total Bilirubin (0.2-1.0) mg/dl AST (13-39) U/L ALT (7-52) U/L Alkaline Phosphatase (34-104) U/L Troponin I High Sens (0-14) pg/ml Total Protein (6.0-8.3) gm/dl Albumin (3.4-5.0) gm/dl Globulin (2.5-4.0) gm/dl Albumin/Globulin Ratio (0.9-2) Lipase (11-82) U/L SARS-CoV-2, RNA, NAAT NEGATIVE (NEGATIVE) Imaging Data Attestation: I personally reviewed and interpreted this imaging study as follows: My Impression: Head CTno hemorrhage or mass effect seen. Chest x-rayno acute infiltrate, failure, pneumothorax seen Radiologist's Impression: Cervical Spine CT 09/06/22 18:56 CT SCAN OF THE CERVICAL SPINE CLINICAL HISTORY: Fall. COMPARISON STUDY: CT angiogram of the neck dated 07/25/2021. TECHNIQUE: CT scan of the cervical spine is performed from the skull base to the upper thoracic spine. Images are reviewed in the axial, sagittal, and coronal planes. IV contrast was not administered for this examination. A dose lowering technique was utilized adhering to the principles of ALARA. FINDINGS: Skeletal structures: The skeletal structures are osteopenic. There is no evidence of fracture or subluxation involving the cervical spine. Vertebral body height is maintained. There is minimal anterolisthesis at C4-C5 and C7-T1. Alignment is otherwise maintained. There is straightening of the cervical lordosis. Anterior osteophytes are seen throughout. The odontoid process and lateral masses are intact. The atlantoaxial articulation is preserved noting advanced productive degenerative change. The spinous processes appear intact. Intervertebral discs: There is moderate to severe disc space narrowing at C4-C5, C5-C6, and C6-C7. Milder narrowing is seen at the remaining cervical levels. Central canal: Posterior disc osteophyte complexes are seen at all cervical levels between C3-C4 and C6-C7. This likely contributes to multilevel acquired compromise of the central canal. Soft tissues: The prevertebral and paraspinous soft tissues are within normal limits. There is atherosclerotic calcification of the carotid bulbs. Calvarium: The visualized calvarium at the skull base appears intact. Brain parenchyma: Partially visualized brain parenchyma at the skull base is within normal limits. Sinuses and mastoids: The visualized paranasal sinuses are clear. The mastoid air cells are well pneumatized. Lung apices: Clear as visualized. IMPRESSION: 1. There is no evidence of fracture or subluxation involving the cervical spine. 2. Osteopenia and spondylitic change as above. ACT 112: Negative or not required by law. Electronically signed by: Saleem Viramontes M.D. 09/06/2022 8:11 PM Chest X-Ray 09/06/22 18:56 SINGLE VIEW CHEST CLINICAL HISTORY: Atypical chest pain. FINDINGS: 2 AP, portable, upright chest radiographs are compared to study dated 06/04/2021 and correlated with chest CT dated 08/01/2021. The examination is degraded by portable technique and apical lordotic positioning. The cardiomediastinal silhouette is unremarkable noting atherosclerotic calcification of the thoracic aorta. Chronic interstitial thickening is similar to previous. There is bibasilar scarring/atelectasis. The lungs and pleural spaces are otherwise clear. No pneumothorax is seen. The skeletal structures are osteopenic. The bony thorax is grossly intact. Degenerative change and scoli osis is noted in the spine. IMPRESSION: No active disease in the chest. ACT 112: Negative or not required by law. Electronically signed by: Saleem Viramontes M.D. 09/06/2022 7:[address] 09/06/22 18:56 CT SCAN OF THE BRAIN WITHOUT IV CONTRAST CLINICAL HISTORY: Fall. COMPARISON STUDY: CT of the brain dated 07/25/2021. TECHNIQUE: Unenhanced axial CT scan of the brain is performed from the vertex to the skull base. A dose lowering technique was utilized adhering to the principles of ALARA. CT DOSE: 1040.58 mGy.cm FINDINGS: Brain parenchyma: There is age-related involutional change noting moderate to advanced subcortical and periventricular microangiopathic disease. There is no hemorrhage, mass effect, or evidence of acute territorial ischemia by CT criteria. Flood-white matter differentiation is preserved. No extra-axial fluid collection is seen. Ventricles, sulci, cisterns: Prominent secondary to involutional change. Intracranial vasculature: There is atherosclerotic calcification of the cavernous carotid and vertebral arteries. Calvarium: The skeletal structures are osteopenic. No depressed calvarial fracture is identified. Sinuses and mastoids: There is evidence of previous paranasal sinus surgery. Trace mucosal thickening is noted in the left maxillary antrum and ethmoid sinuses. The remaining visualized paranasal sinuses are clear. The mastoid air cells are well pneumatized. Orbits: The bony orbits are grossly intact. There are bilateral ocular lens implants. IMPRESSION: There is no hemorrhage, mass effect, or evidence of acute territorial ischemia by CT criteria. ACT 112: Negative or not required by law. Electronically signed by: Saleem Viramontes M.D. 09/06/2022 8:14 PM ECG Data Attestation: I personally reviewed and interpreted this ECG as follows: Indication: + weakness Rate (beats per minute): 61 Rhythm: + normal sinus ECG Intervals/blocks: + Normal QRS, + Normal QT and + Normal VT ECG [place]: + Normal ECG ST segments: + Normal ST segments ECG Findings: no PACs or no PVCs Comparison ECG Date: from (07/20/21) Change: no significant change MDM Narrative This patient comes in as scribed above she fell and is on Eliquis. she hit her head she is not sure if she lost consciousness or not she seems to be doing better now that. she was dizzy and had blurry vision. I did a CAT scan of her head and neck but did a cardiac/syncope work-up as well. She was placed on a lunchroom monitor chest x-ray and EKG was obtained. she has no chest pain or abdominal pain to suggest trauma to these areas. EKG does not suggest acute coronary syndrome or arrhythmia. Her troponin is negative. She has no significant electrolyte or metabolic abnormality. she has no significant anemia. She has no white count or fever discussed infection. Chest x-ray was unremarkable does not show congestive heart failure, pneumonia, pneumothorax. Head CT was unremarkable as was cervical spine CT in regards to any acute findings or hemorrhage or mass effect. I do think she would benefit from observation as she had an episode where she may have passed out and she is uncertain why she fell she was feeling weak. She does have a significant cardiac and neurologic history. At present ,she has a normal neurologic exam. I have consulted Dr Bray, the hospitalist to see her for these measures. 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, Lab test negative for COVID-19 virus, Mild closed head injury Forms Stand Alone Forms: [facility] Prescriptions Prescriptions: No Action metoprolol succinate 50 mg tablet extended release 24 hr 50 mg PO HS Qty: 90 3RF Eliquis 5 mg tablet 5 mg PO BID Qty: 180 1RF pramipexole 0.5 mg tablet 0.5 mg PO HS Qty: 30 11RF Rx Instructions: administer 2 - 3 hours before bedtime Praluent Pen 75 mg/mL pen injector 75 mg subcut Q14D Qty: 2 5RF gabapentin 100 mg capsule 100 mg PO BID pantoprazole 20 mg tablet,delayed release (DR/EC) 20 mg PO BID folic acid 1 mg tablet 2 mg PO QAM epinephrine [EpiPen] 0.3 mg/0.3 mL Auto-Injector 0.3 mg IM Q3H PRN (Reason: Anaphylaxis) cholecalciferol (vitamin D3) [Vitamin D3] 1,000 unit Capsule 1,000 unit PO HS potassium chloride 10 mEq capsule, extended release 10 meq PO QAM sulfasalazine 500 mg Tablet 500 mg PO BID zoledronic calw-qhnnnrsw-hfjnv [Reclast] 5 mg/100 mL Piggyback 1 ea IV UD Rx Instructions: Gets once a year fluticasone furoate-vilanterol [Breo Ellipta] 100-25 mcg/dose blister with device 1 inh INHALATION QAM PRN (Reason: Shortness Of Breath) Rx Instructions: "not good about taking it" clonazepam 0.5 mg tablet 0.5 mg PO HS Referrals Referrals: Gerardo Oseguera MD [Primary Care Provider] - Syncope Qualifiers: Syncope type: unspecified Qualified Code(s): R55 - Syncope and collapse Fall Qualifiers: Encounter type: initial encounter Qualified Code(s): W19.XXXA - Unspecified fall, initial encounter Mild closed head injury Qualifiers: Encounter type: initial encounter Qualified Code(s): S09.90XA - Unspecified injury of head, initial encounter
[2022-09-06 19:46] LABS: Basophils # (auto) 0.07 K/uL (0-0.2); Basophils % (auto) 1.4 %; Eosinophils # (auto) 0.29 K/uL (0-0.50); Eosinophils % (auto) 5.9 %; Hematocrit (blood only) 40.2 % (37.0-47.0); Hemoglobin 13.7 g/dl (12.0-16.0); Immature Granulocytes # (auto) 0.02 K/uL (0.01-0.20); Immature Granulocytes % (auto) 0.4 %; Lymphocytes # (auto) 1.88 K/uL (1.2-3.4); Lymphocytes % (auto) 38.2 %; Mean Corpuscular Hemoglobin 34.3 pg (25.0-34.0); Mean Corpuscular Hgb Conc 34.1 g/dL (32.0-36.0); Mean Corpuscular Volume 100.8 fL (80.0-100.0); Mean Platelet Volume 9.4 fL (9.4-12.4); Monocytes # (auto) 0.59 K/uL (0.11-0.59); Neutrophils # (auto) 2.07 K/uL (1.40-6.50); Neutrophils % (auto) 42.1 %; Platelet Count 217 K/uL (130-400); RDW Coefficient of Variation 12.2 % (11.5-14.5); RDW Standard Deviation 45.2 fL (36.4-46.3); Red Blood Count 3.99 M/uL (4.20-5.40); White Blood Count 4.92 K/ul (4.8-10.8)
--- NOTE | 2022-09-06 19:54 | XRay Report ---
SINGLE VIEW CHEST CLINICAL HISTORY: Atypical chest pain. FINDINGS: 2 AP, portable, upright chest radiographs are compared to study dated 06/04/2021 and correla dandre with chest CT dated 08/01/2021. The examination is degraded by portable technique and apical lordo tic positioning. The cardiomediastinal silhouette is unremarkable noting atherosclerotic calcificatio n of the thoracic aorta. Chronic interstitial thickening is similar to previous. There is bibasilar s carring/atelectasis. The lungs and pleural spaces are otherwise clear. No pneumothorax is seen. The s keletal structures are osteopenic. The bony thorax is grossly intact. Degenerative change and scolios is is noted in the spine. IMPRESSION: No active disease in the chest. ACT 112: Negative or not required by law. Electronically signed by: Saleem Viramontes M.D. 09/06/2022 7:53 PM
[2022-09-06 19:56] LABS: Alanine Aminotransferase 14 U/L (7-52); Albumin Globulin Ratio 1.5 (0.9-2); Alkaline Phosphatase 51 U/L (34-104); Anion Gap 4 (3-11); Aspartate Aminotransferase 17 U/L (13-39); BUN Creatinine Ratio 21.7 (10-20); Blood Urea Nitrogen 15 mg/dl (6-23); Calcium 9.2 mg/dl (8.6-10.3); Carbon Dioxide 29 mmol/L (21-32); Chloride 106 mmol/L (98-107); Est GFR (Non-African American) 79.4 ml/min; Globulin 2.6 gm/dl (2.5-4.0); Glucose 88 mg/dl (70-99(Fasting)); Lipase 10 U/L (11-82); Potassium 3.9 mmol/L (3.5-5.1); Sodium 139 mmol/L (136-145); Total Protein 6.6 gm/dl (6.0-8.3)
[2022-09-06 20:03] LABS: Troponin I High Sensitivity 3.4 pg/ml (0-14)
--- NOTE | 2022-09-06 20:13 | CT Scan Report ---
CT SCAN OF THE CERVICAL SPINE CLINICAL HISTORY: Fall. COMPARISON STUDY: CT angiogram of the neck dated 07/25/2021. TECHNIQUE: CT scan of the cervical spine is performed from the skull base to the upper thoracic spine . Images are reviewed in the axial, sagittal, and coronal planes. IV contrast was not administered fo r this examination. A dose lowering technique was utilized adhering to the principles of ALARA. FINDINGS: Skeletal structures: The skeletal structures are osteopenic. There is no evidence of fracture or subl uxation involving the cervical spine. Vertebral body height is maintained. There is minimal anterolis thesis at C4-C5 and C7-T1. Alignment is otherwise maintained. There is straightening of the cervical lordosis. Anterior osteophytes are seen throughout. The odontoid process and lateral masses are intac t. The atlantoaxial articulation is preserved noting advanced productive degenerative change. The spi nous processes appear intact. Intervertebral discs: There is moderate to severe disc space narrowing at C4-C5, C5-C6, and C6-C7. Mi lder narrowing is seen at the remaining cervical levels. Central canal: Posterior disc osteophyte complexes are seen at all cervical levels between C3-C4 and C6-C7. This likely contributes to multilevel acquired compromise of the central canal. Soft tissues: The prevertebral and paraspinous soft tissues are within normal limits. There is athero sclerotic calcification of the carotid bulbs. Calvarium: The visualized calvarium at the skull base appears intact. Brain parenchyma: Partially visualized brain parenchyma at the skull base is within normal limits. Sinuses and mastoids: The visualized paranasal sinuses are clear. The mastoid air cells are well pneu matized. Lung apices: Clear as visualized. IMPRESSION: 1. There is no evidence of fracture or subluxation involving the cervical spine. 2. Osteopenia and spondylitic change as above. ACT 112: Negative or not required by law. Electronically signed by: Saleem Viramontes M.D. 09/06/2022 8:11 PM
--- NOTE | 2022-09-06 20:15 | CT Scan Report ---
CT SCAN OF THE BRAIN WITHOUT IV CONTRAST CLINICAL HISTORY: Fall. COMPARISON STUDY: CT of the brain dated 07/25/2021. TECHNIQUE: Unenhanced axial CT scan of the brain is performed from the vertex to the skull base. A do se lowering technique was utilized adhering to the principles of ALARA. CT DOSE: 1040.58 mGy.cm FINDINGS: Brain parenchyma: There is age-related involutional change noting moderate to advanced subcortical an d periventricular microangiopathic disease. There is no hemorrhage, mass effect, or evidence of acute territorial ischemia by CT criteria. Flood-white matter differentiation is preserved. No extra-axial fluid collection is seen. Ventricles, sulci, cisterns: Prominent secondary to involutional change. Intracranial vasculature: There is atherosclerotic calcification of the cavernous carotid and vertebr al arteries. Calvarium: The skeletal structures are osteopenic. No depressed calvarial fracture is identified. Sinuses and mastoids: There is evidence of previous paranasal sinus surgery. Trace mucosal thickening is noted in the left maxillary antrum and ethmoid sinuses. The remaining visualized paranasal sinuse s are clear. The mastoid air cells are well pneumatized. Orbits: The bony orbits are grossly intact. There are bilateral ocular lens implants. IMPRESSION: There is no hemorrhage, mass effect, or evidence of acute territorial ischemia by CT mary meng. ACT 112: Negative or not required by law. Electronically signed by: Saleem Viramontes M.D. 09/06/2022 8:14 PM
--- NOTE | 2022-09-06 21:14 | History & Physical Report ---
Date of Service September 06, 2022 Assessment & Plan (1) Fall: Plan: 87 year old female w/ PmHx cervical disc syndrome, neuropathy, rheumatoid arthritis, hyperlipidemia, L acoustic neuroma, asthma, paroxysmal A fib on Eliquis 5mg BID admitted for syncopal workup. Fall: -Fall with questionable loss of consciousness and hit to head. -CT Head and Neck negative for acute bleed. -Patient with history of L acoustic neuroma, neuropathy, stroke/TIA, A. fib. -May be multifactorial in nature however given questionable loss of consciousness will workup possible stroke. -Ordered Brain MRI/MRA. -PT/OT eval and treat. -Given no active bleed on CT can hold Eliquis tonight and resume tomorrow morning. L acoustic Neuroma: -Questionable if contributing to fall, patient had tinnitus at both ears post fall, however nothing acutely prior. -Following with [facility] surgical team. A fib/HTN: -Continue home metoprolol and Eliquis. Asthma: -Continue home inhaled medications. Migraine w/ aura w/o headache: -Noted. GERD: -Continue home pantoprazole. Rheumatoid arthritis: -Continue home sulfasalazine. F/E/N/GI: Regular diet. DVT Prophylaixs: home Eliquis, no active bleed at this time. Code status: DNR/DNI. Dispo: Med/tele. 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 Patient states earlier today around noon she felt dizzy and sleepy and so decided to take a nap. She was asleep until 4PM when her woke her up for snoring too loud. She then went to a bedside commode/toilet and fell asleep on the toilet. Her called out to her to wake her up again and when she atte mpted to get up from the toilet her R leg gave out and she fell and hit her left hip and head. She is unsure if she lost consciousness after this as she said it seemed like right before she hit her head it seemed like time froze, she says if she was passed out it was only for a few seconds. She had head pain after this and had come to the ED for evaluation after discussing with her neighbor who is an anesthesiologist at [facility]. She denies any fevers, chills, urinary symptoms, diarrhea, nausea or vomiting. She states she has a past history of L sided vessel stenosis and that since being in the ED she has felt some pulsations from that area that feel irregular to her. She did not have any palpitations or this sensation during or before the events prior to coming to the hospital. She follows with [facility] for her acoustic neuroma on the left side. 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 Due to this they are planning on moving to [place] close to their daughter and will be living in an assisted living facility. They were going to look next week for places to live. In the ED blood work was unremarkable, CT spine and head negative for acute process. CXR negative for acute cardiopulm process. Allergies Allergy/AdvReac Type Severity Reaction Status Date / Time bee venom protein (honey bee) Allergy Severe Anaphylaxis Verified 09/06/22 19:50 . sulfamethoxazole Allergy Severe ANAPHYLAXIS Verified 09/06/22 19:50 trimethoprim Allergy Severe ANAPHYLAXIS Verified 09/06/22 19:50 cephalexin Allergy Intermediate RASH Verified 09/06/22 19:50 Cephalosporins Allergy Intermediate KEFLEX - Verified 09/06/22 19:50 RASH Penicillins Allergy Intermediate LIPS Verified 09/06/22 19:50 SWELLING Gfnxqzi-DMN-SzX Reductase Allergy Intermediate Rash Verified 09/06/22 19:50 Inhibitor [Aidzvhc-Rxv-Nxb Reductase Inhibitor] Home Medications Medication Instructions Recorded Confirmed Type cholecalciferol (vitamin D3) 25 1,000 unit PO HS 04/08/18 09/06/22 History mcg (1,000 unit) capsule (Vitamin D3) epinephrine 0.3 mg/0.3 mL 0.3 mg IM Q3H PRN Anaphylaxis 04/08/18 09/06/22 History injection, auto-injector (EpiPen) folic acid 1 mg tablet 2 mg PO QAM 01/07/19 09/06/22 History sulfasalazine 500 mg tablet 500 mg PO BID 03/03/20 09/06/22 History fluticasone furoate 100 1 inh inhalation QAM PRN Shortness 04/29/21 09/06/22 History mcg-vilanterol 25 mcg/dose Of Breath inhalation powder (Breo Ellipta) zoledronic acid 5 mg/100 mL in 1 ea IV UD 10/12/21 09/06/22 History mannitol 5 %-water intravenous piggybck (Reclast) potassium chloride 10 mEq 10 meq PO QAM 02/09/22 09/06/22 History capsule,extended release metoprolol succinate 50 mg 50 mg PO HS #90 tabs 03/08/22 09/06/22 Rx tablet,extended release 24 hr apixaban 5 mg tablet (Eliquis) 5 mg PO BID #180 tabs 03/28/22 09/06/22 Rx pramipexole 0.5 mg tablet 0.5 mg PO HS #30 tabs 05/03/22 09/06/22 Rx gabapentin 100 mg capsule 100 mg PO BID 08/17/22 09/06/22 History pantoprazole 20 mg tablet,delayed 20 mg PO BID 08/17/22 09/06/22 History release alirocumab 75 mg/mL subcutaneous 75 mg subcut Q14D #2 mL 08/20/22 09/06/22 Rx pen injector (Praluent Pen) clonazepam 0.5 mg tablet 0.5 mg PO HS 09/06/22 09/06/22 History spironolactone 25 mg tablet 12.5 mg PO DAILY #15 tabs 09/07/22 Rx (Aldactone) Past Med/Surg History Medical History Abdominal pain Acoustic neuroma left> with gamma knife surgery 3 yrs ago> starting to grow again Anxiety Atrial fibrillation metoprolol/Eliquis > follows with Dr. Doherty > loop recorder > replacement loop placed fall 2020; no cardioversion Chest pain COVID-19 virus detected from blood test on 06/01/21> pt was unaware she had it > no symptoms at present DVT (deep venous thrombosis) right leg > Jan 2021> no known cause > Eliquis for this Elevated bilirubin Facial spasm follows w/ dr. waqar winslow Family history of colon cancer Hiatal hernia growing per pt> reason for procedure on 06/05/21 History of anesthesia reaction reports had atelectasis after shoulder surgery History of stroke Hyperlipidemia Hypertension Hypokalemia Interstitial lung disease Loss of consciousness Mild chronic obstructive pulmonary disease well controlled per pt, rare res inh use Restless leg syndrome Right-sided chest pain dr said it's from her hiatal hernia Scoliosis Status post gamma knife treatment for acoustic neuroma to left side > 3 yrs ago Transient ischemic attack (TIA) 15 yrs ago > no residual effects > per pt, had MRI on 06/11/21, showed 2 new TIA's, doesn't follow up w/ any dr except GP Surgical History H/O rotator cuff surgery right History of carpal tunnel release left History of colonoscopy History of endoscopic sinus surgery History of esophagogastroduodenoscopy (EGD) History of hysterectomy History of tonsillectomy History of tooth extraction Hx of cataract extraction LT. Family History Mother , age 99 with no specific significant medical problems. No problems noted. Father , age 32 in a WWII plane accident No problems noted. Grandfather (Maternal) Hypertension Grandfather (Paternal) Stroke Sister Breast cancer Aunt Lung cancer maternal-smoker Grandmother (Paternal) Colorectal cancer Family/Other Heart disease per patient-"everyone" Asthma cousin Social History Smoking Status: Never smoker Second Hand Exposure: No; Do You Dip or Chew Tobacco: No; Hx Alcohol Use: Yes Alcohol type: wine and hard liquor Alcohol Intake Frequency Comment: 2 oz of whiskey daily and 1 glass of red wine with dinner Hx Substance Use: No Preferred Language: Gabonese Communication Ability: Effective Customer Care Consultant Required: No Beliefs That Will Affect Care: None marital status: Current Living Situation: Spouse current occupational status: retired 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 Physical Exam Constitutional: WD/WN, vitals as above Eyes: PERRL, conjunctivae normal, anicteric sclerae L upper eyelid with minor swelling. Respiratory: normal respiratory effort, lungs clear to auscultation Cardiovascular: Rate/Rhythm: + irregularly irregular Heart Sounds: normal S1, normal S2 and + murmur (II/ holosystolic murmur best heard at L sternal border) No peripheral swelling. Gastrointestinal (Abdomen): normal bowel sounds, soft, nontender, no hepatosplenomegaly Psychiatric: A+Ox3, euthymic affect Results & Data Results & Data Vital Signs (Past 12 Hours) Vital Signs Temp Pulse Pulse Resp BP Pulse Ox O2 Del Method 09/06/22 20:08 61 16 98 Room Air 09/06/22 19:09 15 98 Room Air 09/06/22 18:35 37 C 67 20 152/101 H 96 Room Air Supervising Physician Co-Signing Physician Notes Attending addendum: I have physically seen this patient, have supervised the medical residents activities, and agree with the H&P unless as otherwise noted. Assessment and Plan: Status post fall- CT head negative Contributing factors include but not limited to: Left acoustic neuroma, peripheral neuropathy, atrial fibrillation, stroke- Left acoustic neuroma- Order MRI brain IAC protocol Order MRA brain and neck Atrial fibrillation/hypertension- Continue metoprolol and Eliquis RA- On sulfasalazine in the outpatient setting Remaining orders and notations as noted Consult PT/OT prior to discharge Resident Activity Tracking Resident Involvement: Resident Care Provided Care Provided: Adult Hospital Medicine (1) Fall Encounter type: initial encounter Qualified Code(s): W19.XXXA - Unspecified fall, initial encounter (3) Mild closed head injury Encounter type: initial encounter Qualified Code(s): S09.90XA - Unspecified injury of head, initial encounter (11) Hyperlipemia Hyperlipidemia type: unspecified Qualified Code(s): E78.5 - Hyperlipidemia, unspecified
[2022-09-06 21:17] LABS: Partial Thromboplastin Ratio 0.9; Partial Thromboplastin Time 24.8 Seconds (21.0-31.0); Prothrombin Time 11.4 Seconds (9.0-12.0)
[2022-09-06] MEDS ORDERED: FLUTICASONE/VILANTEROL 100/25MCG 14 PUFFS/INHALER INH PRN (23:07)
[2022-09-06] MEDS ORDERED: ACETAMINOPHEN 325 MG TAB PO PRN (23:07)
[2022-09-06] MEDS ORDERED: METOPROLOL SUCC 50MG EXT REL TAB PO STA (23:46)
[2022-09-06] MEDS ORDERED: GABAPENTIN 100 MG CAP PO ONE (23:47)
[2022-09-06] MEDS ORDERED: clonazePAM 0.5 MG TAB PO STA (23:48)
[2022-09-06] MEDS ORDERED: PRAMIPEXOLE DIHYDROCHLO 0.5 MG TAB PO ONE (23:48)
--- NOTE | 2022-09-07 01:26 | Magnetic Resonance Report ---
Exam(s): MRI HEAD Without Contrast EXAM: MR Head Without Intravenous Contrast CLINICAL HISTORY: Syncope workup. History of left vestibular schwannoma. TECHNIQUE: Magnetic resonance images of the head/brain without intravenous contrast in multiple planes. COMPARISON: MRI dated 04/08/2018 FINDINGS: Brain: No hemorrhage. No evidence for diffusion restriction to suggest an evolving ischemic process. Hyperintense T2 signal within the deep white matter is not significantly altered from the previous examination. The midline structures are unremarkable. Ventricles: Unremarkable. No ventriculomegaly. Bones/joints: Unremarkable. Sinuses: Minimal mucosal thickening involving the inferior left maxillary sinus. The paranasal sinuses are otherwise well-aerated. No acute sinusitis. Mastoid air cells: Unremarkable as visualized. No mastoid effusion. Auditory system: Hem-june-ptqmaqefry imaging through the internal auditory canals demonstrates asymmetric fullness of the left intracanicular soft tissue, previously described. Orbits: Unremarkable as visualized. IMPRESSION: 1. No findings to suggest an evolving ischemic process. No mass effect or midline shift. Stable and deep white matter hyperintense T2 signal when compared to the previous exam. 2. The previously described soft tissue fullness in the left internal auditory canal is grossly stable without appreciable alteration in morphology or size. Electronically signed by: Dereck Penn MD 09/07/22 01:25 AM
--- NOTE | 2022-09-07 01:28 | Magnetic Resonance Report ---
Exam(s): MRA HEAD Without Contrast EXAM: MR Angiography Head Without Intravenous Contrast CLINICAL HISTORY: Syncope workup. TECHNIQUE: Magnetic resonance angiography images of the head without intravenous contrast. COMPARISON: No relevant prior studies available. FINDINGS: Right internal carotid artery: No acute findings. Intracranial segment is patent with no significant stenosis. No aneurysm. Right anterior cerebral artery: Unremarkable. No occlusion or significant stenosis. No aneurysm. Right middle cerebral artery: Unremarkable. No occlusion or significant stenosis. No aneurysm. Right posterior cerebral artery: Unremarkable. No occlusion or significant stenosis. No aneurysm. Right vertebral artery: Unremarkable as visualized. Left internal carotid artery: No acute findings. Intracranial segment is patent with no significant stenosis. No aneurysm. Left anterior cerebral artery: Unremarkable. No occlusion or significant stenosis. No aneurysm. Left middle cerebral artery: Unremarkable. No occlusion or significant stenosis. No aneurysm. Left posterior cerebral artery: Unremarkable. No occlusion or significant stenosis. No aneurysm. Left vertebral artery: Unremarkable as visualized. Basilar artery: Unremarkable. No occlusion or significant stenosis. No aneurysm. IMPRESSION: Negative head/brain MRA examination. Electronically signed by: Dereck Penn MD 09/07/22 01:27 AM
[2022-09-07] MEDS ORDERED: FOLIC ACID 1 MG TAB PO SCH (09:00)
[2022-09-07] MEDS ORDERED: APIXABAN 5 MG TABLET PO SCH (09:00)
[2022-09-07] MEDS ORDERED: sulfaSALAzine 500 MG TABLET PO SCH (09:00)
[2022-09-07] MEDS ORDERED: POTASSIUM CHLORIDE 10 MEQ TABCR PO SCH (09:00)
[2022-09-07] MEDS ORDERED: GABAPENTIN 100 MG CAP PO SCH (09:00)
[2022-09-07] MEDS ORDERED: PANTOprazole 40 MG TAB PO SCH (09:00)
--- NOTE | 2022-09-07 12:40 | Discharge Summary ---
Date of Service September 07, 2022 Admission HPI Per Admitting Provider Ena is an 87 year old F w/ PmHx cervical disc syndrome, neuropathy, rheumatoid arthritis, hyperlipidemia, L acoustic neuroma, asthma, paroxysmal A fib on Eliquis 5mg BID coming in to the ED for a fall earlier in the day. Patient states earlier today around noon she felt dizzy and sleepy and so decided to take a nap. She was asleep until 4PM when her woke her up for snoring too loud. She then went to a bedside commode/toilet and fell asleep on the toilet. Her called out to her to wake her up again and when she attempted to get up from the toilet her R leg gave out and she fell and hit her left hip and head. She is unsure if she lost consciousness after this as she said it seemed like right before she hit her head it seemed like time froze, she says if she was passed out it was only for a few seconds. She had head pain after this and had come to the ED for evaluation after discussing with her neighbor who is an anesthesiologist at [facility]. She denies any fevers, chills, urinary symptoms, diarrhea, nausea or vomiting. She states she has a past history of L sided vessel stenosis and that since being in the ED she has felt some pulsations from that area that feel irregular to her. She did not have any palpitations or this sensation during or before the events prior to coming to the hospital. She follows with [facility] for her acoustic neuroma on the left side. 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 Due to this they are planning on moving to [place] close to their daughter and will be living in an assisted living facility. They were going to look next week for places to live. In the ED blood work was unremarkable, CT spine and head negative for acute process. CXR negative for acute cardiopulm process. Principal Diagnosis Presyncope/syncope-likely orthostasis, closed head injury Discharge Exam Constitutional WD/WN, vitals as above Respiratory normal respiratory effort, lungs clear to auscultation Cardiovascular RRR, no murmur, no edema Gastrointestinal (Abdomen) normal bowel sounds, soft, nontender, no hepatosplenomegaly Discharge Data Allergies Allergy/AdvReac Type Severity Reaction Status Date / Time bee venom protein (honey bee) Allergy Severe Anaphylaxis Verified 09/06/22 19:50 . sulfamethoxazole Allergy Severe ANAPHYLAXIS Verified 09/06/22 19:50 trimethoprim Allergy Severe ANAPHYLAXIS Verified 09/06/22 19:50 cephalexin Allergy Intermediate RASH Verified 09/06/22 19:50 Cephalosporins Allergy Intermediate KEFLEX - Verified 09/06/22 19:50 RASH Penicillins Allergy Intermediate LIPS Verified 09/06/22 19:50 SWELLING Lkjyexn-MEY-XnE Reductase Allergy Intermediate Rash Verified 09/06/22 19:50 Inhibitor [Lakwwuv-Tpz-Dlv Reductase Inhibitor] Consultations 09/06/22 21:01 ED Decision to Admit Stat Ordered Studies 09/06/22 18:56 CT cervical spine wo con Stat CT head/brain wo con Stat 09/07/22 00:12 MR angio head wo con Routine 09/07/22 00:13 MR brain wo con Routine Hospital Course (1) Fall: 87 year old female w/ PmHx cervical disc syndrome, neuropathy, rheumatoid arthritis, hyperlipidemia, L acoustic neuroma, asthma, paroxysmal A fib on Eliquis 5mg BID admitted for syncopal workup. Fall: -Fall with questionable loss of consciousness and hit to head. -CT Head and Neck negative for acute bleed. -Patient with history of L acoustic neuroma, neuropathy, stroke/TIA, A. fib. -Brain MRI/MRA negative for acute. -PT/OT eval and treat recommend sending home. -No bleeding on CT head or brain MRI-okay to resume Eliquis -Likely orthostatic-was lying down for several hours then sat on the toilet for 40 minutes before standing up and felt lightheaded before having a brief loss of consciousness -Recommend pumping legs before getting up after prolonged periods of sitting or lying down -Interrogated loop recorder-no events. No events on telemetry here -ECG normal, troponin normal, CBC normal -She is on clonazepam which would put her at risk for falls anyway-recommend follow-up with PCP to try slowly tapering off clonazepam L acoustic Neuroma: -Follow as an outpatient with her specialist in [facility] A fib/HTN: -Continue home metoprolol and Eliquis. Patient does mention some minor ankle and hand swelling since being off spironolactone for a few months-okay to restart 12.5 Mg p.o. once daily Asthma: -Continue home inhaled medications. Migraine w/ aura w/o headache: -Noted. No acute issues GERD: -Continue home pantoprazole. Rheumatoid arthritis: -Continue home sulfasalazine. Disposition-doing very well, seen by PT/OT, stable for discharge to home. (2) senior living (current) use of anticoagulants: (3) Mild closed head injury: (4) Asthma: (5) Neuropathy: (6) Atrial fibrillation: (7) Migraine aura without headache: (8) Left acoustic neuroma: (9) HTN (hypertension): (10) GERD (gastroesophageal reflux disease): (11) Hyperlipemia: (12) Rheumatoid arthritis: Total Time Total Time Spent Total Time Spent (In Minutes): 40 minutes Discharge Plan Discharge Items Patient Disposition: Home - Self-Care Reason For Visit: SYNCOPAL WORKUP/FALL Discharge Diagnosis: Syncope, fall, closed head injury Activity: Resume your previous activity Non-emergency contact: Primary Care Provider Call non-emergency contact if: you have any medication questions and your symptoms worsen Follow-up/Referrals: Gerardo Oseguera MD [Primary Care Provider] - 09/11/22 9:15 am (Follow up within 1-2 weeks.) Diet: Regular Addtl Attending Provider Instructions: You were admitted after passing out with standing up from the toilet and hitting your head. This was most likely from orthostasis which means the blood pooled in your legs from sitting too long which caused a lack of blood flow to the brain temporarily with standing. It is important to pump your legs prior to standing to keep this from happening again. If you feel lightheaded, you should lie flat or place your head between your knees. You had your loop recorder interrogated and it did not show any abnormal heart rhythms at the time you passed out. Please talk to your PCP about a slow wean off of your clonazepam as this does put you at risk for falls. Given your persistent swelling in ankles and hands, your spironolactone will be restarted at a low dose. Have your PCP check your kidney function and potassium levels in 1-2 weeks after starting this medication. Pending Studies at Discharge: No Stand-Alone Forms: [employer], Smoking Cessation Medications and DC Order Prescriptions: New spironolactone [Aldactone] 25 mg tablet 12.5 mg PO DAILY Qty: 15 0RF Continued metoprolol succinate 50 mg tablet extended release 24 hr 50 mg PO HS Qty: 90 3RF Eliquis 5 mg tablet 5 mg PO BID Qty: 180 1RF pramipexole 0.5 mg tablet 0.5 mg PO HS Qty: 30 11RF Rx Instructions: administer 2 - 3 hours before bedtime Praluent Pen 75 mg/mL pen injector 75 mg subcut Q14D Qty: 2 5RF gabapentin 100 mg capsule 100 mg PO BID pantoprazole 20 mg tablet,delayed release (DR/EC) 20 mg PO BID folic acid 1 mg tablet 2 mg PO QAM epinephrine [EpiPen] 0.3 mg/0.3 mL Auto-Injector 0.3 mg IM Q3H PRN (Reason: Anaphylaxis) cholecalciferol (vitamin D3) [Vitamin D3] 1,000 unit Capsule 1,000 unit PO HS potassium chloride 10 mEq capsule, extended release 10 meq PO QAM sulfasalazine 500 mg Tablet 500 mg PO BID zoledronic wciu-zdqvswyg-plfbk [Reclast] 5 mg/100 mL Piggyback 1 ea IV UD Rx Instructions: Gets once a year fluticasone furoate-vilanterol [Breo Ellipta] 100-25 mcg/dose blister with device 1 inh INHALATION QAM PRN (Reason: Shortness Of Breath) Rx Instructions: "not good about taking it" clonazepam 0.5 mg tablet 0.5 mg PO HS Discharge Orders: Discharge Order (Routine); Ordered 09/07/22 Ordered By: Jennifer Downs/Other Patient Handouts: Causes of Syncope, Treating Syncope: Prevention, Vertigo Disequilibrium Syncope, Orthostatic Hypotension Admission Data Admit Date/Time: 09/06/22 22:15 Attending Provider: Jennifer Lopez Admit Provider: Choco Grewal Primary Care Provider: Gerardo Oseguera Other Providers: Ruben Singh Other Interventions: Discharge Summary Assessment (RN) Last Done: 09/07/22 12:23 Coding Level of Care Code 33286 INP/OBS DISCH >30 MIN Diagnoses Fall W19.XXXA Encounter type: initial encounter 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
--- NOTE | 2022-09-07 13:46 | Electrocardiogram Report ---
Test Reason : Blood Pressure : / mmHG Vent. Rate : 061 BPM Atrial Rate : 061 BPM P-R Int : 162 ms QRS Dur : 086 ms QT Int : 444 ms P-R-T Axes : 010 -04 013 degrees QTc Int : 446 ms Poor data quality, interpretation may be adversely affected Normal sinus rhythm Normal ECG When compared with ECG of 20-JUL-2021 12:03, No significant change was found Confirmed by Douglas Fortune ([id number]) on 09/07/2022 1:46:24 PM Referred By: REFERRED SELF Confirmed By:Douglas Fortune
[2022-09-07] MEDS ORDERED: PRAMIPEXOLE DIHYDROCHLO 0.5 MG TAB PO SCH (19:00)
[2022-09-07] MEDS ORDERED: clonazePAM 0.5 MG TAB PO SCH (21:00)
[2022-09-07] MEDS ORDERED: METOPROLOL SUCC 50MG EXT REL TAB PO SCH (21:00)
[2022-09-07] MEDS ORDERED: CHOLECALCIFEROL 1,000 UNITS 25 MCG TAB PO SCH (21:00)
--- NOTE | 2022-09-08 04:00 | Billing Data ---
Date of Service September 08, 2022 Coding Level of Care Code 87528 INT INP/OBS CARE
== END 2022-09-07 13:33 | disposition home or self-care (01) ==
LOC: 2N 18:19 → ED 18:19 → SUATTDRO 22:15 → 2N 22:45